=== PATIENT | female | born 1960 | race Caucasian/White ===

== ENCOUNTER 2016-10-02 17:00 | Observation (INO) ==
[2016-10-02 18:40] LABS: Basophils % 0.3 %; Eosinophils # 0.3 K/mcL (0.0-0.6); Eosinophils % 2.2 %; Hematocrit 46.9 % (35.3-44.9); Hemoglobin 15.3 g/dL (11.5-15.4); Immature Granulocytes % 0.4 % (0-4); Lymphocytes # 2.7 K/mcL (0.6-4.6); Lymphocytes % 19.9 %; Mean Corpuscular HGB Conc 32.6 g/dL (31.6-35.5); Mean Corpuscular Hemoglobin 31.5 pg (28.0-33.3); Mean Corpuscular Volume 96.7 fL (83.0-100.0); Monocytes # 1.2 K/mcL (0.0-1.3); Monocytes % 8.6 %; Neutrophils # 9.3 K/mcL (1.6-8.9); Platelet Count 332 K/mcL (140-400); Red Blood Count 4.85 M/mcL (3.82-4.97); Red Cell Distribution Width 13.3 % (11.5-14.5); Segmented Neutrophils % 68.6 %
[2016-10-02 18:45] LABS: INR 1.1; Prothrombin Time 11.6 Seconds (9.4-12.1)
[2016-10-02 18:48] LABS: Activated Partial Thrombo Time 27.2 Seconds (26.0-36.0)
--- NOTE | 2016-10-02 18:51 | Emergency Department Note ---
Disposition Clinical Impression: Tachycardia, Hypoxia Disposition: Still a Patient Referrals: NO,PCP [Primary Care Provider] - Forms: ED Satisfaction Letter Time of Disposition: 18:55 General Adult HPI - General Chief complaint: ED Arrhythmia/Palpitations Stated complaint: SOB / increase HR Time Seen by Provider: 10/02/16 18:47 Source: patient Limitations: no limitations Nursing Notes Reviewed: Yes Vital Signs Reviewed: Yes - History of Present Illness HPI Narrative: 56 year old female with HX of tachycardia and shortness of breath with hypoxia in Dr. Oleary office today. PAtinet became hypoxic to 81% and tachy into 120s. She is a long standing smoker and oxygen dependen COPD, previois MIs, CAD. Patient denies hX of PEs. She states that she is increasingly dyspneic and denies fevers, however haad a chronic cough and states that is getting worse. Associated with nausea but not vomiting. Exertion makes it worse. Sent here for evaluation to rule out PE or pnuemonia. AL with angioplasty. Pain Scale: 0 - Related Data Home Medications Medication Instructions Recorded Confirmed Clopidogrel [Plavix] 75 mg PO DAILY 06/04/15 09/09/16 Aspirin [Lo-Dose Aspirin EC] 81 mg PO QAM 04/24/16 09/09/16 Furosemide [Lasix] 20 mg PO DAILY PRN 05/29/16 09/09/16 Metoprolol XL (24 HR) Succ [Toprol 25 mg PO DAILY 05/29/16 09/09/16 Xl] Nitroglycerin [Nitrostat] 0.4 mg SL Q5M PRN 05/29/16 09/09/16 Previous Rx's Medication Instructions Recorded Pravastatin Sodium [Pravachol] 40 mg PO DAILY #30 tablet 08/01/15 Budesonide/Formoterol 160/4.5 2 puff IH BIDR #1 hfa.aer.ad 09/09/16 [Symbicort 160/4.5] Levofloxacin [Levaquin] 500 mg PO DAILY #7 tablet 09/09/16 PredniSONE 40 mg PO DAILY #10 tablet 09/09/16 Promethazine/Dextromethorphan 5 ml PO Q4-6H #240 syrup 09/09/16 [Promethazine-Dm Syrup] Allergies Allergy/AdvReac Type Severity Reaction Status Date / Time codeine Allergy Rash Verified 10/02/16 17:21 Constitutional: Reports: chills, weakness. Denies: fever, weight change Eyes: Denies: eye pain, eye discharge, vision change ENT ED: Denies: ear pain, throat pain, dental pain, hearing loss, epistaxis, congestion, dysphagia Cardiovascular: Reports: chest pain, palpitations, dyspnea on exertion. Denies : edema, syncope Respiratory: Reports: cough, dyspnea. Denies: wheezes, hemoptysis, stridor Gastrointestinal: Denies: abdominal pain, nausea, vomiting, diarrhea, constipation, hematemesis, melena, hematochezia Genitourinary: Denies: dysuria, frequency, hematuria, discharge Musculoskeletal: Denies: back pain, neck pain, arthralgia, myalgia Integumentary: Denies: rash, abrasion, lesions Neurological: Denies: headache, weakness, numbness, paresthesias, confusion, abnormal gait, vertigo Psychiatric: Denies: anxiety, depression, suicidal thoughts, homicidal thoughts , auditory hallucinations, visual hallucinations Endocrine: Denies: fatigue Hematological/Lymphatic: Denies: easy bleeding, easy bruising Allergic/Immunologic: Denies: facial swelling, urticaria Past Medical History - Past Medical History Medical history: Reports: asthma, atrial fibrillation, COPD, coronary artery disease, hyperlipidemia, myocardial infarction, other Surgical history: Reports: angioplasty/stent, cholecystectomy Psychiatric history: Reports: no psych history NURSE INTERN history: Reports: no NURSE INTERN history, bilateral tubal ligation - Social History Smoking Status: Current every day smoker Smokeless Tobacco Status: No Alcohol use: Reports: heavy Drug use: Reports: marijuana Physical Exam - General Limitations: no limitations General appearance: alert, in no apparent distress - Head Head exam: atraumatic, normocephalic, normal inspection - Eye Eye exam: Present: normal appearance, PERRL, EOMI - Expanded Eye Exam Pupils: Left: reactive - ENT ENT exam: normal exam, normal oropharynx, mucous membranes moist - Expanded ENT Exam External ear exam: Present: normal external inspection Mouth exam: Present: normal external inspection Teeth exam: Present: normal inspection Throat exam: Present: normal inspection - Neck Neck exam: Present: normal inspection, full ROM, trachea midline - Chest Chest inspection: Present: normal inspection, symmetric chest wall rise - Respiratory Respiratory exam: Present: normal lung sounds bilaterally - Cardiovascular Cardiovascular exam: Present: normal rhythm, tachycardia, normal heart sounds - Abdominal Exam Abdominal exam: Present: soft, Non-Tender. Absent: tenderness, distention, guarding, rebound, rigidity - Extremities Exam Extremities exam: Present: normal inspection, full ROM. Absent: tenderness, pedal edema - Expanded Upper Extremity Exam Shoulder exam: Present: normal inspection, full ROM Arm exam: Present: normal inspection, full ROM Elbow exam: Present: normal inspection, full ROM Forearm/Wrist exam: Present: normal inspection, full ROM Hand exam: Present: normal inspection, full ROM Vascular exam: Normal: capillary refill, radial pulse - Expanded Lower Extremity Exam Hip/Pelvis exam: Present: normal inspection, full ROM Upper leg exam: Present: normal inspection, full ROM Knee exam: Present: normal inspection, full ROM Lower leg exam: Present: normal inspection, full ROM Ankle exam: Present: normal inspection, full ROM Foot/toe exam: Present: normal inspection, full ROM Neurovascular/Tendon exam: Absent: motor deficit, sensory deficit, tendon deficit - Back Exam Back exam: Present: normal inspection, full ROM. Absent: tenderness - Neurological Exam Neurological exam: Present: alert, oriented X3 - Expanded Neurological Exam Patient oriented to: Present: person, place, time Coma Scale Eye Opening: Spontaneous Coma Scale Motor Response: Obeys Commands Coma Scale Verbal Response: Oriented Coma Scale Total: 15 - Psychiatric Psychiatric exam: Present: normal affect, normal mood - Skin Skin exam: Present: warm, dry, intact, normal color Course Course Narrative: we will do a chest pain workup in addition to r/o PE and r/o pnuemoina. CXR (-) , will order CTA chest. will sign out to night team. PLan is to admit to the medicine serivce even if CTA is neg due to hypoxia and tachycardia. May need medications to slow down HR, although does not appear to be in atrial fibrillation. Vital Signs Temperature 98.4 F 10/02/16 17:16 Pulse Rate 118 10/02/16 17:16 Respiratory Rate 18 10/02/16 17:16 Blood Pressure 119/65 10/02/16 17:16 O2 Sat by Pulse Oximetry 87 10/02/16 17:16 Temperature 98.4 F 10/02/16 17:16 Pulse Rate 118 10/02/16 17:16 Respiratory Rate 18 10/02/16 17:16 Blood Pressure 119/65 10/02/16 17:16 O2 Sat by Pulse Oximetry 98 10/02/16 18:10 Oxygen Delivery Oxygen Delivery Room Air Medical Decision Making - Lab Data Result diagrams: 10/02/16 18:24 Lab Results 10/02/16 Range/Units 18:24 WBC 13.5 H (4.3-11.1) K/mcL RBC 4.85 (3.82-4.97) M/mcL Hgb 15.3 (11.5-15.4) g/dL Hct 46.9 H (35.3-44.9) % MCV 96.7 (83.0-100.0) fL MCH 31.5 (28.0-33.3) pg MCHC 32.6 (31.6-35.5) g/dL RDW 13.3 (11.5-14.5) % Plt Count 332 (140-400) K/mcL MPV 9.0 L (9.4-12.4) fL Immature Gran % 0.4 (0-4) % Seg Neutrophils % 68.6 % Lymphocytes % 19.9 % Monocytes % 8.6 % Eosinophils % 2.2 % Basophils % 0.3 % Neutrophils # 9.3 H (1.6-8.9) K/mcL Lymphocytes # 2.7 (0.6-4.6) K/mcL Monocytes # 1.2 (0.0-1.3) K/mcL Eosinophils # 0.3 (0.0-0.6) K/mcL Basophils # 0.0 (0.0-0.2) K/mcL - EKG Data EKG #1 EKG attestation: Yes I reviewed and interpreted this EKG. EKG results narrative: sinus tachy with rate of 101. NO STEMI. normal intevals. ISABEL/LAE. nonspecific St -T changes. no change from old ekg 09/09/16 915
--- NOTE | 2016-10-02 18:51 | Emergency Department Note ---
Disposition Clinical Impression: Tachycardia, Hypoxia Disposition: Admitted As Inpatient Condition: Good General Adult HPI - General Chief complaint: ED Arrhythmia/Palpitations Stated complaint: SOB / increase HR Time Seen by Provider: 10/02/16 18:30 Source: patient Limitations: no limitations - History of Present Illness Pain Scale: 0 - Related Data Home Medications Medication Instructions Recorded Confirmed Clopidogrel [Plavix] 75 mg PO DAILY 06/04/15 10/02/16 Aspirin [Lo-Dose Aspirin EC] 81 mg PO QAM 04/24/16 10/02/16 Furosemide [Lasix] 20 mg PO DAILY 05/29/16 10/02/16 Metoprolol XL (24 HR) Succ [Toprol 25 mg PO DAILY 05/29/16 10/02/16 Xl] Nitroglycerin [Nitrostat] 0.4 mg SL Q5M PRN 05/29/16 10/02/16 Albuterol Sulfate [Ventolin Hfa] 2 puff IH Q4H PRN 10/02/16 10/02/16 Mometasone/Formoterol [Dulera 200 2 puff IH BID 10/02/16 10/02/16 Mcg/5 Mcg Inhaler] Pravastatin Sodium [Pravachol] 40 mg PO HS 10/02/16 10/02/16 Previous Rx's Medication Instructions Recorded Budesonide/Formoterol 160/4.5 2 puff IH BIDR #1 hfa.aer.ad 09/09/16 [Symbicort 160/4.5] PredniSONE 10 mg PO DAILY 12 Days 10/03/16 Allergies Allergy/AdvReac Type Severity Reaction Status Date / Time codeine Allergy Rash Verified 10/02/16 17:21 Past Medical History - Past Medical History Medical history: Reports: asthma, atrial fibrillation, COPD, coronary artery disease, hyperlipidemia, myocardial infarction, other Surgical history: Reports: angioplasty/stent, cholecystectomy Psychiatric history: Reports: no psych history CFO CONTROLLER history: Reports: no CFO CONTROLLER history, bilateral tubal ligation - Social History Smoking Status: Current every day smoker Smokeless Tobacco Status: No Alcohol use: Reports: heavy Drug use: Reports: marijuana Physical Exam - General Limitations: no limitations General appearance: alert, in no apparent distress Course Vital Signs Temperature 98.4 F 10/02/16 17:16 Pulse Rate 118 10/02/16 17:16 Respiratory Rate 18 10/02/16 17:16 Blood Pressure 119/65 10/02/16 17:16 O2 Sat by Pulse Oximetry 87 10/02/16 17:16 Temperature 97.6 F 10/03/16 07:21 Pulse Rate 100 10/03/16 07:21 Respiratory Rate 16 10/03/16 08:10 Blood Pressure 120/76 10/03/16 07:21 O2 Sat by Pulse Oximetry 95 10/03/16 08:10 Oxygen Delivery Oxygen Delivery Nasal Cannula Medical Decision Making - Lab Data Result diagrams: 10/03/16 04:05 10/03/16 04:05 Lab Results 10/02/16 10/02/16 10/02/16 Range/Units 18:24 18:24 18:24 WBC (4.3-11.1) K/mcL RBC (3.82-4.97) M/mcL Hgb (11.5-15.4) g/dL Hct (35.3-44.9) % MCV (83.0-100.0) fL MCH (28.0-33.3) pg MCHC (31.6-35.5) g/dL RDW (11.5-14.5) % Plt Count (140-400) K/mcL MPV (9.4-12.4) fL Immature Gran % (0-4) % Seg Neutrophils % % Lymphocytes % % Monocytes % % Eosinophils % % Basophils % % Neutrophils # (1.6-8.9) K/mcL Lymphocytes # (0.6-4.6) K/mcL Monocytes # (0.0-1.3) K/mcL Eosinophils # (0.0-0.6) K/mcL Basophils # (0.0-0.2) K/mcL PT 11.6 (9.4-12.1) Seconds INR 1.1 APTT 27.2 (26.0-36.0) Seconds D-Dimer 237 (0-500) ng/mLFEU Sodium (136-145) mEq/L Potassium (3.5-4.5) mEq/L Chloride (98-109) mEq/L Carbon Dioxide (19-29) mEq/L BUN (7-20) mg/dL Creatinine (0.57-1.11) mg/dL Est GFR ( Amer) (> 60) Est GFR (Non-Af Amer) (> 60) BUN/Creatinine Ratio (6-26) Glucose (70-99) mg/dL Calculated Osmolality (280-300) Calcium (8.6-10.8) mg/dL Total Bilirubin 0.5 (0.2-1.2) mg/dL Direct Bilirubin 0.2 (0.0-0.5) mg/dL Indirect Bilirubin 0.3 (0.0-1.2) mg/dL AST 14 (5-34) Units/L ALT 7 (0-55) Units/L Alkaline Phosphatase 95 (38-126) Units/L Troponin I (0-0.03) ng/mL B-Natriuretic Peptide 22 (0-100) pg/mL Serum Total Protein 7.2 (6.0-8.3) g/dL Albumin 2.8 L (3.5-5.0) g/dL Globulin 4.4 H (2.4-3.5) g/dL Albumin/Globulin Ratio 0.6 L (1.1-2.2) Lipase 23 (8-78) Units/L Urine Color (Yellow) Urine Clarity (Clear) Urine pH (5.0-8.0) pH Units Ur Specific [place] (1.010-1.025) Urine Protein (Neg-Trace) mg/dL Urine Glucose (UA) (Normal) mg/dL Urine Ketones (Negative) mg/dL Urine Blood (Negative) Urine Nitrite (Negative) Urine Bilirubin (Negative) Urine Urobilinogen (Normal) mg/dL Ur Leukocyte Esterase (Negative) Urine Microscopic RBC (0-3) per hpf Urine Microscopic WBC (0-3) per hpf Ur Squamous Epith Cells (None-Few) per lpf Urine Bacteria (None-Few) per hpf Hyaline Casts (None-Few) per lpf Ur Culture Indicated? (NO) 10/02/16 10/02/16 10/02/16 Range/Units 18:24 18:24 18:24 WBC 13.5 H (4.3-11.1) K/mcL RBC 4.85 (3.82-4.97) M/mcL Hgb 15.3 (11.5-15.4) g/dL Hct 46.9 H (35.3-44.9) % MCV 96.7 (83.0-100.0) fL MCH 31.5 (28.0-33.3) pg MCHC 32.6 (31.6-35.5) g/dL RDW 13.3 (11.5-14.5) % Plt Count 332 (140-400) K/mcL MPV 9.0 L (9.4-12.4) fL Immature Gran % 0.4 (0-4) % Seg Neutrophils % 68.6 % Lymphocytes % 19.9 % Monocytes % 8.6 % Eosinophils % 2.2 % Basophils % 0.3 % Neutrophils # 9.3 H (1.6-8.9) K/mcL Lymphocytes # 2.7 (0.6-4.6) K/mcL Monocytes # 1.2 (0.0-1.3) K/mcL Eosinophils # 0.3 (0.0-0.6) K/mcL Basophils # 0.0 (0.0-0.2) K/mcL PT (9.4-12.1) Seconds INR APTT (26.0-36.0) Seconds D-Dimer (0-500) ng/mLFEU Sodium 139 (136-145) mEq/L Potassium 3.2 L (3.5-4.5) mEq/L Chloride 98 (98-109) mEq/L Carbon Dioxide 30 H (19-29) mEq/L BUN 4 L (7-20) mg/dL Creatinine 0.75 (0.57-1.11) mg/dL Est GFR ( Amer) > 60 (> 60) Est GFR (Non-Af Amer) > 60 (> 60) BUN/Creatinine Ratio 5 L (6-26) Glucose 126 H (70-99) mg/dL Calculated Osmolality 286 (280-300) Calcium 9.0 (8.6-10.8) mg/dL Total Bilirubin (0.2-1.2) mg/dL Direct Bilirubin (0.0-0.5) mg/dL Indirect Bilirubin (0.0-1.2) mg/dL AST (5-34) Units/L ALT (0-55) Units/L Alkaline Phosphatase (38-126) Units/L Troponin I 0.00 (0-0.03) ng/mL B-Natriuretic Peptide (0-100) pg/mL Serum Total Protein (6.0-8.3) g/dL Albumin (3.5-5.0) g/dL Globulin (2.4-3.5) g/dL Albumin/Globulin Ratio (1.1-2.2) Lipase (8-78) Units/L Urine Color (Yellow) Urine Clarity (Clear) Urine pH (5.0-8.0) pH Units Ur Specific [place] (1.010-1.025) Urine Protein (Neg-Trace) mg/dL Urine Glucose (UA) (Normal) mg/dL Urine Ketones (Negative) mg/dL Urine Blood (Negative) Urine Nitrite (Negative) Urine Bilirubin (Negative) Urine Urobilinogen (Normal) mg/dL Ur Leukocyte Esterase (Negative) Urine Microscopic RBC (0-3) per hpf Urine Microscopic WBC (0-3) per hpf Ur Squamous Epith Cells (None-Few) per lpf Urine Bacteria (None-Few) per hpf Hyaline Casts (None-Few) per lpf Ur Culture Indicated? (NO) 10/02/16 Range/Units 19:17 WBC (4.3-11.1) K/mcL RBC (3.82-4.97) M/mcL Hgb (11.5-15.4) g/dL Hct (35.3-44.9) % MCV (83.0-100.0) fL MCH (28.0-33.3) pg MCHC (31.6-35.5) g/dL RDW (11.5-14.5) % Plt Count (140-400) K/mcL MPV (9.4-12.4) fL Immature Gran % (0-4) % Seg Neutrophils % % Lymphocytes % % Monocytes % % Eosinophils % % Basophils % % Neutrophils # (1.6-8.9) K/mcL Lymphocytes # (0.6-4.6) K/mcL Monocytes # (0.0-1.3) K/mcL Eosinophils # (0.0-0.6) K/mcL Basophils # (0.0-0.2) K/mcL PT (9.4-12.1) Seconds INR APTT (26.0-36.0) Seconds D-Dimer (0-500) ng/mLFEU Sodium (136-145) mEq/L Potassium (3.5-4.5) mEq/L Chloride (98-109) mEq/L Carbon Dioxide (19-29) mEq/L BUN (7-20) mg/dL Creatinine (0.57-1.11) mg/dL Est GFR ( Amer) (> 60) Est GFR (Non-Af Amer) (> 60) BUN/Creatinine Ratio (6-26) Glucose (70-99) mg/dL Calculated Osmolality (280-300) Calcium (8.6-10.8) mg/dL Total Bilirubin (0.2-1.2) mg/dL Direct Bilirubin (0.0-0.5) mg/dL Indirect Bilirubin (0.0-1.2) mg/dL AST (5-34) Units/L ALT (0-55) Units/L Alkaline Phosphatase (38-126) Units/L Troponin I (0-0.03) ng/mL B-Natriuretic Peptide (0-100) pg/mL Serum Total Protein (6.0-8.3) g/dL Albumin (3.5-5.0) g/dL Globulin (2.4-3.5) g/dL Albumin/Globulin Ratio (1.1-2.2) Lipase (8-78) Units/L Urine Color Yellow (Yellow) Urine Clarity Cloudy A (Clear) Urine pH 6.5 (5.0-8.0) pH Units Ur Specific [place] 1.016 (1.010-1.025) Urine Protein Negative (Neg-Trace) mg/dL Urine Glucose (UA) Normal (Normal) mg/dL Urine Ketones Negative (Negative) mg/dL Urine Blood Negative (Negative) Urine Nitrite Negative (Negative) Urine Bilirubin Small H (Negative) Urine Urobilinogen 4.0 H (Normal) mg/dL Ur Leukocyte Esterase Negative (Negative) Urine Microscopic RBC 0-3 (0-3) per hpf Urine Microscopic WBC 0-3 (0-3) per hpf Ur Squamous Epith Cells Many H (None-Few) per lpf Urine Bacteria None Seen (None-Few) per hpf Hyaline Casts None Seen (None-Few) per lpf Ur Culture Indicated? NO (NO) Attestation Statement - Attestation Attestation: I examined this patient and my medical decision-making was reviewed with the INTEGRATED MARKETING SPECIALIST/PA/Advanced Practice Nurse/Resident Physician. I agree with the documented findings, disposition and treatment plan as described except to the extent set forth below. Patient to the emergency department a high heart rate low pulse ox. Sent over from cardiology office. She had complained of some palpitations. History of angioplasty. Also, the chest pressure. On examination she is in no distress. Satting well on oxygen. Lungs clear. Plan. Patient tachycardic and hypoxic. Cardiac workup with PE rule out. Will be signed out to tag press operator.
[2016-10-02 18:52] LABS: BUN/Creatinine Ratio 5 (6-26); Carbon Dioxide 30 mEq/L (19-29); Chloride 98 mEq/L (98-109); Glucose 126 mg/dL (70-99); Osmolality,Calculated 286 (280-300); Potassium 3.2 mEq/L (3.5-4.5); Sodium 139 mEq/L (136-145); eGFR For African Americans > 60 (> 60); eGFR For Non-African Americans > 60 (> 60)
[2016-10-02 18:53] LABS: Blood Urea Nitrogen 4 mg/dL (7-20)
[2016-10-02 18:55] LABS: Albumin 2.8 g/dL (3.5-5.0); Albumin/Globulin Ratio 0.6 (1.1-2.2); Bilirubin,Direct 0.2 mg/dL (0.0-0.5); Bilirubin,Indirect 0.3 mg/dL (0.0-1.2); Bilirubin,Total 0.5 mg/dL (0.2-1.2); Globulin 4.4 g/dL (2.4-3.5); Total Protein 7.2 g/dL (6.0-8.3)
[2016-10-02 19:27] LABS: Bilirubin,Urine Small (Negative); Blood,Urine Negative (Negative); Clarity,Urine Cloudy (Clear); Color,Urine Yellow (Yellow); Glucose,Urine (UA) Normal (Normal); Ketones,Urine Negative (Negative); Leukocyte Esterase,Urine Negative (Negative); Nitrite,Urine Negative (Negative); PH,Urine 6.5 pH Units (5.0-8.0); Protein,Urine Negative (Neg-Trace); Specific Gravity,Urine 1.016 (1.010-1.025)
[2016-10-02 19:34] LABS: Bacteria,Urine None Seen per hpf (None-Few); Hyaline Casts,Urine None Seen per lpf (None-Few); RBC,Urine 0-3 per hpf (0-3); Squamous Epithelial Cell,Urine Many per lpf (None-Few); WBC,Urine 0-3 per hpf (0-3)
--- NOTE | 2016-10-02 20:09 | Emergency Department Note ---
Disposition Clinical Impression: Tachycardia, Hypoxia Disposition: Still a Patient Referrals: NO,PCP [Primary Care Provider] - Forms: ED Satisfaction Letter Arrhythmia/Palpitations HPI - General Chief Complaint: ED Arrhythmia/Palpitations Stated Complaint: SOB / increase HR Time Seen by Provider: 10/02/16 20:06 Source: patient Limitations: no limitations - Related Data Home Medications Medication Instructions Recorded Confirmed Clopidogrel [Plavix] 75 mg PO DAILY 06/04/15 09/09/16 Aspirin [Lo-Dose Aspirin EC] 81 mg PO QAM 04/24/16 09/09/16 Furosemide [Lasix] 20 mg PO DAILY PRN 05/29/16 09/09/16 Metoprolol XL (24 HR) Succ [Toprol 25 mg PO DAILY 05/29/16 09/09/16 Xl] Nitroglycerin [Nitrostat] 0.4 mg SL Q5M PRN 05/29/16 09/09/16 Previous Rx's Medication Instructions Recorded Pravastatin Sodium [Pravachol] 40 mg PO DAILY #30 tablet 08/01/15 Budesonide/Formoterol 160/4.5 2 puff IH BIDR #1 hfa.aer.ad 09/09/16 [Symbicort 160/4.5] Levofloxacin [Levaquin] 500 mg PO DAILY #7 tablet 09/09/16 PredniSONE 40 mg PO DAILY #10 tablet 09/09/16 Promethazine/Dextromethorphan 5 ml PO Q4-6H #240 syrup 09/09/16 [Promethazine-Dm Syrup] Allergies Allergy/AdvReac Type Severity Reaction Status Date / Time codeine Allergy Rash Verified 10/02/16 17:21 Constitutional: Reports: chills, weakness. Denies: fever, weight change Eyes: Denies: eye pain, eye discharge, vision change ENT ED: Denies: ear pain, throat pain, dental pain, hearing loss, epistaxis, congestion, dysphagia Cardiovascular: Reports: chest pain, palpitations, dyspnea on exertion. Denies : edema, syncope Respiratory: Reports: cough, dyspnea. Denies: wheezes, hemoptysis, stridor Gastrointestinal: Denies: abdominal pain, nausea, vomiting, diarrhea, constipation, hematemesis, melena, hematochezia Genitourinary: Denies: dysuria, frequency, hematuria, discharge Musculoskeletal: Denies: back pain, neck pain, arthralgia, myalgia Integumentary: Denies: rash, abrasion, lesions Neurological: Denies: headache, weakness, numbness, paresthesias, confusion, abnormal gait, vertigo Psychiatric: Denies: anxiety, depression, suicidal thoughts, homicidal thoughts , auditory hallucinations, visual hallucinations Endocrine: Denies: fatigue Hematological/Lymphatic: Denies: easy bleeding, easy bruising Allergic/Immunologic: Denies: facial swelling, urticaria Past Medical History - Past Medical History Medical history: Reports: asthma, atrial fibrillation, COPD, coronary artery disease, hyperlipidemia, myocardial infarction, other Surgical history: Reports: angioplasty/stent, cholecystectomy Psychiatric history: Reports: no psych history PUBLIC RELATIONS PLAYER history: Reports: no PUBLIC RELATIONS PLAYER history, bilateral tubal ligation - Social History Smoking Status: Current every day smoker Smokeless Tobacco Status: No Alcohol use: Reports: heavy Drug use: Reports: marijuana Physical Exam - General Limitations: no limitations General appearance: alert, in no apparent distress Course - Reevaluation(s) Reevaluation #1: Patient signed out from the daytime team. The patient presented from the rewrite editor's office for hypoxia and tachycardia. Plan was to rule out PE or pneumonia. CTA of the chest is back and is negative for PE but does show some inflammatory versus infectious. Pulmonary nodules. Plan is to admit the patient for hypoxia and tachycardia. Patient is home O2 dependent for COPD and this could likely be related to COPD exacerbation. We will page the hospitalist for admission. Time: 20:08 Vital Signs Temperature 98.4 F 10/02/16 17:16 Pulse Rate 118 10/02/16 17:16 Respiratory Rate 18 10/02/16 17:16 Blood Pressure 119/65 10/02/16 17:16 O2 Sat by Pulse Oximetry 87 10/02/16 17:16 Temperature 98.4 F 10/02/16 17:16 Pulse Rate 98 10/02/16 20:00 Respiratory Rate 20 10/02/16 20:00 Blood Pressure 123/83 10/02/16 20:00 O2 Sat by Pulse Oximetry 96 10/02/16 20:00 Oxygen Delivery Oxygen Delivery Nasal Cannula Arrhythmia/Palpitations - Lab Data Result diagrams: 10/02/16 18:24 10/02/16 18:24 Lab Results 04/12/17 04/12/17 04/12/17 Range/Units 18:24 18:24 18:24 WBC (4.3-11.1) K/mcL RBC (3.82-4.97) M/mcL Hgb (11.5-15.4) g/dL Hct (35.3-44.9) % MCV (83.0-100.0) fL MCH (28.0-33.3) pg MCHC (31.6-35.5) g/dL RDW (11.5-14.5) % Plt Count (140-400) K/mcL MPV (9.4-12.4) fL Immature Gran % (0-4) % Seg Neutrophils % % Lymphocytes % % Monocytes % % Eosinophils % % Basophils % % Neutrophils # (1.6-8.9) K/mcL Lymphocytes # (0.6-4.6) K/mcL Monocytes # (0.0-1.3) K/mcL Eosinophils # (0.0-0.6) K/mcL Basophils # (0.0-0.2) K/mcL PT 11.6 (9.4-12.1) Seconds INR 1.1 APTT 27.2 (26.0-36.0) Seconds D-Dimer 237 (0-500) ng/mLFEU Sodium (136-145) mEq/L Potassium (3.5-4.5) mEq/L Chloride (98-109) mEq/L Carbon Dioxide (19-29) mEq/L BUN (7-20) mg/dL Creatinine (0.57-1.11) mg/dL Est GFR ( Amer) (> 60) Est GFR (Non-Af Amer) (> 60) BUN/Creatinine Ratio (6-26) Glucose (70-99) mg/dL Calculated Osmolality (280-300) Calcium (8.6-10.8) mg/dL Total Bilirubin 0.5 (0.2-1.2) mg/dL Direct Bilirubin 0.2 (0.0-0.5) mg/dL Indirect Bilirubin 0.3 (0.0-1.2) mg/dL AST 14 (5-34) Units/L ALT 7 (0-55) Units/L Alkaline Phosphatase 95 (38-126) Units/L Troponin I (0-0.03) ng/mL B-Natriuretic Peptide 22 (0-100) pg/mL Serum Total Protein 7.2 (6.0-8.3) g/dL Albumin 2.8 L (3.5-5.0) g/dL Globulin 4.4 H (2.4-3.5) g/dL Albumin/Globulin Ratio 0.6 L (1.1-2.2) Lipase 23 (8-78) Units/L Urine Color (Yellow) Urine Clarity (Clear) Urine pH (5.0-8.0) pH Units Ur Specific [place] (1.010-1.025) Urine Protein (Neg-Trace) mg/dL Urine Glucose (UA) (Normal) mg/dL Urine Ketones (Negative) mg/dL Urine Blood (Negative) Urine Nitrite (Negative) Urine Bilirubin (Negative) Urine Urobilinogen (Normal) mg/dL Ur Leukocyte Esterase (Negative) Urine Microscopic RBC (0-3) per hpf Urine Microscopic WBC (0-3) per hpf Ur Squamous Epith Cells (None-Few) per lpf Urine Bacteria (None-Few) per hpf Hyaline Casts (None-Few) per lpf Ur Culture Indicated? (NO) 10/02/16 10/02/16 10/02/16 Range/Units 18:24 18:24 18:24 WBC 13.5 H (4.3-11.1) K/mcL RBC 4.85 (3.82-4.97) M/mcL Hgb 15.3 (11.5-15.4) g/dL Hct 46.9 H (35.3-44.9) % MCV 96.7 (83.0-100.0) fL MCH 31.5 (28.0-33.3) pg MCHC 32.6 (31.6-35.5) g/dL RDW 13.3 (11.5-14.5) % Plt Count 332 (140-400) K/mcL MPV 9.0 L (9.4-12.4) fL Immature Gran % 0.4 (0-4) % Seg Neutrophils % 68.6 % Lymphocytes % 19.9 % Monocytes % 8.6 % Eosinophils % 2.2 % Basophils % 0.3 % Neutrophils # 9.3 H (1.6-8.9) K/mcL Lymphocytes # 2.7 (0.6-4.6) K/mcL Monocytes # 1.2 (0.0-1.3) K/mcL Eosinophils # 0.3 (0.0-0.6) K/mcL Basophils # 0.0 (0.0-0.2) K/mcL PT (9.4-12.1) Seconds INR APTT (26.0-36.0) Seconds D-Dimer (0-500) ng/mLFEU Sodium 139 (136-145) mEq/L Potassium 3.2 L (3.5-4.5) mEq/L Chloride 98 (98-109) mEq/L Carbon Dioxide 30 H (19-29) mEq/L BUN 4 L (7-20) mg/dL Creatinine 0.75 (0.57-1.11) mg/dL Est GFR ( Amer) > 60 (> 60) Est GFR (Non-Af Amer) > 60 (> 60) BUN/Creatinine Ratio 5 L (6-26) Glucose 126 H (70-99) mg/dL Calculated Osmolality 286 (280-300) Calcium 9.0 (8.6-10.8) mg/dL Total Bilirubin (0.2-1.2) mg/dL Direct Bilirubin (0.0-0.5) mg/dL Indirect Bilirubin (0.0-1.2) mg/dL AST (5-34) Units/L ALT (0-55) Units/L Alkaline Phosphatase (38-126) Units/L Troponin I 0.00 (0-0.03) ng/mL B-Natriuretic Peptide (0-100) pg/mL Serum Total Protein (6.0-8.3) g/dL Albumin (3.5-5.0) g/dL Globulin (2.4-3.5) g/dL Albumin/Globulin Ratio (1.1-2.2) Lipase (8-78) Units/L Urine Color (Yellow) Urine Clarity (Clear) Urine pH (5.0-8.0) pH Units Ur Specific [place] (1.010-1.025) Urine Protein (Neg-Trace) mg/dL Urine Glucose (UA) (Normal) mg/dL Urine Ketones (Negative) mg/dL Urine Blood (Negative) Urine Nitrite (Negative) Urine Bilirubin (Negative) Urine Urobilinogen (Normal) mg/dL Ur Leukocyte Esterase (Negative) Urine Microscopic RBC (0-3) per hpf Urine Microscopic WBC (0-3) per hpf Ur Squamous Epith Cells (None-Few) per lpf Urine Bacteria (None-Few) per hpf Hyaline Casts (None-Few) per lpf Ur Culture Indicated? (NO) 10/02/16 Range/Units 19:17 WBC (4.3-11.1) K/mcL RBC (3.82-4.97) M/mcL Hgb (11.5-15.4) g/dL Hct (35.3-44.9) % MCV (83.0-100.0) fL MCH (28.0-33.3) pg MCHC (31.6-35.5) g/dL RDW (11.5-14.5) % Plt Count (140-400) K/mcL MPV (9.4-12.4) fL Immature Gran % (0-4) % Seg Neutrophils % % Lymphocytes % % Monocytes % % Eosinophils % % Basophils % % Neutrophils # (1.6-8.9) K/mcL Lymphocytes # (0.6-4.6) K/mcL Monocytes # (0.0-1.3) K/mcL Eosinophils # (0.0-0.6) K/mcL Basophils # (0.0-0.2) K/mcL PT (9.4-12.1) Seconds INR APTT (26.0-36.0) Seconds D-Dimer (0-500) ng/mLFEU Sodium (136-145) mEq/L Potassium (3.5-4.5) mEq/L Chloride (98-109) mEq/L Carbon Dioxide (19-29) mEq/L BUN (7-20) mg/dL Creatinine (0.57-1.11) mg/dL Est GFR ( Amer) (> 60) Est GFR (Non-Af Amer) (> 60) BUN/Creatinine Ratio (6-26) Glucose (70-99) mg/dL Calculated Osmolality (280-300) Calcium (8.6-10.8) mg/dL Total Bilirubin (0.2-1.2) mg/dL Direct Bilirubin (0.0-0.5) mg/dL Indirect Bilirubin (0.0-1.2) mg/dL AST (5-34) Units/L ALT (0-55) Units/L Alkaline Phosphatase (38-126) Units/L Troponin I (0-0.03) ng/mL B-Natriuretic Peptide (0-100) pg/mL Serum Total Protein (6.0-8.3) g/dL Albumin (3.5-5.0) g/dL Globulin (2.4-3.5) g/dL Albumin/Globulin Ratio (1.1-2.2) Lipase (8-78) Units/L Urine Color Yellow (Yellow) Urine Clarity Cloudy A (Clear) Urine pH 6.5 (5.0-8.0) pH Units Ur Specific [place] 1.016 (1.010-1.025) Urine Protein Negative (Neg-Trace) mg/dL Urine Glucose (UA) Normal (Normal) mg/dL Urine Ketones Negative (Negative) mg/dL Urine Blood Negative (Negative) Urine Nitrite Negative (Negative) Urine Bilirubin Small H (Negative) Urine Urobilinogen 4.0 H (Normal) mg/dL Ur Leukocyte Esterase Negative (Negative) Urine Microscopic RBC 0-3 (0-3) per hpf Urine Microscopic WBC 0-3 (0-3) per hpf Ur Squamous Epith Cells Many H (None-Few) per lpf Urine Bacteria None Seen (None-Few) per hpf Hyaline Casts None Seen (None-Few) per lpf Ur Culture Indicated? NO (NO) S.B.A.R. - S.B.A.R. Situation: Demographics, MOA Background: Presenting Complaint, Relevant PMH, Meds, & Allergies Assessment: Vital Signs, Course and respsone to treatment, Exam Concerns, Patient/Family Expectation, Pertinant Lab Results, Outstanding Labs Recommendation: Recommendation based on pending studies, treatments, or consults S.B.A.R. Report Given to: Dr. Buck S.B.A.RAudrey Repor Time: 20:14 (requested tele) Attestation Statement - Attestation Attestation: I, Ponce Friedman MD, personally performed a history and physical exam of the patient and discussed their management with the resident. I reviewed the resident's note and agree with the documented findings, medical decision making , and plan of care. This patient was signed out at shift change from Dr. Vicente and Dr. Cardenas. Please refer to their notes for complete details of the history and physical examination. At shift change the patient is awaiting results of the CTA to rule out pulmonary embolism and will need to be admitted for increased shortness of breath associated with tachycardia and hypoxia. On examination patient is a thin female in no acute distress. She is alert and oriented 3. There is no cyanosis or diaphoresis. Breath sounds are decreased bilaterally with a few scattered expiratory wheezes. No rales noted. Heart tachycardic and regular. Labs reviewed. No evidence of pulmonary embolism on CTA. The hospitalist, Dr. Buck, was consulted and accepted admission of the patient. He requested telemetry.
[2016-10-02] MEDS ORDERED: Naloxone 0.4 MG/ML INJ IVP PRN (23:13)
[2016-10-02] MEDS ORDERED: Nitroglycerin 0.4 MG TAB.SUBL SL PRN (23:16)
--- NOTE | 2016-10-02 23:25 | Internal Med History&Physical ---
Date of Encounter: 10/02/16 Time of Encounter: 23:20 Assessment and Plan (1) Acute and chronic respiratory failure Current visit: Yes Status: Acute she has chronic respiratory failure at baseline requiring 2L/min of home oxygen , she still actively smokes almost 2 packs per day of cigarette, she is significantly emaciated with an unhealthy BMI, this constellation of signs and symptoms leads me to believe that she has end stage COPD and may require more oxygen than her current 2L, she will also benefit for pulmonary rehab, malignancy however cannot be ruled out, CTA reported no pulmonary embolus but mentioned micronodules at the right upper lobe, she will benefit from pulmonology followup as outpatient if her symptoms are controlled, inpatient will be medically necessary if she deteriorates whilst on admission Qualifiers: Respiratory failure complication: hypoxia Qualified Code(s): J96.21 - Acute and chronic respiratory failure with hypoxia (2) Hypokalemia Current visit: Yes Status: Acute from inadequate intake vs cellular shifts, we will replace and follow BMP (3) COPD (chronic obstructive pulmonary disease) Current visit: Yes Status: Chronic we will continue her neb regimen, supplemental oxygen and continue to encourage smoking cessation Qualifiers: COPD type: chronic bronchitis Chronic bronchitis type: simple Qualified Code(s): J41.0 - Simple chronic bronchitis (4) Tobacco abuse Current visit: Yes Status: Chronic will encourage smoking cessation (5) Afib Current visit: Yes Status: Chronic she is on metoprolol for rate control, we will monitor Qualifiers: Atrial fibrillation type: paroxysmal Qualified Code(s): I48.0 - Paroxysmal atrial fibrillation Internal Medicine - H&P: HPI Chief complaint: worsening shortness of breath Admitted From: Emergency Dept Plans for Post Hospital Care: Home History of present illness: Ms. Honeycutt is a 56 year old female with a history of paroxysmal AFIB/chronic respiratory failure requiring home oxygen at 2L/min was sent here from her japanese tutor's office for low pulse ox reading and fast heart rate. She reports that for the past one week her baseline shortness of breath from COPD has worsened. This has been associated with easy fatigability, dyspnea on exertion and generalized weakness. She went to see her japanese tutor, when she mentioned these complaints the japanese tutor thought she will benefit from further evaluation so she was brought to the ER of [facility] mainly for pulmonary embolism rule out. In the ER she was found to be hypoxic at 87%c on 3L/min of oxygen. Chest CTA was unremarkable for pulmonary embolism. She is being admitted for her worsening chronic respiratory failure. Past Med Surg Social Fam HX - Past Medical History Medical history: asthma, atrial fibrillation, COPD, coronary artery disease, hyperlipidemia, myocardial infarction, other Psychiatric history: no psych history - Past Surgical History Surgical History: angioplasty/stent, cholecystectomy - Social History Smoking Status: Current every day smoker Smokeless Tobacco Status: No Alcohol use: heavy Drug use: marijuana - Family History Father Hx Family Respiratory Disorders: Yes Hx Family Cancer: Yes (Lung cancer) Hx Family Endocrine Disorder: Yes Diabetes diabetes Hx Family Cardiac Disorders: Yes (Hypertension) Hx Family Respiratory Disorders: Yes Hx Family Cancer: Yes (Lung cancer) Hx Family Endocrine Disorder: Yes (Diabetes) Sister Hx Family Endocrine Disorder: Yes (Diabetes) Mother Hx Family Cardiac Disorders: Yes Hx Family Respiratory Disorders: No Hx Family Cancer: Yes Internal Medicine - H&P: Meds Clopidogrel [Plavix] 75 mg PO DAILY 06/04/15 [History] Aspirin [Lo-Dose Aspirin EC] 81 mg PO QAM 04/24/16 [History] Furosemide [Lasix] 20 mg PO DAILY 05/29/16 [History] Metoprolol XL (24 HR) Succ [Toprol Xl] 25 mg PO DAILY 05/29/16 [History] Nitroglycerin [Nitrostat] 0.4 mg SL Q5M PRN 05/29/16 [History] Budesonide/Formoterol 160/4.5 [Symbicort 160/4.5] 2 puff IH BIDR #1 hfa.aer.ad 09/09/16 [Rx] Albuterol Sulfate [Ventolin Hfa] 2 puff IH Q4H PRN 10/02/16 [History] Mometasone/Formoterol [Dulera 200 Mcg/5 Mcg Inhaler] 2 puff IH BID 10/02/16 [ History] Pravastatin Sodium [Pravachol] 40 mg PO HS 10/02/16 [History] Allergies codeine Allergy (Verified 10/02/16 17:21) Rash All Systems PM: Constitutional: Reports: chills, weakness. Denies: fever, weight change Eyes: Denies: eye pain, eye discharge, vision change ENT ED: Denies: ear pain, throat pain, dental pain, hearing loss, epistaxis, congestion, dysphagia Cardiovascular: Reports: chest pain, palpitations, dyspnea on exertion. Denies : edema, syncope Respiratory: Reports: cough, dyspnea. Denies: wheezes, hemoptysis, stridor Gastrointestinal: Denies: abdominal pain, nausea, vomiting, diarrhea, constipation, hematemesis, melena, hematochezia Genitourinary: Denies: dysuria, frequency, hematuria, discharge Musculoskeletal: Denies: back pain, neck pain, arthralgia, myalgia Integumentary: Denies: rash, abrasion, lesions Neurological: Denies: headache, weakness, numbness, paresthesias, confusion, abnormal gait, vertigo Psychiatric: Denies: anxiety, depression, suicidal thoughts, homicidal thoughts , auditory hallucinations, visual hallucinations Endocrine: Denies: fatigue Hematological/Lymphatic: Denies: easy bleeding, easy bruising Allergic/Immunologic: Denies: facial swelling, urticaria - Constitutional Vitals: Temp Pulse Resp BP Pulse Ox 97.9 F 102 16 146/85 93 10/02/16 21:22 10/02/16 21:22 10/02/16 21:22 10/02/16 21:22 10/02/16 21:22 PHYSICAL EXAMINATION: GENERAL: Adult female, cachectic looking, Alert, in mild acute distress, HEENT: NC/AT, EOMI, PERRLA, anicteric sclera, normal conjunctiva, supple, clear nares, moist mucous membranes, clear oropharynx, central uvula RESP: no chest wall tenderness with palpation, lungs are clear to auscultation bilaterally, good AE bilaterally, No crackles or wheeze CARDIO: Normal heart sounds; S1 and 2, RRR with no murmurs, no ankle edema GI: Soft, full, no tenderness, no organomegaly felt, normal bowel sounds heard MUSCULOSKELETAL: grossly normal movements bilaterally, no deformities noted, no calf tenderness EXTREMITIES: No clubbing, cyanosis or edema, NEUROLOGIC: CN 2-12 intact grossly. No motor/sensory deficit appreciated, PSYCHIATRY: AAO x 3. Mood is fair, SKIN: no skin rash or ulcers noted Internal Med - H&P Results - Labs CBC & Chem 7: 10/03/16 04:05 10/02/16 18:24 - EKG Data -: EKG Interpreted by Myself - Diagnostic Studies Chest x-ray Status: image reviewed by me CT scan - chest Status: image reviewed by me
[2016-10-03] MEDS ORDERED: Potassium Chloride Elixir 20 MEQ/15 ML UDC PO ONE (00:08)
[2016-10-03 04:47] LABS: Basophils % 0.4 %; Eosinophils # 0.3 K/mcL (0.0-0.6); Eosinophils % 2.9 %; Immature Granulocytes % 0.4 % (0-4); Lymphocytes # 2.8 K/mcL (0.6-4.6); Lymphocytes % 25.5 %; Mean Corpuscular HGB Conc 31.9 g/dL (31.6-35.5); Mean Corpuscular Hemoglobin 31.6 pg (28.0-33.3); Mean Corpuscular Volume 98.9 fL (83.0-100.0); Mean Platelet Volume 9.1 fL (9.4-12.4); Monocytes # 1.2 K/mcL (0.0-1.3); Neutrophils # 6.5 K/mcL (1.6-8.9); Platelet Count 329 K/mcL (140-400); Red Blood Count 4.75 M/mcL (3.82-4.97); Red Cell Distribution Width 13.3 % (11.5-14.5); Segmented Neutrophils % 59.8 %
[2016-10-03 04:56] LABS: BUN/Creatinine Ratio 6 (6-26); Calcium 8.9 mg/dL (8.6-10.8); Carbon Dioxide 35 mEq/L (19-29); Chloride 98 mEq/L (98-109); Glucose 94 mg/dL (70-99); Magnesium 1.9 mg/dL (1.6-2.6); Osmolality,Calculated 283 (280-300); Phosphorous 4.3 mg/dL (2.3-4.7); Sodium 138 mEq/L (136-145); eGFR For African Americans > 60 (> 60); eGFR For Non-African Americans > 60 (> 60)
[2016-10-03 05:06] LABS: Blood Urea Nitrogen 4 mg/dL (7-20)
[2016-10-03] MEDS ORDERED: *HR* Heparin 5,000 UNIT/ML VIAL SQ SCH ×2 (06:00)
[2016-10-03 07:23] VITALS: BP 120/76
[2016-10-03] MEDS ORDERED: Metoprolol XL (24 HR) Succ 25 MG TAB.ER.24H PO SCH (09:00)
[2016-10-03] MEDS ORDERED: Aspirin Enteric Coated 81 MG Tablet PO SCH (09:00)
[2016-10-03] MEDS ORDERED: Acetaminophen 325 MG TABLET PO PRN (09:40)
[2016-10-03] MEDS ORDERED: Budesonide/Formoterol 160/4.5 MDI IH SCH (10:00)
[2016-10-03] MEDS ORDERED: Ipratropium/Albuterol Neb 3 ML IH SCH (10:00)
--- NOTE | 2016-10-03 11:09 | Discharge Summary ---
Date of Encounter: 10/03/16 Time of Encounter: 11:07 - Discharge Diagnosis (1) Acute and chronic respiratory failure Priority: Primary Status: Acute Qualifiers: Respiratory failure complication: hypoxia Qualified Code(s): J96.21 - Acute and chronic respiratory failure with hypoxia (2) Afib Priority: Secondary Status: Chronic Qualifiers: Atrial fibrillation type: paroxysmal Qualified Code(s): I48.0 - Paroxysmal atrial fibrillation (3) COPD (chronic obstructive pulmonary disease) Priority: Secondary Status: Chronic Qualifiers: COPD type: chronic bronchitis Chronic bronchitis type: simple Qualified Code(s): J41.0 - Simple chronic bronchitis (4) Hypokalemia Priority: Secondary Status: Acute (5) Tobacco abuse Priority: Secondary Status: Chronic - Discharge Medications Prescriptions: PredniSONE 10 mg PO DAILY 12 Days Home Medications: Clopidogrel [Plavix] 75 mg PO DAILY 06/04/15 [History] Aspirin [Lo-Dose Aspirin EC] 81 mg PO QAM 04/24/16 [History] Furosemide [Lasix] 20 mg PO DAILY 05/29/16 [History] Metoprolol XL (24 HR) Succ [Toprol Xl] 25 mg PO DAILY 05/29/16 [History] Nitroglycerin [Nitrostat] 0.4 mg SL Q5M PRN 05/29/16 [History] Budesonide/Formoterol 160/4.5 [Symbicort 160/4.5] 2 puff IH BIDR #1 hfa.aer.ad 09/09/16 [Rx] Albuterol Sulfate [Ventolin Hfa] 2 puff IH Q4H PRN 10/02/16 [History] Mometasone/Formoterol [Dulera 200 Mcg/5 Mcg Inhaler] 2 puff IH BID 10/02/16 [ History] Pravastatin Sodium [Pravachol] 40 mg PO HS 10/02/16 [History] PredniSONE 10 mg PO DAILY 12 Days 10/03/16 [Rx] Allergies/Adverse Reactions: Allergies codeine Allergy (Verified 10/02/16 17:21) Rash Date of admission: 10/02/16 23:13 Primary care physician: PCP NO Discharging clinician: Kwadwo Mcdonald Anticipated date of discharge: 10/03/16 - Patient Status Disposition: Home, Self-Care Condition: Good Functional capacity at discharge: independent ambulation Overall status at discharge: patient is progressing back to baseline - Discharge Instructions Instructions: Acute Respiratory Distress Syndrome (DC), Chronic Obstructive Pulmonary Disease (DC) Follow Up With: Love Ariza MD [Partnered Physician] - 10/09/16 2:30 pm Trisha White DO [Resident] - 11/26/16 9:00 am Additional Instructions: Follow-up with pulmonology in 1-2 weeks for COPD - Diet and Activity Activity: resume usual activities as tolerated, wear oxygen at all times Diet: advance to your usual diet Hospital course: Ms. Honeycutt is a 56 year old female patient who has a history of COPD and acute respiratory failure on chronic respiratory failure. She was treated for this with bronchodilator nebs. Patient likely has end-stage COPD. This morning she is doing much better. She is not wheezing and her breathing is much improved. She is stable for discharge and will follow up with pulmonology after discharge for further management of her COPD. - Time Spent with Patient Total time spent providing and/or coordinating discharge services: Less than 30 minutes (25 min) - Constitutional Vitals: Temp Pulse Resp BP Pulse Ox 97.6 F 100 16 120/76 95 10/03/16 07:21 10/03/16 07:21 10/03/16 08:10 10/03/16 07:21 10/03/16 08:10 General appearance: Present: cooperative, A&O X 3, underweight, answers questions appropriately - Respiratory Respiratory exam: Present: decreased breath sounds, prolonged expiratory phase. Absent: accessory muscle use, rales, rhonchi, wheezes - Cardiovascular Cardiovascular exam: Present: RRR, +S1, +S2. Absent: diastolic murmur, gallop, rubs, systolic murmur - GI/Abdominal GI/Abdominal exam: Present: normal bowel sounds, soft, no peritoneal signs. Absent: distended, tenderness - Extremities Exam Extremities exam: Present: warm, radial pulses palpable and symetrical. Absent : calf tenderness, cyanotic, pedal edema - Attending Attestation This document has been at least partially created by [employer] recognition technology by Dr. Mcdonald. Errors in grammar, wording or other phrases may exist. If errors are found after the documentation is signed, they will be addressed individually in the addendum section of this document when appropriate.
--- NOTE | 2016-10-03 12:18 | Electrocardiograph Report ---
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
== END 2016-10-03 12:10 | disposition home or self-care (01) ==
LOC: EMEROO 17:00 → 3BNU 17:00 → SUATTDRO 23:13
PROVIDERS: ADMIT Internal Medicine; ATTEND Internal Medicine

== ENCOUNTER 2017-03-29 12:35 | Observation (INO) ==
[2017-03-29] MEDS ORDERED: Naloxone 0.4 MG/ML INJ IVP PRN (15:58)
[2017-03-29] MEDS ORDERED: Nitroglycerin 0.4 MG TAB.SUBL SL PRN (16:02)
--- NOTE | 2017-03-29 16:20 | Internal Med History&Physical ---
Date of Encounter: 03/29/17 Time of Encounter: 16:08 Assessment and Plan (1) ACS (acute coronary syndrome) Current visit: Yes Status: Acute Patient has history of prior KS requiring stents. Presents today with chief complaint of chest pain that is worse with exertion and unresponsive to SL nitroglycerin. Chest pain continues, she is hemodynamically stable, she will troponin -0.00. Continue to rule out KS. Serial troponins Continuous tele Will refrain from stressing as most recent stress in 12/2016 was negative for ischemia. Echo 06/07 with preserved EF (2) COPD (chronic obstructive pulmonary disease) Current visit: No Status: Chronic No acute exacerbation. Not currently expressing any shortness of breath above her baseline. Qualifiers: COPD type: chronic bronchitis Chronic bronchitis type: simple Qualified Code(s): J41.0 - Simple chronic bronchitis (3) Coronary artery disease Current visit: Yes Status: Chronic H/o prior KS requiring stent placement. Most recent stress in 01/06 negative for ischemia. Continue ASA, plavix BB and Statin Qualifiers: Coronary Disease-Associated Artery/Lesion type: [place] artery [place] vs. transplanted heart: [place] heart Associated angina: with unspecified angina Qualified Code(s): I25.119 - Atherosclerotic heart disease of [place] coronary artery with unspecified angina pectoris (4) Afib Current visit: Yes Status: Chronic History of chronic peritonsillar A. fib, sinus rhythm at this time. Qualifiers: Atrial fibrillation type: paroxysmal Qualified Code(s): I48.0 - Paroxysmal atrial fibrillation (5) Tobacco abuse Current visit: Yes Status: Acute Continues to smoke. No interest in smoking cessation at this time. (6) Fatigue Current visit: Yes Status: Acute Acute fatigue with unintentional weight loss greater than 10lbs within the last 4-6 weeks. She admits to a significant decrease in appetite. However review of chart reveals a weight gain since 01/06. She does not appear acutely ill but d/t h/o lung masses, tobacco abuse and family h/o cancer she needs cancer screening. Never had colonoscopy, last mammogram greater than 6 years. Will f/ u outpatient with GI, Pulmonary and PCP to schedule mammogram, repeat CT, and colonoscopy. To be scheduled prior to discharge. Qualifiers: Qualified Code(s): R53.83 - Other fatigue (7) DVT prophylaxis Current visit: No Status: Acute lovenox 30mg SC daily Internal Medicine - H&P: HPI Chief complaint: Chest pain, 10 pound weight loss in last 4-6 weeks Admitted From: Home Plans for Post Hospital Care: Home History of present illness: Ms. Honeycutt is a 56 year old female who is occurring every day smoker with a PMH of with a PMH of COPD, emphysema, asthma, A. fib, CAD, HLD, and KS with stent placement. She presents to [facility] with a chief concern for continuous dull and burning midsternal chest pain with radiation between her shoulder blades which began this morning while out running errands with her family. Admits to worsening of chest pain with activity, but denies exertional dyspnea. She reports that she took one sublingual nitroglycerin and achieved minimal relief however the chest pain returned approximately 10-15 minutes later. She continues to endorse chest pain however denies shortness of breath above her baseline, denies swelling of bilateral lower extremities, pleuritic pain, new cough, palpitations, dizziness, or syncopal like symptoms. Patient has a history of KS with stent placement and atrial fibrillation, she is currently on aspirin and Plavix. Upon my exam she appears to be in no distress , is conversational without dyspnea, RRR, S1, S2, no edema noted. Additionally she reports a greater than 10 pound weight loss over the last 4-6 weeks accompanied with a decrease in appetite, fatigue, fevers, and weakness. The patient reports that she has been smoking marijuana to increase her appetite because otherwise she would not have an appetite at all. She states she has been under a lot of stress but did not elaborate. She denies ever having had a colonoscopy or EGD. Last mammogram 6 years ago. Does have a history of pulmonary nodules which is being followed by pulmonology, last CAT scan 2016, lung nodules revealed no changes. CBC is unremarkable,CMP Unremarkable, troponin negative at 0.00, chest x-ray no acute pulmonary process. Past Med Surg Social Fam HX - Past Medical History Medical history: asthma, atrial fibrillation, COPD, coronary artery disease, hyperlipidemia, myocardial infarction, other Psychiatric history: no psych history - Past Surgical History Surgical History: angioplasty/stent, cholecystectomy - Social History Smoking Status: Current every day smoker Packs per day: 2 Smokeless Tobacco Status: No Alcohol use: occasionally Drug use: marijuana - Family History Father Living Status: Hx Family Respiratory Disorders: Yes Hx Family Cancer: Yes (Lung cancer) Hx Family Endocrine Disorder: Yes Diabetes diabetes Hx Family Cardiac Disorders: Yes (Hypertension) Hx Family Respiratory Disorders: Yes Hx Family Cancer: Yes (Lung cancer) Hx Family Endocrine Disorder: Yes (Diabetes) Sister Living Status: Hx Family Cancer: Yes Hx Family Endocrine Disorder: Yes (Diabetes) Mother Living Status: Hx Family Cardiac Disorders: Yes Hx Family Respiratory Disorders: No Hx Family Cancer: Yes Hx Family GI Disorders: Yes (Ulcers) Internal Medicine - H&P: Meds Nitroglycerin [Nitrostat] 0.4 mg SL Q5M PRN 05/29/16 [History] Aspirin Enteric Coated [Aspirin EC] 81 mg PO DAILY #30 tablet.dr 10/03/16 [Rx] Clopidogrel [Plavix] 75 mg PO DAILY #30 tablet 10/03/16 [Rx] Furosemide [Lasix] 20 mg PO DAILY #30 tablet 10/03/16 [Rx] Metoprolol XL (24 HR) Succ [Toprol Xl] 25 mg PO DAILY #30 tab.er.24h 10/03/16 [ Rx] Pravastatin Sodium [Pravachol] 40 mg PO HS #30 tablet 10/03/16 [Rx] Albuterol Sulfate [Ventolin Hfa] 18 gm IH Q6H PRN 01/13/17 [History] Promethazine HCl 12.5 mg PO Q6HR PRN #12 tablet 03/17/17 [Rx] Sucralfate [Carafate] 1 gm PO QID #400 ml 03/17/17 [Rx] Ipratropium/Albuterol Neb [Duoneb] 3 ml IH Q4HR 03/29/17 [History] Tiotropium [place] [Spiriva Respimat] 2 puff IH DAILY 03/29/17 [History] 3 Allergy/AdvReac Type Severity Reaction Status Date / Time codeine Allergy Rash Verified 03/29/17 14:33 All Systems PM: A 10-system review of systems was performed and is negative for pertinent findings except as documented above in the HPI. - Constitutional Constitutional: anorexia, fatigue, fever(s), weakness, weight loss, no chills, no falls, no night sweats Additional comments: Unintentional, Greater than 10 pounds IN 4-6 weeks - EENT Eyes: no change in vision, no discharge, no pain, no photophobia Ears: no ear discharge, no ear pain, no tinnitus Nose, mouth and throat: no dysphagia, no nasal discharge, no neck pain, no sore throat - Cardiovascular Cardiovascular ROS IM: as per HPI, chest pain, dyspnea on exertion, orthopnea ( His chronic), no claudication, no diaphoresis, no dyspnea, no edema, no irregular heart rhythm, no lightheadedness, no palpitations, no syncope - Respiratory Respiratory: no cough, no dyspnea, no wheezing, no excessive phlegm production - Gastrointestinal Gastrointestinal: nausea (Greater than one month; without vomiting), no abdominal pain, no diarrhea, no hematemesis, no hematochezia, no melena, no vomiting - Genitourinary Genitourinary: no change in urinary stream, no dysuria, no flank pain, no hematuria - Musculoskeletal Musculoskeletal ROS IM: no numbness, no tingling - Integumentary Integumentary IM: no rash, no unusual bruising - Neurological Neurological ROS: dizziness, no confusion, no convulsions, no focal weakness, no headache(s), no numbness, no tingling, no tremor(s) - Hematologic/Lymphatic Hematologic/Lymphatic: no easy bruising - Constitutional Vitals: Temp Pulse Resp BP Pulse Ox 98.2 F 88 16 119/82 93 03/29/17 15:29 03/29/17 15:29 03/29/17 15:29 03/29/17 15:29 03/29/17 15:29 General appearance: Present: cooperative, A&O X 3, no acute distress, answers questions appropriately - Head Head exam: Present: atraumatic, normocephalic - Eye Eye exam: Present: EOMI, PERRL, conjuntiva pink, sclera anicteric Pupils: Present: PERRL - Neck Neck exam general surgery: Present: supple, trachea midline. Absent: lymphadenopathy - Respiratory Respiratory exam: Present: CTAB, prolonged expiratory phase, rhonchi (Posterior basis). Absent: accessory muscle use, rales, wheezes, tachypnea - Cardiovascular Cardiovascular exam: Present: RRR, +S1, +S2. Absent: diastolic murmur, gallop, rubs, systolic murmur - GI/Abdominal GI/Abdominal exam: Present: normal bowel sounds, soft, no peritoneal signs. Absent: distended, tenderness - Extremities Exam Extremities exam: Present: normal capillary refill, warm, radial pulses palpable and symmetrical. Absent: calf tenderness, cyanotic, pedal edema, tenderness - Neurological Exam Neurological exam: Present: CN II-XII intact, oriented X3, no focal deficits. Absent: pronater drift, facial droop, speech deficit - Skin Skin exam: Present: dry, intact Internal Med - H&P Results - EKG Data -: EKG Interpreted by Myself EKG shows normal: sinus rhythm Rate: normal - EKG Data Prior EKG available for review: no - Diagnostic Studies Chest x-ray Status: image reviewed by me Additional comments: No acute cardiopulmonary process
--- NOTE | 2017-03-29 16:56 | Event Note ---
Date of Encounter: 03/29/17 Time of Encounter: 16:54 Patient Seen and examined with nurse practitioner. r/o acute coronary syndrome. Patient mentioned that she had lost 10 pounds in the past couple months and notices nausea and exercise intolerance. Discussed with her the importance of cancer screening. She never had a colonoscopy and last nomogram was 6 years ago. Also she had lung masses and should follow up with pulmonology as an outpatient. she is a lifelong smoker and has strong family history of cancer
[2017-03-29] MEDS: Ipratropium/Albuterol Neb 3 ML IH SCH ×2 (20:09→23:56)
[2017-03-29] MEDS ORDERED: Ketorolac 15 MG/ML VIAL IVP ONE (21:09)
[2017-03-30] MEDS: Ipratropium/Albuterol Neb 3 ML IH SCH ×3 (04:50→11:26)
[2017-03-30 05:51] LABS: Basophils # 0.1 K/mcL (0.0-0.2); Basophils % 0.7 %; Eosinophils # 0.3 K/mcL (0.0-0.6); Eosinophils % 3.9 %; Hemoglobin 15.2 g/dL (11.5-15.4); Immature Granulocytes % 0.3 % (0-4); Lymphocytes # 1.8 K/mcL (0.6-4.6); Mean Corpuscular HGB Conc 32.3 g/dL (31.6-35.5); Mean Corpuscular Volume 98.9 fL (83.0-100.0); Mean Platelet Volume 10.1 fL (9.4-12.4); Monocytes % 14.5 %; Neutrophils # 3.8 K/mcL (1.6-8.9); Platelet Count 207 K/mcL (140-400); Red Blood Count 4.75 M/mcL (3.82-4.97); Segmented Neutrophils % 54.6 %
[2017-03-30] MEDS ORDERED: *HR* Enoxaparin 30 MG/0.3 ML SYRINGE SQ SCH (06:00)
[2017-03-30] MEDS ORDERED: *HR* Enoxaparin 40 MG/0.4 ML SYRINGE SQ SCH (06:00)
[2017-03-30 06:21] LABS: BUN/Creatinine Ratio 14 (6-26); Blood Urea Nitrogen 9 mg/dL (7-20); Carbon Dioxide 34 mEq/L (19-29); Chloride 96 mEq/L (98-109); Glucose 93 mg/dL (70-99); Osmolality,Calculated 282 (280-300); Potassium 3.9 mEq/L (3.5-4.5); Sodium 137 mEq/L (136-145); eGFR For African Americans > 60 (> 60); eGFR For Non-African Americans > 60 (> 60)
[2017-03-30] MEDS ORDERED: Aspirin Enteric Coated 81 MG Tablet PO SCH (09:00)
[2017-03-30] MEDS ORDERED: (Tiotropium Bromide [Spiriva Respimat] 2 PUFF) IH SCH (09:00)
[2017-03-30] MEDS ORDERED: Metoprolol XL (24 HR) Succ 25 MG TAB.ER.24H PO SCH (09:00)
[2017-03-30] MEDS ORDERED: Isosorbide MONOnitrate (24 HR) 30 MG TAB.ER.24H PO SCH (09:00)
[2017-03-30] MEDS ORDERED: Furosemide 20 MG TABLET PO SCH (09:00)
[2017-03-30 10:56] VITALS: BP 109/62
--- NOTE | 2017-03-30 13:36 | Discharge Summary ---
Date of Encounter: 03/30/17 Time of Encounter: 13:32 - Discharge Diagnosis (1) Chest pain Priority: Primary Status: Acute Qualifiers: Chest pain type: precordial pain Qualified Code(s): R07.2 - Precordial pain (2) GERD (gastroesophageal reflux disease) Priority: Secondary Status: Acute Qualifiers: Esophagitis presence: esophagitis presence not specified Qualified Code(s) : K21.9 - Gastro-esophageal reflux disease without esophagitis (3) ACS (acute coronary syndrome) Priority: Secondary Status: Ruled-out (4) Afib Priority: Secondary Status: Chronic Qualifiers: Atrial fibrillation type: paroxysmal Qualified Code(s): I48.0 - Paroxysmal atrial fibrillation (5) Chest pain, rule out acute myocardial infarction Priority: Secondary Status: Acute (6) COPD (chronic obstructive pulmonary disease) Priority: Secondary Status: Chronic Qualifiers: COPD type: chronic bronchitis Chronic bronchitis type: simple Qualified Code(s): J41.0 - Simple chronic bronchitis (7) Fatigue Priority: Secondary Status: Acute Qualifiers: Fatigue type: unspecified Qualified Code(s): R53.83 - Other fatigue (8) Tobacco abuse Priority: Secondary Status: Chronic - Discharge Medications Prescriptions: Albuterol Sulfate [Ventolin Hfa] 18 gm IH Q6H PRN #1 hfa.aer.ad PRN Reason: Dyspnea Isosorbide MONOnitrate (24 HR) [Imdur] 30 mg PO DAILY #30 tab.er.24h Pantoprazole Sodium 40 mg PO DAILY #30 tablet. Home Medications: Nitroglycerin [Nitrostat] 0.4 mg SL Q5M PRN 05/29/16 [History] Aspirin Enteric Coated [Aspirin EC] 81 mg PO DAILY #30 tablet. 10/03/16 [Rx] Clopidogrel [Plavix] 75 mg PO DAILY #30 tablet 10/03/16 [Rx] Furosemide [Lasix] 20 mg PO DAILY #30 tablet 10/03/16 [Rx] Metoprolol XL (24 HR) Succ [Toprol Xl] 25 mg PO DAILY #30 tab.er.24h 10/03/16 [ Rx] Pravastatin Sodium [Pravachol] 40 mg PO HS #30 tablet 10/03/16 [Rx] Promethazine HCl 12.5 mg PO Q6HR PRN #12 tablet 03/17/17 [Rx] Sucralfate [Carafate] 1 gm PO QID #400 ml 03/17/17 [Rx] Ipratropium/Albuterol Neb [Duoneb] 3 ml IH Q4HR 03/29/17 [History] Tiotropium [place] [Spiriva Respimat] 2 puff IH DAILY 03/29/17 [History] Albuterol Sulfate [Ventolin Hfa] 18 gm IH Q6H PRN #1 hfa.aer.ad 03/30/17 [Rx] Isosorbide MONOnitrate (24 HR) [Imdur] 30 mg PO DAILY #30 tab.er.24h 03/30/17 [ Rx] Pantoprazole Sodium 40 mg PO DAILY #30 tablet.dr 03/30/17 [Rx] Allergies/Adverse Reactions: 3 Allergy/AdvReac Type Severity Reaction Status Date / Time codeine Allergy Rash Verified 03/29/17 14:33 Date of admission: 03/29/17 13:31 Primary care physician: PCP NONE Discharging clinician: Kwadwo Mcdonald Anticipated date of discharge: 03/30/17 - Patient Status Disposition: Home, Self-Care Condition: Good Functional capacity at discharge: independent ambulation Overall status at discharge: patient is progressing back to baseline - Discharge Instructions Instructions: Coronary Artery Disease (DC), Chest Pain (DC) Follow Up With: NONE,PCP [Primary Care Provider] - Yashira Mitchell MD [Partnered Physician] - (1-2 weeks for chest pain) Katiana Ordoñez MD [Partnered Physician] - (for GERD/ esophagitis) - Diet and Activity Activity: increase activity as tolerated Diet: low fat, low cholesterol, low salt diet Hospital course: Ms. Honeycutt is a 56 year old female patient with a history of COPD, coronary artery disease who previously underwent balloon angioplasty without stent, atrial fibrillation presented to the ER with complaints of chest pain. Her pain began yesterday with mild exertion and had continued despite use of nitroglycerin. She had recently undergone cardiac stress test in December of this year and was found to have a normal stress response without any signs of ischemia. She was monitored here with EKG and telemetry. And her troponins were trended. Troponins were negative. Her chest pain is better today although still persistent at a lower level. She does appear to have symptoms suggestive of stable angina. I discussed her case with cardiology. And they recommended starting the patient on Imdur and having her follow up with cardiology as outpatient for further management. Patient also reports symptoms of gastroesophageal reflux disease which could be also contributing to her chest pain. She will be referred to GI as she has been on Carafate and PPI with no improvement in her symptoms. Her blood counts have been normal and stable here. At this time she is stable to be discharged home. - Time Spent with Patient Total time spent providing and/or coordinating discharge services: Less than 30 minutes (25 min) - Constitutional Vitals: Temp Pulse Resp BP Pulse Ox 98.1 F 83 16 109/62 91 03/30/17 10:50 03/30/17 10:50 03/30/17 10:50 03/30/17 10:50 03/30/17 10:50 General appearance: Present: cooperative, A&O X 3, no acute distress, answers questions appropriately - Respiratory Respiratory exam: Present: CTAB. Absent: accessory muscle use, rales, rhonchi, wheezes - Cardiovascular Cardiovascular exam: Present: RRR, +S1, +S2. Absent: diastolic murmur, gallop, rubs, systolic murmur - GI/Abdominal GI/Abdominal exam: Present: normal bowel sounds, soft, no peritoneal signs. Absent: distended, tenderness
== END 2017-03-30 15:15 | disposition home or self-care (01) ==
LOC: 3BNU → SUATTDRO 13:31
PROVIDERS: ADMIT Hospitalist; ATTEND Internal Medicine

== ENCOUNTER 2017-12-26 15:17 | Observation (INO) ==
[2017-12-26] MEDS ORDERED: Aspirin 81 MG TAB.CHEW PO ONE (15:43)
--- NOTE | 2017-12-26 15:53 | Emergency Department Note ---
Disposition Clinical Impression: Chest pain Qualifiers: Chest pain type: unspecified Qualified Code(s): R07.9 - Chest pain, unspecified Disposition: Admitted As Inpatient Condition: Fair Referrals: NONE,PCP [Primary Care Provider] - Forms: ED Satisfaction Letter Time of Disposition: 17:43 Chest Pain HPI - General Chief Complaint: ED Chest Pain Stated Complaint: Chest Pain Time Seen by Provider: 12/26/17 15:26 Source: patient Mode of arrival: ambulatory Limitations: no limitations Vital Signs Reviewed: Yes Nursing Notes Reviewed: Yes - History of Present Illness HPI Narrative: 57-year-old female presenting to the emergency department with chest pain and shortness of breath. Patient has history of TX, COPD, emphysema, hypertension, hyperlipidemia. Patient states that she began having chest pain and increasing shortness of breath about 2 days ago, she notes that the chest pain and shortness of breath was intermittent and exertional and her chest pain is described to be in the mid sternal region, crushing in character, radiating into her left shoulder and into the back. She also has associated diaphoresis, nausea, and lightheadedness. She notes that she has had constant pain since 10 AM this morning without relief. She does have nitroglycerin at home, but has not taken this. She notes that this pain is similar in nature to the pain that she had about 5 years ago when she was diagnosed with TX. She generally uses 2 L of oxygen at night, however for the last 2 days she started wearing oxygen turning the day which has helped. She denies pleuritic chest pain, syncope, increased swelling in her lower extremities, or change in cough or sputum in the recent days. She denies history of PE or blood clot in the past. Severity scale (1-10): 7 - Related Data Home Medications Medication Instructions Recorded Confirmed Nitroglycerin [Nitrostat] 0.4 mg SL Q5M PRN 05/29/16 12/26/17 Ipratropium/Albuterol Neb [Duoneb] 3 ml IH Q4HR 03/29/17 12/26/17 Tiotropium [place] [Spiriva 2 puff IH DAILY 03/29/17 12/26/17 Respimat] Metoclopramide [Reglan] 10 mg PO QIDAC 10/16/17 12/26/17 Previous Rx's Medication Instructions Recorded Aspirin Enteric Coated [Aspirin EC] 81 mg PO DAILY #30 tablet. 10/03/16 Clopidogrel [Plavix] 75 mg PO DAILY #30 tablet 10/03/16 Furosemide [Lasix] 20 mg PO DAILY #30 tablet 10/03/16 Metoprolol XL (24 HR) Succ [Toprol 25 mg PO DAILY #30 tab.er.24h 10/03/16 Xl] Pravastatin Sodium [Pravachol] 40 mg PO HS #30 tablet 10/03/16 Albuterol Sulfate [Ventolin Hfa] 18 gm IH Q6H PRN #1 hfa.aer.ad 03/30/17 Allergies Allergy/AdvReac Type Severity Reaction Status Date / Time codeine Allergy Rash Verified 10/16/17 01:40 All systems ED: reviewed and negative except as stated. Review of Systems: As Per HPI Constitutional: Reports: other (affirms diaphoresis). Denies: fever, chills, weakness, weight change Eyes: Reports: eye pain Cardiovascular: Reports: chest pain, dyspnea on exertion. Denies: palpitations , orthopnea, edema, syncope Respiratory: Reports: dyspnea, wheezes. Denies: hemoptysis Gastrointestinal: Reports: nausea. Denies: abdominal pain, vomiting, diarrhea, constipation Musculoskeletal: Reports: back pain Neurological: Reports: other (affirms lightheaded). 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 - Social History Smoking Status: Current every day smoker Alcohol use: Reports: occasionally Drug use: Reports: marijuana Physical Exam - General Limitations: no limitations General appearance: alert - Head Head exam: atraumatic, normocephalic - Eye Eye exam: Present: normal appearance, PERRL, EOMI - Chest Chest inspection: Present: normal inspection, symmetric chest wall rise - Respiratory Respiratory exam: Present: prolonged expiratory phase, other (coarse breath sounds, inspiratory and expiratory wheezing throughout) - Cardiovascular Cardiovascular exam: Present: regular rate, normal rhythm - Abdominal Exam Abdominal exam: Present: soft, Non-Tender. Absent: tenderness, distention, guarding, rebound, rigidity - Extremities Exam Extremities exam: Present: normal inspection. Absent: pedal edema - Back Exam Back exam: Present: normal inspection - Neurological Exam Neurological exam: Present: alert, oriented X3 - Psychiatric Psychiatric exam: Present: normal affect Course Course Narrative: 57-year-old female presenting with chest pain and increasing shortness of breath , with concern for cardiac etiology and will order CBC, BMP, troponin, BNP, EKG , hepatic, lipase and chest x-ray. - Reevaluation(s) Reevaluation #1: Upon reevaluation the patient, following the nitroglycerin patch she had little to no relief of chest pain. She also continues to have nausea. Assessment the patient that she will be getting something for nausea and she was compliant. Time: 16:25 Vital Signs Temperature 98.3 F 12/26/17 15:19 Pulse Rate 80 12/26/17 15:19 Respiratory Rate 16 12/26/17 15:19 Blood Pressure 115/75 12/26/17 15:19 O2 Sat by Pulse Oximetry 98 12/26/17 15:19 Temperature 98.3 F 12/26/17 15:19 Pulse Rate 78 12/26/17 17:21 Respiratory Rate 16 12/26/17 17:21 Blood Pressure 137/91 12/26/17 17:21 O2 Sat by Pulse Oximetry 97 12/26/17 17:21 Oxygen Delivery Oxygen Delivery Nasal Cannula Chest Pain - MDM Narrative Medical decision making narrative: 57-year-old female presenting with chest pain and shortness of breath, with significant risk factors with a history of TX, hypertension, hyperlipidemia will be admitting to hospitalist service for chest pain, ACS rule out. Patient' s workup revealed unremarkable EKG, with normal sinus without evidence of STEMI. Laboratory workup revealed troponin, BNP, CBC within normal limits. Chest x-ray showed no acute cardiopulmonary process, however did show chronic changes and it was recommended to have nonemergent CT for pulmonary nodule follow-up. Patient was given nitroglycerin patch in the ED with slight relief, was also given Zofran for nausea which did help relieve symptoms. Discussed with patient that she would be admitted for further evaluation, the patient is in understanding and agrees with this decision. Spoke with the hospitalist at 5:25 pm and she accepts the patient. - Medical Records Medical records reviewed: Yes I reviewed the patient's medical records. - Lab Data Lab results reviewed: Yes I reviewed the patient's lab results. Result diagrams: 12/26/17 16:01 12/26/17 16:01 Lab Results 12/26/17 12/26/17 12/26/17 Range/Units 16:01 16:01 16:01 WBC 7.2 (4.3-11.1) K/mcL RBC 4.53 (3.82-4.97) M/mcL Hgb 14.5 (11.5-15.4) g/dL Hct 44.0 (35.3-44.9) % MCV 97.1 (83.0-100.0) fL MCH 32.0 (28.0-33.3) pg MCHC 33.0 (31.6-35.5) g/dL RDW 13.4 (11.5-14.5) % Plt Count 236 (140-400) K/mcL MPV 9.4 (9.4-12.4) fL Immature Gran % 0.1 (0-4) % Seg Neutrophils % 58.5 % Lymphocytes % 26.9 % Monocytes % 11.2 % Eosinophils % 2.9 % Basophils % 0.4 % Neutrophils # 4.2 (1.6-8.9) K/mcL Lymphocytes # 1.9 (0.6-4.6) K/mcL Monocytes # 0.8 (0.0-1.3) K/mcL Eosinophils # 0.2 (0.0-0.6) K/mcL Basophils # 0.0 (0.0-0.2) K/mcL PT 11.6 (9.4-12.1) Seconds INR 1.0 APTT 31.1 (26.0-36.0) Seconds Sodium (136-145) mEq/L Potassium (3.5-5.1) mEq/L Chloride (98-107) mEq/L Carbon Dioxide (23-29) mEq/L BUN (6-20) mg/dL Creatinine (0.60-1.20) mg/dL Est GFR ( Amer) (> 60) Est GFR (Non-Af Amer) (> 60) BUN/Creatinine Ratio (6-26) Glucose (70-105) mg/dL Calculated Osmolality (280-300) Calcium (8.6-10.3) mg/dL Total Bilirubin 0.5 (0.3-1.0) mg/dL Direct Bilirubin 0.1 (0.0-0.2) mg/dL Indirect Bilirubin 0.4 (0.0-1.2) mg/dL AST 15 (13-39) Units/L ALT 6 L (7-52) Units/L Alkaline Phosphatase 79 (34-104) Units/L Troponin I (< 0.04) ng/mL B-Natriuretic Peptide (Less than 100) pg/mL Serum Total Protein 7.1 (6.4-8.9) g/dL Albumin 4.1 (3.5-5.7) g/dL Globulin 3.0 (2.4-3.5) g/dL Albumin/Globulin Ratio 1.4 (1.1-2.2) Lipase 17 (11-82) Units/L 12/26/17 12/26/17 Range/Units 16:01 16:01 WBC (4.3-11.1) K/mcL RBC (3.82-4.97) M/mcL Hgb (11.5-15.4) g/dL Hct (35.3-44.9) % MCV (83.0-100.0) fL MCH (28.0-33.3) pg MCHC (31.6-35.5) g/dL RDW (11.5-14.5) % Plt Count (140-400) K/mcL MPV (9.4-12.4) fL Immature Gran % (0-4) % Seg Neutrophils % % Lymphocytes % % Monocytes % % Eosinophils % % Basophils % % Neutrophils # (1.6-8.9) K/mcL Lymphocytes # (0.6-4.6) K/mcL Monocytes # (0.0-1.3) K/mcL Eosinophils # (0.0-0.6) K/mcL Basophils # (0.0-0.2) K/mcL PT (9.4-12.1) Seconds INR APTT (26.0-36.0) Seconds Sodium 138 (136-145) mEq/L Potassium 3.8 (3.5-5.1) mEq/L Chloride 99 (98-107) mEq/L Carbon Dioxide 33 H (23-29) mEq/L BUN 4 L (6-20) mg/dL Creatinine 0.41 L (0.60-1.20) mg/dL Est GFR ( Amer) > 60 (> 60) Est GFR (Non-Af Amer) > 60 (> 60) BUN/Creatinine Ratio 10 (6-26) Glucose 91 (70-105) mg/dL Calculated Osmolality 282 (280-300) Calcium 9.5 (8.6-10.3) mg/dL Total Bilirubin (0.3-1.0) mg/dL Direct Bilirubin (0.0-0.2) mg/dL Indirect Bilirubin (0.0-1.2) mg/dL AST (13-39) Units/L ALT (7-52) Units/L Alkaline Phosphatase (34-104) Units/L Troponin I < 0.03 (< 0.04) ng/mL B-Natriuretic Peptide 27 (Less than 100) pg/mL Serum Total Protein (6.4-8.9) g/dL Albumin (3.5-5.7) g/dL Globulin (2.4-3.5) g/dL Albumin/Globulin Ratio (1.1-2.2) Lipase (11-82) Units/L - Radiology Data Radiology results reviewed: Yes I reviewed the patient's radiology results. Chest X-Ray 12/26/17 15:43 IMPRESSION: No acute cardiopulmonary disease. COPD. Right upper lobe pulmonary nodule, similar to previous chest x-ray in 2017. However, long-term stability has not been documented by CT. I would recommend a follow-up nonemergent CT of the chest for direct comparison to the previous CT. D/ / Elroy Paris MD / Elroy Paris MD Interpreting Provider: Elroy Paris MD - EKG Data EKG attestation: Yes I reviewed and interpreted this EKG. EKG results narrative: EKG at 1523 on 12/26/2017 shows normal sinus rhythm, ventricular rate at 73 bpm , normal axis, SC interval 156 QRS duration 73 QT at 368 QTC at 394, no ST elevation, Q-wave, or T-wave inversions. Interpretation: normal EKG Heart Score - Score History: Moderately Suspicious EKG: Normal Age: 45-65 Risk Factors: Equal/Greater than 3 risk factor or history of atherosclerotic disease Troponin: Less than normal limit HEART Score Total: 4
[2017-12-26] MEDS ORDERED: Ondansetron 4 MG/2 ML VIAL IVP ONE (16:15)
[2017-12-26 16:16] LABS: Basophils % 0.4 %; Eosinophils # 0.2 K/mcL (0.0-0.6); Eosinophils % 2.9 %; Hemoglobin 14.5 g/dL (11.5-15.4); Immature Granulocytes % 0.1 % (0-4); Lymphocytes # 1.9 K/mcL (0.6-4.6); Lymphocytes % 26.9 %; Mean Corpuscular Volume 97.1 fL (83.0-100.0); Mean Platelet Volume 9.4 fL (9.4-12.4); Monocytes # 0.8 K/mcL (0.0-1.3); Monocytes % 11.2 %; Neutrophils # 4.2 K/mcL (1.6-8.9); Platelet Count 236 K/mcL (140-400); Red Blood Count 4.53 M/mcL (3.82-4.97); Red Cell Distribution Width 13.4 % (11.5-14.5); Segmented Neutrophils % 58.5 %
[2017-12-26 16:28] LABS: Prothrombin Time 11.6 Seconds (9.4-12.1)
[2017-12-26 16:30] LABS: Activated Partial Thrombo Time 31.1 Seconds (26.0-36.0)
[2017-12-26 16:37] LABS: Albumin 4.1 g/dL (3.5-5.7); Albumin/Globulin Ratio 1.4 (1.1-2.2); Bilirubin,Direct 0.1 mg/dL (0.0-0.2); Bilirubin,Indirect 0.4 mg/dL (0.0-1.2); Bilirubin,Total 0.5 mg/dL (0.3-1.0); Total Protein 7.1 g/dL (6.4-8.9)
[2017-12-26 16:39] LABS: BUN/Creatinine Ratio 10 (6-26); Blood Urea Nitrogen 4 mg/dL (6-20); Calcium 9.5 mg/dL (8.6-10.3); Carbon Dioxide 33 mEq/L (23-29); Chloride 99 mEq/L (98-107); Glucose 91 mg/dL (70-105); Osmolality,Calculated 282 (280-300); Potassium 3.8 mEq/L (3.5-5.1); Sodium 138 mEq/L (136-145); Troponin I < 0.03 ng/mL (< 0.04); eGFR For African Americans > 60 (> 60); eGFR For Non-African Americans > 60 (> 60)
[2017-12-26] MEDS ORDERED: Nitroglycerin 0.4 MG TAB.SUBL SL PRN (20:44)
[2017-12-26] MEDS ORDERED: Acetaminophen 325 MG TABLET PO PRN (20:46)
[2017-12-26] MEDS ORDERED: Naloxone 0.4 MG/ML INJ IVP PRN (20:46)
[2017-12-26 21:54] LABS: Prothrombin Time 11.8 Seconds (9.4-12.1)
[2017-12-26 21:56] LABS: Activated Partial Thrombo Time 28.9 Seconds (26.0-36.0)
[2017-12-26] MEDS: *HR* HYDROcodone/Acet 5/325 mg TABLET PO PRN (23:22)
[2017-12-27] MEDS: Ipratropium/Albuterol Neb 3 ML IH SCH ×7 (00:18→23:25)
--- NOTE | 2017-12-27 04:11 | Internal Med History&Physical ---
Date of Encounter: 12/26/17 Time of Encounter: 01:00 Internal Medicine - H&P: HPI Chief complaint: CP History of present illness: Ms. Honeycutt is a 57 year old female presenting to the emergency department with 2 days history of mid sternal chest pain and shortness of breath. Patient has history of [place], COPD, emphysema, hypertension, hyperlipidemia. She notes that this pain is similar in nature to the pain that she had about 5 years ago when she was diagnosed with [place]. She denies pleuritic chest pain, syncope, increased swelling in her lower extremities, or change in cough or sputum in the recent days. She denies history of PE or blood clot in the past. Patient's workup revealed unremarkable EKG, with normal sinus without evidence of STEMI. Laboratory workup revealed troponin, BNP, CBC within normal limits. Chest x- ray showed no acute cardiopulmonary process, however did show chronic changes and it was recommended to have nonemergent CT for pulmonary nodule follow-up. She was admitted for further evaluation Past Med Surg Social Fam HX - Past Medical History Medical history: asthma, atrial fibrillation, COPD, coronary artery disease, hyperlipidemia, myocardial infarction Additional medical history: back pain, O2 @ 2L when sleeping Psychiatric history: no psych history - Past Surgical History Surgical History: angioplasty/stent, cholecystectomy, other Additional surgical history: tubal ligation - Social History Smoking Status: Current every day smoker Packs per day: 1 Smokeless Tobacco Status: No Alcohol use: occasionally Drug use: marijuana - Family History Father Living Status: Hx Family Respiratory Disorders: Yes Hx Family Cancer: Yes (Lung cancer) Hx Family Endocrine Disorder: Yes Diabetes diabetes Hx Family Cardiac Disorders: Yes (Hypertension) Hx Family Respiratory Disorders: Yes Hx Family Cancer: Yes (Lung cancer) Hx Family Endocrine Disorder: Yes (Diabetes) Sister Living Status: Hx Family Cancer: Yes Hx Family Endocrine Disorder: Yes (Diabetes) Mother Living Status: Hx Family Cardiac Disorders: Yes Hx Family Respiratory Disorders: No Hx Family Cancer: Yes Hx Family GI Disorders: Yes (Ulcers) Internal Medicine - H&P: Meds Nitroglycerin [Nitrostat] 0.4 mg SL Q5M PRN 05/29/16 [History] Aspirin Enteric Coated [Aspirin EC] 81 mg PO DAILY #30 tablet. 10/03/16 [Rx] Clopidogrel [Plavix] 75 mg PO DAILY #30 tablet 10/03/16 [Rx] Furosemide [Lasix] 20 mg PO DAILY #30 tablet 10/03/16 [Rx] Metoprolol XL (24 HR) Succ [Toprol Xl] 25 mg PO DAILY #30 tab.er.24h 10/03/16 [ Rx] Pravastatin Sodium [Pravachol] 40 mg PO HS #30 tablet 10/03/16 [Rx] Ipratropium/Albuterol Neb [Duoneb] 3 ml IH Q4HR 03/29/17 [History] Tiotropium [place] [Spiriva Respimat] 2 puff IH DAILY 03/29/17 [History] Albuterol Sulfate [Ventolin Hfa] 18 gm IH Q6H PRN #1 hfa.aer.ad 03/30/17 [Rx] Metoclopramide [Reglan] 10 mg PO QIDAC 10/16/17 [History] 3 Allergy/AdvReac Type Severity Reaction Status Date / Time codeine Allergy Rash Verified 10/16/17 01:40 All Systems PM: A 10-system review of systems was performed and is negative for pertinent findings except as documented above in the HPI. - Constitutional Constitutional: no chills, no fever(s), no night sweats - Cardiovascular Cardiovascular ROS IM: chest pain, dyspnea, no diaphoresis, no lightheadedness, no palpitations, no syncope - Respiratory Respiratory: dyspnea, no cough, no wheezing, no excessive phlegm production - Gastrointestinal Gastrointestinal: no abdominal pain, no diarrhea, no hematemesis, no hematochezia, no melena, no nausea, no vomiting - Constitutional Vitals: Temp Pulse Resp BP Pulse Ox 97.5 F L 74 17 102/57 95 12/27/17 02:56 12/27/17 02:56 12/27/17 03:37 12/27/17 02:56 12/27/17 03:37 General appearance: Present: A&O X 3 - Head Head exam: Present: atraumatic, normocephalic - Neck Neck exam general surgery: Present: supple, trachea midline. Absent: lymphadenopathy - Respiratory Respiratory exam: Present: CTAB. Absent: accessory muscle use, rales, rhonchi, wheezes - Cardiovascular Cardiovascular exam: Present: RRR, +S1, +S2. Absent: diastolic murmur, gallop, rubs, systolic murmur - GI/Abdominal GI/Abdominal exam: Present: normal bowel sounds, soft, no peritoneal signs. Absent: distended, tenderness - Extremities Exam Extremities exam: Present: warm, radial pulses palpable and symmetrical. Absent : calf tenderness, cyanotic, pedal edema Internal Med - H&P Results - Labs CBC & Chem 7: 12/26/17 16:01 12/26/17 16:01 - Assessment and plan (1) Chest pain Current Visit: Yes Status: Acute Assessment and plan: ASSESSMENT: - Chest pain DD *CAD *Muskuloskeletal CP - myofascial strain, costochondritis *GERD *Esophageal spasm PLAN: - cardiac enzymes x 2 q 8 hr - EKG now and in AM - ASA - O2 by NC to keep SpO2 greater than 92% - UA - CBCD, BMP in AM - Fasting lipids - Morphine 2 mg IV q 2-4 hr PRN chest pain - Tylenol 650 mg PO q 4-6 hr PRN headache - Home meds (check list) - Heparin 5000 U SQ BID - 2D Echo - Cardiology consult Qualifiers: Chest pain type: unspecified Qualified Code(s): R07.9 - Chest pain, unspecified (2) Tobacco abuse Current Visit: No Status: Chronic (3) GERD (gastroesophageal reflux disease) Current Visit: No Status: Acute Qualifiers: (4) COPD (chronic obstructive pulmonary disease) Current Visit: No Status: Chronic Qualifiers: COPD type: chronic bronchitis Chronic bronchitis type: simple Qualified Code(s): J41.0 - Simple chronic bronchitis (5) Coronary artery disease Current Visit: No Status: Chronic Qualifiers: Coronary Disease-Associated Artery/Lesion type: [place] artery [place] vs. transplanted heart: [place] heart Associated angina: with unspecified angina Qualified Code(s): I25.119 - Atherosclerotic heart disease of [place] coronary artery with unspecified angina pectoris - Time Spent With Patient Total time spent is greater than 50% in coordination of care (as documented) at patient's floor/unit and/or counseling patient:
[2017-12-27] MEDS: *HR* HYDROcodone/Acet 5/325 mg TABLET PO PRN ×3 (05:56→21:50)
[2017-12-27 06:06] LABS: Basophils % 0.4 %; Eosinophils # 0.3 K/mcL (0.0-0.6); Eosinophils % 4.3 %; Hematocrit 42.8 % (35.3-44.9); Hemoglobin 13.7 g/dL (11.5-15.4); Immature Granulocytes % 0.3 % (0-4); Lymphocytes # 2.5 K/mcL (0.6-4.6); Lymphocytes % 34.3 %; Mean Corpuscular Hemoglobin 31.7 pg (28.0-33.3); Mean Corpuscular Volume 99.1 fL (83.0-100.0); Mean Platelet Volume 9.6 fL (9.4-12.4); Monocytes % 13.9 %; Neutrophils # 3.4 K/mcL (1.6-8.9); Platelet Count 217 K/mcL (140-400); Red Blood Count 4.32 M/mcL (3.82-4.97); Red Cell Distribution Width 13.5 % (11.5-14.5); Segmented Neutrophils % 46.8 %
[2017-12-27 06:18] LABS: Alanine Aminotransferase 5 Units/L (7-52); Albumin 3.7 g/dL (3.5-5.7); Albumin/Globulin Ratio 1.4 (1.1-2.2); Alkaline Phosphatase 67 Units/L (34-104); Aspartate Amino Transferase 14 Units/L (13-39); BUN/Creatinine Ratio 18 (6-26); Bilirubin,Total 0.5 mg/dL (0.3-1.0); Blood Urea Nitrogen 9 mg/dL (6-20); Calcium 8.9 mg/dL (8.6-10.3); Carbon Dioxide 35 mEq/L (23-29); Chloride 100 mEq/L (98-107); Cholesterol 149 mg/dL (< 200); Globulin 2.6 g/dL (2.4-3.5); Glucose 97 mg/dL (70-105); HDL Cholesterol 73 mg/dL (40-59); LDL Cholesterol,Calculated 65 mg/dL (0-99); Osmolality,Calculated 285 (280-300); Phosphorous 4.7 mg/dL (2.7-4.5); Potassium 4.2 mEq/L (3.5-5.1); Sodium 138 mEq/L (136-145); Total Protein 6.3 g/dL (6.4-8.9); Triglycerides 55 mg/dL (< 150); eGFR For African Americans > 60 (> 60); eGFR For Non-African Americans > 60 (> 60)
[2017-12-27 06:29] LABS: Bilirubin,Urine Negative (Negative); Blood,Urine Negative (Negative); Clarity,Urine Clear (Clear); Color,Urine Yellow (Yellow); Glucose,Urine (UA) Normal (Normal); Ketones,Urine Negative (Negative); Leukocyte Esterase,Urine Negative (Negative); Nitrite,Urine Negative (Negative); PH,Urine 6.5 pH Units (5.0-8.0); Protein,Urine Negative (Neg-Trace); Specific Gravity,Urine 1.016 (1.010-1.025)
[2017-12-27] MEDS: Metoprolol XL (24 HR) Succ 25 MG TAB.ER.24H PO SCH (10:00)
[2017-12-27] MEDS: Furosemide 20 MG TABLET PO SCH (10:38)
[2017-12-27] MEDS: Aspirin Enteric Coated 81 MG Tablet PO SCH (10:38)
[2017-12-27] MEDS: (Tiotropium Bromide [Spiriva Respimat] 2 PUFF) IH SCH (12:10)
--- NOTE | 2017-12-27 14:49 | Cardiology Consult Note ---
<FarooqAlyssa J - Last Filed: 12/27/17 14:46> Date of Encounter: 12/27/17 Time of Encounter: 14:00 Assessment and Plan (1) Chest pain Current Visit: Yes Status: Acute Per cardiology: -ADmitted with chest pain. -States somewhat similar to previous angina. -Reports has been constant for 3 days, waxes and wanes. -Stress 12/2016 negative for ishemia or infarct. -Troponins negative x3. -No acute ischemic ECG changes. -chest pain reproduceable with palpation. -With atypical chest pain (constant for 3 days and reproduceable with palpation) , consider stress test. Qualifiers: Chest pain type: unspecified Qualified Code(s): R07.9 - Chest pain, unspecified (2) Tobacco abuse Current Visit: No Status: Chronic Per cardiology: -Known tobacco abuse. -Smoking cessation education provided. (3) Coronary artery disease Current Visit: No Status: Chronic Per cardiology: -Known CAD s/p [facility] Mar 2013: EF 20%, s/p successful cutting balloon angioplasty of the 1st diagonal; otherwise mild, non-obstructive CAD: 20% pLAD. -Stress 12/2016 negative for ischemia. -TTE with LVEF preserved, no visualized wall motion abnormalities. -On asa, statin, BB, plavix. Qualifiers: Coronary Disease-Associated Artery/Lesion type: [place] artery [place] vs. transplanted heart: [place] heart Associated angina: with unspecified angina Qualified Code(s): I25.119 - Atherosclerotic heart disease of [place] coronary artery with unspecified angina pectoris Discussion w patient/family: The assessment and plan as outlined above was discussed with the patient who expressed understanding and agreement. All questions were answered. Thank you for involving us in the care of your patient. Please call with any questions. Discussed and reviewed with . History of Present Illness Consult date: 12/27/17 Requesting physician: Ying Yoo Consult reason: chest pain Chief complaint: chest pain History of present illness: Ms. Honeycutt is a 57 year old female with a relevant past medical history of CAD s/ p PCI, VA, HTN, HLD, COPD, tobacco abuse who presented to [facility] with complaints of chest pain and shortness of breath. Patient states pain started while working 3 days ago. States pain waxes and wanes, however has not been relieved since it started. Patient admits to current chest pain. Reports shortness of breath. Denies fatigue. OF note, patient also reports severe headache. Past Med Surg Social Fam HX - Past Medical History Attestation: Yes The following information was validated with the patient. Source: patient, old records reviewed Medical history: asthma, atrial fibrillation, COPD, coronary artery disease, hyperlipidemia, myocardial infarction Additional medical history: back pain, O2 @ 2L when sleeping Psychiatric history: no psych history - Past Surgical History Surgical History: angioplasty/stent, cholecystectomy, other Additional surgical history: tubal ligation - Social History Smoking Status: Current every day smoker Packs per day: 1 Smokeless Tobacco Status: No Alcohol use: occasionally Drug use: marijuana - Family History Father Living Status: Hx Family Respiratory Disorders: Yes Hx Family Cancer: Yes (Lung cancer) Hx Family Endocrine Disorder: Yes Diabetes diabetes Hx Family Cardiac Disorders: Yes (Hypertension) Hx Family Respiratory Disorders: Yes Hx Family Cancer: Yes (Lung cancer) Hx Family Endocrine Disorder: Yes (Diabetes) Sister Living Status: Hx Family Cancer: Yes Hx Family Endocrine Disorder: Yes (Diabetes) Mother Living Status: Hx Family Cardiac Disorders: Yes Hx Family Respiratory Disorders: No Hx Family Cancer: Yes Hx Family GI Disorders: Yes (Ulcers) Medications and Allergies Nitroglycerin [Nitrostat] 0.4 mg SL Q5M PRN 05/29/16 [History] Aspirin Enteric Coated [Aspirin EC] 81 mg PO DAILY #30 tablet.dr 10/03/16 [Rx] Clopidogrel [Plavix] 75 mg PO DAILY #30 tablet 10/03/16 [Rx] Furosemide [Lasix] 20 mg PO DAILY #30 tablet 10/03/16 [Rx] Metoprolol XL (24 HR) Succ [Toprol Xl] 25 mg PO DAILY #30 tab.er.24h 10/03/16 [ Rx] Pravastatin Sodium [Pravachol] 40 mg PO HS #30 tablet 10/03/16 [Rx] Ipratropium/Albuterol Neb [Duoneb] 3 ml IH Q4HR 03/29/17 [History] Tiotropium [place] [Spiriva Respimat] 2 puff IH DAILY 03/29/17 [History] Albuterol Sulfate [Ventolin Hfa] 18 gm IH Q6H PRN #1 hfa.aer.ad 03/30/17 [Rx] Metoclopramide [Reglan] 10 mg PO QIDAC 10/16/17 [History] Azithromycin [Zithromax] 250 mg PO Q24H #4 tablet 12/28/17 [Rx] predniSONE [PredniSONE] 10 mg PO DAILY #19 tablet 12/28/17 [Rx] 3 Allergy/AdvReac Type Severity Reaction Status Date / Time codeine Allergy Rash Verified 10/16/17 01:40 All Systems Review: The remainder of the systems were reviewed and are negative - Cardiovascular Cardiovascular: as per HPI, chest pain at rest, chest pain with exertion, dyspnea on exertion Physical Examination Vital Signs, Last 4 Hours Resp Pulse Ox 12/27/17 11:00 15 92 Impressions Chest X-Ray 12/26/17 15:43 IMPRESSION: No acute cardiopulmonary disease. COPD. Right upper lobe pulmonary nodule, similar to previous chest x-ray in 2017. However, long-term stability has not been documented by CT. I would recommend a follow-up nonemergent CT of the chest for direct comparison to the previous CT. D/ / Elroy Paris MD / Elroy Paris MD Interpreting Provider: Elroy Paris MD Vital Signs Temperature 98.3 F 12/26/17 15:19 Pulse Rate 80 12/26/17 15:19 Respiratory Rate 16 12/26/17 15:19 Blood Pressure 115/75 12/26/17 15:19 O2 Sat by Pulse Oximetry 98 12/26/17 15:19 Temperature 97.8 F 12/27/17 10:33 Pulse Rate 80 12/27/17 10:33 Respiratory Rate 15 12/27/17 11:00 Blood Pressure 108/65 12/27/17 10:33 O2 Sat by Pulse Oximetry 92 12/27/17 11:00 Oxygen Delivery Oxygen Delivery Nasal Cannula General: Conversant, No Apparent Distress HEENT: Atraumatic, Normocephaly, Mucus Membranes Moist Neck: No JVD, Normal carotid pulses Cardiac: Reg Rate and Rhythm, Normal S1 and S2, No Murmur Lungs: Normal Breath Sounds, No Wheeze, Rales, Rhonchi Neuro: Alert and responsive, No focal deficits noted Abdomen: Soft, Non-Tender Skin: No rashes noted on visualized skin Musculoskeletal: Other (Chest pain reproduceable with palpation. ) Extremities: No Clubbing, No Cyanosis, No Edema, Normal Pulses Results 12/27/17 05:17 12/27/17 05:17 Lab Results Impressions Chest X-Ray 12/26/17 15:43 IMPRESSION: No acute cardiopulmonary disease. COPD. Right upper lobe pulmonary nodule, similar to previous chest x-ray in 2017. However, long-term stability has not been documented by CT. I would recommend a follow-up nonemergent CT of the chest for direct comparison to the previous CT. D/ / Elroy Paris MD / Elroy Paris MD Interpreting Provider: Elroy Paris MD Echocardiogram 12/26/17 20:46 Impressions: LVEF 60%. Not all LV wall segments are well visualized. Mild left ventricular diastolic dysfunction. Normal right ventricular structure and function. No significant valvular dysfunction. No pulmonary hypertension. Left Ventricular Wall Motion: Rest Echo Findings The apex, apical inferior, mid inferior, basal inferior, apical anterior, mid anterior, basal anterior, apical septal, mid inferior septal, basal inferior septal, apical lateral, mid anterior lateral and basal anterior lateral guan were not visualized. All other wall segments showed normal motion. Findings: Study Quality * Technically challenging study - not all windows are available. ECG Findings * Normal sinus rhythm. Left Ventricle * LVEF 60%. * Normal LV chamber size, wall thickness and function. * Mild left ventricular diastolic dysfunction. Right Ventricle * Normal right ventricular structure and function. Left Atrium * Normal left atrial size. Right Atrium * Normal right atrial size. Mitral Valve * Normal mitral valve structure. * No mitral stenosis. * No mitral regurgitation. Aortic Valve * No aortic regurgitation. * Aortic valve not well visualized. * No aortic stenosis. Tricuspid Valve * Tricuspid valve not well visualized. * No tricuspid regurgitation. * Estimated RA pressure is 3 mmHg. Pulmonic Valve * Pulmonic valve is not well visualized. * No pulmonic stenosis. * No pulmonic regurgitation. Pulmonary Artery * Pulmonary artery not well visualized. Aorta * Normally sized aortic root. Pericardium * There is no pericardial effusion present. Interatrial Septum * No evidence of PFO by color Doppler. IVC * Normal IVC dimensions and inspiratory collapse. Active Medications Acetaminophen (Tylenol) 650 mg PO Q6HR PRN PRN Reason: Mild Pain/Fever Stop: 06/27/18 20:47 Hydrocodone Bitart/Acetaminophen ([place] 5-325 Mg) 1 tab PO Q6HR PRN PRN Reason: Moderate Pain Stop: 06/27/18 20:47 Last Admin: 12/27/17 14:42 Dose: 1 tab Albuterol Sulfate (Albuterol Inhaler) 1 puff IH Q6H PRN PRN Reason: Dyspnea Stop: 06/27/18 20:45 Albuterol/Ipratropium (Duoneb) 3 ml IH [id number] [facility] Stop: 06/28/18 00:01 Last Admin: 12/27/17 11:00 Dose: 3 ml Aspirin (Aspirin Ec) 81 mg PO DAILY [facility] Stop: 06/28/18 09:01 Last Admin: 12/27/17 10:38 Dose: 81 mg Atorvastatin Calcium (Lipitor) 10 mg PO HS [facility] Stop: 06/27/18 21:01 Last Admin: 12/26/17 23:22 Dose: 10 mg Clopidogrel Bisulfate (Plavix) 75 mg PO DAILY [facility] Stop: 06/28/18 09:01 Last Admin: 12/27/17 10:38 Dose: 75 mg Furosemide (Lasix) 20 mg PO DAILY [facility] Stop: 06/28/18 09:01 Last Admin: 12/27/17 10:38 Dose: 20 mg Metoclopramide HCl (Reglan) 10 mg PO QIDAC [facility] Stop: 06/27/18 22:01 Last Admin: 12/27/17 14:42 Dose: 10 mg Metoprolol Succinate (Toprol Xl) 25 mg PO DAILY [facility] Stop: 06/28/18 09:01 Last Admin: 12/27/17 10:00 Dose: Not Given Naloxone HCl (Narcan) 0.4 mg IVP Q2MIN PRN PRN Reason: SEE COMMENTS Stop: 06/27/18 20:47 Nitroglycerin (Nitroglycerin) 0.4 mg SL Q5M PRN PRN Reason: Chest Pain Stop: 06/27/18 20:45 Pharmacy Profile Note (Patient Taking Own Medication) 0 each IH DAILY [facility] Stop: 06/28/18 09:01 Last Admin: 12/27/17 12:10 Dose: Not Given Laboratory Tests 12/26/17 12/27/17 12/27/17 16:01 05:17 05:17 Hgb 13.7 Creatinine 0.50 L Troponin I < 0.03 12/27/17 12/27/17 05:17 11:45 Hgb Creatinine Troponin I < 0.03 < 0.03 - Imaging and Cardiology Chest Xray: report reviewed Stress Test: report reviewed Echo: report reviewed Cardiac cath: report reviewed - EKG Interpretation EKG results cardiology: personally reviewed (ECG with SR, HR 73.), other ( Telemetry reviewed with average HR previous 12 hours noted to be 81, SR. PVCs and PACs noted.) Consult Discharge Plan - Plan Instructions: Chest Pain (DC) Referrals: NONE,PCP [Primary Care Provider] - Prescriptions: Azithromycin [Zithromax] 250 mg PO Q24H #4 tablet predniSONE [PredniSONE] 10 mg PO DAILY #19 tablet <Wellington Fisher - Last Filed: 12/28/17 19:55> Date of Encounter: 12/27/17 Time of Encounter: 15:30 - Attending Attestation I have personally performed a face to face evaluation on this patient. I have reviewed and agree with the care plan. History and Exam by me shows: CC: chest pain HPI: Pt complains of chest pain, onset approx three days ago, mid sternal, pressure sensation, associate with shortness of breath, no diaphoresis or nausea. Pt reports also notes headaches have come and gone over the last several days, onset and relieved spontaneously. Pt has hx non-obstructive CAD, post cutting balloon angioplasty Cx in 2012, with normal stress imaging in 01/06 for similar presentation. She continues to smoke against medical advice, She reports chest pain can be provoked by deep inspiration and by coughing, resolves with change in position. She denies known exertion or trauma prior to onset of chest pain. PHM; Reviewed ROS: Reviewed PE: pt seen and examined, agree with findings as documented, with the addition of chest pain is reproducible with palpation of upper outer quadrant of left breast, mimics admission chest discomfort, improves with changes in position IMP:Plan 1. Chest pain, musculoskeletal, recent stress imaging normal, low risk for hospital discharge, follow up in office in next several weeks. 2. CAD: stable class 1 angina at reletively low work loads, pt remains predominantly sedentary. Discusse lifestyle changes, encouraged to begin low level exercise program 3. Tobacco abuse: continues against medical advice, discussed smoking cessation , pt unable to determine stop date but will consider. Assessment and Plan Discussion w patient/family: The assessment and plan as outlined above was discussed with the patient and/or family members who expressed understanding and agreement. All questions were answered. Thank you for involving us in the care of your patient. Please call with any questions. History of Present Illness History of present illness: Ms. Honeycutt is a 57 year old female All Systems Review: The remainder of the systems were reviewed and are negative Physical Examination Vital Signs, Last 4 Hours Temp Pulse Resp BP Pulse Ox 12/28/17 19:32 18 92 12/28/17 19:18 98.4 F 66 17 109/72 97 12/28/17 17:03 20 92 12/28/17 16:55 108 24 82 12/28/17 15:47 98.2 F 100 14 102/65 98 12/28/17 15:40 20 94 Results 12/28/17 05:27 12/28/17 05:27 Lab Results 12/28/17 12/28/17 05:27 05:27 WBC 13.3 H D Hgb 14.4 Hct 44.7 Plt Count 234 Sodium 136 Potassium 3.9 Chloride 95 L Carbon Dioxide 38 H BUN 10 Creatinine 0.43 L Glucose 99 Calcium 9.4
--- NOTE | 2017-12-27 18:53 | Internal Med Progress Note ---
Date of Encounter: 12/27/17 Time of Encounter: 18:51 - Assessment and plan (1) Chest pain Current Visit: Yes Status: Acute Assessment and plan: Continue with cardiac monitoring Aspirin nitroglycerin as needed Echo was completed preserved EF no visualized wall motion abnormalities Patient was seen by cardiology recommending stress test Qualifiers: Chest pain type: unspecified Qualified Code(s): R07.9 - Chest pain, unspecified (2) COPD (chronic obstructive pulmonary disease) Current Visit: No Status: Chronic Assessment and plan: Currently stable no wheezing noted continue with bronchodilators and oxygen as needed Qualifiers: COPD type: chronic bronchitis Chronic bronchitis type: simple Qualified Code(s): J41.0 - Simple chronic bronchitis (3) Tobacco abuse Current Visit: No Status: Chronic Assessment and plan: Encouraged patient to stop smoking (4) Coronary artery disease Current Visit: No Status: Chronic Assessment and plan: History of CAD status post L HC March 2013 EF 20% status post successful balloon angioplasty of the first diagonal otherwise mild nonobstructive CAD 20% P LAD Stress test 12/2016 was negative for any ischemia TTE with LVEF preserved no visualized wall motion abnormalities Continue with aspirin and statin beta melina and Plavix Qualifiers: Coronary Disease-Associated Artery/Lesion type: [place] artery [place] vs. transplanted heart: [place] heart Associated angina: with unspecified angina Qualified Code(s): I25.119 - Atherosclerotic heart disease of [place] coronary artery with unspecified angina pectoris (5) GERD (gastroesophageal reflux disease) Current Visit: No Status: Acute Assessment and plan: Continue with home medications Qualifiers: Esophagitis presence: without esophagitis Qualified Code(s): K21.9 - Gastro -esophageal reflux disease without esophagitis - Time Spent With Patient Total time spent is greater than 50% in coordination of care (as documented) at patient's floor/unit and/or counseling patient: - Subjective Interval history: Patient was seen and examined earlier today. She currently denies any chest pains this time. Was seen by cardiology which is recommending stress test - Constitutional Vitals: Temp Pulse Resp BP Pulse Ox 98.2 F 115 16 103/67 90 12/27/17 18:33 12/27/17 18:33 12/27/17 18:33 12/27/17 18:33 12/27/17 18:33 General appearance: Present: A&O X 3 - Head Head exam: Present: atraumatic, normocephalic - Eye Eye exam: Present: PERRL, conjuntiva pink, sclera anicteric Pupils: Present: PERRL - Neck Neck exam general surgery: Present: supple, trachea midline. Absent: lymphadenopathy - Respiratory Respiratory exam: Present: CTAB. Absent: accessory muscle use, rales, rhonchi, wheezes - Cardiovascular Cardiovascular exam: Present: RRR, +S1, +S2. Absent: diastolic murmur, gallop, rubs, systolic murmur - GI/Abdominal GI/Abdominal exam: Present: normal bowel sounds, soft, no peritoneal signs. Absent: distended, tenderness - Extremities Exam Extremities exam: Present: warm, radial pulses palpable and symmetrical. Absent : calf tenderness, cyanotic, pedal edema - Neurological Exam Neurological exam: Present: CN II-XII intact, oriented X3, no focal deficits. Absent: pronater drift, facial droop, speech deficit Internal Medicine: Result - Labs CBC & Chem 7: 12/27/17 05:17 12/27/17 05:17 Labs: Short CBC 12/27/17 Range/Units 05:17 WBC 7.3 (4.3-11.1) K/mcL Hgb 13.7 (11.5-15.4) g/dL Hct 42.8 (35.3-44.9) % Plt Count 217 (140-400) K/mcL Neutrophils # 3.4 (1.6-8.9) K/mcL BMP 12/27/17 05:17 Sodium 138 Potassium 4.2 Chloride 100 Carbon Dioxide 35 H BUN 9 Creatinine 0.50 L Glucose 97 Calcium 8.9 Cardiac Enzymes 12/27/17 12/27/17 12/27/17 Range/Units 05:17 11:45 17:15 Troponin I < 0.03 < 0.03 < 0.03 (< 0.04) ng/mL Liver Function 12/27/17 Range/Units 05:17 Total Bilirubin 0.5 (0.3-1.0) mg/dL AST 14 (13-39) Units/L ALT 5 L (7-52) Units/L Alkaline Phosphatase 67 (34-104) Units/L Albumin 3.7 (3.5-5.7) g/dL Urine 12/27/17 Range/Units 06:15 Urine Color Yellow (Yellow) Urine Clarity Clear (Clear) Urine pH 6.5 (5.0-8.0) pH Units Ur Specific Allen 1.016 (1.010-1.025) Urine Protein Negative (Neg-Trace) mg/dL Urine Glucose (UA) Normal (Normal) mg/dL - ABG Interpretation ABG results: PT/INR, D-dimer PT 11.8 Seconds (9.4-12.1) 12/26/17 21:05 - Impressions Impressions Echocardiogram 12/26/17 20:46 Impressions: LVEF 60%. Not all LV wall segments are well visualized. Mild left ventricular diastolic dysfunction. Normal right ventricular structure and function. No significant valvular dysfunction. No pulmonary hypertension. Left Ventricular Wall Motion: Rest Echo Findings The apex, apical inferior, mid inferior, basal inferior, apical anterior, mid anterior, basal anterior, apical septal, mid inferior septal, basal inferior septal, apical lateral, mid anterior lateral and basal anterior lateral guan were not visualized. All other wall segments showed normal motion. Findings: Study Quality * Technically challenging study - not all windows are available. ECG Findings * Normal sinus rhythm. Left Ventricle * LVEF 60%. * Normal LV chamber size, wall thickness and function. * Mild left ventricular diastolic dysfunction. Right Ventricle * Normal right ventricular structure and function. Left Atrium * Normal left atrial size. Right Atrium * Normal right atrial size. Mitral Valve * Normal mitral valve structure. * No mitral stenosis. * No mitral regurgitation. Aortic Valve * No aortic regurgitation. * Aortic valve not well visualized. * No aortic stenosis. Tricuspid Valve * Tricuspid valve not well visualized. * No tricuspid regurgitation. * Estimated RA pressure is 3 mmHg. Pulmonic Valve * Pulmonic valve is not well visualized. * No pulmonic stenosis. * No pulmonic regurgitation. Pulmonary Artery * Pulmonary artery not well visualized. Aorta * Normally sized aortic root. Pericardium * There is no pericardial effusion present. Interatrial Septum * No evidence of PFO by color Doppler. IVC * Normal IVC dimensions and inspiratory collapse. Consult Discharge Plan - Plan Referrals: NONE,PCP [Primary Care Provider] -
[2017-12-28] MEDS: Ipratropium/Albuterol Neb 3 ML IH SCH ×6 (03:38→23:15)
[2017-12-28 06:27] LABS: Basophils % 0.2 %; Eosinophils % 2.2 %; Hematocrit 44.7 % (35.3-44.9); Hemoglobin 14.4 g/dL (11.5-15.4); Immature Granulocytes % 0.2 % (0-4); Lymphocytes % 12.4 %; Mean Corpuscular HGB Conc 32.2 g/dL (31.6-35.5); Mean Corpuscular Hemoglobin 31.6 pg (28.0-33.3); Mean Platelet Volume 9.8 fL (9.4-12.4); Monocytes % 10.2 %; Platelet Count 234 K/mcL (140-400); Red Blood Count 4.56 M/mcL (3.82-4.97); Red Cell Distribution Width 13.2 % (11.5-14.5); Segmented Neutrophils % 74.8 %
[2017-12-28 06:28] LABS: Eosinophils # 0.3 K/mcL (0.0-0.6); Lymphocytes # 1.7 K/mcL (0.6-4.6); Monocytes # 1.4 K/mcL (0.0-1.3)
[2017-12-28 06:40] LABS: BUN/Creatinine Ratio 23 (6-26); Blood Urea Nitrogen 10 mg/dL (6-20); Calcium 9.4 mg/dL (8.6-10.3); Carbon Dioxide 38 mEq/L (23-29); Chloride 95 mEq/L (98-107); Glucose 99 mg/dL (70-105); Osmolality,Calculated 281 (280-300); Potassium 3.9 mEq/L (3.5-5.1); Sodium 136 mEq/L (136-145); eGFR For African Americans > 60 (> 60); eGFR For Non-African Americans > 60 (> 60)
[2017-12-28] MEDS: Furosemide 20 MG TABLET PO SCH (08:36)
[2017-12-28] MEDS: Metoprolol XL (24 HR) Succ 25 MG TAB.ER.24H PO SCH (08:36)
[2017-12-28] MEDS: Aspirin Enteric Coated 81 MG Tablet PO SCH (08:36)
[2017-12-28] MEDS: (Tiotropium Bromide [Spiriva Respimat] 2 PUFF) IH SCH (08:37)
[2017-12-28] MEDS: *HR* HYDROcodone/Acet 5/325 mg TABLET PO PRN ×2 (11:58→20:27)
--- NOTE | 2017-12-28 12:26 | Event Note ---
Date of Encounter: 12/28/17 Time of Encounter: 12:22 - Cardiology Event Note Discussed and reviewed with , with atypical reproduceable chest pain, consider outpatient stress test. Troponins negative. TTE with LVEF preserved. No segmental wall motion abnormalities.
--- NOTE | 2017-12-28 16:18 | Discharge Summary ---
- NOTES TO OUTPATIENT PROVIDER Notes to Outpatient Provider: Seen by cardiology - consider outpatient stress test follow up with cardiology. Given z jesenia and steroid taper Orders not resulted at time of discharge: Pending orders 12/28/17 12:00 Sputum Culture [Culture,Sputum with Gram Stain] [RM] Routine 12/28/17 13:03 Urinalysis Reflex Cult & Micro [URIN] Stat 12/28/17 15:19 Culture,Blood [BC] Routine Date of Encounter: 12/29/17 Time of Encounter: 13:08 - Discharge Diagnosis (1) Chest pain Priority: Primary Status: Acute Qualifiers: Chest pain type: unspecified Qualified Code(s): R07.9 - Chest pain, unspecified (2) COPD (chronic obstructive pulmonary disease) Priority: Secondary Status: Chronic Qualifiers: COPD type: chronic bronchitis Chronic bronchitis type: simple Qualified Code(s): J41.0 - Simple chronic bronchitis (3) Tobacco abuse Priority: Secondary Status: Chronic (4) Coronary artery disease Priority: Secondary Status: Chronic Qualifiers: Coronary Disease-Associated Artery/Lesion type: [place] artery [place] vs. transplanted heart: [place] heart Associated angina: with unspecified angina Qualified Code(s): I25.119 - Atherosclerotic heart disease of [place] coronary artery with unspecified angina pectoris (5) GERD (gastroesophageal reflux disease) Priority: Secondary Status: Acute Qualifiers: Esophagitis presence: without esophagitis Qualified Code(s): K21.9 - Gastro -esophageal reflux disease without esophagitis Hospital course: Ms. Honeycutt is a 57 year old female past medical history of asthma atrial fibrillation COPD oxygen 2 L when sleeping coronary artery disease hyperlipidemia MD. Patient presented to the [facility] emergency department with 2 day history of midsternal chest pain or shortness of breath. Patient is concerned because pain is very similar in nature to the pain she experienced at her previous MD approxi-5 years ago. EKG with no ST-T wave abnormalities lab work was unremarkable chest x-ray showed chronic changes of COPD and was recommended to have nonemergent CT for pulmonary nodules follow- up. Patient was admitted for further workup and evaluation. Troponins were negative 3 She was seen by cardiology who felt that the pain was atypical/ musculoskeletal she could undergo a cardiac stress test as outpatient and follow up with cardiology. During admission patient did have some hypoxia on room air with sats dropping down to mid 80s. She did have a moist nonproductive cough. Repeat chest x-ray with no acute process. Lab work did show slight elevation in white count. Blood cultures were obtained blood as well as sputum culture. Initiated azithromycin and IV steroids. CTA was performed with no PE noted , however it did show some bronchial thickening suggestive of bronchitis. She did undergo a 6 minute walk test however she was unable to complete due to sats dropping down to 82% and required oxygen supplementation. We will continue with azithromycin for the next 4 days as well as steroid taper and Robitussin. Patient will require oxygen at 2 L nasal cannula 24 hours and will need to follow-up with primary care provider for reevaluation. I did advise patient to follow-up with primary provider since this provider knows her past and can adjust medications accordingly. Also advised patient to follow-up with cardiology to set up for an outpatient stress. I did give patient prescription for steroid azithromycin and Robitussin. Patient verbalized understanding I answered patient's questions. She is hemodynamically stable at this time, and ready for discharge. Discharge discussed with: patient - Time Spent with Patient Total time spent providing and/or coordinating discharge services: - Discharge Medications Prescriptions: Ipratropium/Albuterol Neb [Duoneb] 3 ml IH Q4HR #100 inhsol Guaifenesin [Mucinex] 600 mg PO Q12HR #14 tab.er.12h Albuterol Sulfate [Ventolin Hfa] 18 gm IH Q6H PRN #1 hfa.aer.ad PRN Reason: Dyspnea Azithromycin [Zithromax] 250 mg PO Q24H #4 tablet predniSONE [PredniSONE] 10 mg PO DAILY #19 tablet Home Medications: Nitroglycerin [Nitrostat] 0.4 mg SL Q5M PRN 05/29/16 [History] Aspirin Enteric Coated [Aspirin EC] 81 mg PO DAILY #30 tablet. 10/03/16 [Rx] Clopidogrel [Plavix] 75 mg PO DAILY #30 tablet 10/03/16 [Rx] Furosemide [Lasix] 20 mg PO DAILY #30 tablet 10/03/16 [Rx] Metoprolol XL (24 HR) Succ [Toprol Xl] 25 mg PO DAILY #30 tab.er.24h 10/03/16 [ Rx] Pravastatin Sodium [Pravachol] 40 mg PO HS #30 tablet 10/03/16 [Rx] Tiotropium [place] [Spiriva Respimat] 2 puff IH DAILY 03/29/17 [History] Metoclopramide [Reglan] 10 mg PO QIDAC 10/16/17 [History] Azithromycin [Zithromax] 250 mg PO Q24H #4 tablet 12/28/17 [Rx] predniSONE [PredniSONE] 10 mg PO DAILY #19 tablet 12/28/17 [Rx] Albuterol Sulfate [Ventolin Hfa] 18 gm IH Q6H PRN #1 hfa.aer.ad 12/29/17 [Rx] Guaifenesin [Mucinex] 600 mg PO Q12HR #14 tab.er.12h 12/29/17 [Rx] Ipratropium/Albuterol Neb [Duoneb] 3 ml IH Q4HR #100 inhsol 12/29/17 [Rx] Allergies/Adverse Reactions: 3 Allergy/AdvReac Type Severity Reaction Status Date / Time codeine Allergy Rash Verified 10/16/17 01:40 Date of admission: 12/26/17 17:41 Primary care physician: PCP NONE Consults: 12/26/17 18:26 Consult to Nutrition [CONS] Routine Comment: Consulting Provider: NUTRITION Reason for Dietary Consult: MST Score 12/27/17 04:22 Consult to Physician [CONS] Routine Consulting Provider: Wellington Fisher Reason for Consult: cp Call Completed: Yes Discharging clinician: Silvia Mohr Anticipated date of discharge: 12/29/17 - Constitutional Vitals: Temp Pulse Resp BP Pulse Ox 98.2 F 100 14 102/65 98 12/28/17 15:47 12/28/17 15:47 12/28/17 15:47 12/28/17 15:47 12/28/17 15:47 General appearance: Present: A&O X 3 - Head Head exam: Present: atraumatic, normocephalic - Eye Eye exam: Present: PERRL, conjuntiva pink, sclera anicteric Pupils: Present: PERRL - Neck Neck exam general surgery: Present: supple, trachea midline. Absent: lymphadenopathy - Respiratory Respiratory exam: Present: CTAB. Absent: accessory muscle use, rales, rhonchi, wheezes - Cardiovascular Cardiovascular exam: Present: RRR, +S1, +S2. Absent: diastolic murmur, gallop, rubs, systolic murmur - GI/Abdominal GI/Abdominal exam: Present: normal bowel sounds, soft, no peritoneal signs. Absent: distended, tenderness - Extremities Exam Extremities exam: Present: warm, radial pulses palpable and symmetrical. Absent : calf tenderness, cyanotic, pedal edema - Neurological Exam Neurological exam: Present: CN II-XII intact, oriented X3, no focal deficits. Absent: pronater drift, facial droop, speech deficit - Skin Skin exam: Present: dry, intact - Patient Status Disposition: Home, Self-Care Condition: Fair - Discharge Instructions Instructions: Chest Pain (DC), Chronic Obstructive Pulmonary Disease (DC) Follow Up With: Travis Moreira [Resident] - 01/09/18 2:00 pm Delfino Vergara MD [Partnered Physician] - 01/22/18 10:00 am - Diet and Activity Activity: increase activity as tolerated Diet: advance to your usual diet
[2017-12-28] MEDS: Azithromycin 250 MG TABLET PO SCH (16:34)
--- NOTE | 2017-12-28 16:48 | Internal Med Progress Note ---
Date of Encounter: 12/28/17 Time of Encounter: 16:44 - Assessment and plan (1) Chest pain Current Visit: Yes Status: Acute Assessment and plan: No chest pain at this time patient was seen by cardiology -atypical reproducible chest pain recommending outpatient stress test Continue with cardiac monitoring Aspirin nitroglycerin as needed Echo was completed preserved EF no visualized wall motion abnormalities Qualifiers: Chest pain type: unspecified Qualified Code(s): R07.9 - Chest pain, unspecified (2) COPD (chronic obstructive pulmonary disease) Current Visit: No Status: Chronic Assessment and plan: No wheezing however patient has been experiencing shortness of breath on exertion and required extra oxygen supplementation we will give IV Solu-Medrol as well as azithromycin Bronchodilators and continue with oxygen Repeat x-ray does show chronic COPD changes Patient does have an elevated white count at 13 we will obtain sputum culture as well as blood cultures-no fevers Qualifiers: COPD type: chronic bronchitis Chronic bronchitis type: simple Qualified Code(s): J41.0 - Simple chronic bronchitis (3) Tobacco abuse Current Visit: No Status: Chronic Assessment and plan: Encouraged patient to stop smoking (4) Coronary artery disease Current Visit: No Status: Chronic Assessment and plan: History of CAD status post L HC March 2013 EF 20% status post successful balloon angioplasty of the first diagonal otherwise mild nonobstructive CAD 20% P LAD Stress test 12/2016 was negative for any ischemia TTE with LVEF preserved no visualized wall motion abnormalities Continue with aspirin and statin beta emlina and Plavix Qualifiers: Coronary Disease-Associated Artery/Lesion type: [place] artery [place] vs. transplanted heart: [place] heart Associated angina: with unspecified angina Qualified Code(s): I25.119 - Atherosclerotic heart disease of [place] coronary artery with unspecified angina pectoris (5) GERD (gastroesophageal reflux disease) Current Visit: No Status: Acute Assessment and plan: Continue with home medications Qualifiers: Esophagitis presence: without esophagitis Qualified Code(s): K21.9 - Gastro -esophageal reflux disease without esophagitis (6) Hypoxia Current Visit: No Status: Acute Assessment and plan: 1 patient has continuous oxygen supplementation 2-3 L SPO2 around 90-93%. Normal patient does not wear oxygen only at night. States she has had to wear oxygen over the past week continuously. During ambulation patient's sats dropped down to 82% on room air Patient does have history of COPD no wheezes noted at this time however she does have a moist nonproductive cough. Chest x- ray does show chronic COPD changes. We will continue with oxygen as well as steroids and bronchodilators - Time Spent With Patient Total time spent is greater than 50% in coordination of care (as documented) at patient's floor/unit and/or counseling patient: - Subjective Interval history: Patient was seen and examined earlier today. Overnight she had been experiencing moist nonproductive cough as well as dyspnea on exertion. Noted white count was elevated. Blood cultures have been drawn patient has required oxygen use during this hospitalization normally she wheezes oxygen at night. Patient's sats have been in the 80s on ambulation she has required increased oxygen use here. According the patient prior to coming in she did require oxygen 24 hours a day which is unusual. I had anticipated discharging patient today however due to hypoxia and leukocytosis we will keep her overnight and monitor. We will give steroids and antibiotics I reviewed treatment plan with patient who is in agreement and verbalizes understanding. - Constitutional Vitals: Temp Pulse Resp BP Pulse Ox 98.2 F 100 14 102/65 98 12/28/17 15:47 12/28/17 15:47 12/28/17 15:47 12/28/17 15:47 12/28/17 15:47 General appearance: Present: A&O X 3 - Head Head exam: Present: atraumatic, normocephalic - Eye Eye exam: Present: PERRL, conjuntiva pink, sclera anicteric Pupils: Present: PERRL - Neck Neck exam general surgery: Present: supple, trachea midline. Absent: lymphadenopathy - Respiratory Respiratory exam: Present: CTAB. Absent: accessory muscle use, rales, rhonchi, wheezes - Cardiovascular Cardiovascular exam: Present: RRR, +S1, +S2. Absent: diastolic murmur, gallop, rubs, systolic murmur - GI/Abdominal GI/Abdominal exam: Present: normal bowel sounds, soft, no peritoneal signs. Absent: distended, tenderness - Extremities Exam Extremities exam: Present: warm, radial pulses palpable and symmetrical. Absent : calf tenderness, cyanotic, pedal edema - Neurological Exam Neurological exam: Present: CN II-XII intact, oriented X3, no focal deficits. Absent: pronater drift, facial droop, speech deficit - Skin Skin exam: Present: dry, intact Internal Medicine: Result - Labs CBC & Chem 7: 12/28/17 05:27 12/28/17 05:27 Labs: Short CBC 12/28/17 Range/Units 05:27 WBC 13.3 H D (4.3-11.1) K/mcL Hgb 14.4 (11.5-15.4) g/dL Hct 44.7 (35.3-44.9) % Plt Count 234 (140-400) K/mcL Neutrophils # 10.0 H (1.6-8.9) K/mcL BMP 12/28/17 05:27 Sodium 136 Potassium 3.9 Chloride 95 L Carbon Dioxide 38 H BUN 10 Creatinine 0.43 L Glucose 99 Calcium 9.4 Cardiac Enzymes 12/27/17 Range/Units 17:15 Troponin I < 0.03 (< 0.04) ng/mL - ABG Interpretation ABG results: PT/INR, D-dimer PT 11.8 Seconds (9.4-12.1) 12/26/17 21:05 - Impressions Impressions Chest X-Ray 12/28/17 13:02 IMPRESSION: 1. No acute abnormalities seen in the chest 2. COPD changes noted with hyperexpansion of both lungs D/ / Isrrael Rocha MD / Isrrael Rocha MD Interpreting Provider: Isrrael Rocha MD Consult Discharge Plan - Plan Instructions: Chest Pain (DC) Referrals: NONE,PCP [Primary Care Provider] - Prescriptions: Azithromycin [Zithromax] 250 mg PO Q24H #4 tablet predniSONE [PredniSONE] 10 mg PO DAILY #19 tablet
[2017-12-28] MEDS: MethylPREDNISolone 40 MG/ML VIAL IVP SCH ×2 (17:38→23:21)
[2017-12-29] MEDS: *HR* HYDROcodone/Acet 5/325 mg TABLET PO PRN ×2 (03:42→10:37)
[2017-12-29] MEDS: Ipratropium/Albuterol Neb 3 ML IH SCH ×3 (04:22→11:57)
[2017-12-29] MEDS: MethylPREDNISolone 40 MG/ML VIAL IVP SCH ×2 (05:41→12:03)
[2017-12-29 09:39] LABS: Basophils % 0.1 %; Hematocrit 46.1 % (35.3-44.9); Hemoglobin 14.8 g/dL (11.5-15.4); Immature Granulocytes % 0.6 % (0-4); Lymphocytes # 0.5 K/mcL (0.6-4.6); Lymphocytes % 3.8 %; Mean Corpuscular HGB Conc 32.1 g/dL (31.6-35.5); Mean Corpuscular Hemoglobin 31.8 pg (28.0-33.3); Mean Corpuscular Volume 98.9 fL (83.0-100.0); Mean Platelet Volume 9.6 fL (9.4-12.4); Monocytes # 0.1 K/mcL (0.0-1.3); Monocytes % 0.8 %; Neutrophils # 13.5 K/mcL (1.6-8.9); Platelet Count 239 K/mcL (140-400); Red Blood Count 4.66 M/mcL (3.82-4.97); Red Cell Distribution Width 13.2 % (11.5-14.5); Segmented Neutrophils % 94.7 %
[2017-12-29 09:49] LABS: BUN/Creatinine Ratio 24 (6-26); Blood Urea Nitrogen 11 mg/dL (6-20); Calcium 9.7 mg/dL (8.6-10.3); Carbon Dioxide 32 mEq/L (23-29); Chloride 96 mEq/L (98-107); Glucose 144 mg/dL (70-105); Osmolality,Calculated 280 (280-300); Potassium 3.7 mEq/L (3.5-5.1); Sodium 134 mEq/L (136-145); eGFR For African Americans > 60 (> 60); eGFR For Non-African Americans > 60 (> 60)
[2017-12-29] MEDS ORDERED: Isovue-370 500 ML INFUS..BTL IV ONE (10:28)
[2017-12-29] MEDS: Aspirin Enteric Coated 81 MG Tablet PO SCH (10:33)
[2017-12-29] MEDS: (Tiotropium Bromide [Spiriva Respimat] 2 PUFF) IH SCH (10:34)
[2017-12-29] MEDS: Metoprolol XL (24 HR) Succ 25 MG TAB.ER.24H PO SCH (10:34)
[2017-12-29] MEDS: Furosemide 20 MG TABLET PO SCH (10:34)
[2017-12-29] MEDS: Azithromycin 250 MG TABLET PO SCH (10:34)
[2017-12-29 11:51] VITALS: BP 109/65
--- NOTE | 2017-12-29 14:15 | Internal Med Progress Note ---
Date of Encounter: 12/29/17 Time of Encounter: 14:09 - Assessment and plan (1) Chest pain Current Visit: Yes Status: Acute Assessment and plan: No chest pain at this time patient was seen by cardiology -atypical reproducible chest pain recommending outpatient stress test Continue with cardiac monitoring Aspirin nitroglycerin as needed Echo was completed preserved EF no visualized wall motion abnormalities Patient was seen by cardiology recommending outpatient stress test and follow- up with cardiology Qualifiers: Chest pain type: unspecified Qualified Code(s): R07.9 - Chest pain, unspecified (2) COPD (chronic obstructive pulmonary disease) Current Visit: No Status: Chronic Assessment and plan: No wheezing however patient has been experiencing shortness of breath on exertion and required extra oxygen supplementation we will give IV Solu-Medrol as well as azithromycin Bronchodilators and continue with oxygen Repeat x-ray does show chronic COPD changes Patient does have an elevated white count at 13 we will obtain sputum culture as well as blood cultures-no fevers Qualifiers: COPD type: chronic bronchitis Chronic bronchitis type: simple Qualified Code(s): J41.0 - Simple chronic bronchitis (3) Tobacco abuse Current Visit: No Status: Chronic Assessment and plan: Encouraged patient to stop smoking (4) Coronary artery disease Current Visit: No Status: Chronic Assessment and plan: History of CAD status post L HC March 2013 EF 20% status post successful balloon angioplasty of the first diagonal otherwise mild nonobstructive CAD 20% P LAD Stress test 12/2016 was negative for any ischemia TTE with LVEF preserved no visualized wall motion abnormalities Continue with aspirin and statin beta melina and Plavix Qualifiers: Coronary Disease-Associated Artery/Lesion type: [place] artery [place] vs. transplanted heart: [place] heart Associated angina: with unspecified angina Qualified Code(s): I25.119 - Atherosclerotic heart disease of [place] coronary artery with unspecified angina pectoris (5) GERD (gastroesophageal reflux disease) Current Visit: No Status: Acute Assessment and plan: Continue with home medications Qualifiers: Esophagitis presence: without esophagitis Qualified Code(s): K21.9 - Gastro -esophageal reflux disease without esophagitis (6) Bronchitis Current Visit: Yes Status: Acute Assessment and plan: 1 patient has been experiencing hypoxia without oxygen sats at 82% on room air. 6 minute walk completed will require continuous oxygen 2 L nasal cannula. Has a nonproductive cough lung sounds are clear today no wheezing noted. We will continue with steroid taper as well as azithromycin and Mucinex. Patient will follow-up with pulmonology as outpatient. (7) Hypoxia Current Visit: No Status: Acute Assessment and plan: 1 patient has continuous oxygen supplementation 2-3 L SPO2 around 90-93%. Normal patient does not wear oxygen only at night. States she has had to wear oxygen over the past week continuously. During ambulation patient's sats dropped down to 82% on room air Patient does have history of COPD no wheezes noted at this time however she does have a moist nonproductive cough. Chest x- ray does show chronic COPD changes. We will continue with oxygen as well as steroids and bronchodilator CTA completed no pulmonary embolism however does show bronchitis 6 minute walk completed patient a 2% on room air unable to complete walk with oxygen we will continue with continuous oxygen at home at 2 L nasal cannula - Time Spent With Patient Total time spent is greater than 50% in coordination of care (as documented) at patient's floor/unit and/or counseling patient: - Subjective Interval history: Patient was seen and examined at bedside. States that she does feel better continues to have moist nonproductive cough. Patient did ambulate and attempted 6 minute walk however was unable to complete without oxygen. Sats did drop down to 82% without oxygen. CTA was completed due to chest pain and shortness of breath which was negative for pulmonary embolism but did reveal bronchitis. We will continue with steroid taper as well as azithromycin and guaifenesin. Patient will be discharged home today in follow-up with primary care provider as outpatient. Patient did verbalize understanding and agreement with treatment plan. - Constitutional Vitals: Temp Pulse Resp BP Pulse Ox 98.4 F 110 18 109/65 94 12/29/17 11:50 12/29/17 11:50 12/29/17 12:00 12/29/17 11:50 12/29/17 12:00 General appearance: Present: A&O X 3 - Head Head exam: Present: atraumatic, normocephalic - Eye Eye exam: Present: PERRL, conjuntiva pink, sclera anicteric Pupils: Present: PERRL - Neck Neck exam general surgery: Present: supple, trachea midline. Absent: lymphadenopathy - Respiratory Respiratory exam: Present: CTAB. Absent: accessory muscle use, rales, rhonchi, wheezes - Cardiovascular Cardiovascular exam: Present: RRR, +S1, +S2. Absent: diastolic murmur, gallop, rubs, systolic murmur - GI/Abdominal GI/Abdominal exam: Present: normal bowel sounds, soft, no peritoneal signs. Absent: distended, tenderness - Extremities Exam Extremities exam: Present: warm, radial pulses palpable and symmetrical. Absent : calf tenderness, cyanotic, pedal edema - Neurological Exam Neurological exam: Present: CN II-XII intact, oriented X3, no focal deficits. Absent: pronater drift, facial droop, speech deficit - Skin Skin exam: Present: dry, intact Internal Medicine: Result - Labs CBC & Chem 7: 12/29/17 08:46 12/29/17 08:46 Labs: Short CBC 12/29/17 Range/Units 08:46 WBC 14.2 H (4.3-11.1) K/mcL Hgb 14.8 (11.5-15.4) g/dL Hct 46.1 H (35.3-44.9) % Plt Count 239 (140-400) K/mcL Neutrophils # 13.5 H (1.6-8.9) K/mcL BMP 12/29/17 08:46 Sodium 134 L Potassium 3.7 Chloride 96 L Carbon Dioxide 32 H BUN 11 Creatinine 0.46 L Glucose 144 H Calcium 9.7 - ABG Interpretation ABG results: PT/INR, D-dimer PT 11.8 Seconds (9.4-12.1) 12/26/17 21:05 - Impressions Impressions Chest X-Ray 12/28/17 13:02 IMPRESSION: 1. No acute abnormalities seen in the chest 2. COPD changes noted with hyperexpansion of both lungs D/ / Isrrael Rocha MD / Isrrael Rocha MD Interpreting Provider: Isrrael Rocha MD Chest CTA 12/29/17 10:28 IMPRESSION: 1. No evidence of pulmonary embolus. 2. Bronchial wall thickening in the left lower lobe and right lower lobe with multiple filling defects in the subsegmental airways. Please correlate with clinical symptoms of bronchitis. D/ / 12/29/2017 12:08:17 Gerald De La O MD / evelia Interpreting Provider: Gerald De La O MD Consult Discharge Plan - Plan Instructions: Prednisone (By mouth), Azithromycin (By mouth), Chest Pain (DC), Chronic Obstructive Pulmonary Disease (DC) Referrals: Travis Moreira [Resident] - 01/09/18 2:00 pm Delfino Vergara MD [Partnered Physician] - 01/22/18 10:00 am Prescriptions: Ipratropium/Albuterol Neb [Duoneb] 3 ml IH Q4HR #100 inhsol Guaifenesin [Mucinex] 600 mg PO Q12HR #14 tab.er.12h Albuterol Sulfate [Ventolin Hfa] 18 gm IH Q6H PRN #1 hfa.aer.ad PRN Reason: Dyspnea Azithromycin [Zithromax] 250 mg PO Q24H #4 tablet predniSONE [PredniSONE] 10 mg PO DAILY #19 tablet
--- NOTE | 2017-12-29 14:46 | Electrocardiograph Report ---
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
== END 2017-12-29 15:14 | disposition home or self-care (01) ==
LOC: 3BNU 15:17 → EMEROO 15:17 → 3BNU 17:56
PROVIDERS: ADMIT Internal Medicine Nephrology; ATTEND Internal Medicine Nephrology

== ENCOUNTER 2018-01-15 12:48 | Observation (INO) ==
[2018-01-15] MEDS ORDERED: Nitroglycerin 0.4 MG TAB.SUBL SL ONE (12:56)
[2018-01-15] MEDS ORDERED: Aspirin 81 MG TAB.CHEW PO ONE (12:56)
[2018-01-15 13:36] LABS: Basophils % 0.3 %; Eosinophils # 0.1 K/mcL (0.0-0.6); Eosinophils % 0.5 %; Hematocrit 40.8 % (35.3-44.9); Hemoglobin 13.9 g/dL (11.5-15.4); Immature Granulocytes % 0.3 % (0-4); Lymphocytes # 2.3 K/mcL (0.6-4.6); Lymphocytes % 18.3 %; Mean Corpuscular HGB Conc 34.1 g/dL (31.6-35.5); Mean Corpuscular Hemoglobin 32.7 pg (28.0-33.3); Mean Platelet Volume 9.1 fL (9.4-12.4); Monocytes # 1.3 K/mcL (0.0-1.3); Monocytes % 10.4 %; Neutrophils # 8.7 K/mcL (1.6-8.9); Platelet Count 300 K/mcL (140-400); Red Blood Count 4.25 M/mcL (3.82-4.97); Red Cell Distribution Width 13.3 % (11.5-14.5); Segmented Neutrophils % 70.2 %
[2018-01-15] MEDS ORDERED: Ipratropium/Albuterol Neb 3 ML IH ONE (13:45)
--- NOTE | 2018-01-15 13:45 | Emergency Department Note ---
Disposition Clinical Impression: Chest pain Qualifiers: Chest pain type: unspecified Qualified Code(s): R07.9 - Chest pain, unspecified Disposition: Admitted As Inpatient Condition: Fair Time of Disposition: 15:22 General Adult HPI - General Chief complaint: ED Chest Pain Stated complaint: chest pain Time Seen by Provider: 01/15/18 12:50 Source: patient, EMS Limitations: no limitations Nursing Notes Reviewed: Yes Vital Signs Reviewed: Yes - History of Present Illness HPI Narrative: Patient is a 57-year-old female has missed a history of COPD requiring 2 L nasal cannula and angioplasty with no stents presenting to the emergency department for the complaint of chest pain has been going on since 10:30 AM this morning. The patient states that this pain was sudden in onset, pressure- like, radiation to the left and exertional. States that the pain has been constant since then and is a 9/10 pain. The patient states that she is also currently being treated for COPD exacerbation which she finished 5 days of steroids and is currently on day 6 of Levaquin antibiotic. She denies any increase in shortness of breath or productive cough. States it feels similar to when she had an angioplasty in the past. States she took a baby aspirin today. She received 1 nitroglycerin in the squad coming from an urgent care Center for evaluation of her chest pain she states that minimally improved her pain and also dropped her blood pressure according to EMS. Pain Scale: 6 - Related Data Home Medications Medication Instructions Recorded Confirmed Nitroglycerin [Nitrostat] 0.4 mg SL Q5M PRN 05/29/16 01/08/18 Metoclopramide [Reglan] 10 mg PO QIDAC 10/16/17 01/08/18 Previous Rx's Medication Instructions Recorded Aspirin Enteric Coated [Aspirin EC] 81 mg PO DAILY #30 tablet. 10/03/16 Clopidogrel [Plavix] 75 mg PO DAILY #30 tablet 10/03/16 Furosemide [Lasix] 20 mg PO DAILY #30 tablet 10/03/16 Metoprolol XL (24 HR) Succ [Toprol 25 mg PO DAILY #30 tab.er.24h 10/03/16 Xl] Pravastatin Sodium [Pravachol] 40 mg PO HS #30 tablet 10/03/16 Albuterol Sulfate [Ventolin Hfa] 18 gm IH Q6H PRN #1 hfa.aer.ad 12/29/17 Guaifenesin [Mucinex] 600 mg PO Q12HR #14 tab.er.12h 12/29/17 Ipratropium/Albuterol Neb [Duoneb] 3 ml IH Q4HR #100 inhsol 12/29/17 ALPRAZolam [Xanax 0.25 MG Tablet] 0.25 mg PO TID PRN 2 Days #6 tablet 01/09/18 Allergies Allergy/AdvReac Type Severity Reaction Status Date / Time codeine Allergy Rash Verified 01/08/18 01:28 All systems ED: reviewed and negative except as stated. Review of Systems: As Per HPI Constitutional: Denies: fever, chills Cardiovascular: Reports: chest pain, dyspnea on exertion. Denies: palpitations , edema, syncope, paroxysmal nocturnal dyspnea Respiratory: Denies: cough, dyspnea, wheezes Gastrointestinal: Denies: abdominal pain, nausea, vomiting Genitourinary: Denies: urgency Musculoskeletal: Denies: back pain, neck pain Integumentary: Denies: rash Past Medical History - Past Medical History Attestation: Yes The following information was validated with the patient. 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 - Social History Smoking Status: Current every day smoker Smokeless Tobacco Status: No Alcohol use: Reports: occasionally Drug use: Reports: marijuana Physical Exam CONSTITUTIONAL: A&O X 3, in no apparent distress HEAD: Normocephalic; atraumatic EYES: PERRL, no scleral icterus NOSE: The nose is normal in appearance without rhinorrhea NECK: No JVD or distended neck veins RESP: Normal chest excursion with respiration; breath sounds are wheezing in the bases; no rhonchi or rales CARD: Regular rhythm, without murmurs, rub or gallop ABD: Non-distended; non-tender, soft, without rigidity, rebound or guarding,no pulsatile mass CHEST: No pain with palpation SKIN: Normal for age and race; warm and dry without diaphoresis ; no apparent lesions EXTREMITIES: Pulses are 2 plus and equal times 4 extremities, no peripheral edema or calf muscle pain - General Limitations: no limitations General appearance: alert, in no apparent distress Course Course Narrative: Patient received a full dose of aspirin. She continues to have chest pain order fentanyl for the pain. We will also provide a breathing treatment see if that improves her symptoms. Given her recent cardiac history and recent admission for COPD recurrent chest pain. Plan at this time is to have the patient admitted to the hospital once her lab results are back. Her EKG is not ischemic at this time. - Reevaluation(s) Reevaluation #1: Patient refused the fentanyl stating that she does not want any medication as time. Discussed with her trialing Toradol for the pain and she agrees. Discussed with her that her lab work at this time is unremarkable her EKG is nonischemic, however given her cardiac history or persisting chest pain with no symptomatically relief plan is to admit her to the hospital for evaluation. I discussed this with the hospitalist on-call he agrees to accept the patient. Time: 15:21 Vital Signs Temperature 98.6 F 01/15/18 12:52 Pulse Rate 90 01/15/18 12:52 Respiratory Rate 18 01/15/18 12:52 Blood Pressure 127/81 01/15/18 12:52 O2 Sat by Pulse Oximetry 94 01/15/18 12:52 Temperature 98.6 F 01/15/18 12:52 Pulse Rate 90 01/15/18 12:52 Respiratory Rate 20 01/15/18 14:41 Blood Pressure 127/81 01/15/18 12:52 O2 Sat by Pulse Oximetry 95 01/15/18 14:41 Oxygen Delivery Oxygen Delivery Nasal Cannula Medical Decision Making - Medical Records Medical records reviewed: Yes I reviewed the patient's medical records. - Lab Data Lab results reviewed: Yes I reviewed the patient's lab results. Result diagrams: 01/15/18 13:16 01/15/18 13:16 Lab Results 01/15/18 01/15/18 Range/Units 13:16 13:16 WBC 12.4 H (4.3-11.1) K/mcL RBC 4.25 (3.82-4.97) M/mcL Hgb 13.9 (11.5-15.4) g/dL Hct 40.8 (35.3-44.9) % MCV 96.0 (83.0-100.0) fL MCH 32.7 (28.0-33.3) pg MCHC 34.1 (31.6-35.5) g/dL RDW 13.3 (11.5-14.5) % Plt Count 300 (140-400) K/mcL MPV 9.1 L (9.4-12.4) fL Immature Gran % 0.3 (0-4) % Seg Neutrophils % 70.2 % Lymphocytes % 18.3 % Monocytes % 10.4 % Eosinophils % 0.5 % Basophils % 0.3 % Neutrophils # 8.7 (1.6-8.9) K/mcL Lymphocytes # 2.3 (0.6-4.6) K/mcL Monocytes # 1.3 (0.0-1.3) K/mcL Eosinophils # 0.1 (0.0-0.6) K/mcL Basophils # 0.0 (0.0-0.2) K/mcL Sodium 135 L (136-145) mEq/L Potassium 3.5 (3.5-5.1) mEq/L Chloride 97 L (98-107) mEq/L Carbon Dioxide 27 (23-29) mEq/L BUN 6 (6-20) mg/dL Creatinine 0.51 L (0.60-1.20) mg/dL Est GFR ( Amer) > 60 (> 60) Est GFR (Non-Af Amer) > 60 (> 60) BUN/Creatinine Ratio 12 (6-26) Glucose 84 (70-105) mg/dL Calculated Osmolality 277 L (280-300) Calcium 9.3 (8.6-10.3) mg/dL Troponin I < 0.03 (< 0.04) ng/mL - Radiology Data Radiology results reviewed: Yes I reviewed the patient's radiology results. Chest X-Ray 01/15/18 12:56 IMPRESSION: 1. No acute cardiopulmonary disease. 2. COPD. D/ / 01/15/2018 14:21:31 Hilary Levy MD / [facility] Interpreting Provider: Hilary Levy MD - EKG Data EKG #1 EKG attestation: Yes I reviewed and interpreted this EKG. EKG results narrative: EKG done at 12:59 shows sinus rhythm at a rate of 90 bpm. Normal axis. Normal intervals. No signs of ST elevation, ST depression or Q waves present. This is unchanged from the EKG done on 01/08/2018.
[2018-01-15 13:56] LABS: Troponin I < 0.03 ng/mL (< 0.04)
[2018-01-15 14:19] LABS: BUN/Creatinine Ratio 12 (6-26); Blood Urea Nitrogen 6 mg/dL (6-20); Calcium 9.3 mg/dL (8.6-10.3); Carbon Dioxide 27 mEq/L (23-29); Chloride 97 mEq/L (98-107); Glucose 84 mg/dL (70-105); Osmolality,Calculated 277 (280-300); Potassium 3.5 mEq/L (3.5-5.1); Sodium 135 mEq/L (136-145); eGFR For Non-African Americans > 60 (> 60)
[2018-01-15] MEDS: *HR* FentaNYL (PF) 100 MCG/2 ML VIAL IVP ONE ×2 (14:45→14:48)
[2018-01-15] MEDS ORDERED: Ketorolac 30 MG/ML VIAL IVP ONE ×2 (14:49→22:11)
--- NOTE | 2018-01-15 15:24 | Emergency Department Note ---
Disposition Clinical Impression: Chest pain Qualifiers: Chest pain type: unspecified Qualified Code(s): R07.9 - Chest pain, unspecified Disposition: Admitted As Inpatient Condition: Fair Referrals: NONE,PCP [Primary Care Provider] - General Adult HPI - General Chief complaint: ED Chest Pain Stated complaint: chest pain Time Seen by Provider: 01/15/18 12:50 Source: patient, EMS Limitations: no limitations - History of Present Illness Pain Scale: 6 - Related Data Home Medications Medication Instructions Recorded Confirmed Nitroglycerin [Nitrostat] 0.4 mg SL Q5M PRN 05/29/16 01/08/18 Metoclopramide [Reglan] 10 mg PO QIDAC 10/16/17 01/08/18 Previous Rx's Medication Instructions Recorded Aspirin Enteric Coated [Aspirin EC] 81 mg PO DAILY #30 tablet. 10/03/16 Clopidogrel [Plavix] 75 mg PO DAILY #30 tablet 10/03/16 Furosemide [Lasix] 20 mg PO DAILY #30 tablet 10/03/16 Metoprolol XL (24 HR) Succ [Toprol 25 mg PO DAILY #30 tab.er.24h 10/03/16 Xl] Pravastatin Sodium [Pravachol] 40 mg PO HS #30 tablet 10/03/16 Albuterol Sulfate [Ventolin Hfa] 18 gm IH Q6H PRN #1 hfa.aer.ad 12/29/17 Guaifenesin [Mucinex] 600 mg PO Q12HR #14 tab.er.12h 12/29/17 Ipratropium/Albuterol Neb [Duoneb] 3 ml IH Q4HR #100 inhsol 12/29/17 ALPRAZolam [Xanax 0.25 MG Tablet] 0.25 mg PO TID PRN 2 Days #6 tablet 01/09/18 Allergies Allergy/AdvReac Type Severity Reaction Status Date / Time codeine Allergy Rash Verified 01/08/18 01:28 Constitutional: Denies: fever, chills Cardiovascular: Reports: chest pain, dyspnea on exertion. 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 - Social History Smoking Status: Current every day smoker Smokeless Tobacco Status: No Alcohol use: Reports: occasionally Drug use: Reports: marijuana Physical Exam - General Limitations: no limitations General appearance: alert, in no apparent distress Course Vital Signs Temperature 98.6 F 01/15/18 12:52 Pulse Rate 90 01/15/18 12:52 Respiratory Rate 18 01/15/18 12:52 Blood Pressure 127/81 01/15/18 12:52 O2 Sat by Pulse Oximetry 94 01/15/18 12:52 Temperature 98.6 F 01/15/18 12:52 Pulse Rate 96 01/15/18 15:19 Respiratory Rate 18 01/15/18 15:19 Blood Pressure 112/68 01/15/18 15:19 O2 Sat by Pulse Oximetry 97 01/15/18 15:19 Oxygen Delivery Oxygen Delivery Nasal Cannula Medical Decision Making - Lab Data Result diagrams: 01/15/18 13:16 01/15/18 13:16 Lab Results 01/15/18 01/15/18 Range/Units 13:16 13:16 WBC 12.4 H (4.3-11.1) K/mcL RBC 4.25 (3.82-4.97) M/mcL Hgb 13.9 (11.5-15.4) g/dL Hct 40.8 (35.3-44.9) % MCV 96.0 (83.0-100.0) fL MCH 32.7 (28.0-33.3) pg MCHC 34.1 (31.6-35.5) g/dL RDW 13.3 (11.5-14.5) % Plt Count 300 (140-400) K/mcL MPV 9.1 L (9.4-12.4) fL Immature Gran % 0.3 (0-4) % Seg Neutrophils % 70.2 % Lymphocytes % 18.3 % Monocytes % 10.4 % Eosinophils % 0.5 % Basophils % 0.3 % Neutrophils # 8.7 (1.6-8.9) K/mcL Lymphocytes # 2.3 (0.6-4.6) K/mcL Monocytes # 1.3 (0.0-1.3) K/mcL Eosinophils # 0.1 (0.0-0.6) K/mcL Basophils # 0.0 (0.0-0.2) K/mcL Sodium 135 L (136-145) mEq/L Potassium 3.5 (3.5-5.1) mEq/L Chloride 97 L (98-107) mEq/L Carbon Dioxide 27 (23-29) mEq/L BUN 6 (6-20) mg/dL Creatinine 0.51 L (0.60-1.20) mg/dL Est GFR ( Amer) > 60 (> 60) Est GFR (Non-Af Amer) > 60 (> 60) BUN/Creatinine Ratio 12 (6-26) Glucose 84 (70-105) mg/dL Calculated Osmolality 277 L (280-300) Calcium 9.3 (8.6-10.3) mg/dL Troponin I < 0.03 (< 0.04) ng/mL Attestation Statement - Attestation Attestation: I examined this patient and my medical decision-making was reviewed with the Resident Physician. I agree with the documented findings, disposition and treatment plan as described except to the extent set forth below. 57 year old female presents to the ed with complaints of chest pain and has a history of COPD and was most recently trated for an excerabtion but is having exertional dsypnea with chest pressure that is midsternal. Shes tates the nitro that was fiven to her in the sqaud has helped with her pain. Patient has risk factors and a moderate risk heart score and we will treat with ASA and then admit to medicine. NO ischeic changes in ekg, neg troponin
--- NOTE | 2018-01-15 16:19 | Internal Med History&Physical ---
Date of Encounter: 01/15/18 Time of Encounter: 16:16 Internal Medicine - H&P: HPI Chief complaint: chest pain Admitted From: Home Plans for Post Hospital Care: Home History of present illness: Ms. Honeycutt is a 57 year old female with history of CAD status post stent on DAPT, COPD on home oxygen presents to the ED with complaint of chest pain. Chest pain started on the morning of admission while she was sitting, located in the middle of her chest, nonradiating, 9 out of 10 in severity and pressure-like. 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 She denies chest pain on exertion, no PND, no orthopnea, no chest trauma. She denies shortness of breath on exertion, she has complaint to her home oxygen and other medications. She was recently admitted to [facility] with similar symptoms and it was recommended for her to have an outpatient stress test. During last admission she was discharged with antibiotics and steroids for COPD exacerbation she is currently on day 6 of her antibiotics. She reports wheezing that started on the day of admission. She denies sick contacts or recent travel. She denies fever, chills, palpitations, heat or cold intolerance, nausea, vomiting, diarrhea. She reports that she has been on under a lot of stress recently dealing with family issues. Past Med Surg Social Fam HX - Past Medical History Medical history: asthma, atrial fibrillation, COPD, coronary artery disease, hyperlipidemia, myocardial infarction Additional medical history: back pain, O2 @ 2L at all times Psychiatric history: anxiety - Past Surgical History Surgical History: angioplasty/stent, cholecystectomy, other Additional surgical history: tubal ligation - Social History Smoking Status: Current every day smoker Smokeless Tobacco Status: No Alcohol use: occasionally Drug use: marijuana - Family History Father Living Status: Hx Family Respiratory Disorders: Yes Hx Family Cancer: Yes (Lung cancer) Hx Family Endocrine Disorder: Yes Diabetes diabetes Hx Family Cardiac Disorders: Yes (Hypertension) Hx Family Respiratory Disorders: Yes Hx Family Cancer: Yes (Lung cancer) Hx Family Endocrine Disorder: Yes (Diabetes) Sister Living Status: Hx Family Cancer: Yes Hx Family Endocrine Disorder: Yes (Diabetes) Mother Living Status: Hx Family Cardiac Disorders: Yes Hx Family Respiratory Disorders: No Hx Family Cancer: Yes Hx Family GI Disorders: Yes (Ulcers) Internal Medicine - H&P: Meds Nitroglycerin [Nitrostat] 0.4 mg SL Q5M PRN 05/29/16 [History] Aspirin Enteric Coated [Aspirin EC] 81 mg PO DAILY #30 tablet.dr 10/03/16 [Rx] Clopidogrel [Plavix] 75 mg PO DAILY #30 tablet 10/03/16 [Rx] Furosemide [Lasix] 20 mg PO DAILY #30 tablet 10/03/16 [Rx] Metoprolol XL (24 HR) Succ [Toprol Xl] 25 mg PO DAILY #30 tab.er.24h 10/03/16 [ Rx] Pravastatin Sodium [Pravachol] 40 mg PO HS #30 tablet 10/03/16 [Rx] Metoclopramide [Reglan] 10 mg PO QIDAC 10/16/17 [History] Albuterol Sulfate [Ventolin Hfa] 18 gm IH Q6H PRN #1 hfa.aer.ad 12/29/17 [Rx] Guaifenesin [Mucinex] 600 mg PO Q12HR #14 tab.er.12h 12/29/17 [Rx] Ipratropium/Albuterol Neb [Duoneb] 3 ml IH Q4HR #100 inhsol 12/29/17 [Rx] levoFLOXacin [Levofloxacin] 500 mg PO DAILY 01/15/18 [History] 3 Allergy/AdvReac Type Severity Reaction Status Date / Time codeine Allergy Rash Verified 01/15/18 15:44 All Systems PM: review of systems was performed and is negative for pertinent findings except as documented above in the HPI. - Constitutional Vitals: Temp Pulse Resp BP Pulse Ox 98.6 F 96 18 112/68 97 01/15/18 12:52 01/15/18 15:19 01/15/18 15:19 01/15/18 15:19 01/15/18 15:19 - Other Additional findings: General: Patient is alert, oriented, no acute distress, cachectic Head: atraumatic, normocephalic, Eye: normal appearance, PERRL, no scleral icterus, no conjunctival injection ENT: mucous membranes moist, normal external ear exam Neck: normal inspection, trachea midline, full ROM, no carotid bruits Chest: normal inspection, symmetric chest rise Respiratory: Good respiratory effort. Bilateral breath sounds has wheezing in all posterior aspects of lung power and anterior chest Cardiovascular: Regular rate and rhythm. s1 and s2 No clicks, rubs, gallops, or murmors. Abdomen: Bowel sounds present normoactive x-4 quadrants. Abdomen is soft, nondistended. Epigastric tenderness. No guarding or rebound. No organomegaly noted, scaphoid musculoskeletal: Spontaneously moving all extremities. no edema, no calf tenderness Skin: warm, dry, intact. Neuro: Alert and oriented x4. Sensation light touch intact. Cranial nerves 2- 12 is intact. Not aphasic, gait is steady, rapid hand movements intact, finger- to-nose intact, Psych: Patient's affect is normal Internal Med - H&P Results - Labs CBC & Chem 7: 01/15/18 13:16 01/15/18 13:16 - EKG Data -: EKG Interpreted by Myself (sinus rhythm, Q in septal leads, pulmonary pattern , ISABEL? ) - Assessment and plan (1) Chest pain Current Visit: Yes Status: Acute Assessment and plan: CP is reproducible on palpation but given the cardiac history will r/o ACS was admitted for similar symptoms on 12/26/17 was loaded with ASA in the ED Stress 12/2016 negative for ishemia or infarct. Troponins negative x1 will folow 2 more troponins Q6H EKG STAT to assess for ischemic changes chest pain is reproducible on palpation - was given toradol in [facility] ED with improvement cardiology consult in the AM for possible stress test will keep patietn NPO will continue ASA, plavix, BB, and Statin Qualifiers: Chest pain type: precordial pain Qualified Code(s): R07.2 - Precordial pain (2) Coronary artery disease Current Visit: No Status: Chronic Assessment and plan: CP is reproducible on palpation but given the cardiac history will r/o ACS was admitted for similar symptoms on 12/26/17 Stress 12/2016 negative for ishemia or infarct. Troponins negative x1 will folow 2 more troponins Q6H EKG STAT to assess for ischemic changes chest pain is reproducible on palpation - was given toradol in [facility] ED with improvement cardiology consult in the AM for possible stress test will keep patient NPO past midnight for possible intervention will continue ASA, plavix, BB, and Statin TTE on 12/26/17- LVEF 60%. * Normal LV chamber size, wall thickness and function. * Mild left ventricular diastolic dysfunction. Qualifiers: Coronary Disease-Associated Artery/Lesion type: [place] artery [place] vs. transplanted heart: [place] heart Associated angina: with unspecified angina Qualified Code(s): I25.119 - Atherosclerotic heart disease of [place] coronary artery with unspecified angina pectoris (3) Acute exacerbation of chronic obstructive pulmonary disease (COPD) Current Visit: No Status: Acute Assessment and plan: will start on avelox for a few more days - check QT - (on levaquin at home ?day 6) will start her on solumedrol 40 Q8H as she is wheezing DUONEB Q4H Albuterol Q6H PRN sputum cx urine antigens for legionella and strep pna ABG STAT nasal cannula 2 L keep sats >92% (4) GERD (gastroesophageal reflux disease) Current Visit: No Status: Acute Assessment and plan: protonix 40 mg Qday she is on DAPT Qualifiers: Esophagitis presence: without esophagitis Qualified Code(s): K21.9 - Gastro -esophageal reflux disease without esophagitis (5) Tobacco abuse Current Visit: No Status: Acute Assessment and plan: has cut down to half a pack per day was counseled on smoking cessation (6) Cachexia Current Visit: Yes Status: Acute Assessment and plan: nutrition consult BMI 14.4 (7) Anxiety Current Visit: Yes Status: Acute Assessment and plan: has multiple recent stressors psych consult in the AM (8) DVT prophylaxis Current Visit: Yes Status: Acute Assessment and plan: heparin 5000 sc Q8H - Time Spent With Patient Total time spent is greater than 50% in coordination of care (as documented) at patient's floor/unit and/or counseling patient:
[2018-01-15] MEDS ORDERED: Aspirin Enteric Coated 81 MG Tablet PO SCH (16:30)
[2018-01-15 18:01] LABS: ABG Base Excess 7 mEq/L (-2 to 3); ABG HCO3 33 mEq/L (21-27); ABG Oxygen Saturation 96 % (95-98); ABG PCO2 52 mmHg (35-45); ABG PH 7.42 pH Units (7.32-7.45); ABG PO2 82 mmHg (85-104); ABG TCO2 35 mEq/L (20-26)
[2018-01-15] MEDS: Ipratropium/Albuterol Neb 3 ML IH SCH ×3 (18:07→23:53)
[2018-01-15] MEDS ORDERED: Nitroglycerin 0.4 MG TAB.SUBL SL PRN (22:05)
--- NOTE | 2018-01-15 22:17 | Event Note ---
Date of Encounter: 01/15/18 Time of Encounter: 22:14 Patient c/o chest pain, rates pain 6-7/10. Trops have been less than 0.03. ordered a 12 lead ekg, nitro and stat trop. Will also give a dose of toradol d/ t the pain being reproducible earlier. Monitor bp as it dropped earlier in shift. Cardiology on consult. Plan for stress in am.
[2018-01-16] MEDS: Levofloxacin 500 MG/100 ML 500 MG/100 ML BAG IVPB SCH (01:00)
[2018-01-16] MEDS: MethylPREDNISolone 40 MG/ML VIAL IVP SCH ×3 (01:00→15:45)
[2018-01-16] MEDS: Ipratropium/Albuterol Neb 3 ML IH SCH ×5 (04:16→20:40)
[2018-01-16] MEDS: *HR* Heparin 5,000 UNIT/ML VIAL SQ SCH ×3 (05:59→21:26)
[2018-01-16 07:14] LABS: Amphetamine Screen,Urine Negative ng/mL (Cutoff=1000); Barbiturate Screen,Urine Negative ng/mL (Cutoff=200); Benzodiazepines Screen,Urine Negative ng/mL (Cutoff=200); Cannabinoid Screen,Urine Negative ng/mL (Cutoff = 50); Cocaine Screen,Urine Negative ng/mL (Cutoff= 300); Opiate Screen,Urine Positive ng/mL (Cutoff=300); Phencyclidine Screen,Urine Negative ng/mL (Cutoff=25)
[2018-01-16] MEDS ORDERED: Regadenoson 0.4 MG/5 ML SYRINGE IVP ONE ×2 (12:11→12:17)
--- NOTE | 2018-01-16 13:21 | Psychiatry Progress Note ---
Date of Encounter: 01/16/18 Time of Encounter: 13:20 Subjective Interval history: Attempted to see patient today twice at her nursing patient was testing. Psychiatry was consulted for anxiety and recent life stressors. At this time psychiatry would not recommend medication due to the primary treatment for this at first being counseling director social welfare or case management to provide patient with resources for outpatient counseling if patient reports any type of safety concerns are suicidal ideations or has any agitation or aggression please reconsult psychiatry at that time thank you Results - Vital Signs Vital Signs: Temp Pulse Resp BP Pulse Ox 97.6 F 87 16 112/74 97 01/16/18 07:38 01/16/18 07:38 01/16/18 07:38 01/16/18 07:38 01/16/18 07:38 - Drug Levels and Toxicology Drug Levels and Toxicology: Drug Levels and Toxicity 01/16/18 06:20 Urine Opiates Screen Positive H Ur Barbiturates Screen Negative Ur Phencyclidine Scrn Negative Ur Amphetamines Screen Negative U Benzodiazepines Scrn Negative Urine Cocaine Screen Negative U Marijuana (THC) Screen Negative - Labs Labs: Laboratory Results - last 24 hr 01/15/18 01/15/18 01/15/18 17:56 20:29 22:22 ABG pH 7.42 ABG pCO2 52 H ABG pO2 82 L ABG HCO3 33 H ABG Total CO2 35 H ABG O2 Saturation 96 ABG Base Excess 7 H Troponin I < 0.03 < 0.03 Urine Opiates Screen Ur Barbiturates Screen Ur Phencyclidine Scrn Ur Amphetamines Screen U Benzodiazepines Scrn Urine Cocaine Screen U Marijuana (THC) Screen Ur Drug Screen Interp 01/16/18 01/16/18 04:31 06:20 ABG pH ABG pCO2 ABG pO2 ABG HCO3 ABG Total CO2 ABG O2 Saturation ABG Base Excess Troponin I < 0.03 Urine Opiates Screen Positive H Ur Barbiturates Screen Negative Ur Phencyclidine Scrn Negative Ur Amphetamines Screen Negative U Benzodiazepines Scrn Negative Urine Cocaine Screen Negative U Marijuana (THC) Screen Negative Ur Drug Screen Interp See Below Consult Discharge Plan - Plan Psychiatry Exam - Constitutional Vitals: Temp Pulse Resp BP Pulse Ox 97.6 F 87 16 112/74 97 01/16/18 07:38 01/16/18 07:38 01/16/18 07:38 01/16/18 07:38 01/16/18 07:38
[2018-01-16] MEDS: Metoprolol XL (24 HR) Succ 25 MG TAB.ER.24H PO SCH ×2 (15:37→15:45)
[2018-01-16] MEDS: Furosemide 20 MG TABLET PO SCH ×2 (15:37→15:45)
[2018-01-16] MEDS: Aspirin Enteric Coated 81 MG Tablet PO SCH (15:46)
--- NOTE | 2018-01-16 16:23 | Electrocardiograph Report ---
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
--- NOTE | 2018-01-16 16:42 | Electrocardiograph Report ---
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
[2018-01-16] MEDS ORDERED: traMADol 50 MG TABLET PO PRN (17:18)
--- NOTE | 2018-01-16 17:23 | Internal Med Progress Note ---
Date of Encounter: 01/16/18 Time of Encounter: 17:20 - Assessment and plan (1) Chest pain Current Visit: Yes Status: Acute Assessment and plan: CP is reproducible on palpation but given the cardiac history will r/o ACS was admitted for similar symptoms on 12/26/17 Stress 12/2016 negative for ischemia or infarct. Troponins negative x3, stress nuclear test this admission negative 01/16. continue ASA, plavix, BB, and Statin Qualifiers: Chest pain type: precordial pain Qualified Code(s): R07.2 - Precordial pain (2) Coronary artery disease Current Visit: No Status: Chronic Assessment and plan: continue ASA, plavix, BB, and Statin TTE on 12/26/17- LVEF 60%. * Normal LV chamber size, wall thickness and function. * Mild left ventricular diastolic dysfunction. Qualifiers: Coronary Disease-Associated Artery/Lesion type: [place] artery [place] vs. transplanted heart: [place] heart Associated angina: with unspecified angina Qualified Code(s): I25.119 - Atherosclerotic heart disease of [place] coronary artery with unspecified angina pectoris (3) Tobacco abuse Current Visit: No Status: Acute Assessment and plan: has cut down to half a pack per day was counseled on smoking cessation (4) GERD (gastroesophageal reflux disease) Current Visit: No Status: Acute Assessment and plan: protonix 40 mg Qday she is on DAPT Qualifiers: Esophagitis presence: without esophagitis Qualified Code(s): K21.9 - Gastro -esophageal reflux disease without esophagitis (5) Acute exacerbation of chronic obstructive pulmonary disease (COPD) Current Visit: No Status: Acute Assessment and plan: continue home Levaquin. continue solumedrol 40 Q8H as she is wheezing DUONEB Q4H Albuterol Q6H PRN sputum cx (6) Cachexia Current Visit: Yes Status: Acute Assessment and plan: nutrition consult BMI 14.4 (7) DVT prophylaxis Current Visit: Yes Status: Acute Assessment and plan: heparin 5000 sc Q8H (8) Anxiety Current Visit: Yes Status: Acute Assessment and plan: has multiple recent stressors. will re-consult Psych. - Time Spent With Patient Total time spent is greater than 50% in coordination of care (as documented) at patient's floor/unit and/or counseling patient: Greater than 35 minutes - Subjective Interval history: Sincerely and examined in the room, she Has No Chest Pain. - Constitutional Vitals: Temp Pulse Resp BP Pulse Ox 97.9 F 105 18 116/73 98 01/16/18 15:57 01/16/18 15:57 01/16/18 16:15 01/16/18 15:57 01/16/18 16:15 General appearance: Present: A&O X 3 Exam: PHYSICAL EXAMINATION: GENERAL APPEARANCE: The patient is alert, oriented and in no acute distress. HEENT: Head is normocephalic. The sinuses are nontender. Pupils are equal and reactive. The nares are patent. Oropharynx clear without lesions. NECK: Supple without lymphadenopathy. HEART: Regular rate and rhythm. LUNGS: No crackles or wheezes are heard. ABDOMEN: Soft, nontender, nondistended with good bowel sounds heard. Inguinal area is normal. EXTREMITIES: Without cyanosis, clubbing or edema. NEUROLOGICAL: Gross nonfocal. SKIN: Warm and dry without any rash. Internal Medicine: Result - Labs CBC & Chem 7: 01/15/18 13:16 01/15/18 13:16 Labs: Cardiac Enzymes 01/15/18 01/15/18 01/16/18 Range/Units 20:29 22:22 04:31 Troponin I < 0.03 < 0.03 < 0.03 (< 0.04) ng/mL - ABG Interpretation ABG results: ABG ABG pH 7.42 pH Units (7.32-7.45) 01/15/18 17:56 ABG pCO2 52 mmHg (35-45) H 01/15/18 17:56 ABG pO2 82 mmHg (85-104) L 01/15/18 17:56 ABG O2 Saturation 96 % (95-98) 01/15/18 17:56 Consult Discharge Plan - Plan Referrals: NONE,PCP [Primary Care Provider] -
[2018-01-17] MEDS: MethylPREDNISolone 40 MG/ML VIAL IVP SCH ×4 (00:08→23:19)
[2018-01-17] MEDS: Levofloxacin 500 MG/100 ML 500 MG/100 ML BAG IVPB SCH ×2 (00:08→23:19)
[2018-01-17] MEDS: Ipratropium/Albuterol Neb 3 ML IH SCH ×6 (00:16→20:39)
[2018-01-17 04:40] LABS: Basophils % 0.1 %; Hematocrit 38.6 % (35.3-44.9); Hemoglobin 12.7 g/dL (11.5-15.4); Immature Granulocytes % 0.5 % (0-4); Lymphocytes # 0.4 K/mcL (0.6-4.6); Lymphocytes % 2.7 %; Mean Corpuscular HGB Conc 32.9 g/dL (31.6-35.5); Mean Corpuscular Hemoglobin 32.7 pg (28.0-33.3); Mean Corpuscular Volume 99.5 fL (83.0-100.0); Mean Platelet Volume 9.6 fL (9.4-12.4); Monocytes # 0.6 K/mcL (0.0-1.3); Monocytes % 3.7 %; Neutrophils # 14.5 K/mcL (1.6-8.9); Platelet Count 271 K/mcL (140-400); Red Blood Count 3.88 M/mcL (3.82-4.97); Red Cell Distribution Width 13.5 % (11.5-14.5)
[2018-01-17 04:44] LABS: BUN/Creatinine Ratio 14 (6-26); Blood Urea Nitrogen 8 mg/dL (6-20); Calcium 8.8 mg/dL (8.6-10.3); Carbon Dioxide 29 mEq/L (23-29); Chloride 96 mEq/L (98-107); Glucose 159 mg/dL (70-105); Osmolality,Calculated 278 (280-300); Sodium 133 mEq/L (136-145); eGFR For Non-African Americans > 60 (> 60)
[2018-01-17] MEDS: *HR* Heparin 5,000 UNIT/ML VIAL SQ SCH ×3 (05:50→21:10)
[2018-01-17] MEDS: Furosemide 20 MG TABLET PO SCH (08:09)
[2018-01-17] MEDS: Aspirin Enteric Coated 81 MG Tablet PO SCH (08:09)
[2018-01-17] MEDS: Metoprolol XL (24 HR) Succ 25 MG TAB.ER.24H PO SCH (08:09)
--- NOTE | 2018-01-17 11:08 | Internal Med Progress Note ---
Date of Encounter: 01/17/18 Time of Encounter: 11:01 - Assessment and plan (1) Chest pain Current Visit: Yes Status: Acute Assessment and plan: CP is reproducible on palpation but given the cardiac history will r/o ACS was admitted for similar symptoms on 12/26/17 Stress 12/2016 negative for ischemia or infarct. Troponins negative x3, stress nuclear test this admission negative 01/16. continue ASA, plavix, BB, and Statin 01/17/2018: Denies chest pain today will continue medications as ordered, continue to monitor . 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 transplanted heart: [place] heart Associated angina: with unspecified angina Qualified Code(s): I25.119 - Atherosclerotic heart disease of [place] coronary artery with unspecified angina pectoris (4) GERD (gastroesophageal reflux disease) Current Visit: No Status: Acute Assessment and plan: Patient continues to have signs and symptoms of GERD especially with trying to eat, we will increase her omeprazole 20 mg twice daily Qualifiers: Esophagitis presence: without esophagitis Qualified Code(s): K21.9 - Gastro -esophageal reflux disease without esophagitis (5) Acute exacerbation of chronic obstructive pulmonary disease (COPD) Current Visit: No Status: Acute Assessment and plan: Patient continues on oxygen at 2 L on physical exam she continues to have dyspnea as well as rales and wheezes. We will continue with current medications and oxygen therapy (6) Cachexia Current Visit: Yes Status: Acute Assessment and plan: Patient continues with difficulty with eating she is definitely underweight review of consult for nutrition has recommended that she get a dietary supplement of ensure (7) DVT prophylaxis Current Visit: Yes Status: Acute (8) Anxiety Current Visit: Yes Status: Acute - Time Spent With Patient Total time spent is greater than 50% in coordination of care (as documented) at patient's floor/unit and/or counseling patient: - Subjective Interval history: Mrs. [id number] patient, who is admitted for, chest pain GERD Cachexia , and anxiety. Review of records, shows that upon admission she was positive for opioids, and she feels that this was given to her in the emergency room tendons had continued to trend 3. Stress test was completed and graded EF greater than 70% for ischemia of the heart rate was achieved, she is negative for ischemia or infarct. Psychiatry was consulted and patient was seen per Dr. Master Hernandez. At this point he did not recommend any medications for anxiety and recent life stressors. Recommend that she start test visual counseling and case management was contacted to provide outpatient resources for counseling. Today she complains of continued GERD eating but states that she was eating too fast and it has resolved. She is dypnic with oxygen on @ 2LPM/NC and has scattered rales . Chest x-ray 726 showed no acute cardiopulmonary disease and she is positive for COPD changes. - Constitutional Vitals: Temp Pulse Resp BP Pulse Ox 97.8 F 76 16 110/74 100 01/17/18 07:44 01/17/18 07:44 01/17/18 08:01 01/17/18 07:44 01/17/18 08:01 General appearance: Present: cachectic, cooperative, A&O X 3, pleasant - Respiratory Respiratory exam: Present: decreased breath sounds, rales, rhonchi, wheezes - Cardiovascular Cardiovascular exam: Present: RRR - GI/Abdominal GI/Abdominal exam: Present: normal bowel sounds, soft - Neurological Exam Neurological exam: Present: alert, CN II-XII intact, oriented X3, reflexes normal, no focal deficits - Psychiatric Psychiatric exam: Present: normal affect, normal mood Internal Medicine: Result - Labs CBC & Chem 7: 01/17/18 03:46 01/17/18 03:46 Labs: Short CBC 01/17/18 Range/Units 03:46 WBC 15.5 H (4.3-11.1) K/mcL Hgb 12.7 (11.5-15.4) g/dL Hct 38.6 (35.3-44.9) % Plt Count 271 (140-400) K/mcL Neutrophils # 14.5 H (1.6-8.9) K/mcL BMP 01/17/18 03:46 Sodium 133 L Potassium 4.0 Chloride 96 L Carbon Dioxide 29 BUN 8 Creatinine 0.56 L Glucose 159 H Calcium 8.8 - ABG Interpretation ABG results: ABG ABG pH 7.42 pH Units (7.32-7.45) 01/15/18 17:56 ABG pCO2 52 mmHg (35-45) H 01/15/18 17:56 ABG pO2 82 mmHg (85-104) L 01/15/18 17:56 ABG O2 Saturation 96 % (95-98) 01/15/18 17:56 Consult Discharge Plan - Plan Additional Instructions: Encouraged to quit smoking, with smoking cessation counseling Referrals: NONE,PCP [Primary Care Provider] -
[2018-01-17] MEDS ORDERED: Melatonin 3 MG TABLET PO PRN (20:30)
[2018-01-18] MEDS: Ipratropium/Albuterol Neb 3 ML IH SCH ×3 (01:08→07:57)
[2018-01-18] MEDS: *HR* Heparin 5,000 UNIT/ML VIAL SQ SCH (05:46)
[2018-01-18 07:19] VITALS: BP 104/64
[2018-01-18] MEDS: MethylPREDNISolone 40 MG/ML VIAL IVP SCH (08:07)
[2018-01-18] MEDS: Metoprolol XL (24 HR) Succ 25 MG TAB.ER.24H PO SCH (08:08)
[2018-01-18] MEDS: Aspirin Enteric Coated 81 MG Tablet PO SCH (08:08)
[2018-01-18] MEDS: Furosemide 20 MG TABLET PO SCH (08:08)
--- NOTE | 2018-01-18 10:02 | Discharge Summary ---
- NOTES TO OUTPATIENT PROVIDER Notes to Outpatient Provider: f/u with PCP within 1-2 weeks. f/u with psychiatry as needed. Orders not resulted at time of discharge: Pending orders 01/15/18 16:34 Culture,Sputum with Gram Stain [RM] Stat 01/15/18 23:45 Culture,Sputum with Gram Stain [RM] Stat 01/16/18 01:00 EKG [ECG 12 lead ECG] [ECG] Q6H 01/16/18 09:23 NM bhavesh perf SPECT multi [NM] Routine Date of Encounter: 01/18/18 Time of Encounter: 10:00 - Discharge Diagnosis (1) Coronary artery disease Priority: Secondary Status: Chronic Qualifiers: Coronary Disease-Associated Artery/Lesion type: [place] artery [place] vs. transplanted heart: [place] heart Associated angina: with unspecified angina Qualified Code(s): I25.119 - Atherosclerotic heart disease of [place] coronary artery with unspecified angina pectoris (2) Tobacco abuse Priority: Secondary Status: Chronic (3) GERD (gastroesophageal reflux disease) Priority: Secondary Status: Acute Qualifiers: Esophagitis presence: without esophagitis Qualified Code(s): K21.9 - Gastro -esophageal reflux disease without esophagitis (4) Chest pain Priority: Primary Status: Acute Assessment and Plan: CP is reproducible on palpation but given the cardiac history will r/o ACS was admitted for similar symptoms on 12/26/17 Stress 12/2016 negative for ischemia or infarct. Troponins negative x3, stress nuclear test this admission negative 01/16. continue ASA, plavix, BB, and Statin 01/17/2018: Denies chest pain today will continue medications as ordered, continue to monitor . Qualifiers: Chest pain type: precordial pain Qualified Code(s): R07.2 - Precordial pain (5) Acute exacerbation of chronic obstructive pulmonary disease (COPD) Priority: Primary Status: Acute Assessment and Plan: Patient continues on oxygen at 2 L on physical exam she improved dyspnea and wheezes. continue with current medications and oxygen therapy (6) Cachexia Priority: Secondary Status: Acute (7) Anxiety Priority: Secondary Status: Acute Hospital course: Mrs. MirandaXfjy-ozpr-gmc patient, who is admitted for, chest pain GERD Cachexia , and anxiety. Stress test was completed and graded EF greater than 70%,negative for ischemia or infarct. troponin is negative x3. Recent ECHO showed normal EF and indetermined diastolic function. Psychiatry was consulted. At this point he did not recommend any medications for anxiety and recent life stressors. Recommend that she start test visual counseling and case management was contacted to provide outpatient resources for counseling. Her COPD symptoms was improved with IV steroids and bronchodilators. She is stable and wanted to go home. She will be discharged home, continue to f/u with PCP as ordered. F/u with psychiatry as needed. Time spent discussing smoking cessation with patient: more than 10 minutes - Time Spent with Patient Total time spent providing and/or coordinating discharge services: Greater than 30 minutes - Discharge Medications Prescriptions: predniSONE [PredniSONE] 10 mg PO DAILY #30 tablet Home Medications: Nitroglycerin [Nitrostat] 0.4 mg SL Q5M PRN 05/29/16 [History] Aspirin Enteric Coated [Aspirin EC] 81 mg PO DAILY #30 tablet.dr 10/03/16 [Rx] Clopidogrel [Plavix] 75 mg PO DAILY #30 tablet 10/03/16 [Rx] Furosemide [Lasix] 20 mg PO DAILY #30 tablet 10/03/16 [Rx] Metoprolol XL (24 HR) Succ [Toprol Xl] 25 mg PO DAILY #30 tab.er.24h 10/03/16 [ Rx] Pravastatin Sodium [Pravachol] 40 mg PO HS #30 tablet 10/03/16 [Rx] Metoclopramide [Reglan] 10 mg PO QIDAC 10/16/17 [History] Albuterol Sulfate [Ventolin Hfa] 18 gm IH Q6H PRN #1 hfa.aer.ad 12/29/17 [Rx] Guaifenesin [Mucinex] 600 mg PO Q12HR #14 tab.er.12h 12/29/17 [Rx] Ipratropium/Albuterol Neb [Duoneb] 3 ml IH Q4HR #100 inhsol 12/29/17 [Rx] predniSONE [PredniSONE] 10 mg PO DAILY #30 tablet 01/18/18 [Rx] Allergies/Adverse Reactions: 3 Allergy/AdvReac Type Severity Reaction Status Date / Time codeine Allergy Rash Verified 01/15/18 15:44 Date of admission: 01/15/18 15:39 Primary care physician: PCP NONE Consults: 01/15/18 16:42 Consult to Nutrition [CONS] Routine Comment: Consulting Provider: NUTRITION Reason for Dietary Consult: PO Supplementation Consult to Psychiatry [CONS] Routine Consulting Provider: Psychiatry Aileen Reason consult: Other Other reason and/or additional details: has anxiety adn recent life stresses Call Completed: No Anticipated date of discharge: 01/18/18 - Constitutional Vitals: Temp Pulse Resp BP Pulse Ox 97.8 F 78 18 104/64 99 01/18/18 07:18 01/18/18 07:18 01/18/18 07:59 01/18/18 07:18 01/18/18 07:59 General appearance: Present: cachectic, cooperative, A&O X 3, pleasant Exam: PHYSICAL EXAMINATION: GENERAL APPEARANCE: The patient is alert, oriented and in no acute distress. HEENT: Head is normocephalic. The sinuses are nontender. Pupils are equal and reactive. The nares are patent. Oropharynx clear without lesions. NECK: Supple without lymphadenopathy. HEART: Regular rate and rhythm. LUNGS: No crackles or wheezes are heard. ABDOMEN: Soft, nontender, nondistended with good bowel sounds heard. Inguinal area is normal. EXTREMITIES: Without cyanosis, clubbing or edema. NEUROLOGICAL: Gross nonfocal. SKIN: Warm and dry without any rash. - Patient Status Disposition: Home, Self-Care Condition: Fair Functional capacity at discharge: independent ambulation Overall status at discharge: patient is back to baseline - Discharge Instructions Follow Up With: NONE,PCP [Primary Care Provider] - Forms: ED Satisfaction Letter Additional Instructions: Encouraged to quit smoking, with smoking cessation counseling - Diet and Activity Activity: increase activity as tolerated Diet: low fat, low cholesterol, low salt diet
== END 2018-01-18 11:12 | disposition home or self-care (01) ==
LOC: EMEROO 12:48 → 3BNU 12:48
PROVIDERS: ADMIT Internal Medicine; ATTEND Internal Medicine

== ENCOUNTER 2018-03-07 12:55 | Observation (INO) ==
--- NOTE | 2018-03-07 13:08 | Emergency Department Note ---
Disposition Clinical Impression: COPD exacerbation Chest pain Qualifiers: Ischemic chest pain type: unspecified angina pectoris type Qualified Code(s): I25.9 - Disposition: Admitted As Inpatient Condition: Fair SOB HPI - General Chief Complaint: ED Shortness of Breath/Dyspnea Stated Complaint: "sob,CP" Time Seen by Provider: 03/07/18 13:03 - History of Present Illness 57 YO F here for CP and SOB with history of MS in 2012 w/ angioplasty, COPD on oxygen at home. She woke up at 3AM with CP and SOB and decided to come in after pain did not get better. States the pain is midsternal, nonradiating, rated 7/10, increases with breathing and crushing. States that when she had an MS in 2011 the pain radiated to her left shoulder and also presented as abdominal pain. She states her SOB increases with work, but CP does not increase with work. She also states the CP has subsided in the hospital. Denies diaphoresis. Her children have had respiratory infections in the past week. She states she has felt feverish, night sweats, chills for the past week. She coughs sputum at baseline and states her sputum characteristics have not changed. No history of clots and on blood thinner. - Related Data Home Medications Medication Instructions Recorded Confirmed Nitroglycerin [Nitrostat] 0.4 mg SL Q5M PRN 05/29/16 01/15/18 Metoclopramide [Reglan] 10 mg PO QIDAC 10/16/17 01/15/18 Previous Rx's Medication Instructions Recorded Aspirin Enteric Coated [Aspirin EC] 81 mg PO DAILY #30 tablet. 10/03/16 Clopidogrel [Plavix] 75 mg PO DAILY #30 tablet 10/03/16 Furosemide [Lasix] 20 mg PO DAILY #30 tablet 10/03/16 Metoprolol XL (24 HR) Succ [Toprol 25 mg PO DAILY #30 tab.er.24h 10/03/16 Xl] Pravastatin Sodium [Pravachol] 40 mg PO HS #30 tablet 10/03/16 Albuterol Sulfate [Ventolin Hfa] 18 gm IH Q6H PRN #1 hfa.aer.ad 12/29/17 Guaifenesin [Mucinex] 600 mg PO Q12HR #14 tab.er.12h 12/29/17 Ipratropium/Albuterol Neb [Duoneb] 3 ml IH Q4HR #100 inhsol 12/29/17 predniSONE [PredniSONE] 10 mg PO DAILY #30 tablet 01/18/18 Allergies Allergy/AdvReac Type Severity Reaction Status Date / Time codeine Allergy Rash Verified 03/07/18 13:01 All systems ED: reviewed and negative except as stated. Review of Systems: As Per HPI Constitutional: Reports: as per HPI, fever, chills, night sweats Cardiovascular: Reports: chest pain, dyspnea on exertion. Denies: palpitations Respiratory: Reports: cough, dyspnea, wheezes, sputum production. 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 - Social History Smoking Status: Current every day smoker Smokeless Tobacco Status: No Alcohol use: Reports: occasionally Drug use: Reports: marijuana Physical Exam - General Limitations: no limitations General appearance: alert, in distress - Head Head exam: atraumatic, normocephalic - Chest Chest inspection: Present: normal inspection, symmetric chest wall rise - Respiratory Respiratory exam: Present: respiratory distress, wheezes - Cardiovascular Cardiovascular exam: Present: normal rhythm, tachycardia, normal heart sounds - Expanded Lower Extremity Exam Lower leg exam: Present: normal inspection. Absent: tenderness, swelling - Neurological Exam Neurological exam: Present: alert, oriented X3 - Psychiatric Psychiatric exam: Present: normal affect, anxious Course Course Narrative: 57 YO F with CP and SOB with history of MS in 2011 and COPD. Doesn't have leg pain and on blood thinners. MS vs COPD exacerbation vs Lung CA - EKG shows ST elevation in V3 ordering repeat EKG comfirms V3 elevations. however Tropinins < .03. Waiting on chest CT. - Patient on oxygen at home and have SOB - ordered duoneb breathing treatment - History of smoking + difficulty breathing - CT chest to r/o lung CA. - Given Zofran for nauseau - Reevaluation(s) Reevaluation #1: Tropinins neg, Chest CT neg, did not improve with breathing treatment. Called hospitalist and talked to patient - will admit for COPD exacerbation vs ACS. Vital Signs Temperature 98.4 F 03/07/18 13:00 Pulse Rate 125 03/07/18 13:00 Respiratory Rate 22 03/07/18 13:00 Blood Pressure 103/59 03/07/18 13:00 O2 Sat by Pulse Oximetry 93 03/07/18 13:00 Temperature 98.4 F 03/07/18 14:33 Pulse Rate 93 03/07/18 17:30 Respiratory Rate 20 03/07/18 18:51 Blood Pressure 109/74 03/07/18 18:51 O2 Sat by Pulse Oximetry 95 03/07/18 17:30 Oxygen Delivery Oxygen Delivery Nasal Cannula Shortness of Breath/Dyspnea - Lab Data Result diagrams: 03/07/18 17:18 03/07/18 17:18 Lab Results 03/07/18 03/07/18 03/07/18 Range/Units 13:27 13:27 17:18 WBC 7.5 (4.3-11.1) K/mcL RBC 3.84 (3.82-4.97) M/mcL Hgb 12.7 (11.5-15.4) g/dL Hct 39.4 (35.3-44.9) % MCV 102.6 H (83.0-100.0) fL MCH 33.1 (28.0-33.3) pg MCHC 32.2 (31.6-35.5) g/dL RDW 12.8 (11.5-14.5) % Plt Count 253 (140-400) K/mcL MPV 9.5 (9.4-12.4) fL Immature Gran % 0.1 (0-4) % Seg Neutrophils % 94.6 % Lymphocytes % 3.5 % Monocytes % 1.7 % Eosinophils % 0.0 % Basophils % 0.1 % Neutrophils # 7.0 (1.6-8.9) K/mcL Lymphocytes # 0.3 L (0.6-4.6) K/mcL Monocytes # 0.1 (0.0-1.3) K/mcL Eosinophils # 0.0 (0.0-0.6) K/mcL Basophils # 0.0 (0.0-0.2) K/mcL D-Dimer 233 (0-500) ng/mLFEU Sodium (136-145) mEq/L Potassium (3.5-5.1) mEq/L Chloride (98-107) mEq/L Carbon Dioxide (23-29) mEq/L BUN (6-20) mg/dL Creatinine (0.60-1.20) mg/dL Est GFR ( Amer) (> 60) Est GFR (Non-Af Amer) (> 60) BUN/Creatinine Ratio (6-26) Glucose (70-105) mg/dL Calculated Osmolality (280-300) Calcium (8.6-10.3) mg/dL Total Bilirubin (0.3-1.0) mg/dL AST (13-39) Units/L ALT (7-52) Units/L Alkaline Phosphatase (34-104) Units/L Troponin I < 0.03 (< 0.04) ng/mL Serum Total Protein (6.4-8.9) g/dL Albumin (3.5-5.7) g/dL Globulin (2.4-3.5) g/dL Albumin/Globulin Ratio (1.1-2.2) //18 Range/Units 17:18 WBC (4.3-11.1) K/mcL RBC (3.82-4.97) M/mcL Hgb (11.5-15.4) g/dL Hct (35.3-44.9) % MCV (83.0-100.0) fL MCH (28.0-33.3) pg MCHC (31.6-35.5) g/dL RDW (11.5-14.5) % Plt Count (140-400) K/mcL MPV (9.4-12.4) fL Immature Gran % (0-4) % Seg Neutrophils % % Lymphocytes % % Monocytes % % Eosinophils % % Basophils % % Neutrophils # (1.6-8.9) K/mcL Lymphocytes # (0.6-4.6) K/mcL Monocytes # (0.0-1.3) K/mcL Eosinophils # (0.0-0.6) K/mcL Basophils # (0.0-0.2) K/mcL D-Dimer (0-500) ng/mLFEU Sodium 137 (136-145) mEq/L Potassium 3.6 (3.5-5.1) mEq/L Chloride 98 (98-107) mEq/L Carbon Dioxide 31 H (23-29) mEq/L BUN 6 (6-20) mg/dL Creatinine 0.41 L (0.60-1.20) mg/dL Est GFR ( Amer) > 60 (> 60) Est GFR (Non-Af Amer) > 60 (> 60) BUN/Creatinine Ratio 15 (6-26) Glucose 120 H (70-105) mg/dL Calculated Osmolality 283 (280-300) Calcium 9.1 (8.6-10.3) mg/dL Total Bilirubin 0.5 (0.3-1.0) mg/dL AST 13 (13-39) Units/L ALT 7 (7-52) Units/L Alkaline Phosphatase 54 (34-104) Units/L Troponin I (< 0.04) ng/mL Serum Total Protein 6.3 L (6.4-8.9) g/dL Albumin 3.8 (3.5-5.7) g/dL Globulin 2.5 (2.4-3.5) g/dL Albumin/Globulin Ratio 1.5 (1.1-2.2) - EKG Data EKG attestation: Yes I reviewed and interpreted this EKG. EKG shows normal: Reports: sinus rhythm, axis, intervals, QRS complexes. Denies : ST-T waves Rate: Reports: normal Rhythm: Reports: NSR ST segment elevation in: Reports: v2, v3, v4, v5 Interpretation: Reports: no acute changes, unchanged when compared to prior tracing (date) Attestation Statement - Attestation Attestation: I examined this patient and my medical decision-making was reviewed with the Resident Physician. I agree with the documented findings, disposition and treatment plan as described except to the extent set forth below. Findings consistent with nonspecific dyspnea and chest pain. Initial cardiac biomarkers are negative. EKG 2 is negative for STEMI. Patient will be given aspirin, 2 nebs, steroids, antibiotics, admitted for dyspnea and ACS rule out.
[2018-03-07] MEDS ORDERED: Ipratropium/Albuterol Neb 3 ML IH ONE (13:26)
[2018-03-07] MEDS ORDERED: Ondansetron 4 MG/2 ML VIAL IVP ONE (14:02)
[2018-03-07] MEDS ORDERED: methylPREDNISolone 125 MG/2 ML VIAL IVP ONE (14:28)
[2018-03-07] MEDS ORDERED: Aspirin 325 MG TABLET PO ONE (16:40)
[2018-03-07 17:41] LABS: Basophils % 0.1 %; Hematocrit 39.4 % (35.3-44.9); Hemoglobin 12.7 g/dL (11.5-15.4); Immature Granulocytes % 0.1 % (0-4); Lymphocytes # 0.3 K/mcL (0.6-4.6); Lymphocytes % 3.5 %; Mean Corpuscular HGB Conc 32.2 g/dL (31.6-35.5); Mean Corpuscular Hemoglobin 33.1 pg (28.0-33.3); Mean Corpuscular Volume 102.6 fL (83.0-100.0); Mean Platelet Volume 9.5 fL (9.4-12.4); Monocytes # 0.1 K/mcL (0.0-1.3); Monocytes % 1.7 %; Platelet Count 253 K/mcL (140-400); Red Blood Count 3.84 M/mcL (3.82-4.97); Red Cell Distribution Width 12.8 % (11.5-14.5); Segmented Neutrophils % 94.6 %
--- NOTE | 2018-03-07 17:55 | Internal Med History&Physical ---
Date of Encounter: 03/07/18 Time of Encounter: 16:00 Internal Medicine - H&P: HPI Chief complaint: Chest pain/short of breath Admitted From: Home Plans for Post Hospital Care: Home History of present illness: Patient is a 57-year-old female with past medical history significant for CAD, status post stent on DAPT, COPD on home oxygen (2L), atrial fibrillation and hyperlipidemia who presents to the ER on 03/07/18 due to shortness of breath and chest pain. Patient reports that she woke up in the middle of the morning of admission with shortness of breath but was able to go back to sleep. Patient reports that she woke up again and noticed that she had substernal chest pain which she describes as crushing pressure that radiated to her back. Patient stated that taking deep breaths made discomfort worse and nothing gave her any relief. Patient was concerned so decided to come to the ER for evaluation. In the ER, first set of troponins were negative. Of note, she has had multiple admissions for chest pain/shortness of breath in the last 2 months. Patient was just recently discharged on 12/28/2017 for an admission for chest pain which cardiology thought was secondary to muscle skeletal. She was also discharged on 01/09/18 for chest pain/COPD exacerbation in addition to being discharged on for ACS rule out. Known CAD s/p [facility] Mar 2013: EF 20%, s/p successful cutting balloon angioplasty of the 1st diagonal; otherwise mild, non-obstructive CAD: 20% pLAD. Echocardiogram on 12/27/17 showed LVEF of 60% with mild left ventricular diastolic dysfunction without any valvular dysfunction or pulmonary hypertension. Nuclear medicine stress tests on 01/16/18 was negative for ischemia/infarct. Patient will be admitted to medical surgical floor for ACS rule out and COPD exacerbation. Past Med Surg Social Fam HX - Past Medical History Medical history: asthma, atrial fibrillation, COPD, coronary artery disease, hyperlipidemia, myocardial infarction Additional medical history: back pain, O2 @ 2L at all times Psychiatric history: anxiety - Past Surgical History Surgical History: angioplasty/stent, cholecystectomy, other Additional surgical history: tubal ligation - Social History Smoking Status: Current every day smoker Smokeless Tobacco Status: No Alcohol use: occasionally Drug use: marijuana - Family History Father Living Status: Hx Family Respiratory Disorders: Yes Hx Family Cancer: Yes (Lung cancer) Hx Family Endocrine Disorder: Yes Diabetes diabetes Hx Family Cardiac Disorders: Yes (Hypertension) Hx Family Respiratory Disorders: Yes Hx Family Cancer: Yes (Lung cancer) Hx Family Endocrine Disorder: Yes (Diabetes) Sister Living Status: Hx Family Cardiac Disorders: Yes (CHF) Hx Family Cancer: Yes Hx Family Endocrine Disorder: Yes (Diabetes) Mother Living Status: Hx Family Cardiac Disorders: Yes Hx Family Respiratory Disorders: No Hx Family Cancer: Yes Hx Family GI Disorders: Yes (Ulcers) Internal Medicine - H&P: Meds Nitroglycerin [Nitrostat] 0.4 mg SL Q5M PRN 05/29/16 [History] Aspirin Enteric Coated [Aspirin EC] 81 mg PO DAILY #30 tablet.dr 10/03/16 [Rx] Clopidogrel [Plavix] 75 mg PO DAILY #30 tablet 10/03/16 [Rx] Furosemide [Lasix] 20 mg PO DAILY #30 tablet 10/03/16 [Rx] Metoprolol XL (24 HR) Succ [Toprol Xl] 25 mg PO DAILY #30 tab.er.24h 10/03/16 [ Rx] Pravastatin Sodium [Pravachol] 40 mg PO HS #30 tablet 10/03/16 [Rx] Metoclopramide [Reglan] 10 mg PO QIDAC 10/16/17 [History] Albuterol Sulfate [Ventolin Hfa] 18 gm IH Q6H PRN #1 hfa.aer.ad 12/29/17 [Rx] Guaifenesin [Mucinex] 600 mg PO Q12HR #14 tab.er.12h 12/29/17 [Rx] Ipratropium/Albuterol Neb [Duoneb] 3 ml IH Q4HR #100 inhsol 12/29/17 [Rx] predniSONE [PredniSONE] 10 mg PO DAILY #30 tablet 01/18/18 [Rx] 3 Allergy/AdvReac Type Severity Reaction Status Date / Time codeine Allergy Rash Verified 03/07/18 13:01 All Systems PM: A 10-system review of systems was performed and is negative for pertinent findings except as documented above in the HPI. - Constitutional Vitals: Temp Pulse Resp BP Pulse Ox 98.4 F 93 20 113/77 96 03/07/18 14:33 03/07/18 14:33 03/07/18 14:33 03/07/18 14:33 03/07/18 14:33 General appearance: Present: A&O X 3, no acute distress Exam: See below - Eye Eye exam: Present: normal appearance - ENT ENT exam: Present: mucous membranes dry - Respiratory Respiratory exam: Present: wheezes. Absent: respiratory distress - Cardiovascular Cardiovascular exam: Present: RRR, +S1, +S2. Absent: diastolic murmur, gallop, rubs, systolic murmur - GI/Abdominal GI/Abdominal exam: Present: normal bowel sounds, soft, no peritoneal signs. Absent: distended, tenderness - Extremities Exam Extremities exam: Absent: pedal edema - Neurological Exam Neurological exam: Present: oriented X3 - Psychiatric Psychiatric exam: Present: normal mood - Skin Skin exam: Present: pallor Internal Med - H&P Results - Labs CBC & Chem 7: 03/07/18 17:18 03/07/18 17:18 Labs: Short CBC 03/07/18 Range/Units 17:18 WBC 7.5 (4.3-11.1) K/mcL Hgb 12.7 (11.5-15.4) g/dL Hct 39.4 (35.3-44.9) % Plt Count 253 (140-400) K/mcL Neutrophils # 7.0 (1.6-8.9) K/mcL Cardiac Enzymes 03/07/18 Range/Units 13:27 Troponin I < 0.03 (< 0.04) ng/mL - Impressions ITS Impressions Chest CT 03/07/18 13:25 IMPRESSION: Moderate emphysema. No acute pulmonary abnormality. D/ / Dann Matta MD / Dann Matta MD Interpreting Provider: Dann Matta MD - Assessment and plan (1) Chest pain Current Visit: Yes Status: Acute Assessment and plan: Patient presents with substernal chest pain with history of coronary arterial disease CAD s/p [facility] Mar 2013: EF 20%, s/p successful cutting balloon angioplasty of the 1st diagonal; otherwise mild, non-obstructive CAD: 20% pLAD. Echocardiogram on 12/27/17 showed LVEF of 60% with mild left ventricular diastolic dysfunction without any valvular dysfunction or pulmonary hypertension. Nuclear medicine stress tests on 01/16/18 was negative for ischemia/infarct. First set of cardiac biomarkers negative in the ER Will trend troponins and monitor patient on telemetry Will consult cardiology and appreciate recommendations Qualifiers: Ischemic chest pain type: unspecified angina pectoris type Qualified Code(s ): I25.9 - Chronic ischemic heart disease, unspecified (2) Acute exacerbation of chronic obstructive pulmonary disease (COPD) Current Visit: Yes Status: Acute Assessment and plan: Patient with expiratory wheezes and shortness of breath in addition to nonproductive cough Will continue scheduled dual nebs and start patient on IV azithromycin Will consult pulmonology and appreciate recommendations (3) Cachexia Current Visit: No Status: Acute Assessment and plan: Patient with a BMI of 17.4 Will consider nutritional consult (4) Tobacco abuse Current Visit: No Status: Chronic Assessment and plan: Patient is a 120 pack year smoker Discussed with patient about smoking cessation Will offer nicotine replacement (5) DVT prophylaxis Current Visit: No Status: Acute Assessment and plan: Subcutaneous tennis heparin - Time Spent With Patient Total time spent is greater than 50% in coordination of care (as documented) at patient's floor/unit and/or counseling patient:
[2018-03-07 18:01] LABS: Alanine Aminotransferase 7 Units/L (7-52); Albumin 3.8 g/dL (3.5-5.7); Albumin/Globulin Ratio 1.5 (1.1-2.2); Alkaline Phosphatase 54 Units/L (34-104); Aspartate Amino Transferase 13 Units/L (13-39); BUN/Creatinine Ratio 15 (6-26); Bilirubin,Total 0.5 mg/dL (0.3-1.0); Blood Urea Nitrogen 6 mg/dL (6-20); Calcium 9.1 mg/dL (8.6-10.3); Carbon Dioxide 31 mEq/L (23-29); Chloride 98 mEq/L (98-107); Globulin 2.5 g/dL (2.4-3.5); Glucose 120 mg/dL (70-105); Osmolality,Calculated 283 (280-300); Potassium 3.6 mEq/L (3.5-5.1); Sodium 137 mEq/L (136-145); Total Protein 6.3 g/dL (6.4-8.9); eGFR For Non-African Americans > 60 (> 60)
[2018-03-07] MEDS ORDERED: Naloxone 0.4 MG/ML INJ IVP PRN (18:12)
[2018-03-07] MEDS: Ipratropium/Albuterol Neb 3 ML IH SCH ×2 (20:03→23:04)
[2018-03-07] MEDS: Azithromycin 500 MG in D5% in Water 250 ML IVPB SCH (21:26)
[2018-03-07] MEDS: *HR* Heparin 5,000 UNIT/ML VIAL SQ SCH (21:27)
[2018-03-07] MEDS ORDERED: ALPRAZolam 0.5 MG TABLET PO ONE (22:22)
[2018-03-07] MEDS: Melatonin 3 MG TABLET PO PRN (22:53)
[2018-03-07] MEDS: methylPREDNISolone 125 MG/2 ML VIAL IVP SCH (23:54)
[2018-03-08 00:02] LABS: ABG Base Excess 9 mEq/L (-2 to 3); ABG HCO3 36 mEq/L (21-27); ABG Oxygen Saturation 92 % (95-98); ABG PCO2 61 mmHg (35-45); ABG PH 7.39 pH Units (7.32-7.45); ABG PO2 68 mmHg (85-104); ABG TCO2 38 mEq/L (20-26)
[2018-03-08 01:24] LABS: Hematocrit 36.6 % (35.3-44.9); Immature Granulocytes % 0.3 % (0-4); Lymphocytes # 0.5 K/mcL (0.6-4.6); Lymphocytes % 4.9 %; Mean Corpuscular HGB Conc 32.8 g/dL (31.6-35.5); Mean Corpuscular Hemoglobin 33.4 pg (28.0-33.3); Mean Corpuscular Volume 101.9 fL (83.0-100.0); Mean Platelet Volume 9.5 fL (9.4-12.4); Monocytes # 0.7 K/mcL (0.0-1.3); Monocytes % 7.4 %; Neutrophils # 8.1 K/mcL (1.6-8.9); Platelet Count 256 K/mcL (140-400); Red Blood Count 3.59 M/mcL (3.82-4.97); Red Cell Distribution Width 12.7 % (11.5-14.5); Segmented Neutrophils % 87.4 %
[2018-03-08 01:44] LABS: Alanine Aminotransferase 7 Units/L (7-52); Albumin 3.5 g/dL (3.5-5.7); Albumin/Globulin Ratio 1.5 (1.1-2.2); Alkaline Phosphatase 51 Units/L (34-104); Aspartate Amino Transferase 13 Units/L (13-39); BUN/Creatinine Ratio 17 (6-26); Bilirubin,Total 0.4 mg/dL (0.3-1.0); Blood Urea Nitrogen 8 mg/dL (6-20); Calcium 8.9 mg/dL (8.6-10.3); Carbon Dioxide 33 mEq/L (23-29); Chloride 98 mEq/L (98-107); Globulin 2.4 g/dL (2.4-3.5); Glucose 135 mg/dL (70-105); Osmolality,Calculated 282 (280-300); Potassium 4.1 mEq/L (3.5-5.1); Sodium 136 mEq/L (136-145); Total Protein 5.9 g/dL (6.4-8.9); eGFR For Non-African Americans > 60 (> 60)
[2018-03-08] MEDS: Ipratropium/Albuterol Neb 3 ML IH SCH ×6 (03:43→23:59)
[2018-03-08] MEDS: *HR* Heparin 5,000 UNIT/ML VIAL SQ SCH ×3 (05:54→20:59)
[2018-03-08] MEDS: methylPREDNISolone 125 MG/2 ML VIAL IVP SCH ×3 (07:53→23:46)
--- NOTE | 2018-03-08 10:52 | Pulmonology Consult Note ---
Date of Encounter: 03/08/18 Time of Encounter: 10:00 Assessment and Plan (1) Acute and chronic respiratory failure Current Visit: Yes Status: Acute Patient is currently with acute on chronic hypoxic and hypercapnic respiratory failure secondary to a COPD exacerbation. To continue with current regimen of bronchodilators and steroids send her home on prolonged steroid taper over 14 days. Please to overnight BiPAP qualification patient might qualify for BiPAP based on acute on chronic hypercapnic respiratory failure. Patient will need follow-up in 4-6 weeks in pulmonology clinic. Counseled extensively about smoking cessation. Qualifiers: Respiratory failure complication: hypoxia and hypercapnia Qualified Code(s) : J96.21 - Acute and chronic respiratory failure with hypoxia; J96.22 - Acute and chronic respiratory failure with hypercapnia (2) Acute exacerbation of chronic obstructive pulmonary disease (COPD) Current Visit: Yes Status: Acute Patient has acute exacerbation of COPD to continue bronchodilators and steroids (3) Tobacco abuse Current Visit: No Status: Chronic Counseled about smoking cessation to communicate in supplementation during her inpatient hospital stay patient is motivated to stop smoking. History of Present Illness Consult date: 03/08/18 Requesting physician: Warner Richardson Reason for consult: dyspnea, chest pain Chief complaint: Shortness of Breadth and Chest Pain History of present illness: 57-year-old female with past medical history of COPD/emphysema chronic oxygen dependent comes with increased shortness of breath and cough she said her grandkids were sick and the recent last week also has some chest pain in the morning that brought her to the hospital she said the chest pain is relieved now that she had progressive shortness of breath with increased bronchodilator use denies any wheezing, change in sputum denies any hemoptysis denies any fever or chills denies any constitutional symptoms, denies denies any GERD symptoms or neuro symptoms denies any undue loss of weight or loss of appetite recently. Past Med Surg Social Fam HX - Past Medical History Medical history: asthma, atrial fibrillation, COPD, coronary artery disease, GERD, hyperlipidemia, myocardial infarction Additional medical history: back pain, O2 @ 2L at all times Psychiatric history: anxiety - Past Surgical History Surgical History: angioplasty/stent, cholecystectomy, other Additional surgical history: tubal ligation - Social History Smoking Status: Current every day smoker Packs per day: 0.5 Smokeless Tobacco Status: No Alcohol use: rarely Drug use: none - Family History Father Living Status: Hx Family Respiratory Disorders: Yes Hx Family Cancer: Yes (Lung cancer) Hx Family Endocrine Disorder: Yes Diabetes diabetes Hx Family Cardiac Disorders: Yes (Hypertension) Hx Family Respiratory Disorders: Yes Hx Family Cancer: Yes (Lung cancer) Hx Family Endocrine Disorder: Yes (Diabetes) Sister Living Status: Hx Family Cardiac Disorders: Yes (CHF) Hx Family Cancer: Yes Hx Family Endocrine Disorder: Yes (Diabetes) Mother Living Status: Hx Family Cardiac Disorders: Yes Hx Family Respiratory Disorders: No Hx Family Cancer: Yes Hx Family GI Disorders: Yes (Ulcers) Medications and Allergies Nitroglycerin [Nitrostat] 0.4 mg SL Q5M PRN 05/29/16 [History] Aspirin Enteric Coated [Aspirin EC] 81 mg PO DAILY #30 tablet.dr 10/03/16 [Rx] Clopidogrel [Plavix] 75 mg PO DAILY #30 tablet 10/03/16 [Rx] Furosemide [Lasix] 20 mg PO DAILY #30 tablet 10/03/16 [Rx] Metoprolol XL (24 HR) Succ [Toprol Xl] 25 mg PO DAILY #30 tab.er.24h 10/03/16 [ Rx] Pravastatin Sodium [Pravachol] 40 mg PO HS #30 tablet 10/03/16 [Rx] Albuterol Sulfate [Ventolin Hfa] 18 gm IH Q6H PRN #1 hfa.aer.ad 12/29/17 [Rx] Ipratropium/Albuterol Neb [Duoneb] 3 ml IH Q4HR #100 inhsol 12/29/17 [Rx] predniSONE [PredniSONE] 10 mg PO DAILY #30 tablet 01/18/18 [Rx] 3 Allergy/AdvReac Type Severity Reaction Status Date / Time codeine Allergy Rash Verified 03/07/18 13:01 All Systems: The remainder of the systems were reviewed and are negative Physical Examination Vital Signs: Vital Signs, Last 4 Hours Temp Pulse Resp BP Pulse Ox 03/08/18 10:25 16 98 03/08/18 07:58 97.8 F 86 16 102/64 98 Auscultation: bilateral: wheezes (scattered wheezes ) Results - Laboratory Findings CBC and BMP: 03/08/18 01:08 03/08/18 01:08 ABG ABG pH 7.39 pH Units (7.32-7.45) 03/07/18 23:57 ABG pCO2 61 mmHg (35-45) H 03/07/18 23:57 ABG pO2 68 mmHg (85-104) L 03/07/18 23:57 ABG O2 Saturation 92 % (95-98) L 03/07/18 23:57 PT/INR, D-dimer D-Dimer 233 ng/mLFEU (0-500) 03/07/18 13:27 Abnormal lab findings: Abnormal lab results RBC 3.59 M/mcL (3.82-4.97) L 03/08/18 01:08 MCV 101.9 fL (83.0-100.0) H 03/08/18 01:08 MCH 33.4 pg (28.0-33.3) H 03/08/18 01:08 Lymphocytes # 0.5 K/mcL (0.6-4.6) L 03/08/18 01:08 ABG pCO2 61 mmHg (35-45) H 03/07/18 23:57 ABG pO2 68 mmHg (85-104) L 03/07/18 23:57 ABG HCO3 36 mEq/L (21-27) H 03/07/18 23:57 ABG Total CO2 38 mEq/L (20-26) H 03/07/18 23:57 ABG O2 Saturation 92 % (95-98) L 03/07/18 23:57 ABG Base Excess 9 mEq/L (-2 to 3) H 03/07/18 23:57 Carbon Dioxide 33 mEq/L (23-29) H 03/08/18 01:08 Creatinine 0.46 mg/dL (0.60-1.20) L 03/08/18 01:08 Glucose 135 mg/dL (70-105) H 03/08/18 01:08 Serum Total Protein 5.9 g/dL (6.4-8.9) L 03/08/18 01:08 - Clinical Findings Intake & Output: Intake & Output 03/07/18 03/08/18 03/08/18 23:59 07:59 15:59 Intake Total 250 / 250 0 / 0 Output Total 300 / 300 500 / 500 Balance -50 / -50 -500 / -500 0 / 0 Weight 42.8 kg Consult Discharge Plan - Plan Referrals: Travis Moreira [Primary Care Provider] -
--- NOTE | 2018-03-08 12:06 | Cardiology Consult Note ---
<Alyssa Trivedi - Last Filed: 03/08/18 11:58> Date of Encounter: 03/08/18 Time of Encounter: 08:00 Assessment and Plan (1) Acute exacerbation of chronic obstructive pulmonary disease (COPD) Current Visit: Yes Status: Acute Per cardiology: -Known severe COPD. -Being treated for COPD exacerbation. -Management per primary service. (2) Chest pain Current Visit: Yes Status: Acute Per cardiology: -Admmitted to chest pain. Somewhat atypical with some typical features. -Troponin negative x3. -No acute ischemic ECG changes. -Stress test 12/2017 negative. -On asa, plavix, BB, statin in outpateint setting. -Recent TTE with LVEF preserved, no segmental wall motion abnormalities. -Of note, has had multiple admission for chest pain over the last several months. -Discussed potential LHC with patient. RIsks versus benefits of LHC explained to patient. At this time, patient states she is unsure if she wishes to proceed with LHC. -Will make NPO after midinight -Recommend resuming patient's home medications. Qualifiers: Chest pain type: unspecified Qualified Code(s): R07.9 - Chest pain, unspecified (3) Tobacco abuse Current Visit: No Status: Chronic Per cardiology: -Known tobacco abuse. -Smoking cessation education provided. (4) Coronary artery disease Current Visit: No Status: Chronic Per cardiology: -Known CAD s/p [facility] 03/2013 with cutting balloon angopplasty to diagonal 1, otherwise mild 20% LAD stenosis. Qualifiers: Coronary Disease-Associated Artery/Lesion type: [place] artery [place] vs. transplanted heart: iroquois heart Associated angina: with unspecified angina Qualified Code(s): I25.119 - Atherosclerotic heart disease of [place]ro[place] coronary artery with unspecified angina pectoris Discussion w patient/family: The assessment and plan as outlined above was discussed with the patient who expressed understanding and agreement. All questions were answered. Thank you for involving us in the care of your patient. Please call with any questions. Discussed and reviewed with . History of Present Illness Consult date: 03/07/18 Requesting physician: Warner Richardson Consult reason: chest pain Chief complaint: shortness of breath History of present illness: Ms. Honeycutt is a 57 year old female with a relevant past medical history of CAD s/ p [facility], HTN, HLD, COPD, cardiomyopathy recovered, anxiety, tobacco abuse who presents to [facility] with complaints of increased shortness of breath and chest pain. Patient states chest pain is worse with movements and with exertion. Denies current chest pain. Reports worsening shortness of breath, currently being treated for COPD exacerbation. Reports fatigue. Past Med Surg Social Fam HX - Past Medical History Attestation: Yes The following information was validated with the patient. Source: patient, old records reviewed Medical history: asthma, atrial fibrillation, cardiomyopathy, COPD, coronary artery disease, GERD, hyperlipidemia, myocardial infarction Additional medical history: back pain, O2 @ 2L at all times Psychiatric history: anxiety - Past Surgical History Surgical History: angioplasty/stent, cholecystectomy, other Additional surgical history: tubal ligation - Social History Smoking Status: Current every day smoker Packs per day: 0.5 Smokeless Tobacco Status: No Alcohol use: rarely Drug use: none - Family History Father Living Status: Hx Family Respiratory Disorders: Yes Hx Family Cancer: Yes (Lung cancer) Hx Family Endocrine Disorder: Yes Diabetes diabetes Hx Family Cardiac Disorders: Yes (Hypertension) Hx Family Respiratory Disorders: Yes Hx Family Cancer: Yes (Lung cancer) Hx Family Endocrine Disorder: Yes (Diabetes) Sister Living Status: Hx Family Cardiac Disorders: Yes (CHF) Hx Family Cancer: Yes Hx Family Endocrine Disorder: Yes (Diabetes) Mother Living Status: Hx Family Cardiac Disorders: Yes Hx Family Respiratory Disorders: No Hx Family Cancer: Yes Hx Family GI Disorders: Yes (Ulcers) Medications and Allergies Nitroglycerin [Nitrostat] 0.4 mg SL Q5M PRN 05/29/16 [History] Aspirin Enteric Coated [Aspirin EC] 81 mg PO DAILY #30 tablet.dr 10/03/16 [Rx] Clopidogrel [Plavix] 75 mg PO DAILY #30 tablet 10/03/16 [Rx] Furosemide [Lasix] 20 mg PO DAILY #30 tablet 10/03/16 [Rx] Metoprolol XL (24 HR) Succ [Toprol Xl] 25 mg PO DAILY #30 tab.er.24h 10/03/16 [ Rx] Pravastatin Sodium [Pravachol] 40 mg PO HS #30 tablet 10/03/16 [Rx] Albuterol Sulfate [Ventolin Hfa] 18 gm IH Q6H PRN #1 hfa.aer.ad 12/29/17 [Rx] Ipratropium/Albuterol Neb [Duoneb] 3 ml IH Q4HR #100 inhsol 12/29/17 [Rx] predniSONE [PredniSONE] 10 mg PO DAILY #30 tablet 01/18/18 [Rx] 3 Allergy/AdvReac Type Severity Reaction Status Date / Time codeine Allergy Rash Verified 03/07/18 13:01 All Systems Review: The remainder of the systems were reviewed and are negative - Constitutional Constitutional: fatigue - Cardiovascular Cardiovascular: as per HPI, chest pain with exertion, dyspnea at rest, dyspnea on exertion Physical Examination Vital Signs, Last 4 Hours Temp Pulse Resp BP Pulse Ox 03/08/18 11:44 98.2 F 92 16 106/62 94 03/08/18 10:25 16 98 General: Conversant, No Apparent Distress HEENT: Atraumatic, Normocephaly, Mucus Membranes Moist Neck: No JVD, Normal carotid pulses Cardiac: Reg Rate and Rhythm, Normal S1 and S2, No Murmur Lungs: Other (Lung sounds diminished throughout. Inspiratory wheeze noted. ) Neuro: Alert and responsive, No focal deficits noted Abdomen: Soft, Non-Tender Skin: No rashes noted on visualized skin Musculoskeletal: No Chest Wall Tenderness Extremities: No Clubbing, No Cyanosis, No Edema, Normal Pulses Results 03/08/18 01:08 03/08/18 01:08 Lab Results Impressions Chest CT 03/07/18 13:25 IMPRESSION: Moderate emphysema. No acute pulmonary abnormality. D/ / Dann Matta MD / Dann Matta MD Interpreting Provider: Dann Matta MD Active Medications Albuterol/Ipratropium (Duoneb) 3 ml IH [id number] ZARIA Stop: 09/06/18 20:01 Last Admin: 03/08/18 10:23 Dose: 3 ml Heparin Sodium (Porcine) (Heparin) 5,000 unit SQ Q8HCO ZARIA Stop: 09/06/18 22:01 Last Admin: 03/08/18 05:54 Dose: 5,000 unit Hydralazine HCl (Hydralazine) 10 mg IVP Q6HR PRN PRN Reason: Hypertension Stop: 09/06/18 22:24 Azithromycin 500 mg/ Dextrose 250 mls @ 252 mls/hr IVPB Q24H ZARIA Stop: 09/06/18 19:01 Last Infusion: 03/07/18 22:46 Dose: Infused Melatonin (Melatonin) 3 mg PO HS PRN PRN Reason: Insomnia Stop: 09/06/18 22:18 Last Admin: 03/07/18 22:53 Dose: 3 mg Methylprednisolone (Solu-Medrol) 60 mg IVP Q8HR ZARIA Stop: 09/07/18 00:01 Last Admin: 03/08/18 07:53 Dose: 60 mg Naloxone HCl (Narcan) 0.4 mg IVP Q2MIN PRN PRN Reason: SEE COMMENTS Stop: 09/06/18 18:13 Laboratory Tests 03/07/18 03/07/18 03/08/18 13:27 19:16 01:08 Hgb Creatinine Troponin I < 0.03 < 0.03 < 0.03 03/08/18 03/08/18 01:08 01:08 Hgb 12.0 Creatinine 0.46 L Troponin I - Imaging and Cardiology Chest Xray: report reviewed Stress Test: report reviewed Echo: report reviewed Cardiac cath: report reviewed - EKG Interpretation EKG results cardiology: personally reviewed (ECG with ST, HR 103. Non-specific T wave abnormalities, similar to previous ECG.), other (Telemetry reviewed with average HR previous 12 hours noted to be 91, SR. PVCs and PACS noted.) Consult Discharge Plan - Plan Referrals: Travis Moreira [Primary Care Provider] - <Johnan Hines - Last Filed: 03/08/18 16:25> Date of Encounter: 03/08/18 - Attending Attestation Patient was seen and evaluated independently by me. Findings, assessment and plan were discussed at length with patient, questions answered. Agree with nurse practitioner's documentation. Addition as follows, 57 yo CF ho CAD (Diag), recent nl nuclear stress test, severe COPD, RF including smoking. P/w recurrent chest pain with some exertional component, wheeze and cough. Actively treated for COPD exacerbation. A: Microvascular CAD and 1-v epicardial CAD not optimized on anti-anginal meds, severe COPD exacerbation, active smoking P: - add imdur low dose and titration based on CP, BP and dizziness - CCB or ranolazine if can't tolerate NTG. Limited BB dose due to COPD. - if angina persists despite optimized antianginal and resolution of COPD exacerbation, coronary angiogram for epicardial vessel re-eval - consult on smoking cessation Johann Hines MD, PhD Assessment and Plan Discussion w patient/family: The assessment and plan as outlined above was discussed with the patient and/or family members who expressed understanding and agreement. All questions were answered. Thank you for involving us in the care of your patient. Please call with any questions. History of Present Illness History of present illness: Ms. Honeycutt is a 57 year old female All Systems Review: The remainder of the systems were reviewed and are negative Physical Examination Vital Signs, Last 4 Hours Temp Pulse Resp BP Pulse Ox 03/08/18 15:59 97.9 F 87 16 86/54 98 03/08/18 15:52 16 106/62 94 03/08/18 15:22 16 94 Results 03/08/18 01:08 03/08/18 01:08 Lab Results 03/07/18 03/08/18 03/08/18 19:16 01:08 01:08 WBC 9.2 Hgb 12.0 Hct 36.6 Plt Count 256 Sodium Potassium Chloride Carbon Dioxide BUN Creatinine Glucose Calcium Total Bilirubin AST ALT Alkaline Phosphatase Troponin I < 0.03 < 0.03 03/08/18 01:08 WBC Hgb Hct Plt Count Sodium 136 Potassium 4.1 Chloride 98 Carbon Dioxide 33 H BUN 8 Creatinine 0.46 L Glucose 135 H Calcium 8.9 Total Bilirubin 0.4 AST 13 ALT 7 Alkaline Phosphatase 51 Troponin I
[2018-03-08 12:51] LABS: Adenovirus Not Detected (Not Detect); Bordetella Pertussis Not Detected (Not Detect); Chlamydophila pneumoniae Not Detected (Not Detect); Coronavirus 229E Not Detected (Not Detect); Coronavirus HKU1 Not Detected (Not Detect); Coronavirus NL63 Not Detected (Not Detect); Coronavirus OC43 Not Detected (Not Detect); Human Metapneumovirus Not Detected (Not Detect); Human Rhinovirus/Enterovirus DETECTED (Not Detect); Influenza A Subtype 2009 H1 Not Detected (Not Detect); Influenza A Untypeable Not Detected (Not Detect); Influenza B Not Detected (Not Detect); Mycoplasma pneumoniae Not Detected (Not Detect); Parainfluenza Virus 1 Not Detected (Not Detect); Parainfluenza Virus 2 Not Detected (Not Detect); Parainfluenza Virus 3 Not Detected (Not Detect); Parainfluenza Virus 4 Not Detected (Not Detect); Respiratory Syncytial Virus Not Detected (Not Detect)
[2018-03-08] MEDS ORDERED: hydrOXYzine pamoate 25 MG CAPSULE PO ONE (13:24)
[2018-03-08] MEDS: Metoprolol XL (24 HR) Succ 25 MG TAB.ER.24H PO SCH (15:04)
[2018-03-08] MEDS: Furosemide 20 MG TABLET PO SCH (15:04)
[2018-03-08] MEDS: Isosorbide MONOnitrate (24 HR) 30 MG TAB.ER.24H PO SCH (15:04)
--- NOTE | 2018-03-08 19:23 | Internal Med Progress Note ---
Hospitalist Progress Note - Encounter Date of Encounter: 03/08/18 Time of Encounter: 11:00 - Subjective Interval History: Patient reports a feeling better this morning. Plans for left heart catheterization on 03/09/18 Plans also for BiPAP qualification this evening - Exam Vitals: Temp Pulse Resp BP Pulse Ox 98.3 F 87 16 90/54 96 03/08/18 19:11 03/08/18 19:11 03/08/18 19:11 03/08/18 19:11 03/08/18 19:11 Exam: Gen.: Nonacute distress, alert and oriented 3 ENT: Mucosal membranes moist Respiratory: Lungs are clear to auscultation bilaterally without any wheezing rhonchi or rales Cardiovascular: Normal S1 and S2 regular rate rhythm no murmurs rubs or gallops Abdomen: Soft, nontender and nondistended with positive bowel sounds Extremities: No lower extremity edema Skin: Normal color - Assessment and Plan (1) Chest pain Current Visit: Yes Status: Acute Assessment and Plan: Patient presents with substernal chest pain with history of coronary arterial disease CAD s/p [facility] Mar 2013: EF 20%, s/p successful cutting balloon angioplasty of the 1st diagonal; otherwise mild, non-obstructive CAD: 20% pLAD. Echocardiogram on 12/27/17 showed LVEF of 60% with mild left ventricular diastolic dysfunction without any valvular dysfunction or pulmonary hypertension. Nuclear medicine stress tests on 01/16/18 was negative for ischemia/infarct. Cardiology consulted with recommendations for left heart catheterization on 03/09 (2) Acute exacerbation of chronic obstructive pulmonary disease (COPD) Current Visit: Yes Status: Acute Assessment and Plan: Patient with expiratory wheezes and shortness of breath in addition to nonproductive cough Will continue scheduled dual nebs and IV azithromycin Will consult pulmonology and appreciate recommendations (3) Cachexia Current Visit: No Status: Acute Assessment and Plan: Patient with a BMI of 17.4 Will consider nutritional consult (4) Tobacco abuse Current Visit: No Status: Chronic Assessment and Plan: Patient is a 120 pack year smoker Discussed with patient about smoking cessation Will offer nicotine replacement (5) DVT prophylaxis Current Visit: No Status: Acute Assessment and Plan: Subcutaneous tennis heparin - Time Spent with Patient Total time spent is greater than 50% in coordination of care (as documented) at patient's floor/unit and/or counseling patient: Internal Medicine: Result - Labs CBC & Chem 7: 09/16/18 01:08 03/08/18 01:08 Labs: Short CBC 03/08/18 Range/Units 01:08 WBC 9.2 (4.3-11.1) K/mcL Hgb 12.0 (11.5-15.4) g/dL Hct 36.6 (35.3-44.9) % Plt Count 256 (140-400) K/mcL Neutrophils # 8.1 (1.6-8.9) K/mcL BMP 03/08/18 01:08 Sodium 136 Potassium 4.1 Chloride 98 Carbon Dioxide 33 H BUN 8 Creatinine 0.46 L Glucose 135 H Calcium 8.9 Cardiac Enzymes 03/07/18 03/08/18 Range/Units 19:16 01:08 Troponin I < 0.03 < 0.03 (< 0.04) ng/mL Liver Function 03/08/18 Range/Units 01:08 Total Bilirubin 0.4 (0.3-1.0) mg/dL AST 13 (13-39) Units/L ALT 7 (7-52) Units/L Alkaline Phosphatase 51 (34-104) Units/L Albumin 3.5 (3.5-5.7) g/dL - ABG Interpretation ABG results: ABG ABG pH 7.39 pH Units (7.32-7.45) 03/07/18 23:57 ABG pCO2 61 mmHg (35-45) H 03/07/18 23:57 ABG pO2 68 mmHg (85-104) L 03/07/18 23:57 ABG O2 Saturation 92 % (95-98) L 03/07/18 23:57 PT/INR, D-dimer D-Dimer 233 ng/mLFEU (0-500) 03/07/18 13:27 Consult Discharge Plan - Plan Referrals: Travis Moreira [Primary Care Provider] - (1) Chest pain Qualifiers: Chest pain type: unspecified Qualified Code(s): R07.9 - Chest pain, unspecified
[2018-03-08] MEDS ORDERED: ALPRAZolam 0.5 MG TABLET PO ONE (20:35)
[2018-03-08] MEDS: Azithromycin 500 MG in D5% in Water 250 ML IVPB SCH (20:49)
[2018-03-08] MEDS: Melatonin 3 MG TABLET PO PRN (20:59)
[2018-03-09] MEDS: Ipratropium/Albuterol Neb 3 ML IH SCH ×5 (04:54→21:22)
[2018-03-09] MEDS: *HR* Heparin 5,000 UNIT/ML VIAL SQ SCH ×3 (05:24→23:45)
[2018-03-09] MEDS: Metoprolol XL (24 HR) Succ 25 MG TAB.ER.24H PO SCH (08:57)
[2018-03-09] MEDS: Isosorbide MONOnitrate (24 HR) 30 MG TAB.ER.24H PO SCH (08:57)
[2018-03-09] MEDS: methylPREDNISolone 125 MG/2 ML VIAL IVP SCH (08:57)
[2018-03-09] MEDS: Ondansetron ODT 4 MG TAB.RAPDIS SL PRN (08:57)
[2018-03-09] MEDS: Furosemide 20 MG TABLET PO SCH (08:57)
[2018-03-09 09:13] LABS: Basophils % 0.1 %; Hematocrit 37.1 % (35.3-44.9); Hemoglobin 12.2 g/dL (11.5-15.4); Immature Granulocytes % 0.5 % (0-4); Lymphocytes # 0.9 K/mcL (0.6-4.6); Lymphocytes % 6.3 %; Mean Corpuscular HGB Conc 32.9 g/dL (31.6-35.5); Mean Corpuscular Hemoglobin 33.3 pg (28.0-33.3); Mean Corpuscular Volume 101.4 fL (83.0-100.0); Mean Platelet Volume 9.5 fL (9.4-12.4); Monocytes # 1.2 K/mcL (0.0-1.3); Monocytes % 8.5 %; Neutrophils # 11.6 K/mcL (1.6-8.9); Platelet Count 270 K/mcL (140-400); Red Blood Count 3.66 M/mcL (3.82-4.97); Red Cell Distribution Width 12.6 % (11.5-14.5); Segmented Neutrophils % 84.6 %
--- NOTE | 2018-03-09 09:36 | Pulmonology Progress Note ---
<Love Ariza M - Last Filed: 03/09/18 13:18> Date of Encounter: 03/09/18 Objective PUL Vital signs: Last Vital Signs Temp 97.4 F L 03/09/18 11:39 Pulse 78 03/09/18 11:39 Resp 16 03/09/18 11:39 BP 99/59 03/09/18 11:39 Pulse Ox 96 03/09/18 11:39 Results - Laboratory Findings CBC and BMP: 03/09/18 08:54 03/09/18 08:54 ABG ABG pH 7.39 pH Units (7.32-7.45) 03/07/18 23:57 ABG pCO2 61 mmHg (35-45) H 03/07/18 23:57 ABG pO2 68 mmHg (85-104) L 03/07/18 23:57 ABG O2 Saturation 92 % (95-98) L 03/07/18 23:57 PT/INR, D-dimer D-Dimer 233 ng/mLFEU (0-500) 03/07/18 13:27 Abnormal lab findings: Abnormal lab results WBC 13.7 K/mcL (4.3-11.1) H 03/09/18 08:54 RBC 3.66 M/mcL (3.82-4.97) L 03/09/18 08:54 MCV 101.4 fL (83.0-100.0) H 03/09/18 08:54 Neutrophils # 11.6 K/mcL (1.6-8.9) H 03/09/18 08:54 ABG pCO2 61 mmHg (35-45) H 03/07/18 23:57 ABG pO2 68 mmHg (85-104) L 03/07/18 23:57 ABG HCO3 36 mEq/L (21-27) H 03/07/18 23:57 ABG Total CO2 38 mEq/L (20-26) H 03/07/18 23:57 ABG O2 Saturation 92 % (95-98) L 03/07/18 23:57 ABG Base Excess 9 mEq/L (-2 to 3) H 03/07/18 23:57 Sodium 134 mEq/L (136-145) L 03/09/18 08:54 Carbon Dioxide 34 mEq/L (23-29) H 09/17/18 08:54 Creatinine 0.46 mg/dL (0.60-1.20) L 03/09/18 08:54 Glucose 120 mg/dL (70-105) H 03/09/18 08:54 Calculated Osmolality 279 (280-300) L 03/09/18 08:54 Serum Total Protein 5.9 g/dL (6.4-8.9) L 03/08/18 01:08 Entero/Rhino (PCR) DETECTED (Not Detect) A 03/08/18 11:12 - Clinical Findings Intake & Output: Intake & Output 03/08/18 03/09/18 03/09/18 23:59 07:59 15:59 Intake Total 240 / 240 Output Total 1300 / 1300 Balance -1060 / -1060 Weight 47.7 kg Consult Discharge Plan - Plan Referrals: Travis Moreira [Primary Care Provider] - - Attending Attestation I examined this patient and my medical decision-making was reviewed with the Resident Physician. I agree with the documented findings, disposition and treatment plan as described except to the extent set forth below. Patient seen and examined. Labs, radiology, chart personally reviewed. 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 Transition systemic steroid to oral and patient can follow-up as outpatient in about 4-6 weeks. Cardiovascular: [facility] patient <Prince Summers - Last Filed: 03/09/18 15:48> Date of Encounter: 03/09/18 Time of Encounter: 09:30 Assessment and Plan (1) Acute exacerbation of chronic obstructive pulmonary disease (COPD) Current Visit: Yes Status: Acute Clinically improved and stable Normal respiratory rate, able to speak in full sentences SpO2 at 95 on home O2 of 2lpm Continue Duonebs Continue Azithromycin for atypical coverage with hx of sick grandkids De-escalate steroids from IV to po Prednisone 40mg. Extended taper recommended for discharge. Encouraged smoking cessation (2) Tobacco abuse Current Visit: No Status: Chronic spsent >10 minutes discussing importance of tobacco cessation with patient and treatment alternatives Subjective Principal diagnosis: COPD exacerbation Interval history: Ms. Honeycutt is a pleasant 57F with PMH of COPD/emphysema, on 2lpm O2 at home, presented to the ED with increased shortness of breath and cough on 03/07. Chest CT from the ED revealed emphysema with no apparent acute abnormalities. Pt states her grandkids were sick recently. Last week she experienced some chest pain in the morning but that is relieved now. Today pt states she feels somewhat better. States shortness of breath has improved some, but is not quite back to her baseline. Denies any fever, chills, chest pain, abdominal pain, vomiting, headache, numbness, or tingling. States she experiences some intermittent nausea which is her baseline. Objective PUL Vital signs: Last Vital Signs Temp 97.8 F 03/09/18 06:40 Pulse 73 03/09/18 06:40 Resp 17 03/09/18 07:23 BP 117/70 03/09/18 06:40 Pulse Ox 100 03/09/18 07:23 General appearance: no acute distress Eyes: nonicteric ENT: oropharynx moist Neck: supple, no lymphadenopathy Effort: normal Auscultation: bilateral: wheezes Percussion: bilateral: not dull Tactile fremitus: bilateral: normal Cardiovascular: regular rate and rhythm Gastrointestinal: soft, non-tender, non-distended Integumentary: normal Extremities: no cyanosis, no edema, no clubbing, pink and warm Musculoskeletal: no deformities Gait: normal posture normal mental status, non-focal exam mood appropriate, affect normal Results - Laboratory Findings CBC and BMP: 03/09/18 08:54 03/09/18 08:54 ABG ABG pH 7.39 pH Units (7.32-7.45) 03/07/18 23:57 ABG pCO2 61 mmHg (35-45) H 03/07/18 23:57 ABG pO2 68 mmHg (85-104) L 03/07/18 23:57 ABG O2 Saturation 92 % (95-98) L 03/07/18 23:57 PT/INR, D-dimer D-Dimer 233 ng/mLFEU (0-500) 03/07/18 13:27 Abnormal lab findings: Abnormal lab results WBC 13.7 K/mcL (4.3-11.1) H 03/09/18 08:54 RBC 3.66 M/mcL (3.82-4.97) L 03/09/18 08:54 MCV 101.4 fL (83.0-100.0) H 03/09/18 08:54 Neutrophils # 11.6 K/mcL (1.6-8.9) H 03/09/18 08:54 ABG pCO2 61 mmHg (35-45) H 03/07/18 23:57 ABG pO2 68 mmHg (85-104) L 03/07/18 23:57 ABG HCO3 36 mEq/L (21-27) H 03/07/18 23:57 ABG Total CO2 38 mEq/L (20-26) H 03/07/18 23:57 ABG O2 Saturation 92 % (95-98) L 03/07/18 23:57 ABG Base Excess 9 mEq/L (-2 to 3) H 03/07/18 23:57 Carbon Dioxide 33 mEq/L (23-29) H 03/08/18 01:08 Creatinine 0.46 mg/dL (0.60-1.20) L 03/08/18 01:08 Glucose 135 mg/dL (70-105) H 03/08/18 01:08 Serum Total Protein 5.9 g/dL (6.4-8.9) L 03/08/18 01:08 Entero/Rhino (PCR) DETECTED (Not Detect) A 03/08/18 11:12 - Clinical Findings Intake & Output: Intake & Output 03/08/18 03/09/18 03/09/18 23:59 07:59 15:59 Intake Total 240 / 240 Output Total 1300 / 1300 Balance -1060 / -1060 Weight 47.7 kg
[2018-03-09 09:37] LABS: BUN/Creatinine Ratio 26 (6-26); Blood Urea Nitrogen 12 mg/dL (6-20); Calcium 8.8 mg/dL (8.6-10.3); Carbon Dioxide 34 mEq/L (23-29); Chloride 98 mEq/L (98-107); Glucose 120 mg/dL (70-105); Osmolality,Calculated 279 (280-300); Potassium 3.9 mEq/L (3.5-5.1); Sodium 134 mEq/L (136-145); eGFR For Non-African Americans > 60 (> 60)
--- NOTE | 2018-03-09 10:32 | Cardiology Progress Note ---
Date of Encounter: 03/09/18 Time of Encounter: 08:30 Assessment and Plan (1) Acute exacerbation of chronic obstructive pulmonary disease (COPD) Current Visit: Yes Status: Acute Per cardiology: -Known severe COPD. -Being treated for COPD exacerbation. -Management per primary service. (2) Chest pain Current Visit: Yes Status: Acute Per cardiology: -Admmitted to chest pain. Somewhat atypical with some typical features. -Troponin negative x3. -No acute ischemic ECG changes. -Stress test 12/2017 negative. -On asa, plavix, BB, statin in outpateint setting. -Recent TTE with LVEF preserved, no segmental wall motion abnormalities. -Of note, has had multiple admission for chest pain over the last several months. -Imdur was added yesterday. Denies recurrence of chest pain. -Discussed potential LHC with patient. RIsks versus benefits of LHC explained to patient. Patient refuses LHC at this time. -Patient agreeable for outpatient cardiology follow up. Follow up set. Qualifiers: Chest pain type: unspecified Qualified Code(s): R07.9 - Chest pain, unspecified (3) Tobacco abuse Current Visit: No Status: Chronic Per cardiology: -Known tobacco abuse. -Smoking cessation education provided. (4) Coronary artery disease Current Visit: No Status: Chronic Per cardiology: -Known CAD s/p LHC 03/2013 with cutting balloon angopplasty to diagonal 1, otherwise mild 20% LAD stenosis. Qualifiers: Coronary Disease-Associated Artery/Lesion type: [place] artery [place] vs. transplanted heart: [place] heart Associated angina: with unspecified angina Qualified Code(s): I25.119 - Atherosclerotic heart disease of [place] coronary artery with unspecified angina pectoris Discussion w patient/family: The assessment and plan as outlined above was discussed with the patient who expressed understanding and agreement. All questions were answered. Thank you for involving us in the care of your patient. Please call with any questions. Discussed and reviewed with . Subjective Principal diagnosis: shortness of breath Interval history: Patient denies chest pain. States shortness of breath is about the same. Objective Vital Signs, Last 4 Hours Temp Pulse Resp BP Pulse Ox 03/09/18 07:23 17 100 03/09/18 06:40 97.8 F 73 17 117/70 100 General: Conversant, No Apparent Distress HEENT: Atraumatic, Normocephaly, Mucus Membranes Moist Neck: No JVD, Normal carotid pulses Cardiac: Reg Rate and Rhythm, Normal S1 and S2, No Murmur Lungs: Other (Inspiratory wheezes noted throughout) Neuro: Alert and responsive, No focal deficits noted Abdomen: Soft, Non-Tender Skin: No rashes noted on visualized skin Musculoskeletal: No Chest Wall Tenderness Extremities: No Clubbing, No Cyanosis, No Edema, Normal Pulses Results 03/09/18 08:54 03/09/18 08:54 Lab Results Active Medications Albuterol/Ipratropium (Duoneb) 3 ml IH [id number] [facility] Stop: 09/06/18 20:01 Last Admin: 03/09/18 07:22 Dose: 3 ml Clopidogrel Bisulfate (Plavix) 75 mg PO DAILY [facility] Stop: 09/07/18 14:46 Last Admin: 03/09/18 08:57 Dose: 75 mg Furosemide (Lasix) 20 mg PO DAILY [facility] Stop: 09/07/18 14:46 Last Admin: 03/09/18 08:57 Dose: 20 mg Heparin Sodium (Porcine) (Heparin) 5,000 unit SQ Q8HCO [facility] Stop: 09/06/18 22:01 Last Admin: 03/09/18 05:24 Dose: 5,000 unit Hydralazine HCl (Hydralazine) 10 mg IVP Q6HR PRN PRN Reason: Hypertension Stop: 09/06/18 22:24 Azithromycin 500 mg/ Dextrose 250 mls @ 252 mls/hr IVPB Q24H [facility] Stop: 09/06/18 19:01 Last Admin: 03/08/18 20:49 Dose: 252 mls/hr Isosorbide Mononitrate (Imdur) 30 mg PO DAILY [facility] Stop: 09/07/18 14:01 Last Admin: 03/09/18 08:57 Dose: 30 mg Melatonin (Melatonin) 3 mg PO HS PRN PRN Reason: Insomnia Stop: 09/06/18 22:18 Last Admin: 03/08/18 20:59 Dose: 3 mg Methylprednisolone (Solu-Medrol) 60 mg IVP Q8HR [facility] Stop: 09/07/18 00:01 Last Admin: 03/09/18 08:57 Dose: 60 mg Metoprolol Succinate (Toprol Xl) 25 mg PO DAILY [facility] Stop: 09/07/18 14:46 Last Admin: 03/09/18 08:57 Dose: 25 mg Naloxone HCl (Narcan) 0.4 mg IVP Q2MIN PRN PRN Reason: SEE COMMENTS Stop: 09/06/18 18:13 Ondansetron HCl (Zofran Odt) 4 mg SL Q6HR PRN PRN Reason: Nausea And Vomiting Stop: 09/08/18 08:44 Last Admin: 03/09/18 08:57 Dose: 4 mg Laboratory Tests 03/09/18 03/09/18 08:54 08:54 Hgb 12.2 Creatinine 0.46 L - Imaging and Cardiology Chest Xray: report reviewed Stress Test: report reviewed Echo: report reviewed Cardiac cath: report reviewed - EKG Interpretation EKG results cardiology: other (Telemetry reviewed with average HR previous 12 hours noted to be 81, SR. PVCs and PACs noted.) Consult Discharge Plan - Plan Referrals: Travis Moreira [Primary Care Provider] -
[2018-03-09] MEDS: ALPRAZolam 0.5 MG TABLET PO PRN ×2 (13:15→19:25)
[2018-03-09] MEDS: predniSONE 20 MG TABLET PO SCH (17:33)
[2018-03-09] MEDS: Azithromycin 500 MG in D5% in Water 250 ML IVPB SCH (17:34)
[2018-03-09] MEDS ORDERED: Simethicone 80 MG TAB.CHEW PO PRN (18:26)
[2018-03-09] MEDS: Melatonin 3 MG TABLET PO PRN (19:27)
--- NOTE | 2018-03-09 19:58 | Internal Med Progress Note ---
Hospitalist Progress Note - Encounter Date of Encounter: 03/09/18 Time of Encounter: 11:00 - Subjective Interval History: Patient is a 57-year-old female with past medical history significant for CAD, status post stent on DAPT, COPD on home oxygen (2L), atrial fibrillation and hyperlipidemia who presents to the ER on 03/07/18 due to shortness of breath and chest pain. Of note, she has had multiple admissions for chest pain/shortness of breath in the last 2 months. Cardiology was consulted with recommendations for a left heart catheterization which patient declined. Imdur was added and patient to follow-up with cardiology as an outpatient Patient also with recurrent COPD exacerbations and pulmonology was consulted Improving on IV steroids and IV azithromycin in addition to scheduled DuoNeb's - Exam Vitals: Temp Pulse Resp BP Pulse Ox 98.3 F 104 16 108/69 98 03/09/18 18:43 03/09/18 18:43 03/09/18 18:43 03/09/18 18:43 03/09/18 18:43 Exam: Gen.: Nonacute distress, alert and oriented 3 ENT: Mucosal membranes moist Respiratory: Lungs are clear to auscultation bilaterally without any wheezing rhonchi or rales Cardiovascular: Normal S1 and S2 regular rate rhythm no murmurs rubs or gallops Abdomen: Soft, nontender and nondistended with positive bowel sounds Extremities: No lower extremity edema Skin: Normal color - Assessment and Plan (1) Chest pain Current Visit: Yes Status: Acute Assessment and Plan: Patient presents with substernal chest pain with history of coronary arterial disease CAD s/p [facility] Mar 2013: EF 20%, s/p successful cutting balloon angioplasty of the 1st diagonal; otherwise mild, non-obstructive CAD: 20% pLAD. Echocardiogram on 12/27/17 showed LVEF of 60% with mild left ventricular diastolic dysfunction without any valvular dysfunction or pulmonary hypertension. Nuclear medicine stress tests on 01/16/18 was negative for ischemia/infarct. Cardiology consulted with recommendations for left heart catheterization on 03/09 which patient declined Imdur was added to patient's medical regimen and she will follow-up as an outpatient (2) Acute exacerbation of chronic obstructive pulmonary disease (COPD) Current Visit: Yes Status: Acute Assessment and Plan: Patient with expiratory wheezes and shortness of breath in addition to nonproductive cough Will continue scheduled dual nebs and IV azithromycin Pulmonology consulted with recommendations to de-escalate IV Solu-Medrol to oral prednisone and to monitor overnight. Anticipate discharge on 03/10/18 (3) Cachexia Current Visit: No Status: Acute Assessment and Plan: Patient with a BMI of 17.4 Will consider nutritional consult (4) Tobacco abuse Current Visit: No Status: Chronic Assessment and Plan: Patient is a 120 pack year smoker Discussed with patient about smoking cessation Will offer nicotine replacement (5) DVT prophylaxis Current Visit: No Status: Acute Assessment and Plan: Subcutaneous tennis heparin - Time Spent with Patient Total time spent is greater than 50% in coordination of care (as documented) at patient's floor/unit and/or counseling patient: Internal Medicine: Result - Labs CBC & Chem 7: 03/09/18 08:54 03/09/18 08:54 Labs: Short CBC 03/09/18 Range/Units 08:54 WBC 13.7 H (4.3-11.1) K/mcL Hgb 12.2 (11.5-15.4) g/dL Hct 37.1 (35.3-44.9) % Plt Count 270 (140-400) K/mcL Neutrophils # 11.6 H (1.6-8.9) K/mcL BMP 03/09/18 08:54 Sodium 134 L Potassium 3.9 Chloride 98 Carbon Dioxide 34 H BUN 12 Creatinine 0.46 L Glucose 120 H Calcium 8.8 - ABG Interpretation ABG results: ABG ABG pH 7.39 pH Units (7.32-7.45) 03/07/18 23:57 ABG pCO2 61 mmHg (35-45) H 03/07/18 23:57 ABG pO2 68 mmHg (85-104) L 03/07/18 23:57 ABG O2 Saturation 92 % (95-98) L 03/07/18 23:57 PT/INR, D-dimer D-Dimer 233 ng/mLFEU (0-500) 03/07/18 13:27 Consult Discharge Plan - Plan Referrals: Travis Moreira [Primary Care Provider] - Delfino Vergara MD [Partnered Physician] - 03/17/18 8:15 am Erich Agustin CNP [Partnered Physician] - 03/11/18 11:00 am (1) Chest pain Qualifiers: Chest pain type: unspecified Qualified Code(s): R07.9 - Chest pain, unspecified
[2018-03-10] MEDS: Ipratropium/Albuterol Neb 3 ML IH SCH ×7 (00:15→23:43)
[2018-03-10] MEDS: *HR* Heparin 5,000 UNIT/ML VIAL SQ SCH ×3 (05:53→20:55)
[2018-03-10] MEDS: Furosemide 20 MG TABLET PO SCH (09:04)
[2018-03-10] MEDS: Metoprolol XL (24 HR) Succ 25 MG TAB.ER.24H PO SCH (09:05)
[2018-03-10] MEDS: ALPRAZolam 0.5 MG TABLET PO PRN ×2 (09:05→17:59)
[2018-03-10] MEDS: Isosorbide MONOnitrate (24 HR) 30 MG TAB.ER.24H PO SCH (09:05)
[2018-03-10] MEDS: predniSONE 20 MG TABLET PO SCH (09:05)
[2018-03-10] MEDS: Ondansetron ODT 4 MG TAB.RAPDIS SL PRN (09:07)
--- NOTE | 2018-03-10 17:05 | Internal Med Progress Note ---
Hospitalist Progress Note - Encounter Date of Encounter: 03/10/18 Time of Encounter: 16:28 - Subjective Interval History: Patient seen and examined at bedside today. Continues to have intermittent midsternal chest discomfort without radiation. She has shortness of breath at baseline with a history of COPD. Upon admission she appeared to have an acute exacerbation of COPD and was requiring O2 supplementation above baseline 2 L nasal cannula. However, per my assessment this evening the patient is on 2 L nasal cannula without any respiratory distress reports that her breast or status is now back to baseline. Continue chest pain the patient is concerned about whether or not she should continue to undergo further evaluation for chest pain. - Exam Vitals: Temp Pulse Resp BP Pulse Ox 98.2 F 85 16 96/57 94 03/10/18 15:07 03/10/18 15:07 03/10/18 16:04 03/10/18 15:07 03/10/18 16:04 Exam: Gen.: Nonacute distress, alert and oriented 3 ENT: Mucosal membranes moist Respiratory: Coarse expiratory wheezing throughout bilaterally AP and L Cardiovascular: Normal S1 and S2 regular rate rhythm no murmurs rubs or gallops Abdomen: Soft, nontender and nondistended with positive bowel sounds Extremities: No lower extremity edema Skin: Normal color - Assessment and Plan (1) Chest pain Current Visit: Yes Status: Acute Assessment and Plan: Presents with midsternal chest pain without radiation. Reporting shortness of breath greater than baseline Patient presents with substernal chest pain with history of coronary arterial disease CAD s/p [facility] Mar 2013: EF 20%, s/p successful cutting balloon angioplasty of the 1st diagonal; otherwise mild, non-obstructive CAD: 20% pLAD. Echocardiogram on 12/27/17 showed LVEF of 60% with mild left ventricular diastolic dysfunction without any valvular dysfunction or pulmonary hypertension. Nuclear medicine stress tests on 01/16/18 was negative for ischemia/infarct. Cardiology consulted with recommendations for left heart catheterization on 03/09 which patient declined Imdur was added to patient's medical regimen and she was scheduled to follow-up as an outpatient 03/10-- she is now requesting [facility]. I explined that her s/sx are most likely not cardiac in origin but most likely caused by her COPD. However, she is continuing to have intermittent chest pain and requesting further evaluation. Recent w/u as mentioned above. Will continue to monitor over night and reconsult cardiology. (2) Tobacco abuse Current Visit: No Status: Chronic Assessment and Plan: continues to frequently used tobacco She reports that her last cigarette was the day prior to admission Discussed tobacco cessation Discussed ramifications of continued tobacco use in the setting of severe COPD (3) Acute exacerbation of chronic obstructive pulmonary disease (COPD) Current Visit: Yes Status: Acute Assessment and Plan: Patient with expiratory wheezes and shortness of breath in addition to nonproductive cough Will continue scheduled dual nebs and IV azithromycin Pulmonology consulted with recommendations to de-escalate IV Solu-Medrol to oral prednisone and to monitor overnight. 03/10/18- Course expiratory wheezing persists, however, she is on baseline O2 at 2LNC. Continue with oral prednisone, aerosols and azithromycin. If respiratory status improves tomorrow, consider d/c in a.m (4) Cachexia Current Visit: No Status: Acute Assessment and Plan: Patient with a BMI of 17.4 Will consider nutritional consult increase oral intake consider adding megace (5) DVT prophylaxis Current Visit: No Status: Acute Assessment and Plan: Subcutaneous heparin - Time Spent with Patient Total time spent is greater than 50% in coordination of care (as documented) at patient's floor/unit and/or counseling patient: less than 15 minutes Plan of Care Discussed with: patient Internal Medicine: Result - Labs CBC & Chem 7: 03/09/18 08:54 03/09/18 08:54 - ABG Interpretation ABG results: ABG ABG pH 7.39 pH Units (7.32-7.45) 03/07/18 23:57 ABG pCO2 61 mmHg (35-45) H 03/07/18 23:57 ABG pO2 68 mmHg (85-104) L 03/07/18 23:57 ABG O2 Saturation 92 % (95-98) L 03/07/18 23:57 PT/INR, D-dimer D-Dimer 233 ng/mLFEU (0-500) 03/07/18 13:27 Consult Discharge Plan - Plan Referrals: Travis Moreira [Primary Care Provider] - Delfino Vergara MD [Partnered Physician] - 03/17/18 8:15 am Erich Agustin CNP [Partnered Physician] - 03/11/18 11:00 am (1) Chest pain Qualifiers: Chest pain type: unspecified Qualified Code(s): R07.9 - Chest pain, unspecified
--- NOTE | 2018-03-10 17:50 | Electrocardiograph Report ---
[address] [place] [address] Test Date: 2018-03-07 Pat Name: Anita Honeycutt Department: [id number] Room: 3B55 Gender: F [employer]: : 1960 Requested By: [id number] Order Number: [id number] Reading MD: Ana Brown Measurements Intervals [place] Rate: 93 P: 89 [place]: 137 QRS: 78 QRSD: 69 T: 76 QT: 332 QTc: 413 Interpretive Statements Sinus rhythm Biatrial enlargement Anterior infarct, old Electronically Signed On 03-10-2018 17:49:22 EDT by Ana Brown
--- NOTE | 2018-03-10 17:53 | Electrocardiograph Report ---
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
--- NOTE | 2018-03-10 17:55 | Electrocardiograph Report ---
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
[2018-03-10] MEDS: Azithromycin 500 MG in D5% in Water 250 ML IVPB SCH (17:56)
--- NOTE | 2018-03-10 17:59 | Electrocardiograph Report ---
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
[2018-03-10] MEDS: Melatonin 3 MG TABLET PO PRN (20:56)
[2018-03-11] MEDS: Ipratropium/Albuterol Neb 3 ML IH SCH ×6 (03:47→23:37)
[2018-03-11] MEDS: *HR* Heparin 5,000 UNIT/ML VIAL SQ SCH ×3 (04:23→21:06)
[2018-03-11 05:55] LABS: Basophils % 0.1 %; Eosinophils % 0.3 %; Hematocrit 35.6 % (35.3-44.9); Hemoglobin 11.5 g/dL (11.5-15.4); Immature Granulocytes % 0.4 % (0-4); Lymphocytes # 2.4 K/mcL (0.6-4.6); Lymphocytes % 21.3 %; Mean Corpuscular HGB Conc 32.3 g/dL (31.6-35.5); Mean Corpuscular Hemoglobin 32.8 pg (28.0-33.3); Mean Corpuscular Volume 101.4 fL (83.0-100.0); Monocytes # 1.6 K/mcL (0.0-1.3); Monocytes % 14.6 %; Neutrophils # 7.1 K/mcL (1.6-8.9); Platelet Count 249 K/mcL (140-400); Red Blood Count 3.51 M/mcL (3.82-4.97); Red Cell Distribution Width 12.4 % (11.5-14.5); Segmented Neutrophils % 63.3 %
[2018-03-11 07:01] LABS: Blood Urea Nitrogen 16 mg/dL (6-20); Calcium 8.8 mg/dL (8.6-10.3); Carbon Dioxide 33 mEq/L (23-29); Chloride 97 mEq/L (98-107); Glucose 88 mg/dL (70-105); Osmolality,Calculated 281 (280-300); Sodium 135 mEq/L (136-145)
[2018-03-11 07:27] LABS: BUN/Creatinine Ratio 33 (6-26); eGFR For Non-African Americans > 60 (> 60)
[2018-03-11] MEDS: Furosemide 20 MG TABLET PO SCH (08:28)
[2018-03-11] MEDS: Isosorbide MONOnitrate (24 HR) 30 MG TAB.ER.24H PO SCH (08:28)
[2018-03-11] MEDS: Metoprolol XL (24 HR) Succ 25 MG TAB.ER.24H PO SCH (08:28)
[2018-03-11] MEDS: predniSONE 20 MG TABLET PO SCH (08:29)
[2018-03-11] MEDS: ALPRAZolam 0.5 MG TABLET PO PRN ×2 (08:29→17:25)
--- NOTE | 2018-03-11 13:52 | Cardiology Progress Note ---
Date of Encounter: 03/11/18 Time of Encounter: 13:00 Assessment and Plan (1) Acute exacerbation of chronic obstructive pulmonary disease (COPD) Current Visit: Yes Status: Acute Per cardiology: -Known severe COPD. -Being treated for COPD exacerbation. -Rhino virus positive -Management per primary service. (2) Chest pain Current Visit: Yes Status: Acute Per cardiology: -Admmitted to chest pain. Today, chest pain reproduceable with palpation. -Troponin negative x3. -No acute ischemic ECG changes. -Stress test 12/2017 negative. -On asa, plavix, BB, statin in outpateint setting. -Recent TTE with LVEF preserved, no segmental wall motion abnormalities. -Of note, has had multiple admission for chest pain over the last several months. -Imdur was added yesterday. -Of note, now rhino virus positive. -With acute viral illness now known and atypical, reproduceable chest pain, would favor medical management at this time. Once recovered from viral illness, can consider LHC in outpatient setting if has recurrence of symptoms. -Patient agreeable for outpatient cardiology follow up. Follow up set. Qualifiers: Chest pain type: unspecified Qualified Code(s): R07.9 - Chest pain, unspecified (3) Tobacco abuse Current Visit: No Status: Chronic Per cardiology: -Known tobacco abuse. -Smoking cessation education provided. (4) Coronary artery disease Current Visit: No Status: Chronic Per cardiology: -Known CAD s/p LHC 03/2013 with cutting balloon angopplasty to diagonal 1, otherwise mild 20% LAD stenosis. Qualifiers: Coronary Disease-Associated Artery/Lesion type: [place] artery [place] vs. transplanted heart: [place] heart Associated angina: with unspecified angina Qualified Code(s): I25.119 - Atherosclerotic heart disease of [place] coronary artery with unspecified angina pectoris Discussion w patient/family: The assessment and plan as outlined above was discussed with the patient and family who expressed understanding and agreement. All questions were answered. Thank you for involving us in the care of your patient. Please call with any questions. Discussed and reviewed with . Subjective Principal diagnosis: COPD exacerbation Interval history: Patient reports some chest pain with chest palpation. Reports shortness of breath. Objective Vital Signs, Last 4 Hours Temp Pulse Resp BP Pulse Ox 03/11/18 11:26 12 91 03/11/18 10:41 98.4 F 78 14 101/52 96 General: Conversant, No Apparent Distress HEENT: Atraumatic, Normocephaly, Mucus Membranes Moist Neck: No JVD, Normal carotid pulses Cardiac: Reg Rate and Rhythm, Normal S1 and S2, No Murmur Lungs: Other (Expiratory wheezes noted. ) Neuro: Alert and responsive, No focal deficits noted Abdomen: Soft, Non-Tender Skin: No rashes noted on visualized skin Musculoskeletal: Other (Chest pain reproduceable with palpation. ) Extremities: No Clubbing, No Cyanosis, No Edema, Normal Pulses Results 03/11/18 03:43 03/11/18 03:43 Lab Results Active Medications Albuterol/Ipratropium (Duoneb) 3 ml IH [id number] [facility] Stop: 09/06/18 20:01 Last Admin: 03/11/18 11:26 Dose: 3 ml Alprazolam (Xanax) 0.5 mg PO BID PRN; Protocol PRN Reason: Anxiety Stop: 09/08/18 12:43 Last Admin: 03/11/18 08:29 Dose: 0.5 mg Clopidogrel Bisulfate (Plavix) 75 mg PO DAILY [facility] Stop: 09/07/18 14:46 Last Admin: 03/11/18 08:28 Dose: 75 mg Furosemide (Lasix) 20 mg PO DAILY [facility] Stop: 09/07/18 14:46 Last Admin: 03/11/18 08:28 Dose: 20 mg Heparin Sodium (Porcine) (Heparin) 5,000 unit SQ Q8HCO [facility] Stop: 09/06/18 22:01 Last Admin: 03/11/18 04:23 Dose: 5,000 unit Hydralazine HCl (Hydralazine) 10 mg IVP Q6HR PRN PRN Reason: Hypertension Stop: 09/06/18 22:24 Isosorbide Mononitrate (Imdur) 30 mg PO DAILY [facility] Stop: 09/07/18 14:01 Last Admin: 03/11/18 08:28 Dose: 30 mg Melatonin (Melatonin) 3 mg PO HS PRN PRN Reason: Insomnia Stop: 09/06/18 22:18 Last Admin: 03/10/18 20:56 Dose: 3 mg Metoprolol Succinate (Toprol Xl) 25 mg PO DAILY [facility] Stop: 09/07/18 14:46 Last Admin: 03/11/18 08:28 Dose: 25 mg Naloxone HCl (Narcan) 0.4 mg IVP Q2MIN PRN PRN Reason: SEE COMMENTS Stop: 09/06/18 18:13 Ondansetron HCl (Zofran Odt) 4 mg SL Q6HR PRN PRN Reason: Nausea And Vomiting Stop: 09/08/18 08:44 Last Admin: 03/10/18 09:07 Dose: 4 mg Prednisone (Prednisone) 40 mg PO DAILY [facility] Stop: 09/08/18 15:31 Last Admin: 03/11/18 08:29 Dose: 40 mg Simethicone (Gas-X) 80 mg PO TID PRN PRN Reason: Dyspepsia Stop: 09/08/18 18:27 Last Admin: 03/09/18 19:25 Dose: 80 mg Laboratory Tests 03/09/18 03/11/18 03/11/18 08:54 03:43 03:43 WBC 13.7 H 11.2 H Creatinine 0.48 L - Imaging and Cardiology Chest Xray: report reviewed Stress Test: report reviewed Echo: report reviewed Cardiac cath: report reviewed - EKG Interpretation EKG results cardiology: other (Telemetry reviewed with average HR previous 12 hours noted to be 75, SR. PVCs and PACs noted.) Consult Discharge Plan - Plan Referrals: Travis Moreira [Primary Care Provider] - Delfino Vergara MD [Partnered Physician] - 03/17/18 8:15 am Erich Agustin CNP [Partnered Physician] - 03/11/18 11:00 am
--- NOTE | 2018-03-11 15:24 | Internal Med Progress Note ---
Hospitalist Progress Note - Encounter Date of Encounter: 03/11/18 Time of Encounter: 15:19 - Subjective Interval History: Patient seen and examined at bedside today. chest pain has subsided. Dyspnea, cough and wheezing persist. - Exam Vitals: Temp Pulse Resp BP Pulse Ox 98.4 F 78 12 101/52 91 03/11/18 10:41 03/11/18 10:41 03/11/18 11:26 03/11/18 10:41 03/11/18 11:26 Exam: PHYSICAL EXAMINATION: GENERAL: The patient is a cachectic, ill appearing female in respiratory distress. She is alert and oriented 3 HEENT: Head is normocephalic and atraumatic. Extraocular muscles are intact. Pupils are equal, round, and reactive to light and accommodation. Nares appeared normal. Mouth is well hydrated and without lesions. Mucous membranes are moist. Posterior pharynx clear of any exudate or lesions. NECK: Supple. No carotid bruits. No lymphadenopathy or thyromegaly. LUNGS: Severely diminished, coarse expiratory wheezing throughout bilaterally. AP and L HEART: Regular rate and rhythm, S1, S2 without murmur rubs or gallops. ABDOMEN: Soft, nontender, and nondistended. Positive bowel sounds. No hepatosplenomegaly was noted. EXTREMITIES: Without any cyanosis, clubbing, rash, lesions or edema. NEUROLOGIC: Cranial nerves II through XII are grossly intact. PSYCHIATRIC: Flat affect, but denies suicidal or homicidal ideations. SKIN: No ulceration or induration present. - Assessment and Plan (1) Acute exacerbation of chronic obstructive pulmonary disease (COPD) Current Visit: Yes Status: Acute Assessment and Plan: Patient with expiratory wheezes and shortness of breath in addition to nonproductive cough Will continue scheduled dual nebs and IV azithromycin Pulmonology consulted with recommendations to de-escalate IV Solu-Medrol to oral prednisone and to monitor overnight. 03/10/18- Course expiratory wheezing persists, however, she is on baseline O2 at 2LNC. Continue with oral prednisone, aerosols and azithromycin. If respiratory status improves tomorrow, consider d/c in a.m 03/11- Clinically, remains stable, on 2LNC, however, she is continuing to have increased exertional dyspnea and course expiratory wheezing throughout. SPO2 88 -89% today during conversation. Increase steroid dose, continue aerosols; she will receive #5 dose of Azithromycin today then d/c; give to reduce inflammation. Positive for rhino virus; continue supportive care. Not ready to d/c d/t increased risk for respiratory failure. (2) Chest pain Current Visit: Yes Status: Acute Assessment and Plan: Patient presented with midsternal chest pain Recent TTE with LVEF preserved, no segmental wall motion abnormalities Stress 01/07 negative Multiple Recent Admissions with Chest Pain over the Last Several Months and Was Offered LHC at That Time but Declined Chest Pain Reproducible with Palpation Cardiology Seeing in Consultation, cardiology does not recommend heart catheter this time, patient is acutely ill with viral illness. Consider LHC once recovered from viral illness. In regards to LHC, Patient is high risk with severe COPD; favor medical management at this time. continue imdur at this time continue ASA, PLAVIX, BB, and Statin (3) Tobacco abuse Current Visit: No Status: Chronic Assessment and Plan: continues to frequently used tobacco She reports that her last cigarette was the day prior to admission Discussed tobacco cessation Discussed ramifications of continued tobacco use in the setting of severe COPD (4) Cachexia Current Visit: No Status: Acute Assessment and Plan: continue oral nutrition supplementation (5) DVT prophylaxis Current Visit: No Status: Acute Assessment and Plan: Subcutaneous heparin - Time Spent with Patient Total time spent is greater than 50% in coordination of care (as documented) at patient's floor/unit and/or counseling patient: Internal Medicine: Result - Labs CBC & Chem 7: 03/11/18 03:43 03/11/18 03:43 Labs: Short CBC 03/11/18 Range/Units 03:43 WBC 11.2 H (4.3-11.1) K/mcL Hgb 11.5 (11.5-15.4) g/dL Hct 35.6 (35.3-44.9) % Plt Count 249 (140-400) K/mcL Neutrophils # 7.1 (1.6-8.9) K/mcL BMP 03/11/18 03:43 Sodium 135 L Potassium 4.0 Chloride 97 L Carbon Dioxide 33 H BUN 16 Creatinine 0.48 L Glucose 88 Calcium 8.8 - ABG Interpretation ABG results: ABG ABG pH 7.39 pH Units (7.32-7.45) 03/07/18 23:57 ABG pCO2 61 mmHg (35-45) H 03/07/18 23:57 ABG pO2 68 mmHg (85-104) L 03/07/18 23:57 ABG O2 Saturation 92 % (95-98) L 03/07/18 23:57 PT/INR, D-dimer D-Dimer 233 ng/mLFEU (0-500) 03/07/18 13:27 Consult Discharge Plan - Plan Referrals: Travis Moreira [Primary Care Provider] - Delfino Vergara MD [Partnered Physician] - 03/17/18 8:15 am Erich Agustin CNP [Partnered Physician] - 03/11/18 11:00 am (2) Chest pain Qualifiers: Chest pain type: unspecified Qualified Code(s): R07.9 - Chest pain, unspecified
[2018-03-11] MEDS: Ondansetron ODT 4 MG TAB.RAPDIS SL PRN (15:35)
[2018-03-11] MEDS: MethylPREDNISolone 40 MG/ML VIAL IVP SCH (17:25)
[2018-03-11] MEDS: Melatonin 3 MG TABLET PO PRN (21:13)
[2018-03-12] MEDS: Ipratropium/Albuterol Neb 3 ML IH SCH ×6 (04:04→23:42)
[2018-03-12] MEDS: *HR* Heparin 5,000 UNIT/ML VIAL SQ SCH ×3 (05:13→20:43)
[2018-03-12] MEDS: MethylPREDNISolone 40 MG/ML VIAL IVP SCH ×2 (05:13→16:47)
[2018-03-12] MEDS: Ondansetron ODT 4 MG TAB.RAPDIS SL PRN (06:23)
[2018-03-12] MEDS: ALPRAZolam 0.5 MG TABLET PO PRN ×2 (06:23→16:47)
[2018-03-12] MEDS: Isosorbide MONOnitrate (24 HR) 30 MG TAB.ER.24H PO SCH (09:10)
[2018-03-12] MEDS: Aspirin Enteric Coated 81 MG Tablet PO SCH (09:10)
[2018-03-12] MEDS: Metoprolol XL (24 HR) Succ 25 MG TAB.ER.24H PO SCH (09:10)
[2018-03-12] MEDS: Furosemide 20 MG TABLET PO SCH (09:11)
--- NOTE | 2018-03-12 15:49 | Internal Med Progress Note ---
Hospitalist Progress Note - Encounter Date of Encounter: 03/12/18 Time of Encounter: 15:46 - Subjective Interval History: Patient seen and examined at bedside today. Remains chest pain free. Dyspnea improving, continues to have non-productive cough but wheezing is improving. - Exam Vitals: Temp Pulse Resp BP Pulse Ox 98.0 F 81 20 157/87 93 03/12/18 15:21 03/12/18 15:21 03/12/18 15:21 03/12/18 15:21 03/12/18 15:21 Exam: PHYSICAL EXAMINATION: GENERAL: The patient is a cachectic, ill appearing female in respiratory distress. She is alert and oriented 3 HEENT: Head is normocephalic and atraumatic. Extraocular muscles are intact. Pupils are equal, round, and reactive to light and accommodation. Nares appeared normal. Mouth is well hydrated and without lesions. Mucous membranes are moist. NECK: Supple. No carotid bruits. No lymphadenopathy or thyromegaly. LUNGS: No longer have wheezing, lung continue to be diminished throughout but she is moving more air today HEART: Regular rate and rhythm, S1, S2 without murmur rubs or gallops. ABDOMEN: Soft, nontender, and nondistended. Positive bowel sounds. No hepatosplenomegaly was noted. EXTREMITIES: Without any cyanosis, clubbing, rash, lesions or edema. NEUROLOGIC: Cranial nerves II through XII are grossly intact. PSYCHIATRIC: Flat affect, but denies suicidal or homicidal ideations. SKIN: No ulceration or induration present. - Assessment and Plan (1) Acute exacerbation of chronic obstructive pulmonary disease (COPD) Current Visit: Yes Status: Acute Assessment and Plan: Patient with expiratory wheezes and shortness of breath in addition to nonproductive cough Will continue scheduled dual nebs and IV azithromycin Pulmonology consulted with recommendations to de-escalate IV Solu-Medrol to oral prednisone and to monitor overnight. 03/10/18- Course expiratory wheezing persists, however, she is on baseline O2 at 2LNC. Continue with oral prednisone, aerosols and azithromycin. If respiratory status improves tomorrow, consider d/c in a.m 03/11- Clinically, remains stable, on 2LNC, however, she is continuing to have increased exertional dyspnea and course expiratory wheezing throughout. SPO2 88 -89% today during conversation. Increase steroid dose, continue aerosols; she will receive #5 dose of Azithromycin today then d/c; give to reduce inflammation. Positive for rhino virus; continue supportive care. Not ready to d/c d/t increased risk for respiratory failure. 03/12--clinically, she has improved overnight, remains on 2 L nasal cannula is no longer having exertional dyspnea or expiratory wheezing. Lungs are now clear /diminished throughout. Per auscultation she is having an increase in air movement today. Continue steroids and increase dose at this time. She will benefit from a long steroid taper upon discharge. She has follow-up appointment with pulmonology within 1 week already and is instructed she continues to improve remained stable overnight consider discharge tomorrow afternoon. (2) Chest pain Current Visit: Yes Status: Acute Assessment and Plan: Patient presented with midsternal chest pain Recent TTE with LVEF preserved, no segmental wall motion abnormalities Stress 01/07 negative Multiple Recent Admissions with Chest Pain over the Last Several Months and Was Offered LHC at That Time but Declined Chest Pain Reproducible with Palpation Cardiology Seeing in Consultation, cardiology does not recommend heart catheter this time, patient is acutely ill with viral illness. Consider LHC once recovered from viral illness. In regards to LHC, Patient is high risk with severe COPD; favor medical management at this time. continue imdur at this time continue ASA, PLAVIX, BB, and Statin 03/12--remains chest pain free. NO events overnight on tele. Continue to monitor. See plan above (3) Tobacco abuse Current Visit: No Status: Chronic Assessment and Plan: continues to frequently used tobacco She reports that her last cigarette was the day prior to admission Discussed tobacco cessation Discussed ramifications of continued tobacco use in the setting of severe COPD (4) Cachexia Current Visit: No Status: Acute Assessment and Plan: continue oral nutrition supplementation (5) DVT prophylaxis Current Visit: No Status: Acute Assessment and Plan: Subcutaneous heparin - Time Spent with Patient Total time spent is greater than 50% in coordination of care (as documented) at patient's floor/unit and/or counseling patient: less than 15 minutes Plan of Care Discussed with: patient Internal Medicine: Result - Labs CBC & Chem 7: 03/11/18 03:43 03/11/18 03:43 - ABG Interpretation ABG results: ABG ABG pH 7.39 pH Units (7.32-7.45) 03/07/18 23:57 ABG pCO2 61 mmHg (35-45) H 03/07/18 23:57 ABG pO2 68 mmHg (85-104) L 03/07/18 23:57 ABG O2 Saturation 92 % (95-98) L 03/07/18 23:57 PT/INR, D-dimer D-Dimer 233 ng/mLFEU (0-500) 03/07/18 13:27 Consult Discharge Plan - Plan Referrals: Travis Moreira [Primary Care Provider] - Delfino Vergara MD [Partnered Physician] - 03/17/18 8:15 am Erich Agustin CNP [Partnered Physician] - 03/11/18 11:00 am (2) Chest pain Qualifiers: Chest pain type: unspecified Qualified Code(s): R07.9 - Chest pain, unspecified
[2018-03-12] MEDS: Melatonin 3 MG TABLET PO PRN (20:43)
[2018-03-12] MEDS ORDERED: ALPRAZolam 0.5 MG TABLET PO ONE (21:00)
[2018-03-13] MEDS: Ipratropium/Albuterol Neb 3 ML IH SCH ×3 (03:43→11:22)
[2018-03-13 04:41] LABS: Hematocrit 35.6 % (35.3-44.9); Hemoglobin 11.9 g/dL (11.5-15.4); Mean Corpuscular HGB Conc 33.4 g/dL (31.6-35.5); Mean Corpuscular Hemoglobin 32.2 pg (28.0-33.3); Mean Corpuscular Volume 96.5 fL (83.0-100.0); Mean Platelet Volume 9.5 fL (9.4-12.4); Platelet Count 314 K/mcL (140-400); Red Blood Count 3.69 M/mcL (3.82-4.97); Red Cell Distribution Width 12.1 % (11.5-14.5)
[2018-03-13] MEDS: MethylPREDNISolone 40 MG/ML VIAL IVP SCH (05:29)
[2018-03-13] MEDS: *HR* Heparin 5,000 UNIT/ML VIAL SQ SCH ×2 (05:29→12:40)
[2018-03-13] MEDS: ALPRAZolam 0.5 MG TABLET PO PRN ×2 (07:22→12:39)
[2018-03-13] MEDS: Ondansetron ODT 4 MG TAB.RAPDIS SL PRN (07:31)
[2018-03-13] MEDS: Aspirin Enteric Coated 81 MG Tablet PO SCH (08:57)
[2018-03-13] MEDS: Isosorbide MONOnitrate (24 HR) 30 MG TAB.ER.24H PO SCH (08:57)
[2018-03-13] MEDS: Metoprolol XL (24 HR) Succ 25 MG TAB.ER.24H PO SCH (08:57)
[2018-03-13 11:58] VITALS: BP 93/52
--- NOTE | 2018-03-13 12:21 | Discharge Summary ---
- NOTES TO OUTPATIENT PROVIDER Notes to Outpatient Provider: Please ensure f/u appt. with pulmonology is kept. Patient has cachexia and poor appetite. Please discuss appetite stimulants that follow-up appointment. Date of Encounter: 03/13/18 Time of Encounter: 12:19 - Discharge Diagnosis (1) Acute exacerbation of chronic obstructive pulmonary disease (COPD) Priority: Primary Status: Acute Assessment and Plan: Patient with expiratory wheezes and shortness of breath in addition to nonproductive cough Will continue scheduled dual nebs and IV azithromycin Pulmonology consulted with recommendations to de-escalate IV Solu-Medrol to oral prednisone and to monitor overnight. 03/10/18- Course expiratory wheezing persists, however, she is on baseline O2 at 2LNC. Continue with oral prednisone, aerosols and azithromycin. If respiratory status improves tomorrow, consider d/c in a.m 03/11- Clinically, remains stable, on 2LNC, however, she is continuing to have increased exertional dyspnea and course expiratory wheezing throughout. SPO2 88 -89% today during conversation. Increase steroid dose, continue aerosols; she will receive #5 dose of Azithromycin today then d/c; give to reduce inflammation. Positive for rhino virus; continue supportive care. Not ready to d/c d/t increased risk for respiratory failure. 03/12--clinically, she has improved overnight, remains on 2 L nasal cannula is no longer having exertional dyspnea or expiratory wheezing. Lungs are now clear /diminished throughout. Per auscultation she is having an increase in air movement today. Continue steroids and increase dose at this time. She will benefit from a long steroid taper upon discharge. She has follow-up appointment with pulmonology within 1 week already and is instructed she continues to improve remained stable overnight consider discharge tomorrow afternoon. 03/13--clinically, patient continuing to improve. Remains on baseline 2 L nasal cannula. Lungs are clear/diminished throughout with fine expiratory wheezing. Patient is being discharged today with a long-term steroid taper. Patient has a history of severe end-stage COPD and will benefit from a longer steroid taper. She is to have a follow-up appointment with pulmonology this coming Friday and she has been instructed to keep this appointment. Additionally, I will refill her DuoNeb's upon discharge. She has been instructed to return to the ED should she develop respiratory distress. Patient verbalizes understanding denies any further questions time. (2) Chest pain Priority: Secondary Status: Resolved Assessment and Plan: Patient presented with midsternal chest pain Recent TTE with LVEF preserved, no segmental wall motion abnormalities Stress 01/07 negative Multiple Recent Admissions with Chest Pain over the Last Several Months and Was Offered LHC at That Time but Declined Chest Pain Reproducible with Palpation Cardiology Seeing in Consultation, cardiology does not recommend heart catheter this time, patient is acutely ill with viral illness. Consider LHC once recovered from viral illness. In regards to LHC, Patient is high risk with severe COPD; favor medical management at this time. continue imdur at this time continue ASA, PLAVIX, BB, and Statin 03/12--remains chest pain free. NO events overnight on tele. Continue to monitor. See plan above 03/13--continues to be chest pain free on day of discharge. Qualifiers: Chest pain type: unspecified Qualified Code(s): R07.9 - Chest pain, unspecified (3) Tobacco abuse Priority: Secondary Status: Chronic Assessment and Plan: I have discussed tobacco cessation. Please continue to further discuss upon follow-up with PCP. (4) Cachexia Priority: Secondary Status: Acute (5) DVT prophylaxis Priority: Secondary Status: Acute Hospital course: Ms. Honeycutt is a 57 year old female who presented with acute on chronic hypoxia and hypercapnia with respiratory failure and COPD exacerbation secondary to rhinovirus. Throughout stay was seen by pulmonology. Patient has severe end- stage COPD and is a daily smoker. During stay she initially required BiPAP since been weaned to home oxygen at 3 L nasal cannula. She is now back to baseline status and is being discharged with a 15 day steroid taper. 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 Additionally, should be noted that throughout the day she began experiencing some chest pressure with atypical features. Troponins obtained and found to be negative 3, no acute ischemic changes on ECG. Recent stress test 12/2017 negative. Low concern for ACS. Discussed potential LHC but due to risks with the patient's advanced COPD the patient is not a candidate at this time due to acute on chronic COPD exacerbation secondary to rhinovirus. She is to follow up with cardiology in the outpatient setting and at that time risk versus benefits will be discussed with the patient may then undergo an LHC if needed. Follow-up has been set. Chest pain was self-limited and has not returned throughout stay. No events on telemetry. She is stable back to baseline and ready for discharge Discharge discussed with: patient, family, nurse Time spent discussing smoking cessation with patient: 3 to 10 minutes - Time Spent with Patient Total time spent providing and/or coordinating discharge services: Less than 30 minutes - Discharge Medications Prescriptions: Ipratropium/Albuterol Neb [Duoneb] 3 ml IH Q4HR 30 Days #180 vial.neb predniSONE [PredniSONE] See Taper PO DAILY 15 Days #20 tablet Home Medications: Nitroglycerin [Nitrostat] 0.4 mg SL Q5M PRN 05/29/16 [History] Aspirin Enteric Coated [Aspirin EC] 81 mg PO DAILY #30 tablet.dr 10/03/16 [Rx] Clopidogrel [Plavix] 75 mg PO DAILY #30 tablet 10/03/16 [Rx] Furosemide [Lasix] 20 mg PO DAILY #30 tablet 10/03/16 [Rx] Metoprolol XL (24 HR) Succ [Toprol Xl] 25 mg PO DAILY #30 tab.er.24h 10/03/16 [ Rx] Pravastatin Sodium [Pravachol] 40 mg PO HS #30 tablet 10/03/16 [Rx] Albuterol Sulfate [Ventolin Hfa] 18 gm IH Q6H PRN #1 hfa.aer.ad 12/29/17 [Rx] Ipratropium/Albuterol Neb [Duoneb] 3 ml IH Q4HR #100 inhsol 12/29/17 [Rx] predniSONE [PredniSONE] 10 mg PO DAILY #30 tablet 01/18/18 [Rx] ALPRAZolam [Xanax 0.5 MG Tablet] 0.5 mg PO BID PRN 03/09/18 [History] Mirtazapine [Mirtazapine] 7.5 mg PO HS 03/12/18 [History] Ipratropium/Albuterol Neb [Duoneb] 3 ml IH Q4HR 30 Days #180 vial.neb 03/13/18 [ Rx] predniSONE [PredniSONE] See Taper PO DAILY 15 Days #20 tablet 03/13/18 [Rx] Allergies/Adverse Reactions: 3 Allergy/AdvReac Type Severity Reaction Status Date / Time codeine Allergy Rash Verified 03/09/18 20:44 Date of admission: 03/07/18 18:45 Primary care physician: Travis Moreira Consults: 03/10/18 17:11 Consult to Cardiology [CONS] Routine Comment: Consulting Provider: Cardiology Aileen Reason for Consult: chest pain Time Notified: 17:11 Call Completed: Yes Discharging clinician: Eligio Cameron Anticipated date of discharge: 03/13/18 - Constitutional Vitals: Temp Pulse Resp BP Pulse Ox 98.0 F 80 16 93/52 93 03/13/18 11:52 03/13/18 11:52 03/13/18 11:52 03/13/18 11:52 03/13/18 11:52 General appearance: Present: A&O X 3, no acute distress Exam: PHYSICAL EXAMINATION: GENERAL: The patient is a cachectic, ill appearing female in respiratory distress. She is alert and oriented 3 HEENT: Head is normocephalic and atraumatic. Extraocular muscles are intact. Pupils are equal, round, and reactive to light and accommodation. Nares appeared normal. Mouth is well hydrated and without lesions. Mucous membranes are moist. NECK: Supple. No carotid bruits. No lymphadenopathy or thyromegaly. LUNGS: Fine expiratory wheezing, lung continue to be diminished throughout and is continuing to improve with more air movement today. HEART: Regular rate and rhythm, S1, S2 without murmur rubs or gallops. ABDOMEN: Soft, nontender, and nondistended. Positive bowel sounds. No hepatosplenomegaly was noted. EXTREMITIES: Without any cyanosis, clubbing, rash, lesions or edema. NEUROLOGIC: Cranial nerves II through XII are grossly intact. PSYCHIATRIC: Flat affect, but denies suicidal or homicidal ideations. SKIN: No ulceration or induration present. - Patient Status Disposition: Home, Self-Care Condition: Fair Functional capacity at discharge: independent ambulation - Discharge Instructions Instructions: Acute Respiratory Distress Syndrome (DC), Chest Pain (DC), Anxiety (DC) Follow Up With: Travis Moreira [Primary Care Provider] - Delfino Vergara MD [Partnered Physician] - 03/17/18 8:15 am Erich Agustin CNP [Partnered Physician] - 03/11/18 11:00 am - Diet and Activity Activity: increase activity as tolerated, resume usual activities as tolerated Diet: advance to your usual diet
--- NOTE | 2018-03-13 17:05 | Electrocardiograph Report ---
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
== END 2018-03-13 15:30 | disposition home or self-care (01) ==
LOC: EMEROOARM 12:55 → 3BNU 12:55 → SUATTDRO 18:45 → 3BNU 20:30
PROVIDERS: ADMIT Student in an Organized Health Care Education/Training Program; ATTEND Hospitalist

== ENCOUNTER 2018-09-17 12:32 | Inpatient (IN) ==
--- NOTE | 2018-09-17 13:30 | Emergency Department Note ---
Disposition Clinical Impression: Acute exacerbation of chronic obstructive airways disease Disposition: Admitted As Inpatient Condition: Fair Referrals: Ariana Frost DO [Primary Care Provider] - Forms: ED Satisfaction Letter General Adult HPI - General Chief complaint: ED Shortness of Breath/Dyspnea Stated complaint: TAMIKA,CP,nausea Time Seen by Provider: 09/17/18 12:48 Source: patient Limitations: no limitations - History of Present Illness Pain Scale: 6 - Related Data Home Medications Medication Instructions Recorded Confirmed Nitroglycerin [Nitrostat] 0.4 mg SL Q5M PRN 05/29/16 08/17/18 ALPRAZolam [Xanax 0.5 MG Tablet] 0.5 mg PO BID PRN 03/09/18 08/17/18 Mirtazapine 7.5 - 15 mg PO HS 03/12/18 08/17/18 Acetaminophen [Tylenol] 1,000 mg PO DAILY PRN 08/17/18 08/17/18 Albuterol Sulfate [Ventolin Hfa] 2 puff IH Q4H PRN 08/17/18 08/17/18 Buspirone HCl [Buspar] 7.5 mg PO BID 08/17/18 08/17/18 Metoclopramide [Reglan] 10 mg PO Q6H PRN 08/17/18 08/17/18 Metoclopramide [Reglan] 10 mg PO Q6H PRN 08/17/18 08/17/18 Mometasone/Formoterol [Dulera 200 2 puff IH BID 08/17/18 08/17/18 Mcg/5 Mcg Inhaler] Oxygen 2 - 3 l IH 08/17/18 08/17/18 Tiotropium [place] [Spiriva 2 puff IH DAILY 08/17/18 08/17/18 Respimat] Previous Rx's Medication Instructions Recorded Aspirin Enteric Coated [Aspirin EC] 81 mg PO DAILY #30 tablet. 10/03/16 Clopidogrel [Plavix] 75 mg PO DAILY #30 tablet 10/03/16 Furosemide [Lasix] 20 mg PO DAILY #30 tablet 10/03/16 Ascorbic Acid [Vitamin C] 500 mg PO DAILY #30 tablet 06/24/18 Cyanocobalamin (B-12) [Vitamin B12] 1,000 mcg PO DAILY #30 tablet 06/24/18 Ferrous Sulfate 325 mg PO DAILY #30 tablet 06/24/18 GuaiFENesin ER [Mucinex] 600 mg PO BID #14 tbbp.12hr 07/22/18 Ipratropium/Albuterol Neb [Duoneb] 3 ml IH [id number] PRN #30 inhsol 07/22/18 ALPRAZolam [Xanax 0.5 MG Tablet] 0.5 mg PO BID PRN tablet 08/22/18 Atorvastatin [Lipitor] 40 mg PO HS #30 tablet 08/22/18 Metoprolol [Lopressor] 12.5 mg PO BID #30 tablet 08/22/18 Tiotropium [Spiriva] 18 mcg IH DAILYR inh 08/22/18 predniSONE [PredniSONE] 10 mg PO DAILY #30 tablet 08/22/18 Allergies Allergy/AdvReac Type Severity Reaction Status Date / Time codeine Allergy NAUSEA, Verified 08/17/18 14:01 VOMITING, HIVES Past Medical History - Past Medical History Medical history: Reports: asthma, atrial fibrillation, COPD, coronary artery disease, GERD, hyperlipidemia, hypertension, myocardial infarction Surgical history: Reports: angioplasty/stent, cholecystectomy, other Psychiatric history: Reports: anxiety, depression 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 - Social History Smoking Status: Current every day smoker Smokeless Tobacco Status: No Alcohol use: Reports: occasionally Drug use: Reports: none Physical Exam - General Limitations: no limitations General appearance: alert Course Vital Signs Temperature 98.2 F 09/17/18 12:47 Pulse Rate 108 09/17/18 12:47 Respiratory Rate 20 09/17/18 12:47 Blood Pressure 102/71 09/17/18 12:47 O2 Sat by Pulse Oximetry 96 09/17/18 12:47 Temperature 98.2 F 09/17/18 12:47 Pulse Rate 108 09/17/18 12:47 Respiratory Rate 20 09/17/18 14:26 Blood Pressure 102/71 09/17/18 12:47 O2 Sat by Pulse Oximetry 96 09/17/18 14:26 Oxygen Delivery Oxygen Delivery Nasal Cannula Medical Decision Making - Lab Data Result diagrams: 09/17/18 13:55 09/17/18 13:55 Lab Results 09/17/18 09/17/18 Range/Units 13:55 13:55 WBC 8.0 (4.3-11.1) K/mcL RBC 3.16 L (3.82-4.97) M/mcL Hgb 10.2 L (11.5-15.4) g/dL Hct 32.5 L (35.3-44.9) % MCV 102.8 H (83.0-100.0) fL MCH 32.3 (28.0-33.3) pg MCHC 31.4 L (31.6-35.5) g/dL RDW 13.2 (11.5-14.5) % Plt Count 439 H (140-400) K/mcL MPV 9.2 L (9.4-12.4) fL Immature Gran % 0.1 (0-4) % Seg Neutrophils % 68.6 % Lymphocytes % 18.2 % Monocytes % 10.9 % Eosinophils % 1.8 % Basophils % 0.4 % Neutrophils # 5.5 (1.6-8.9) K/mcL Lymphocytes # 1.5 (0.6-4.6) K/mcL Monocytes # 0.9 (0.0-1.3) K/mcL Eosinophils # 0.1 (0.0-0.6) K/mcL Basophils # 0.0 (0.0-0.2) K/mcL Sodium 135 L (136-145) mEq/L Potassium 3.7 (3.5-5.1) mEq/L Chloride 88 L (98-107) mEq/L Carbon Dioxide 41 H* (23-29) mEq/L BUN 6 (6-20) mg/dL Creatinine 0.40 L (0.60-1.20) mg/dL Est GFR ( Amer) > 60 (> 60) Est GFR (Non-Af Amer) > 60 (> 60) BUN/Creatinine Ratio 15 (6-26) Glucose 107 H (70-105) mg/dL Calculated Osmolality 278 L (280-300) Calcium 8.8 (8.6-10.3) mg/dL Troponin I < 0.03 (< 0.04) ng/mL Attestation Statement - Attestation Attestation: I examined this patient and my medical decision-making was reviewed with the SOLUTIONS CONSULTANT/PA/Advanced Practice Nurse/Resident Physician. I agree with the documented findings, disposition and treatment plan as described except to the extent set forth below. Patient has a history of COPD and is on home oxygen and was at pulmonary rehabilitation 2 days ago they did ambulate the patient and her oxygen saturation dropped to 80% and she presents now with several days of intermittent chest pain worse with exertion and there is no pleuritic aspect. She is still smoking. She also has associated shortness of breath which makes it difficult even to speak in have conversation and I did notice this during the history that she did have conversational dyspnea and the patient will have lab testing as well as chest x-ray and received steroids, antibiotics, DuoNeb. I did review her EKG showing sinus tachycardia with a rate of 104 bpm and without acute ischemic change. I did compare this to an EKG from last month which did show T- wave inversion in lead aVL which is still present today. [id number]
[2018-09-17] MEDS ORDERED: Ipratropium/Albuterol Neb 3 ML IH ONE ×2 (13:47→17:18)
[2018-09-17] MEDS ORDERED: methylPREDNISolone 125 MG/2 ML VIAL IVP ONE (13:47)
--- NOTE | 2018-09-17 14:18 | Emergency Department Note ---
Disposition Clinical Impression: Acute exacerbation of chronic obstructive airways disease Disposition: Admitted As Inpatient Condition: Fair Referrals: Ariana Frost DO [Primary Care Provider] - Forms: ED Satisfaction Letter Time of Disposition: 17:03 General Adult HPI - General Chief complaint: ED Shortness of Breath/Dyspnea Stated complaint: TAMIKA,CP,nausea Time Seen by Provider: 09/17/18 12:48 Source: patient Limitations: no limitations - History of Present Illness HPI Narrative: Patient with a history of known CAD and prior [place], hyperlipidemia and COPD on home oxygen of 3L presenting for evaluation of intermittent chest pain and shortness of breath. Patient has been struggling with shortness of breath for years, states this somewhat worse, reports she desaturates to the 80s when ambulating. Denies worsening cough, sputum production, fever, or chills. Has been experiencing intermittent chest pain that is worse with exertion over the past 2 days since exerting herself at pulmonary rehab. Pain is central in location and nonradiating. Associated chronic nausea that is at baseline. Denies diaphoresis, dizziness. Patient does have nebulizer at home and has tried this twice today without relief in dyspnea. Pt Subjective Complaint: shortness of breath Onset (ago): day(s) Location: chest Radiation: non-radiation Pain Scale: 6 Improves with: immobilization Worsens with: movement Treatments Prior to Arrival: none - Related Data Home Medications Medication Instructions Recorded Confirmed Nitroglycerin [Nitrostat] 0.4 mg SL Q5M PRN 05/29/16 08/17/18 ALPRAZolam [Xanax 0.5 MG Tablet] 0.5 mg PO BID PRN 03/09/18 08/17/18 Mirtazapine 7.5 - 15 mg PO HS 03/12/18 08/17/18 Acetaminophen [Tylenol] 1,000 mg PO DAILY PRN 08/17/18 08/17/18 Albuterol Sulfate [Ventolin Hfa] 2 puff IH Q4H PRN 08/17/18 08/17/18 Buspirone HCl [Buspar] 7.5 mg PO BID 08/17/18 08/17/18 Metoclopramide [Reglan] 10 mg PO Q6H PRN 08/17/18 08/17/18 Metoclopramide [Reglan] 10 mg PO Q6H PRN 08/17/18 08/17/18 Mometasone/Formoterol [Dulera 200 2 puff IH BID 08/17/18 08/17/18 Mcg/5 Mcg Inhaler] Oxygen 2 - 3 l IH HS 08/17/18 08/17/18 Tiotropium [place] [Spiriva 2 puff IH DAILY 08/17/18 08/17/18 Respimat] Previous Rx's Medication Instructions Recorded Aspirin Enteric Coated [Aspirin EC] 81 mg PO DAILY #30 tablet. 10/03/16 Clopidogrel [Plavix] 75 mg PO DAILY #30 tablet 10/03/16 Furosemide [Lasix] 20 mg PO DAILY #30 tablet 10/03/16 Ascorbic Acid [Vitamin C] 500 mg PO DAILY #30 tablet 06/24/18 Cyanocobalamin (B-12) [Vitamin B12] 1,000 mcg PO DAILY #30 tablet 06/24/18 Ferrous Sulfate 325 mg PO DAILY #30 tablet 06/24/18 GuaiFENesin ER [Mucinex] 600 mg PO BID #14 tbbp.12hr 07/22/18 Ipratropium/Albuterol Neb [Duoneb] 3 ml IH [id number] PRN #30 inhsol 07/22/18 ALPRAZolam [Xanax 0.5 MG Tablet] 0.5 mg PO BID PRN tablet 08/22/18 Atorvastatin [Lipitor] 40 mg PO HS #30 tablet 08/22/18 Metoprolol [Lopressor] 12.5 mg PO BID #30 tablet 08/22/18 Tiotropium [Spiriva] 18 mcg IH DAILYR inh 08/22/18 predniSONE [PredniSONE] 10 mg PO DAILY #30 tablet 08/22/18 Allergies Allergy/AdvReac Type Severity Reaction Status Date / Time codeine Allergy NAUSEA, Verified 08/17/18 14:01 VOMITING, HIVES All systems ED: reviewed and negative except as stated. Constitutional: Denies: fever, chills Eyes: Denies: vision change ENT ED: Denies: dysphagia Cardiovascular: Reports: chest pain (intermittent), dyspnea on exertion. 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 Absent: scleral icterus, conjunctival injection - ENT ENT exam: normal oropharynx, mucous membranes moist - Neck Neck exam: Present: trachea midline - Respiratory Respiratory exam: Present: normal lung sounds bilaterally, wheezes (diffuse), other (Conversational dyspnea). Absent: respiratory distress - Cardiovascular Cardiovascular exam: Present: tachycardia. Absent: systolic murmur, diastolic murmur - Abdominal Exam Abdominal exam: Present: soft, Non-Tender. Absent: distention, guarding, rebound - Extremities Exam Extremities exam: Absent: pedal edema, calf tenderness - Neurological Exam Neurological exam: Present: alert, oriented X3, CN II-XII intact Course Course Narrative: Worsening shortness breath and chest pain in patient with known CAD and COPD. Initial evaluation will include EKG, chest xray, troponin, cbc, bmp. Will give breathing treatment and IV steriods. - Reevaluation(s) Reevaluation #1: Patient seen and evaluated at the bedside. She reports some improvement with breathing treatments and steroids, however remains exertionally dyspneic. The patient states this is not normal for her stroke and would like to be admitted for evaluation and management. Patient looks sick and we believe patient will benefit from admission for treatment of this COPD exacerbation. Patient accepted by Dr. Clancy for admission. Time: 17:02 Vital Signs Temperature 98.2 F 09/17/18 12:47 Pulse Rate 108 09/17/18 12:47 Respiratory Rate 20 09/17/18 12:47 Blood Pressure 102/71 09/17/18 12:47 O2 Sat by Pulse Oximetry 96 09/17/18 12:47 Temperature 98.2 F 09/17/18 12:47 Pulse Rate 108 09/17/18 12:47 Respiratory Rate 20 09/17/18 14:26 Blood Pressure 102/71 09/17/18 12:47 O2 Sat by Pulse Oximetry 96 09/17/18 14:26 Oxygen Delivery Oxygen Delivery Nasal Cannula Medical Decision Making - Medical Records Medical records reviewed: Yes I reviewed the patient's medical records. - Lab Data Result diagrams: 09/17/18 13:55 09/17/18 13:55 Lab Results 09/17/18 09/17/18 Range/Units 13:55 13:55 WBC 8.0 (4.3-11.1) K/mcL RBC 3.16 L (3.82-4.97) M/mcL Hgb 10.2 L (11.5-15.4) g/dL Hct 32.5 L (35.3-44.9) % MCV 102.8 H (83.0-100.0) fL MCH 32.3 (28.0-33.3) pg MCHC 31.4 L (31.6-35.5) g/dL RDW 13.2 (11.5-14.5) % Plt Count 439 H (140-400) K/mcL MPV 9.2 L (9.4-12.4) fL Immature Gran % 0.1 (0-4) % Seg Neutrophils % 68.6 % Lymphocytes % 18.2 % Monocytes % 10.9 % Eosinophils % 1.8 % Basophils % 0.4 % Neutrophils # 5.5 (1.6-8.9) K/mcL Lymphocytes # 1.5 (0.6-4.6) K/mcL Monocytes # 0.9 (0.0-1.3) K/mcL Eosinophils # 0.1 (0.0-0.6) K/mcL Basophils # 0.0 (0.0-0.2) K/mcL Sodium 135 L (136-145) mEq/L Potassium 3.7 (3.5-5.1) mEq/L Chloride 88 L (98-107) mEq/L Carbon Dioxide 41 H* (23-29) mEq/L BUN 6 (6-20) mg/dL Creatinine 0.40 L (0.60-1.20) mg/dL Est GFR ( Amer) > 60 (> 60) Est GFR (Non-Af Amer) > 60 (> 60) BUN/Creatinine Ratio 15 (6-26) Glucose 107 H (70-105) mg/dL Calculated Osmolality 278 L (280-300) Calcium 8.8 (8.6-10.3) mg/dL Troponin I < 0.03 (< 0.04) ng/mL - Radiology Data Radiology results reviewed: Yes I reviewed the patient's radiology results. IMPRESSION: No evidence of acute cardiopulmonary disease. - EKG Data EKG #1 EKG shows normal: sinus rhythm Rate: tachycardia Rhythm: NSR Gilbert/QRS: normal T wave inversions noted in: aVR, v1, v2 When compared to previous EKG there are: no significant changes Interpretation: no acute changes
[2018-09-17 14:24] LABS: Basophils % 0.4 %; Eosinophils # 0.1 K/mcL (0.0-0.6); Eosinophils % 1.8 %; Hematocrit 32.5 % (35.3-44.9); Hemoglobin 10.2 g/dL (11.5-15.4); Immature Granulocytes % 0.1 % (0-4); Lymphocytes # 1.5 K/mcL (0.6-4.6); Lymphocytes % 18.2 %; Mean Corpuscular HGB Conc 31.4 g/dL (31.6-35.5); Mean Corpuscular Hemoglobin 32.3 pg (28.0-33.3); Mean Corpuscular Volume 102.8 fL (83.0-100.0); Mean Platelet Volume 9.2 fL (9.4-12.4); Monocytes # 0.9 K/mcL (0.0-1.3); Monocytes % 10.9 %; Neutrophils # 5.5 K/mcL (1.6-8.9); Platelet Count 439 K/mcL (140-400); Red Blood Count 3.16 M/mcL (3.82-4.97); Red Cell Distribution Width 13.2 % (11.5-14.5); Segmented Neutrophils % 68.6 %
[2018-09-17 14:51] LABS: BUN/Creatinine Ratio 15 (6-26); Blood Urea Nitrogen 6 mg/dL (6-20); Calcium 8.8 mg/dL (8.6-10.3); Carbon Dioxide 41 mEq/L (23-29); Chloride 88 mEq/L (98-107); Glucose 107 mg/dL (70-105); Osmolality,Calculated 278 (280-300); Potassium 3.7 mEq/L (3.5-5.1); Sodium 135 mEq/L (136-145); Troponin I < 0.03 ng/mL (< 0.04); eGFR For Non-African Americans > 60 (> 60)
[2018-09-17] MEDS ORDERED: Naloxone 0.4 MG/ML INJ IVP PRN (16:49)
--- NOTE | 2018-09-17 17:00 | Internal Med History&Physical ---
Date of Encounter: 09/17/18 Time of Encounter: 16:45 Internal Medicine - H&P: HPI Chief complaint: SOB Admitted From: Home History of present illness: Ms. Honeycutt is a 58 year old female with history of oxygen dependent COPD, A. fib not on anticoagulation, CAD status post angioplasty, who presented to the ED with SOB. Started about 2 days ago, associated with cough but minimal sputum production. Also endorses L side rib cage pain upon coughing and moving. No diaphoresis, nausea/vomiting, palpitation, orthopnea, PND, or leg swelling. Denies any recent sick contacts. No fever/chills, hemoptysis, abdominal pain, change in bowel habits, or dysuria. She unfortunately continues to smoke and expresses little to no desire to stop smoking. In the ED, she was afebrile, mildly tachycardic at 108, but otherwise hemodynamic is stable with SpO2 96% on 3L (baseline). chest x-ray did not show any acute cardiopulmonary processes. Labwork was unremarkable with normal WBC. Troponin was negative and EKG shows sinus tachycardia without concerning STT changes. Patient was given 1 dose of IV Solu-Medrol, bronchodilators, and admitted for further management. Past Med Surg Social Fam HX - Past Medical History Medical history: asthma, atrial fibrillation, COPD, coronary artery disease, GERD, hyperlipidemia, hypertension, myocardial infarction Additional medical history: back pain, O2 @ 3L at all times Psychiatric history: anxiety, depression - Past Surgical History Surgical History: angioplasty/stent, cholecystectomy, other Additional surgical history: cardiac cath with angioplasty - Social History Smoking Status: Current every day smoker Smokeless Tobacco Status: No Alcohol use: occasionally Drug use: none - Family History Father Living Status: Hx Family Respiratory Disorders: Yes Hx Family Cancer: Yes (Lung cancer) Hx Family Endocrine Disorder: Yes Diabetes diabetes Hx Family Cardiac Disorders: Yes (Hypertension) Hx Family Respiratory Disorders: Yes Hx Family Cancer: Yes (Lung cancer) Hx Family Endocrine Disorder: Yes (Diabetes) Sister Adopted: No Family Member Ethnicity: Non- Living Status: Hx Family Cardiac Disorders: No Hx Family Respiratory Disorders: Yes Hx Family Cancer: No Hx Family GI Disorders: No Hx Family Endocrine Disorder: No Hx Family Neuromuscular Disorders: No Hx Family Neurologic Disorders: No Hx Family HEENT Disorders: No Hx Family Autoimmune Disorders: Yes (lupus, arthritis) Mother Living Status: Hx Family Cardiac Disorders: Yes Hx Family Respiratory Disorders: No Hx Family Cancer: Yes Hx Family GI Disorders: Yes (Ulcers) Internal Medicine - H&P: Meds Nitroglycerin [Nitrostat] 0.4 mg SL Q5M PRN 05/29/16 [History] Aspirin Enteric Coated [Aspirin EC] 81 mg PO DAILY #30 tablet. 10/03/16 [Rx] Clopidogrel [Plavix] 75 mg PO DAILY #30 tablet 10/03/16 [Rx] Furosemide [Lasix] 20 mg PO DAILY #30 tablet 10/03/16 [Rx] ALPRAZolam [Xanax 0.5 MG Tablet] 0.5 mg PO BID PRN 03/09/18 [History] Mirtazapine 7.5 - 15 mg PO HS 03/12/18 [History] Ascorbic Acid [Vitamin C] 500 mg PO DAILY #30 tablet 06/24/18 [Rx] Cyanocobalamin (B-12) [Vitamin B12] 1,000 mcg PO DAILY #30 tablet 06/24/18 [Rx] Ferrous Sulfate 325 mg PO DAILY #30 tablet 06/24/18 [Rx] GuaiFENesin ER [Mucinex] 600 mg PO BID #14 tbbp.12hr 07/22/18 [Rx] Ipratropium/Albuterol Neb [Duoneb] 3 ml IH [id number] PRN #30 inhsol 07/22/18 [Rx] Acetaminophen [Tylenol] 1,000 mg PO DAILY PRN 08/17/18 [History] Albuterol Sulfate [Ventolin Hfa] 2 puff IH Q4H PRN 08/17/18 [History] Buspirone HCl [Buspar] 7.5 mg PO BID 08/17/18 [History] Metoclopramide [Reglan] 10 mg PO Q6H PRN 08/17/18 [History] Metoclopramide [Reglan] 10 mg PO Q6H PRN 08/17/18 [History] Mometasone/Formoterol [Dulera 200 Mcg/5 Mcg Inhaler] 2 puff IH BID 08/17/18 [History] Oxygen 2 - 3 l IH HS 08/17/18 [History] Tiotropium [place] [Spiriva Respimat] 2 puff IH DAILY 08/17/18 [History] ALPRAZolam [Xanax 0.5 MG Tablet] 0.5 mg PO BID PRN tablet 08/22/18 [Rx] Atorvastatin [Lipitor] 40 mg PO HS #30 tablet 08/22/18 [Rx] Metoprolol [Lopressor] 12.5 mg PO BID #30 tablet 08/22/18 [Rx] Tiotropium [Spiriva] 18 mcg IH DAILYR inh 08/22/18 [Rx] predniSONE [PredniSONE] 10 mg PO DAILY #30 tablet 08/22/18 [Rx] Allergy/AdvReac Type Severity Reaction Status Date / Time codeine Allergy NAUSEA, Verified 08/17/18 14:01 VOMITING, HIVES All Systems PM: A 10-system review of systems was performed and is negative for pertinent findings except as documented above in the HPI. - Constitutional Vitals: Temp Pulse Resp BP Pulse Ox 98.2 F 108 20 102/71 96 09/17/18 12:47 09/17/18 12:47 09/17/18 14:26 09/17/18 12:47 09/17/18 14:26 Exam: General: Alert and oriented, mild distress. Cachectic HEENT:EOMI, pupils equal, round and reactive. Cardiovascular:Normal S1 & S2, No JVD. Pulse regular but tachycardic Lungs: Diffuse wheezes bilaterally, fair air entry Abdomen:Soft, non-tender, no rigidity. Extremities:No deformity or swelling Neurological:Normal cognition and motor skills. Non-focal Skin:Normal color, no rash, no lesions. Pulses:Carotid and radial pulses normal +2. Rest of the physical exam is non contributory Internal Med - H&P Results - Labs CBC & Chem 7: 09/17/18 13:55 09/17/18 13:55 Labs: Short CBC 09/17/18 Range/Units 13:55 WBC 8.0 (4.3-11.1) K/mcL Hgb 10.2 L (11.5-15.4) g/dL Hct 32.5 L (35.3-44.9) % Plt Count 439 H (140-400) K/mcL Neutrophils # 5.5 (1.6-8.9) K/mcL BMP 09/17/18 13:55 Sodium 135 L Potassium 3.7 Chloride 88 L Carbon Dioxide 41 H* BUN 6 Creatinine 0.40 L Glucose 107 H Calcium 8.8 Cardiac Enzymes 09/17/18 Range/Units 13:55 Troponin I < 0.03 (< 0.04) ng/mL - Impressions ITS Impressions Chest X-Ray 09/17/18 13:47 IMPRESSION: No evidence of acute cardiopulmonary disease. D/ / Vincenzo Li MD / Vincenzo Li MD Interpreting Provider: Vincenzo Li MD - Assessment and Plan (1) Acute exacerbation of chronic obstructive airways disease Current Visit: Yes Status: Acute Assessment and plan: Frequent admissions for similar episodes, patient unfortunately continues to smoke No fever, no leukocytosis, chest x-ray without any evidence of inocencio consolid ation Started on IV Solu-Medrol and bronchodilators which we will continue Check respiratory viral panel Lengthy discussion about tobacco cessation was again held, declines nicotine replacement therapy (2) Coronary artery disease Current Visit: Yes Status: Chronic Assessment and plan: Left-sided rib cage discomfort likely related to COPD exacerbation rather than ACS 1st troponin -ve, EKG no new changes will trend troponin to rule out ACS Resume home meds including dual antiplatelet Qualifiers: Coronary Disease-Associated Artery/Lesion type: [place] artery [place] vs. transplanted heart: [place] heart Associated angina: with unspecified angina Qualified Code(s): I25.119 - Atherosclerotic heart disease of [place] coronary artery with unspecified angina pectoris (3) Anxiety Current Visit: Yes Status: Acute Assessment and plan: At least partly contributing to patient's symptom, reportedly on Xanax at home Resume once reconciled (4) GERD (gastroesophageal reflux disease) Current Visit: No Status: Chronic Assessment and plan: Resume home meds once reconciled Qualifiers: Esophagitis presence: without esophagitis Qualified Code(s): K21.9 - Gastro-esophageal reflux disease without esophagitis (5) Afib Current Visit: No Status: Chronic Assessment and plan: Not on anticoagulation, resume ASA rate control with beta melina Qualifiers: Atrial fibrillation type: paroxysmal Qualified Code(s): I48.0 - Paroxysmal atrial fibrillation (6) DVT prophylaxis Current Visit: No Status: Acute Assessment and plan: SQ heparin - Time Spent With Patient Total time spent is greater than 50% in coordination of care (as documented) at patient's floor/unit and/or counseling patient: 25 - 35 minutes
[2018-09-17] MEDS ORDERED: Ketorolac 15 MG/ML VIAL IVP PRN (17:05)
[2018-09-17] MEDS ORDERED: *HR* LORazepam 2 MG/ML VIAL IVP PRN (17:17)
[2018-09-17] MEDS ORDERED: cefTRIAXone 1,000 MG in 0.9 % Sodium Chloride Mini Bag 100 ML IVPB ONE (17:45)
[2018-09-17] MEDS ORDERED: Azithromycin 500 MG in D5% in Water 250 ML IVPB ONE (17:45)
[2018-09-17] MEDS: Ketorolac 30 MG/ML VIAL IVP PRN (20:00)
[2018-09-17] MEDS ORDERED: Ipratropium/Albuterol Neb 3 ML IH SCH (20:00)
[2018-09-17] MEDS: *HR* Heparin 5,000 UNIT/ML VIAL SQ SCH (20:54)
[2018-09-17 23:29] LABS: ABG Base Excess 17 mEq/L (-2 to 3); ABG HCO3 47 mEq/L (21-27); ABG Oxygen Saturation 91 % (95-98); ABG PCO2 87 mmHg (35-45); ABG PH 7.34 pH Units (7.32-7.45); ABG PO2 68 mmHg (85-104); ABG TCO2 50 mEq/L (20-26)
[2018-09-17 23:41] LABS: Adenovirus Not Detected (Not Detect); Bordetella Pertussis Not Detected (Not Detect); Coronavirus 229E Not Detected (Not Detect); Coronavirus HKU1 Not Detected (Not Detect); Coronavirus NL63 Not Detected (Not Detect); Coronavirus OC43 Not Detected (Not Detect); Human Metapneumovirus Not Detected (Not Detect); Human Rhinovirus/Enterovirus Not Detected (Not Detect); Influenza A Subtype 2009 H1 Not Detected (Not Detect); Influenza A Untypeable Not Detected (Not Detect); Influenza B Not Detected (Not Detect); Parainfluenza Virus 1 Not Detected (Not Detect); Parainfluenza Virus 2 Not Detected (Not Detect); Parainfluenza Virus 3 Not Detected (Not Detect); Parainfluenza Virus 4 Not Detected (Not Detect); Respiratory Syncytial Virus Not Detected (Not Detect)
[2018-09-17 23:42] LABS: Chlamydophila pneumoniae Not Detected (Not Detect); Mycoplasma pneumoniae Not Detected (Not Detect)
[2018-09-18] MEDS ORDERED: Nitroglycerin 0.4 MG TAB.SUBL SL PRN (00:07)
[2018-09-18] MEDS: Levalbuterol Neb 1.25 MG/3 ML IH SCH ×6 (00:41→20:36)
[2018-09-18 02:20] LABS: Hematocrit 34.3 % (35.3-44.9); Hemoglobin 10.7 g/dL (11.5-15.4); Immature Granulocytes % 0.4 % (0-4); Lymphocytes # 0.4 K/mcL (0.6-4.6); Mean Corpuscular HGB Conc 31.2 g/dL (31.6-35.5); Mean Corpuscular Hemoglobin 32.6 pg (28.0-33.3); Mean Corpuscular Volume 104.6 fL (83.0-100.0); Mean Platelet Volume 9.4 fL (9.4-12.4); Monocytes # 0.1 K/mcL (0.0-1.3); Neutrophils # 5.1 K/mcL (1.6-8.9); Platelet Count 458 K/mcL (140-400); Red Blood Count 3.28 M/mcL (3.82-4.97); Red Cell Distribution Width 13.3 % (11.5-14.5); Segmented Neutrophils % 90.6 %
[2018-09-18 02:38] LABS: BUN/Creatinine Ratio 22 (6-26); Blood Urea Nitrogen 10 mg/dL (6-20); Calcium 8.9 mg/dL (8.6-10.3); Carbon Dioxide 41 mEq/L (23-29); Chloride 92 mEq/L (98-107); Glucose 181 mg/dL (70-105); Osmolality,Calculated 288 (280-300); Potassium 4.1 mEq/L (3.5-5.1); Sodium 137 mEq/L (136-145); eGFR For Non-African Americans > 60 (> 60)
[2018-09-18] MEDS: *HR* Heparin 5,000 UNIT/ML VIAL SQ SCH ×2 (05:31→17:14)
[2018-09-18] MEDS: Tiotropium 18 MCG inhalation IH SCH (08:13)
[2018-09-18] MEDS: Budesonide/Formoterol 160/4.5 1 PUFF INH IH SCH ×2 (08:14→20:37)
[2018-09-18] MEDS: MethylPREDNISolone 40 MG/ML VIAL IVP SCH ×2 (08:30→17:12)
[2018-09-18] MEDS: Ondansetron 4 MG/2 ML VIAL IVP PRN ×2 (08:32→23:29)
[2018-09-18] MEDS: ALPRAZolam 0.5 MG TABLET PO PRN ×2 (10:11→20:15)
--- NOTE | 2018-09-18 12:55 | Internal Med Progress Note ---
Hospitalist Progress Note - Encounter Date of Encounter: 09/18/18 Time of Encounter: 11:15 - Subjective Interval History: Reports improvement in her symptoms but continues to become severely dyspneic with minimal exertion. No fever/chills. - Exam Vitals: Temp Pulse Resp BP Pulse Ox 97.8 F 96 16 104/68 93 09/18/18 10:36 09/18/18 10:36 09/18/18 11:28 09/18/18 10:36 09/18/18 11:28 Exam: General: Alert and oriented, mild distress. Cachectic Cardiovascular:Normal S1 & S2, No JVD. Pulse regular, HR improved as well Lungs: Diffuse wheezes bilaterally but improving air entry Abdomen:Soft, non-tender, no rigidity. Extremities:No deformity or swelling Neurological:Normal cognition and motor skills. Non-focal - Assessment and Plan (1) Acute exacerbation of chronic obstructive airways disease Current Visit: Yes Status: Acute Assessment and Plan: Frequent admissions for similar episodes, patient unfortunately continues to smoke No fever, no leukocytosis, chest x-ray without any evidence of inocencio consolidation respiratory viral panel -ve continue IV Solu-Medrol and bronchodilators Lengthy discussion about the importance of tobacco cessation, declines nicotine replacement therapy ABG shows chronic respiratory acidosis, will certainly benefit from BiPAP at home but patient states that she is unable to wear any. Advised her to follow up with pulmonary as outpatient for different types of masks (2) Coronary artery disease Current Visit: Yes Status: Chronic Assessment and Plan: Left-sided rib cage discomfort likely related to COPD exacerbation rather than ACS troponin -ve x 2, EKG no new changes Resume home meds including dual antiplatelet (3) Anxiety Current Visit: Yes Status: Acute Assessment and Plan: At least partly contributing to patient's symptom, reportedly on Xanax at home Resume home meds offered her inpatient psych evaluation to assist with medications, she would like to see her own outpatient psych however. (4) Afib Current Visit: No Status: Chronic Assessment and Plan: Not on anticoagulation, resume ASA rate control with beta melina (5) DVT prophylaxis Current Visit: No Status: Acute Assessment and Plan: SQ heparin - Time Spent with Patient Total time spent is greater than 50% in coordination of care (as documented) at patient's floor/unit and/or counseling patient: 25 - 35 minutes Plan of Care Discussed with: patient Internal Medicine: Result - Labs CBC & Chem 7: 09/18/18 01:38 09/18/18 01:38 Labs: Short CBC 09/17/18 09/18/18 Range/Units 13:55 01:38 WBC 8.0 5.6 (4.3-11.1) K/mcL Hgb 10.2 L 10.7 L (11.5-15.4) g/dL Hct 32.5 L 34.3 L (35.3-44.9) % Plt Count 439 H 458 H (140-400) K/mcL Neutrophils # 5.5 5.1 (1.6-8.9) K/mcL BMP 09/17/18 09/18/18 13:55 01:38 Sodium 135 L 137 Potassium 3.7 4.1 Chloride 88 L 92 L Carbon Dioxide 41 H* 41 H* BUN 6 10 Creatinine 0.40 L 0.46 L Glucose 107 H 181 H Calcium 8.8 8.9 Cardiac Enzymes 09/17/18 09/17/18 Range/Units 13:55 19:33 Troponin I < 0.03 < 0.03 (< 0.04) ng/mL - ABG Interpretation ABG results: ABG ABG pH 7.34 pH Units (7.32-7.45) 09/17/18 23:22 ABG pCO2 87 mmHg (35-45) H* 09/17/18 23:22 ABG pO2 68 mmHg (85-104) L 09/17/18 23:22 ABG O2 Saturation 91 % (95-98) L 09/17/18 23:22 - Impressions Impressions Chest X-Ray 09/17/18 13:47 IMPRESSION: No evidence of acute cardiopulmonary disease. D/ / Vincenzo Li MD / Vincenzo Li MD Interpreting Provider: Vincenzo Li MD Consult Discharge Plan - Plan Referrals: Ariana Frost DO [Primary Care Provider] - (2) Coronary artery disease Qualifiers: Coronary Disease-Associated Artery/Lesion type: [place] artery [place] vs. transplanted heart: [place] heart Associated angina: with unspecified angina Qualified Code(s): I25.119 - Atherosclerotic heart disease of [place] coronary artery with unspecified angina pectoris (4) Afib Qualifiers: Atrial fibrillation type: paroxysmal Qualified Code(s): I48.0 - Paroxysmal a trial fibrillation
[2018-09-18] MEDS: Simethicone 80 MG TAB.CHEW PO PRN (20:15)
[2018-09-18] MEDS: Mirtazapine 15 MG TABLET PO SCH (20:15)
[2018-09-19] MEDS: Levalbuterol Neb 1.25 MG/3 ML IH SCH ×6 (00:14→19:54)
[2018-09-19 02:02] LABS: Basophils % 0.1 %; Hematocrit 30.7 % (35.3-44.9); Hemoglobin 9.6 g/dL (11.5-15.4); Immature Granulocytes % 0.7 % (0-4); Lymphocytes # 0.6 K/mcL (0.6-4.6); Lymphocytes % 6.8 %; Mean Corpuscular HGB Conc 31.3 g/dL (31.6-35.5); Mean Corpuscular Hemoglobin 32.7 pg (28.0-33.3); Mean Corpuscular Volume 104.4 fL (83.0-100.0); Mean Platelet Volume 9.4 fL (9.4-12.4); Monocytes # 0.9 K/mcL (0.0-1.3); Monocytes % 9.8 %; Neutrophils # 7.4 K/mcL (1.6-8.9); Platelet Count 413 K/mcL (140-400); Red Blood Count 2.94 M/mcL (3.82-4.97); Red Cell Distribution Width 13.4 % (11.5-14.5); Segmented Neutrophils % 82.6 %
[2018-09-19 02:08] LABS: BUN/Creatinine Ratio 17 (6-26); Blood Urea Nitrogen 7 mg/dL (6-20); Calcium 8.8 mg/dL (8.6-10.3); Carbon Dioxide > 45 mEq/L (23-29); Chloride 93 mEq/L (98-107); Glucose 163 mg/dL (70-105); Osmolality,Calculated 292 (280-300); Potassium 4.5 mEq/L (3.5-5.1); Sodium 140 mEq/L (136-145); eGFR For Non-African Americans > 60 (> 60)
[2018-09-19 02:41] LABS: ABG Base Excess 17 mEq/L (-2 to 3); ABG HCO3 47 mEq/L (21-27); ABG Oxygen Saturation 90 % (95-98); ABG PCO2 95 mmHg (35-45); ABG PO2 71 mmHg (85-104); ABG TCO2 50 mEq/L (20-26)
[2018-09-19] MEDS: Metoclopramide 10 MG/2 ML VIAL IVP PRN (02:42)
[2018-09-19] MEDS: ALPRAZolam 0.5 MG TABLET PO PRN ×2 (03:01→20:12)
[2018-09-19] MEDS: *HR* Heparin 5,000 UNIT/ML VIAL SQ SCH ×2 (05:28→17:24)
[2018-09-19] MEDS: MethylPREDNISolone 40 MG/ML VIAL IVP SCH ×3 (05:29→23:24)
[2018-09-19] MEDS: Cyanocobalamin (B-12) 1,000 MCG TABLET PO SCH (09:24)
[2018-09-19] MEDS: Aspirin Enteric Coated 81 MG Tablet PO SCH (09:25)
[2018-09-19] MEDS: Budesonide/Formoterol 160/4.5 1 PUFF INH IH SCH ×2 (10:23→19:53)
[2018-09-19] MEDS: Tiotropium 18 MCG inhalation IH SCH (10:24)
[2018-09-19] MEDS ORDERED: ALPRAZolam 0.5 MG TABLET PO ONE (11:17)
--- NOTE | 2018-09-19 14:12 | Electrocardiograph Report ---
[address] [place], [place] [address] Test Date: 2018-09-17 Pat Name: Anita Honyecutt Department: 113 Room: 3B37 Gender: F Manager Environmental: : 1960 Requested By: Erich Davies Order Number: [id number] Reading MD: Ana Brown Measurements Intervals [place] Rate: 129 P: 85 ID: [id number] QRS: 65 QRSD: 67 T: 74 QT: 279 QTc: 355 Interpretive Statements SINUS TACHYCARDIA ABNORMAL RHYTHM ECG Electronically Signed On 09-19-2018 14:10:15 EDT by Ana Brown
--- NOTE | 2018-09-19 15:52 | Internal Med Progress Note ---
Hospitalist Progress Note - Encounter Date of Encounter: 09/19/18 Time of Encounter: 15:50 - Subjective Interval History: I have seen and evaluated patient bedside. Patient on mild respiratory distress, reports that his heart for her to breathe. Denies chest pain, abdominal pain, nausea or vomiting. - Exam Vitals: Temp Pulse Resp BP Pulse Ox 98.2 F 98 16 107/64 98 09/19/18 15:07 09/19/18 15:07 09/19/18 15:07 09/19/18 15:07 09/19/18 15:07 Exam: Vitals reviewed General: Alert and oriented x4. In mild distress due to shortness of breath Skin: Normal color, no rash, no lesions. HEENT: EOM, pupils equal, round and reactive. Cardiovascular: RRR, normal S1 & S2, no rubs, murmurs or gallops. Lungs: bronchospastic with scattered b/l wheezes, no crackles. Abdomen: Soft, non-tender, no rigidity. Extremities: No deformity, no edema or tenderness, no joint swelling or clubbing. Neurological: Normal cognition and motor skills. Rest of the physical exam is non contributory - Assessment and Plan (1) Acute exacerbation of chronic obstructive airways disease Current Visit: Yes Status: Acute Assessment and Plan: Bronchospastic, with scattered bilateral expiratory wheezing. Increase methyl- prednisolone to 40mg/V Q8HRs. azithromycin 500mg/IV daily added. Continue bronchodilators as scheduled and when necessary. On Symbicort and Spiriva. Alternate BiPAP every 4 hours to nasal cannula. Repeat ABG in the morning. Incentive spirometry when tolerated. (2) Coronary artery disease Current Visit: Yes Status: Chronic Assessment and Plan: Patient is on dual antiplatelet therapy. On aspirin and Plavix. (3) Afib Current Visit: No Status: Chronic Assessment and Plan: Rate controlled. On metoprolol 12.5 mg by mouth daily. Not on anticoagulation. On aspirin for secondary stroke prevention. (4) Anxiety Current Visit: Yes Status: Acute Assessment and Plan: Patient is on alprazolam 0.5 mg by mouth twice a day when necessary. (5) Hyperglycemia Current Visit: Yes Status: Acute Assessment and Plan: Possible secondary to his steroids. Lispro low-dose sliding scale ac (6) Hypertension Current Visit: Yes Status: Chronic Assessment and Plan: Blood pressures well controlled on a beta melina. (7) Anemia Current Visit: No Status: Chronic Assessment and Plan: Macrocytic. Due to B12 deficiency. Continue B12 replacement. On ferrous sulfate 325 by mouth daily. DVT Prophylaxis: On heparin subcutaneous. - Summary of Assessment and Plan Summary of Assessment and Plan: Patient to remain in the hospital due to COPD exacerbation, bronchospastic. On high-dose IV steroids. - Time Spent with Patient Total time spent is greater than 50% in coordination of care (as documented) at patient's floor/unit and/or counseling patient: Plan of Care Discussed with: patient (and the nurse.) Internal Medicine: Result - Labs CBC & Chem 7: 09/19/18 01:24 09/19/18 01:24 Labs: Short CBC 09/19/18 Range/Units 01:24 WBC 8.9 D (4.3-11.1) K/mcL Hgb 9.6 L (11.5-15.4) g/dL Hct 30.7 L (35.3-44.9) % Plt Count 413 H (140-400) K/mcL Neutrophils # 7.4 (1.6-8.9) K/mcL BMP 09/19/18 01:24 Sodium 140 Potassium 4.5 Chloride 93 L Carbon Dioxide > 45 H* BUN 7 Creatinine 0.41 L Glucose 163 H Calcium 8.8 - ABG Interpretation ABG results: ABG ABG pH 7.30 pH Units (7.32-7.45) L 09/19/18 02:38 ABG pCO2 95 mmHg (35-45) H* 09/19/18 02:38 ABG pO2 71 mmHg (85-104) L 09/19/18 02:38 ABG O2 Saturation 90 % (95-98) L 09/19/18 02:38 Consult Discharge Plan - Plan Referrals: Ariana Frost DO [Primary Care Provider] - (2) Coronary artery disease Qualifiers: Coronary Disease-Associated Artery/Lesion type: [place] artery [place] vs. transplanted heart: [place] heart Associated angina: with unspecified angina Qualified Code(s): I25.119 - Atherosclerotic heart disease of [place] coronary artery with unspecified angina pectoris (3) Afib Qualifiers: Atrial fibrillation type: paroxysmal Qualified Code(s): I48.0 - Paroxysmal atrial fibrillation (6) Hypertension Qualifiers: Hypertension type: unspecified Qualified Code(s): I10 - Essential (primary) hypertension (7) Anemia Qualifiers: Anemia type: unspecified type Qualified Code(s): D64.9 - Anemia, unspecified
[2018-09-19] MEDS ORDERED: D5% in Water 1,000 ML IVC PRN (15:57)
[2018-09-19] MEDS: Insulin LISPRO 300 UNITS/3 ML VIAL SQ SCH (17:20)
[2018-09-19] MEDS: Azithromycin 500 MG in D5% in Water 250 ML IVPB SCH (17:24)
[2018-09-19] MEDS: Mirtazapine 15 MG TABLET PO SCH (20:12)
[2018-09-19] MEDS: Ondansetron 4 MG/2 ML VIAL IVP PRN (20:13)
[2018-09-20] MEDS: Levalbuterol Neb 1.25 MG/3 ML IH SCH ×6 (00:11→20:28)
[2018-09-20] MEDS: *HR* Heparin 5,000 UNIT/ML VIAL SQ SCH ×2 (05:35→17:56)
[2018-09-20 07:05] LABS: Hematocrit 32.8 % (35.3-44.9); Hemoglobin 9.7 g/dL (11.5-15.4); Immature Granulocytes % 0.3 % (0-4); Lymphocytes # 0.4 K/mcL (0.6-4.6); Mean Corpuscular HGB Conc 29.6 g/dL (31.6-35.5); Mean Corpuscular Volume 108.3 fL (83.0-100.0); Mean Platelet Volume 9.6 fL (9.4-12.4); Monocytes # 0.3 K/mcL (0.0-1.3); Neutrophils # 9.4 K/mcL (1.6-8.9); Platelet Count 397 K/mcL (140-400); Red Blood Count 3.03 M/mcL (3.82-4.97); Red Cell Distribution Width 13.8 % (11.5-14.5); Segmented Neutrophils % 92.7 %
[2018-09-20] MEDS: Budesonide/Formoterol 160/4.5 1 PUFF INH IH SCH ×2 (07:34→20:28)
[2018-09-20] MEDS: Tiotropium 18 MCG inhalation IH SCH (07:35)
[2018-09-20 07:36] LABS: BUN/Creatinine Ratio 28 (6-26); Blood Urea Nitrogen 11 mg/dL (6-20); Carbon Dioxide 42 mEq/L (23-29); Chloride 95 mEq/L (98-107); Glucose 199 mg/dL (70-105); Magnesium 2.1 mg/dL (1.6-2.6); Osmolality,Calculated 291 (280-300); Phosphorous 3.1 mg/dL (2.7-4.5); Potassium 4.3 mEq/L (3.5-5.1); Sodium 138 mEq/L (136-145); eGFR For Non-African Americans > 60 (> 60)
[2018-09-20] MEDS: ALPRAZolam 0.5 MG TABLET PO PRN ×2 (09:06→19:33)
[2018-09-20] MEDS: Ondansetron 4 MG/2 ML VIAL IVP PRN ×2 (09:06→19:20)
[2018-09-20] MEDS: Ketorolac 30 MG/ML VIAL IVP PRN (09:06)
[2018-09-20] MEDS: MethylPREDNISolone 40 MG/ML VIAL IVP SCH ×3 (09:07→23:11)
[2018-09-20] MEDS: Aspirin Enteric Coated 81 MG Tablet PO SCH (09:08)
[2018-09-20] MEDS: Cyanocobalamin (B-12) 1,000 MCG TABLET PO SCH (09:08)
[2018-09-20] MEDS: Insulin LISPRO 300 UNITS/3 ML VIAL SQ SCH ×3 (09:08→17:57)
[2018-09-20] MEDS: Azithromycin 500 MG in D5% in Water 250 ML IVPB SCH (17:56)
[2018-09-20] MEDS: Simethicone 80 MG TAB.CHEW PO PRN (18:04)
[2018-09-20] MEDS: Mirtazapine 15 MG TABLET PO SCH (19:21)
[2018-09-21] MEDS: Levalbuterol Neb 1.25 MG/3 ML IH SCH ×7 (00:25→23:31)
[2018-09-21] MEDS: *HR* Heparin 5,000 UNIT/ML VIAL SQ SCH ×2 (05:50→17:00)
[2018-09-21] MEDS: Ondansetron 4 MG/2 ML VIAL IVP PRN (06:22)
[2018-09-21] MEDS: Budesonide/Formoterol 160/4.5 1 PUFF INH IH SCH ×2 (07:38→19:50)
[2018-09-21] MEDS: Tiotropium 18 MCG inhalation IH SCH (07:38)
[2018-09-21] MEDS: predniSONE 20 MG TABLET PO SCH (08:24)
[2018-09-21] MEDS: Cyanocobalamin (B-12) 1,000 MCG TABLET PO SCH (08:24)
[2018-09-21] MEDS: ALPRAZolam 0.5 MG TABLET PO PRN ×2 (08:24→21:15)
[2018-09-21] MEDS: Insulin LISPRO 300 UNITS/3 ML VIAL SQ SCH ×3 (08:25→17:00)
[2018-09-21] MEDS: Aspirin Enteric Coated 81 MG Tablet PO SCH (08:25)
[2018-09-21] MEDS: Ketorolac 30 MG/ML VIAL IVP PRN ×2 (08:32→21:15)
[2018-09-21] MEDS: Metoclopramide 10 MG/2 ML VIAL IVP PRN (08:32)
--- NOTE | 2018-09-21 10:07 | Internal Med Progress Note ---
Hospitalist Progress Note - Encounter Date of Encounter: 09/20/18 Time of Encounter: 19:00 - Subjective Interval History: SUBJECTIVE: This 58-year-old woman was admitted with difficulty breathing/coughing/wheezing, secondary to COPD exacerbation. She is oxygen dependenttaking 3 L/min nasal cannula oxygen at home. She feels better. Her breathing is not labored anymore. She has mild cough but very little of wheezing. Denies chest pain. Denies abdominal pain, nausea and vomiting. She has normal urination. OBJECTIVE: Skin: Free of rash and discoloration. ENMT: Oral/pharyngeal mucosa is normal in appearance. Eyes: Sclera is white. There is no discharge from eyes. Respiratory: Normal breath sounds; no crackles or wheezes. CV: Heart is regular; no gallop or murmur. GI: Abdomen is soft and not tender. There is no palpable mass or visceromegaly. Neuro: There is no focal deficits. ADDITIONAL DATA: Hemoglobin is 9.7 with a WBC of 10.1 thousand. BMP shows bicarb of 42 and the glucose of 199 (fasting); the rest of it is normal. ASSESSMENT AND PLAN: COPD exacerbation. Better. I will stop her IV Solu-Medrol. I will continue Pulmicort. She is on Zithromax. She gets Xopenex nebulizer treatments. She has underlying chronic hypoxic and hypercapnic respiratory failure. Current artery disease. Stable. To continue Lopressor with Lipitor and enteric coated aspirin. Hypertension. Under control. To continue Lopressor. - Exam Vitals: Temp Pulse Resp BP Pulse Ox 98.2 F 89 19 124/69 98 09/21/18 07:25 09/21/18 07:25 09/21/18 07:42 09/21/18 07:25 09/21/18 07:42 Exam: xx - Assessment and Plan (1) Acute exacerbation of chronic obstructive airways disease Current Visit: Yes Status: Acute (2) Chronic respiratory failure with hypoxia and hypercapnia Current Visit: Yes Status: Acute (3) Coronary artery disease Current Visit: Yes Status: Chronic (4) Hypertension Current Visit: Yes Status: Chronic (5) Anemia Current Visit: No Status: Chronic (6) Hyperglycemia Current Visit: Yes Status: Acute (7) Anxiety Current Visit: Yes Status: Acute - Time Spent with Patient Total time spent is greater than 50% in coordination of care (as documented) at patient's floor/unit and/or counseling patient: 25 - 35 minutes Plan of Care Discussed with: patient Internal Medicine: Result - Labs CBC & Chem 7: 09/20/18 05:16 09/20/18 05:16 - ABG Interpretation ABG results: ABG ABG pH 7.30 pH Units (7.32-7.45) L 09/19/18 02:38 ABG pCO2 95 mmHg (35-45) H* 09/19/18 02:38 ABG pO2 71 mmHg (85-104) L 09/19/18 02:38 ABG O2 Saturation 90 % (95-98) L 09/19/18 02:38 Consult Discharge Plan - Plan Referrals: Ariana Frost DO [Primary Care Provider] - 09/28/18 3:20 pm (3) Coronary artery disease Qualifiers: Coronary Disease-Associated Artery/Lesion type: [place] artery [place] vs. transplanted heart: [place] heart Associated angina: with unspecified angina Q ualified Code(s): I25.119 - Atherosclerotic heart disease of [place] coronary artery with unspecified angina pectoris (4) Hypertension Qualifiers: Hypertension type: unspecified Qualified Code(s): I10 - Essential (primary) hypertension (5) Anemia Qualifiers: Anemia type: unspecified type Qualified Code(s): D64.9 - Anemia, unspecified
[2018-09-21 13:49] LABS: ABG Base Excess 15 mEq/L (-2 to 3); ABG HCO3 43 mEq/L (21-27); ABG Oxygen Saturation 94 % (95-98); ABG PCO2 76 mmHg (35-45); ABG PH 7.36 pH Units (7.32-7.45); ABG PO2 77 mmHg (85-104); ABG TCO2 46 mEq/L (20-26)
[2018-09-21] MEDS: Azithromycin 500 MG in D5% in Water 250 ML IVPB SCH (15:14)
[2018-09-21] MEDS: Mirtazapine 15 MG TABLET PO SCH (21:14)
[2018-09-21] MEDS: Sucralfate 1 GM TABLET PO SCH (21:15)
[2018-09-22] MEDS: Levalbuterol Neb 1.25 MG/3 ML IH SCH ×5 (03:39→20:02)
[2018-09-22] MEDS: *HR* Heparin 5,000 UNIT/ML VIAL SQ SCH ×2 (05:57→17:37)
[2018-09-22] MEDS: Sucralfate 1 GM TABLET PO SCH ×4 (05:57→21:32)
--- NOTE | 2018-09-22 06:43 | Internal Med Progress Note ---
Hospitalist Progress Note - Encounter Date of Encounter: 09/21/18 Time of Encounter: 19:00 - Subjective Interval History: SUBJECTIVE: She does not feel well. Her major concern is off and on nausea. Not associated with vomiting or abdominal pain. She has had it for more than one year. Her breathing seems to be okay. She is on 3 L/min nasal cannula oxygen. She does have mild cough at times; without wheezing. Denies chest pain. She has normal urination. This 58-year-old woman was admitted with difficulty breathing/coughing/wheezing, secondary to COPD exacerbation. She is oxygen dependenttaking 3 L/min nasal cannula oxygen at home. OBJECTIVE: Skin: Free of rash and discoloration. ENMT: Oral/pharyngeal mucosa is normal in appearance. Eyes: Sclera is white. There is no discharge from eyes. Respiratory: Normal breath sounds; no crackles or wheezes. CV: Heart is regular; no gallop or murmur. GI: Abdomen is soft and not tender. There is no palpable mass or visceromegaly. Neuro: There is no focal deficits. ADDITIONAL DATA (from yesterday): Hemoglobin is 9.7 with a WBC of 10.1 thousand. BMP shows bicarb of 42 and the glucose of 199 (fasting); the rest of it is normal. ASSESSMENT AND PLAN: COPD exacerbation. Better. She is on Zithromax. She gets Pulmicort/Xopenex nebulizer treatments. She has underlying chronic hypoxic and hypercapnic respiratory failure. Nausea, likely secondary to indigestion. She has had history of GERD. I will put her on twice a day Prilosec and 4 times a day Carafate. I will stop her simethicone (did not work for her). Coronary artery disease. Stable. To continue Lopressor with Lipitor and en teric coated aspirin. Hypertension. Under control. To continue Lopressor. - Exam Vitals: Temp Pulse Resp BP Pulse Ox 97.5 F L 87 20 109/71 96 09/21/18 22:59 09/22/18 03:07 09/22/18 03:39 09/22/18 03:07 09/22/18 03:39 Exam: xx - Assessment and Plan (1) Acute exacerbation of chronic obstructive airways disease Current Visit: Yes Status: Acute (2) Chronic respiratory failure with hypoxia and hypercapnia Current Visit: Yes Status: Acute (3) Coronary artery disease Current Visit: Yes Status: Chronic (4) Hypertension Current Visit: Yes Status: Chronic (5) Anemia Current Visit: No Status: Chronic (6) Hyperglycemia Current Visit: Yes Status: Acute (7) Anxiety Current Visit: Yes Status: Acute - Time Spent with Patient Total time spent is greater than 50% in coordination of care (as documented) at patient's floor/unit and/or counseling patient: 25 - 35 minutes Plan of Care Discussed with: patient Internal Medicine: Result - Labs CBC & Chem 7: 09/20/18 05:16 09/20/18 05:16 - ABG Interpretation ABG results: ABG ABG pH 7.36 pH Units (7.32-7.45) 09/21/18 13:45 ABG pCO2 76 mmHg (35-45) H* 09/21/18 13:45 ABG pO2 77 mmHg (85-104) L 09/21/18 13:45 ABG O2 Saturation 94 % (95-98) L 09/21/18 13:45 Consult Discharge Plan - Plan Referrals: Ariana Frost DO [Primary Care Provider] - 09/28/18 3:20 pm (3) Coronary artery disease Qualifiers: Coronary Disease-Associated Artery/Lesion type: [place] artery [place] vs. transplanted heart: [place] Associated angina: with unspecified angina Qualified Code(s): I25.119 - Atherosclerotic heart disease of [place] coronary artery with unspecified angina pectoris (4) Hypertension Qualifiers: Hypertension type: unspecified Qualified Code(s): I10 - Essential (primary) hypertension (5) Anemia Qualifiers: Anemia type: unspecified type Qualified Code(s): D64.9 - Anemia, unspecified
[2018-09-22] MEDS: Tiotropium 18 MCG inhalation IH SCH (07:41)
[2018-09-22] MEDS: Budesonide/Formoterol 160/4.5 1 PUFF INH IH SCH ×2 (07:42→20:02)
[2018-09-22] MEDS: Insulin LISPRO 300 UNITS/3 ML VIAL SQ SCH ×3 (08:21→17:34)
[2018-09-22] MEDS: predniSONE 20 MG TABLET PO SCH (08:21)
[2018-09-22] MEDS: Aspirin Enteric Coated 81 MG Tablet PO SCH (08:21)
[2018-09-22] MEDS: Cyanocobalamin (B-12) 1,000 MCG TABLET PO SCH (08:21)
[2018-09-22] MEDS: ALPRAZolam 0.5 MG TABLET PO PRN ×2 (08:30→22:42)
[2018-09-22] MEDS: Ketorolac 30 MG/ML VIAL IVP PRN (08:31)
[2018-09-22] MEDS: Azithromycin 500 MG in D5% in Water 250 ML IVPB SCH (17:36)
[2018-09-22] MEDS: Ondansetron 4 MG/2 ML VIAL IVP PRN (19:30)
[2018-09-22] MEDS: Mirtazapine 15 MG TABLET PO SCH (21:32)
[2018-09-23] MEDS: Levalbuterol Neb 1.25 MG/3 ML IH SCH ×7 (00:48→23:40)
--- NOTE | 2018-09-23 06:04 | Internal Med Progress Note ---
Hospitalist Progress Note - Encounter Date of Encounter: 09/22/18 Time of Encounter: 19:00 - Subjective Interval History: SUBJECTIVE: The patient had nighttime BiPAP qualification study. She does not qualify for BiPAP. Did not have periods of desaturation during the last night. She is very anxious about stopping BiPAP treatments. Her GI symptoms seem to be better today. No significant nausea; no vomiting. She does not have any abdominal pain. She is on supplemental oxygen at 3 L/min nasal cannula. This 58-year-old woman was admitted with difficulty breathing/coughing/wheezing, secondary to COPD exacerbation. She is oxygen dependent--taking 3 L/min nasal cannula oxygen at home. OBJECTIVE: Skin: Free of rash and discoloration. ENMT: Oral/pharyngeal mucosa is normal in appearance. Eyes: Sclera is white. There is no discharge from eyes. Respiratory: Normal breath sounds; no crackles or wheezes. CV: Heart is regular; no gallop or murmur. GI: Abdomen is soft and not tender. There is no palpable mass or visceromegaly. Neuro: There is no focal deficits. ADDITIONAL DATA (from yesterday): Hemoglobin is 9.7 with a WBC of 10.1 thousand. BMP shows bicarb of 42 and the glucose of 199 (fasting); the rest of it is normal. ASSESSMENT AND PLAN: COPD exacerbation. Better. She is on Zithromax. She gets Pulmicort/Xopenex nebulizer treatments. She has underlying chronic hypoxic and hypercapnic respiratory failure. I will stop using BiPAP. We will be observing her for the next 24 hours. To be discharged home tomorrow afternoon, if stable. Nausea, likely secondary to indigestion. She has had history of GERD. I put her on twice a day Prilosec and 4 times a day Carafate. Coronary artery disease. Stable. To continue Lopressor with Lipitor and enteric coated aspirin. Hypertension. Under control. To continue Lopressor. Anxiety. I will increase her dose of BuSpar. - Exam Vitals: Temp Pulse Resp BP Pulse Ox 98.0 F 94 18 136/80 97 09/23/18 03:39 09/23/18 03:39 09/23/18 04:51 09/23/18 03:39 09/23/18 04:51 Exam: xx - Assessment and Plan (1) Acute exacerbation of chronic obstructive airways disease Current Visit: Yes Status: Acute (2) Chronic respiratory failure with hypoxia and hypercapnia Current Visit: Yes Status: Acute (3) Coronary artery disease Current Visit: Yes Status: Chronic (4) Hypertension Current Visit: Yes Status: Chronic (5) Anemia Current Visit: No Status: Chronic (6) Hyperglycemia Current Visit: Yes Status: Acute (7) Anxiety Current Visit: Yes Status: Acute - Time Spent with Patient Total time spent is greater than 50% in coordination of care (as documented) at patient's floor/unit and/or counseling patient: 25 - 35 minutes Plan of Care Discussed with: patient Internal Medicine: Result - Labs CBC & Chem 7: 09/20/18 05:16 09/20/18 05:16 - ABG Interpretation ABG results: ABG ABG pH 7.36 pH Units (7.32-7.45) 09/21/18 13:45 ABG pCO2 76 mmHg (35-45) H* 09/21/18 13:45 ABG pO2 77 mmHg (85-104) L 09/21/18 13:45 ABG O2 Saturation 94 % (95-98) L 09/21/18 13:45 Consult Discharge Plan - Plan Referrals: Ariana Frost DO [Primary Care Provider] - 09/28/18 3:20 pm (3) Coronary artery disease Qualifiers: Coronary Disease-Associated Artery/Lesion type: [place] artery [place] vs. transplanted heart: [place] heart Associated angina: with unspecified angina Qualified Code(s): I25.119 - Atherosclerotic heart disease of [place] coronary artery with unspecified angina pectoris (4) Hypertension Qualifiers: Hypertension type: unspecified Qualified Code(s): I10 - Essential (primary) hypertension (5) Anemia Qualifiers: Anemia type: unspecified type Qualified Code(s): D64.9 - Anemia, unspecified
[2018-09-23] MEDS: *HR* Heparin 5,000 UNIT/ML VIAL SQ SCH ×2 (06:06→17:29)
[2018-09-23] MEDS: Budesonide/Formoterol 160/4.5 1 PUFF INH IH SCH ×2 (07:35→19:45)
[2018-09-23] MEDS: predniSONE 20 MG TABLET PO SCH (07:39)
[2018-09-23] MEDS: Ondansetron 4 MG/2 ML VIAL IVP PRN ×2 (07:40→21:49)
[2018-09-23] MEDS: Sucralfate 1 GM TABLET PO SCH ×4 (07:40→21:44)
[2018-09-23] MEDS: Aspirin Enteric Coated 81 MG Tablet PO SCH (07:40)
[2018-09-23] MEDS: Cyanocobalamin (B-12) 1,000 MCG TABLET PO SCH (07:40)
[2018-09-23] MEDS: ALPRAZolam 0.5 MG TABLET PO PRN ×2 (07:40→21:44)
[2018-09-23] MEDS: Insulin LISPRO 300 UNITS/3 ML VIAL SQ SCH ×3 (07:42→17:28)
[2018-09-23] MEDS ORDERED: *HR* Promethazine 25 MG/ML VIAL IVP PRN (10:50)
[2018-09-23] MEDS: Tiotropium 18 MCG inhalation IH SCH (11:26)
--- NOTE | 2018-09-23 13:10 | Internal Med Progress Note ---
Hospitalist Progress Note - Encounter Date of Encounter: 09/23/18 Time of Encounter: 13:09 - Subjective Interval History: I have seen and evaluated the patient at bedside. patient reports her breathing continues to improve, she is feeling less short of breath with ambulation. denies chest pain, nausea or vomiting. - Exam Vitals: Temp Pulse Resp BP Pulse Ox 98.4 F 98 18 108/66 94 09/23/18 11:12 09/23/18 11:12 09/23/18 11:25 09/23/18 11:12 09/23/18 11:25 Exam: Vitals: Reviewed. General: Alert and oriented 4. Mild distress due to shortness of breath. Skin: Normal color, no rash, no lesions. HEENT: EOM, pupils equal, round and reactive. Cardiovascular: RRR, normal S1 & S2, no rubs, murmurs or gallops. Lungs: Mild scatted wheezes b/l, no crackles or rales. Abdomen: Soft, non-tender, no rigidity. Extremities: No deformity, no edema or tenderness, no joint swelling or clubbing. Neurological: Normal cognition and motor skills. Rest of the physical exam is non contributory - Assessment and Plan (1) Acute exacerbation of chronic obstructive airways disease Current Visit: Yes Status: Acute Assessment and Plan: Patient still complaining of shortness of breath. Patient reports that she has been having significant shortness of breath with minimal ambulation for the past 3-4 months, associated with of 15-20 pounds of weight loss for the past year. Clinical presentation consistent with severe COPD Plan Continue azithromycin 500 mg. Change it to PO On prednisone 10 mg by mouth daily. Continue bronchodilators and incentive spirometry On Symbicort and Spiriva Oxygen by nasal cannula. Titrate for O2 sat duration more than 92% Patient is a scheduled to start pulmonary rehabilitation on Friday. (2) Coronary artery disease Current Visit: Yes Status: Chronic Assessment and Plan: Patient is on dual antiplatelet therapy with aspirin and Plavix. (3) Anxiety Current Visit: Yes Status: Chronic Assessment and Plan: On alprazolam 0.5 mg by mouth twice a day. (4) Anemia Current Visit: No Status: Chronic Assessment and Plan: Macrocytic due to B12 deficiency. Continue B12 replacement and ferrous sulfate. We will monitor and transfuse per protocol. (5) Hyperglycemia Current Visit: Yes Status: Acute Assessment and Plan: Continue short-acting insulin coverage with meals. (6) Hypertension Current Visit: Yes Status: Chronic Assessment and Plan: Blood pressure is well controlled on a beta melina (7) Chronic respiratory failure with hypoxia and hypercapnia Current Visit: Yes Status: Acute Assessment and Plan: Plan of care as per problem #1. (8) Tobacco abuse Current Visit: No Status: Chronic Assessment and Plan: patient reports smoking >1 pack per day for >35 years. Educated about the risk of tobacco abuse. benefits of smoking cessation explained. DVT Prophylaxis: On heparin subcutaneous. - Summary of Assessment and Plan Summary of Assessment and Plan: Patient to remain in the hospital due to improving COPD exacerbation. Potential discharge tomorrow morning. - Time Spent with Patient Total time spent is greater than 50% in coordination of care (as documented) at patient's floor/unit and/or counseling patient: 25 - 35 minutes (38) Plan of Care Discussed with: patient (and the nurse.) Internal Medicine: Result - Labs CBC & Chem 7: 09/20/18 05:16 09/20/18 05:16 - ABG Interpretation ABG results: ABG ABG pH 7.36 pH Units (7.32-7.45) 09/21/18 13:45 ABG pCO2 76 mmHg (35-45) H* 09/21/18 13:45 ABG pO2 77 mmHg (85-104) L 09/21/18 13:45 ABG O2 Saturation 94 % (95-98) L 09/21/18 13:45 Consult Discharge Plan - Plan Referrals: Ariana Frost DO [Primary Care Provider] - 09/28/18 3:20 pm _ (2) Coronary artery disease Qualifiers: Coronary Disease-Associated Artery/Lesion type: [place] artery [place] vs. transplanted heart: [place] heart Associated angina: with unspecified angina Qualified Code(s): I25.119 - Atherosclerotic heart disease of [place] coronary artery with unspecified angina pectoris (4) Anemia Qualifiers: Anemia type: unspecified type Qualified Code(s): D64.9 - Anemia, unspecified (6) Hypertension Qualifiers: Hypertension type: unspecified Qualified Code(s): I10 - Essential (primary) hypertension
[2018-09-24] MEDS: Mirtazapine 15 MG TABLET PO SCH (01:05)
[2018-09-24] MEDS: Levalbuterol Neb 1.25 MG/3 ML IH SCH ×3 (03:27→10:37)
[2018-09-24] MEDS: Ondansetron 4 MG/2 ML VIAL IVP PRN (05:34)
[2018-09-24] MEDS: *HR* Heparin 5,000 UNIT/ML VIAL SQ SCH (05:36)
[2018-09-24 05:55] LABS: Basophils % 0.1 %; Eosinophils # 0.1 K/mcL (0.0-0.6); Eosinophils % 0.9 %; Hematocrit 35.3 % (35.3-44.9); Hemoglobin 10.6 g/dL (11.5-15.4); Immature Granulocytes % 0.4 % (0-4); Lymphocytes # 2.3 K/mcL (0.6-4.6); Mean Corpuscular Hemoglobin 31.6 pg (28.0-33.3); Mean Corpuscular Volume 105.4 fL (83.0-100.0); Mean Platelet Volume 9.2 fL (9.4-12.4); Monocytes # 1.5 K/mcL (0.0-1.3); Monocytes % 13.1 %; Neutrophils # 7.5 K/mcL (1.6-8.9); Platelet Count 403 K/mcL (140-400); Red Blood Count 3.35 M/mcL (3.82-4.97); Red Cell Distribution Width 13.8 % (11.5-14.5); Segmented Neutrophils % 65.5 %
[2018-09-24 06:12] LABS: BUN/Creatinine Ratio 30 (6-26); Blood Urea Nitrogen 14 mg/dL (6-20); Calcium 9.1 mg/dL (8.6-10.3); Carbon Dioxide 42 mEq/L (23-29); Chloride 96 mEq/L (98-107); Glucose 87 mg/dL (70-105); Magnesium 2.2 mg/dL (1.6-2.6); Osmolality,Calculated 292 (280-300); Phosphorous 4.7 mg/dL (2.7-4.5); Potassium 4.2 mEq/L (3.5-5.1); Sodium 141 mEq/L (136-145); eGFR For Non-African Americans > 60 (> 60)
[2018-09-24 07:18] VITALS: BP 117/70
[2018-09-24] MEDS: Budesonide/Formoterol 160/4.5 1 PUFF INH IH SCH (07:25)
[2018-09-24] MEDS: Tiotropium 18 MCG inhalation IH SCH (07:28)
[2018-09-24] MEDS: ALPRAZolam 0.5 MG TABLET PO PRN (08:28)
[2018-09-24] MEDS: Cyanocobalamin (B-12) 1,000 MCG TABLET PO SCH (08:28)
[2018-09-24] MEDS: Sucralfate 1 GM TABLET PO SCH (08:28)
[2018-09-24] MEDS: Insulin LISPRO 300 UNITS/3 ML VIAL SQ SCH (08:29)
[2018-09-24] MEDS: predniSONE 20 MG TABLET PO SCH (08:29)
[2018-09-24] MEDS: Aspirin Enteric Coated 81 MG Tablet PO SCH (08:29)
[2018-09-24] MEDS ORDERED: Azithromycin 250 MG TABLET PO SCH (09:00)
--- NOTE | 2018-09-24 10:04 | Discharge Summary ---
- NOTES TO OUTPATIENT PROVIDER Notes to Outpatient Provider: Follow-up with her zoogler within a week of hospital discharge. Orders not resulted at time of discharge: Pending orders 09/17/18 13:47 ECG 12 lead ECG [ECG] Stat Date of Encounter: 09/24/18 Time of Encounter: 10:00 - Discharge Diagnosis (1) Acute exacerbation of chronic obstructive airways disease Priority: Primary Status: Acute (2) Coronary artery disease Priority: Secondary Status: Chronic Qualifiers: Coronary Disease-Associated Artery/Lesion type: [place] artery [place] vs. transplanted heart: [place] heart Associated angina: with unspecified angina Qualified Code(s): I25.119 - Atherosclerotic heart disease of [place] coronary artery with unspecified angina pectoris (3) Anxiety Priority: Secondary Status: Chronic (4) Anemia Priority: Secondary Status: Chronic Qualifiers: Anemia type: unspecified type Qualified Code(s): D64.9 - Anemia, unspecified (5) Hyperglycemia Priority: Secondary Status: Acute (6) Hypertension Priority: Secondary Status: Chronic Qualifiers: Hypertension type: unspecified Qualified Code(s): I10 - Essential (primary) hypertension (7) Chronic respiratory failure with hypoxia and hypercapnia Priority: Secondary Status: Acute (8) Tobacco abuse Priority: Secondary Status: Chronic Hospital course: Ms. Honeycutt is a 58 year old female history of oxygen dependent COPD, A. fib not on anticoagulation, CAD status post angioplasty, who presented to the ED with SOB. Patient was apparently to the hospital due to COPD exacerbation. Managed with IV antibiotics, supplemental oxygen, by BiPAP alternating with nasal cannula and steroids. Respiratory panel done as part of the workup was negative. Patient acute symptoms have resolved and patient is back to her baseline saturating more than 95% on 3 L of oxygen by nasal cannula. Patient is hemodynamically stable to be discharged home, recommended to follow-up with her primary care physician and her zoogler within a week of hospital discharge. Patient educated about importance and the benefits of smoking cessation. Assistance offered. - Time Spent with Patient Total time spent providing and/or coordinating discharge services: Time spent: Greater than 30 minutes (35) - Discharge Medications Prescriptions: New Azithromycin [Zithromax] 500 mg PO DAILY 5 Days #5 tablet Continue Nitroglycerin [Nitrostat] 0.4 mg SL Q5M PRN PRN Reason: Chest Pain Aspirin Enteric Coated [Aspirin EC] 81 mg PO DAILY #30 tablet. Clopidogrel [Plavix] 75 mg PO DAILY #30 tablet ALPRAZolam [Xanax 0.5 MG Tablet] 0.5 mg PO BID PRN PRN Reason: Anxiety Mirtazapine 7.5 mg PO HS Albuterol Sulfate [Ventolin Hfa] 2 puff IH Q4H PRN PRN Reason: Shortness Of Breath Buspirone HCl [Buspar] 7.5 mg PO BID Mometasone/Formoterol [Dulera 200 Mcg/5 Mcg Inhaler] 2 puff IH BID Tiotropium [place] [Spiriva Respimat] 1 puff IH DAILY Oxygen 2 - 3 l IH HS Acetaminophen [Tylenol] 1,000 mg PO BID PRN PRN Reason: Pain Metoclopramide [Reglan] 10 mg PO Q6H PRN PRN Reason: Nausea Atorvastatin [Lipitor] 40 mg PO HS #30 tablet Metoprolol [Lopressor] 12.5 mg PO DAILY Furosemide [Lasix] 20 mg PO DAILY PRN PRN Reason: SWELLING Ipratropium/Albuterol Neb [Duoneb] 3 ml IH Q6H PRN PRN Reason: Wheezing Ascorbic Acid [Vitamin C] 500 mg PO DAILY #30 tablet Cyanocobalamin (B-12) [Vitamin B12] 1,000 mcg PO DAILY #30 tablet Ferrous Sulfate 325 mg PO DAILY #30 tablet Home Medications: Nitroglycerin [Nitrostat] 0.4 mg SL Q5M PRN 05/29/16 [History] Aspirin Enteric Coated [Aspirin EC] 81 mg PO DAILY #30 tablet. 10/03/16 [Rx] Clopidogrel [Plavix] 75 mg PO DAILY #30 tablet 10/03/16 [Rx] ALPRAZolam [Xanax 0.5 MG Tablet] 0.5 mg PO BID PRN 03/09/18 [History] Mirtazapine 7.5 mg PO HS 03/12/18 [History] Ascorbic Acid [Vitamin C] 500 mg PO DAILY #30 tablet 06/24/18 [Rx] Cyanocobalamin (B-12) [Vitamin B12] 1,000 mcg PO DAILY #30 tablet 06/24/18 [Rx] Ferrous Sulfate 325 mg PO DAILY #30 tablet 06/24/18 [Rx] Acetaminophen [Tylenol] 1,000 mg PO BID PRN 08/17/18 [History] Albuterol Sulfate [Ventolin Hfa] 2 puff IH Q4H PRN 08/17/18 [History] Buspirone HCl [Buspar] 7.5 mg PO BID 08/17/18 [History] Metoclopramide [Reglan] 10 mg PO Q6H PRN 08/17/18 [History] Mometasone/Formoterol [Dulera 200 Mcg/5 Mcg Inhaler] 2 puff IH BID 08/17/18 [History] Oxygen 2 - 3 l IH HS 08/17/18 [History] Tiotropium [place] [Spiriva Respimat] 1 puff IH DAILY 08/17/18 [History] Atorvastatin [Lipitor] 40 mg PO HS #30 tablet 08/22/18 [Rx] Metoprolol [Lopressor] 12.5 mg PO DAILY 09/17/18 [History] Furosemide [Lasix] 20 mg PO DAILY PRN 09/18/18 [History] Ipratropium/Albuterol Neb [Duoneb] 3 ml IH Q6H PRN 09/18/18 [History] Azithromycin [Zithromax] 500 mg PO DAILY 5 Days #5 tablet 09/24/18 [Rx] Allergies/Adverse Reactions: Allergy/AdvReac Type Severity Reaction Status Date / Time codeine Allergy NAUSEA, Verified 09/18/18 13:23 VOMITING, HIVES Date of admission: 09/19/18 17:22 Primary care physician: Ariana Frost DO Consults: 09/18/18 11:34 Consult to Respiratory Therapy [CONS] Routine Reason for Consult: FLUTTER VALVE Call Completed: Yes 09/22/18 09:01 Consult to Nurse Navigator [CONS] Routine Comment: COPD 09/24/18 09:41 Consult to Pastoral Services [CONS] Routine Comment: - Constitutional Vitals: Temp Pulse Resp BP Pulse Ox 97.4 F L 90 19 117/70 95 09/24/18 07:12 09/24/18 07:12 09/24/18 07:27 09/24/18 07:12 09/24/18 07:27 Exam: Vitals: Reviewed. General: Alert and oriented 4. No distress Cardiovascular: RRR, normal S1 & S2, no rubs, murmurs or gallops. Lungs: minimal scatted wheezes b/l, no crackles or rales. Abdomen: Soft, non-tender, no rigidity. Extremities: No deformity, no edema Neurological: Normal cognition Rest of the physical exam is non contributory - Patient Status Disposition: Home Health Service Condition: Fair Functional capacity at discharge: independent ambulation Overall status at discharge: patient is back to baseline - Discharge Instructions Follow Up With: Ariana Frost DO [Primary Care Provider] - 09/28/18 3:20 pm - Diet and Activity Activity: resume usual activities as tolerated, wear oxygen at all times (3 litters ) Diet: low salt diet
--- NOTE | 2018-09-24 10:09 | Physician Discharge Referral ---
Home Health/Hosp Referral Info Transfer to: Home Health - Diagnosis (1) Acute exacerbation of chronic obstructive airways disease Priority: Primary Status: Acute (2) Coronary artery disease Priority: Secondary Status: Chronic (3) Anxiety Priority: Secondary Status: Chronic (4) Anemia Priority: Secondary Status: Chronic (5) Hyperglycemia Priority: Secondary Status: Acute (6) Hypertension Priority: Secondary Status: Chronic (7) Chronic respiratory failure with hypoxia and hypercapnia Priority: Secondary Status: Acute (8) Tobacco abuse Priority: Secondary Status: Chronic - Respiratory Orders Oxygen / L per min (3 litters) Smoking Cessation: Smoking cessation has been advised. For more information, call the [place] Tobacco Quit Line at 9-279-RXHF-NOW. - Diet/Nutrition Diet/Nutrition Orders: Regular - Activity Activity Orders: Ambulate - Services Needed Following services are medically necessary services: Home Health Aide, Physical Therapy, Occupational Therapy - Transfer Medications Prescriptions: Azithromycin [Zithromax] 500 mg PO DAILY 5 Days #5 tablet Home Medications: Nitroglycerin [Nitrostat] 0.4 mg SL Q5M PRN 05/29/16 [History] Aspirin Enteric Coated [Aspirin EC] 81 mg PO DAILY #30 tablet. 10/03/16 [Rx] Clopidogrel [Plavix] 75 mg PO DAILY #30 tablet 10/03/16 [Rx] ALPRAZolam [Xanax 0.5 MG Tablet] 0.5 mg PO BID PRN 03/09/18 [History] Mirtazapine 7.5 mg PO HS 03/12/18 [History] Ascorbic Acid [Vitamin C] 500 mg PO DAILY #30 tablet 06/24/18 [Rx] Cyanocobalamin (B-12) [Vitamin B12] 1,000 mcg PO DAILY #30 tablet 06/24/18 [Rx] Ferrous Sulfate 325 mg PO DAILY #30 tablet 06/24/18 [Rx] Acetaminophen [Tylenol] 1,000 mg PO BID PRN 08/17/18 [History] Albuterol Sulfate [Ventolin Hfa] 2 puff IH Q4H PRN 08/17/18 [History] Buspirone HCl [Buspar] 7.5 mg PO BID 08/17/18 [History] Metoclopramide [Reglan] 10 mg PO Q6H PRN 08/17/18 [History] Mometasone/Formoterol [Dulera 200 Mcg/5 Mcg Inhaler] 2 puff IH BID 08/17/18 [History] Oxygen 2 - 3 l IH HS 08/17/18 [History] Tiotropium [place] [Spiriva Respimat] 1 puff IH DAILY 08/17/18 [History] Atorvastatin [Lipitor] 40 mg PO HS #30 tablet 08/22/18 [Rx] Metoprolol [Lopressor] 12.5 mg PO DAILY 09/17/18 [History] Furosemide [Lasix] 20 mg PO DAILY PRN 09/18/18 [History] Ipratropium/Albuterol Neb [Duoneb] 3 ml IH Q6H PRN 09/18/18 [History] Azithromycin [Zithromax] 500 mg PO DAILY 5 Days #5 tablet 09/24/18 [Rx] Allergies/Adverse Reactions: Allergy/AdvReac Type Severity Reaction Status Date / Time codeine Allergy NAUSEA, Verified 09/18/18 13:23 VOMITING, HIVES Certification: Further, I certify that my clinical findings support that this patient is homebound (i.e. absences from home require considerable and taxing effort and are for medical reasons or mandaeism services or infrequently or short duration when for other reasons) because: Homebound Reason: Patient requires assistance of a person or device to safely leave home Attestation: My signature below is to certify that this patient is under my care and that I, or nurse practitioner, or a physician's medical practice assistant working with me, has a [id number] encounter with this patient.
== END 2018-09-24 11:57 | disposition home health service (06) | DRG 140 ==
LOC: 3BNU 12:32 → EMEROOARM 12:32 → SUATTDRO 17:58 → 3BNU 18:36 → SUATTDRO 09-19 17:22
PROVIDERS: ADMIT Internal Medicine; ATTEND Internal Medicine

== ENCOUNTER 2018-10-08 12:20 | Inpatient (IN) ==
--- NOTE | 2018-10-08 12:35 | Emergency Department Note ---
Disposition Clinical Impression: ACS (acute coronary syndrome) Disposition: Still a Patient General Adult HPI - General Chief complaint: ED Chest Pain Stated complaint: CP Time Seen by Provider: 10/08/18 12:29 Nursing Notes Reviewed: Yes Vital Signs Reviewed: Yes - History of Present Illness HPI Narrative: ED attending attestation note: I examined this patient and my medical decision-making was reviewed with the emergency medicine resident LUZ FRIAS . I agree with the documented findin gs, disposition and treatment plan as described except to the extent set forth below. Briefly: 58-year-old female transferred from local urgent care center by EMS for chest pain. Patient was hypotensive and without 80s or 90s systolic. Upon arrival after minimal fluid bolus of about 200 mL fluid she was 113. Patient has known coronary artery disease her HEART score is 4. Patient will undergo e valuation with chest x-ray screening labs EKG. Providing 30 minutes critical care service this patient. Disposition pending - Related Data Home Medications Medication Instructions Recorded Confirmed Nitroglycerin [Nitrostat] 0.4 mg SL Q5M PRN 05/29/16 09/18/18 ALPRAZolam [Xanax 0.5 MG Tablet] 0.5 mg PO BID PRN 03/09/18 09/18/18 Mirtazapine 7.5 mg PO HS 03/12/18 09/18/18 Acetaminophen [Tylenol] 1,000 mg PO BID PRN 08/17/18 09/18/18 Albuterol Sulfate [Ventolin Hfa] 2 puff IH Q4H PRN 08/17/18 09/18/18 Buspirone HCl [Buspar] 7.5 mg PO BID 08/17/18 09/18/18 Metoclopramide [Reglan] 10 mg PO Q6H PRN 08/17/18 09/18/18 Mometasone/Formoterol [Dulera 200 2 puff IH BID 08/17/18 09/18/18 Mcg/5 Mcg Inhaler] Oxygen 2 - 3 l IH HS 08/17/18 09/18/18 Tiotropium [place] [Spiriva 1 puff IH DAILY 08/17/18 09/18/18 Respimat] Metoprolol [Lopressor] 12.5 mg PO DAILY 09/17/18 09/18/18 Furosemide [Lasix] 20 mg PO DAILY PRN 09/18/18 09/18/18 Ipratropium/Albuterol Neb [Duoneb] 3 ml IH Q6H PRN 09/18/18 09/18/18 Previous Rx's Medication Instructions Recorded Aspirin Enteric Coated [Aspirin EC] 81 mg PO DAILY #30 tablet. 10/03/16 Clopidogrel [Plavix] 75 mg PO DAILY #30 tablet 10/03/16 Ascorbic Acid [Vitamin C] 500 mg PO DAILY #30 tablet 06/24/18 Cyanocobalamin (B-12) [Vitamin B12] 1,000 mcg PO DAILY #30 tablet 06/24/18 Ferrous Sulfate 325 mg PO DAILY #30 tablet 06/24/18 Atorvastatin [Lipitor] 40 mg PO HS #30 tablet 08/22/18 Allergies Allergy/AdvReac Type Severity Reaction Status Date / Time codeine Allergy NAUSEA, Verified 10/08/18 12:29 VOMITING, HIVES Past Medical History - Past Medical History Medical history: Reports: asthma, atrial fibrillation, COPD, coronary artery disease, GERD, hyperlipidemia, hypertension, myocardial infarction Surgical history: Reports: angioplasty/stent, cholecystectomy, other Psychiatric history: Reports: 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
[2018-10-08 12:50] LABS: Basophils % 0.4 %; Eosinophils # 0.2 K/mcL (0.0-0.6); Eosinophils % 1.4 %; Hematocrit 31.3 % (35.3-44.9); Hemoglobin 9.8 g/dL (11.5-15.4); Immature Granulocytes % 0.2 % (0-4); Lymphocytes # 1.3 K/mcL (0.6-4.6); Lymphocytes % 12.7 %; Mean Corpuscular HGB Conc 31.3 g/dL (31.6-35.5); Mean Corpuscular Volume 102.3 fL (83.0-100.0); Mean Platelet Volume 9.1 fL (9.4-12.4); Monocytes # 1.1 K/mcL (0.0-1.3); Monocytes % 10.1 %; Neutrophils # 7.9 K/mcL (1.6-8.9); Platelet Count 223 K/mcL (140-400); Red Blood Count 3.06 M/mcL (3.82-4.97); Segmented Neutrophils % 75.2 %
--- NOTE | 2018-10-08 13:01 | Emergency Department Note ---
Disposition Clinical Impression: ACS (acute coronary syndrome), COPD exacerbation, Tobacco abuse Coronary artery disease Qualifiers: Coronary Disease-Associated Artery/Lesion type: [place] artery [place] vs. transplanted heart: [place] heart Associated angina: with unstable angina Qualified Code(s): I25.110 - Atherosclerotic heart disease of [place] coronary artery with unstable angina pectoris Disposition: Admitted As Inpatient General Adult HPI - General Chief complaint: ED Chest Pain Stated complaint: CP Time Seen by Provider: 10/08/18 12:29 Source: patient, EMS Nursing Notes Reviewed: Yes Vital Signs Reviewed: Yes - History of Present Illness HPI Narrative: 58-year-old female with history of COPD who presents the emergency department via EMS from urgent care due to chest pain and shortness of breath. The patient states she is on 2 L baseline oxygen but has been increasing this recently upped to 2 and half liters due to shortness of breath. She otherwise states she has had chest pain for the past 2 days which she describes as sharp and stabbing radiating into her back. She has a history of CO and this feels similar. She otherwise denies any fever, chills, headache, vomiting, diarrhea, abdominal pain. Pain Scale: 7 - Related Data Home Medications Medication Instructions Recorded Confirmed Nitroglycerin [Nitrostat] 0.4 mg SL Q5M PRN 05/29/16 09/18/18 ALPRAZolam [Xanax 0.5 MG Tablet] 0.5 mg PO BID PRN 03/09/18 09/18/18 Mirtazapine 7.5 mg PO HS 03/12/18 09/18/18 Acetaminophen [Tylenol] 1,000 mg PO BID PRN 08/17/18 09/18/18 Albuterol Sulfate [Ventolin Hfa] 2 puff IH Q4H PRN 08/17/18 09/18/18 Buspirone HCl [Buspar] 7.5 mg PO BID 08/17/18 09/18/18 Metoclopramide [Reglan] 10 mg PO Q6H PRN 08/17/18 09/18/18 Mometasone/Formoterol [Dulera 200 2 puff IH BID 08/17/18 09/18/18 Mcg/5 Mcg Inhaler] Oxygen 2 - 3 l IH HS 08/17/18 09/18/18 Tiotropium [place] [Spiriva 1 puff IH DAILY 08/17/18 09/18/18 Respimat] Metoprolol [Lopressor] 12.5 mg PO DAILY 09/17/18 09/18/18 Furosemide [Lasix] 20 mg PO DAILY PRN 09/18/18 09/18/18 Ipratropium/Albuterol Neb [Duoneb] 3 ml IH Q6H PRN 09/18/18 09/18/18 Aspirin [Adult Aspirin Regimen] 81 mg PO DAILY 10/08/18 10/08/18 Atorvastatin [Lipitor] 40 mg PO DAILY 10/08/18 Doxycycline Hyclate [Vibramycin] 100 mg PO BID 10/08/18 10/08/18 Previous Rx's Medication Instructions Recorded Clopidogrel [Plavix] 75 mg PO DAILY #30 tablet 10/03/16 Ascorbic Acid [Vitamin C] 500 mg PO DAILY #30 tablet 06/24/18 Cyanocobalamin (B-12) [Vitamin B12] 1,000 mcg PO DAILY #30 tablet 06/24/18 Ferrous Sulfate 325 mg PO DAILY #30 tablet 06/24/18 Allergies Allergy/AdvReac Type Severity Reaction Status Date / Time codeine Allergy NAUSEA, Verified 10/08/18 15:05 VOMITING, HIVES Review of Systems: ROS per history of present illness, all other systems reviewed and negative or normal. All systems ED: reviewed and negative except as stated. 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 No apparent distress. Follow commands. Appears stated age. Neck: No JVD. Trachea midline. Neck supple. Eyes: PERRL. No scleral icterus. HENT: Normocephalic and atraumatic. Moist mucus membranes. Cardiovascular: Regular rate and rhythm. Normal S1 and S2. No murmurs appreciated. Normal capillary refill. Extremities well perfused with 2+ distal pulses bilaterally. No edema. Pulmonary: Decreased aeration throughout with rhonchi.. Not in respiratory distress, slightly tachypneic using accessory muscles to breathe.. Speaks in full sentences. Abdomen: Soft, nondistended, and tontender. No bruits or masses. No guarding. Neuro: Alert and oriented x3. No slurred speech. No focal deficits noted. Skin: No rashes noted on visualized skin. Musculoskeletal: No bony abnormalities visualized. Moves all extremities. Psych: Normal mood. Pleasant. Makes appropriate eye contact. - General General appearance: alert Course Vital Signs Temperature 99.3 F 10/08/18 12:29 Pulse Rate 98 10/08/18 12:29 Respiratory Rate 17 10/08/18 12:29 Blood Pressure 116/62 10/08/18 12:29 O2 Sat by Pulse Oximetry 96 10/08/18 12:29 Temperature 99.3 F 10/08/18 12:29 Pulse Rate 95 10/08/18 14:37 Respiratory Rate 15 10/08/18 13:25 Blood Pressure 117/65 10/08/18 14:37 O2 Sat by Pulse Oximetry 94 10/08/18 14:37 Oxygen Delivery Oxygen Delivery Nasal Cannula Medical Decision Making - MDM Narrative Medical decision making narrative: 58-year-old female presenting with chest pain and shortness of breath. She does have a history of COPD as well as CAD. On arrival the patient's vital signs are stable. Obtained CBC, BMP, troponin, EKG, chest x-ray. The patient does have slight anemia, not significant change from her baseline. Mild hypercapnia. Troponin times we will add undetectable. EKG shows no ischemic changes 3 duo nebs with slight improvement in her shortness of breath. Chest x-ray shows chronic emphysematous changes without focal consolidation. Heart score of 4 therefore given her moderate risk history decision making conversation with the patient regarding outpatient follow-up with a bridge expert versus inpatient stay for further cardiac testing. The patient states she would feel more comfortable. Patient for further cardiac testing and further stabilization of her COPD exacerbation. Discussed case with on-call hospitalist Dr. Muñoz who agrees with plan for admission and accepts the patient to the inpatient service. Patient agrees with and understands course of treatment plan including plan for admission. All questions answered. Patient given methylprednisolone 125mg IV prior to transfer to floor. - Medical Records Medical records reviewed: Yes I reviewed the patient's medical records. - Lab Data Lab results reviewed: Yes I reviewed the patient's lab results. Result diagrams: 10/08/18 12:38 10/08/18 12:38 Lab Results 10/08/18 10/08/18 10/08/18 Range/Units 12:38 12:38 12:38 WBC 10.6 (4.3-11.1) K/mcL RBC 3.06 L (3.82-4.97) M/mcL Hgb 9.8 L (11.5-15.4) g/dL Hct 31.3 L (35.3-44.9) % MCV 102.3 H (83.0-100.0) fL MCH 32.0 (28.0-33.3) pg MCHC 31.3 L (31.6-35.5) g/dL RDW 14.0 (11.5-14.5) % Plt Count 223 (140-400) K/mcL MPV 9.1 L (9.4-12.4) fL Immature Gran % 0.2 (0-4) % Seg Neutrophils % 75.2 % Lymphocytes % 12.7 % Monocytes % 10.1 % Eosinophils % 1.4 % Basophils % 0.4 % Neutrophils # 7.9 (1.6-8.9) K/mcL Lymphocytes # 1.3 (0.6-4.6) K/mcL Monocytes # 1.1 (0.0-1.3) K/mcL Eosinophils # 0.2 (0.0-0.6) K/mcL Basophils # 0.0 (0.0-0.2) K/mcL PT 10.6 (9.4-12.1) Seconds INR 0.9 Sodium 140 (136-145) mEq/L Potassium 4.1 (3.5-5.1) mEq/L Chloride 100 (98-107) mEq/L Carbon Dioxide 34 H (23-29) mEq/L BUN 8 (6-20) mg/dL Creatinine 0.50 L (0.60-1.20) mg/dL Est GFR ( Amer) > 60 (> 60) Est GFR (Non-Af Amer) > 60 (> 60) BUN/Creatinine Ratio 16 (6-26) Glucose 81 (70-105) mg/dL Calculated Osmolality 287 (280-300) Calcium 8.6 (8.6-10.3) mg/dL Troponin I < 0.03 (< 0.04) ng/mL - Radiology Data Radiology results reviewed: Yes I reviewed the patient's radiology results. Chest X-Ray 10/08/18 12:29 IMPRESSION: No acute abnormality. Emphysema. D/ / Dann Matta MD / Dann Matta MD Interpreting Provider: Dann Matta MD - EKG Data EKG #1 EKG attestation: Yes I reviewed and interpreted this EKG. EKG results narrative: NSR rate of 95. No ischemic changes. When compared with prior from 09/17/18 rate is decreased otherwise no significant changes. Heart Score - Score History: Moderately Suspicious EKG: Normal Age: 45-65 Risk Factors: Equal/Greater than 3 risk factor or history of atherosclerotic disease Troponin: Less than normal limit HEART Score Total: 4
[2018-10-08] MEDS ORDERED: Ipratropium/Albuterol Neb 3 ML IH ONE (13:02)
[2018-10-08 13:09] LABS: INR 0.9; Prothrombin Time 10.6 Seconds (9.4-12.1)
[2018-10-08 13:20] LABS: BUN/Creatinine Ratio 16 (6-26); Blood Urea Nitrogen 8 mg/dL (6-20); Calcium 8.6 mg/dL (8.6-10.3); Carbon Dioxide 34 mEq/L (23-29); Chloride 100 mEq/L (98-107); Glucose 81 mg/dL (70-105); Osmolality,Calculated 287 (280-300); Potassium 4.1 mEq/L (3.5-5.1); Sodium 140 mEq/L (136-145); Troponin I < 0.03 ng/mL (< 0.04); eGFR For Non-African Americans > 60 (> 60)
[2018-10-08] MEDS ORDERED: Aspirin 81 MG TAB.CHEW PO STA (13:36)
[2018-10-08] MEDS ORDERED: methylPREDNISolone 125 MG/2 ML VIAL IVP ONE (14:50)
[2018-10-08] MEDS ORDERED: Acetaminophen 325 MG TABLET PO PRN (15:25)
[2018-10-08] MEDS ORDERED: *HR* OxyCODONE Immed Rel 5 MG TABLET PO PRN (15:25)
[2018-10-08] MEDS ORDERED: Naloxone 0.4 MG/ML INJ IVP PRN (15:25)
[2018-10-08] MEDS ORDERED: *HR* LORazepam 2 MG/ML VIAL IVP PRN ×3 (15:25)
[2018-10-08] MEDS: *HR* HYDROcodone/Acet 5/325 mg TABLET PO PRN (16:24)
[2018-10-08] MEDS: Levofloxacin 750 MG/150 ML 750 MG/150 ML BAG IVPB SCH (17:05)
[2018-10-08] MEDS: *HR* Heparin 5,000 UNIT/ML VIAL SQ SCH (17:06)
--- NOTE | 2018-10-08 17:09 | Internal Med History&Physical ---
Date of Encounter: 10/08/18 Time of Encounter: 17:07 Internal Medicine - H&P: HPI Chief complaint: Dyspnea/chest pain Admitted From: Emergency Dept Plans for Post Hospital Care: Home History of present illness: Ms. Honeycutt is a 58 year old female with history of COPD, coronary artery disease, anxiety presents with chest pain and dyspnea. Patient states that this began approximately 2 days ago. She first developed chest pain that is sharp and in the center of her chest and radiates to her back. She states this is not worse with cough or deep breath, but does get worse with exertion. This seems to come and go and there is nothing in particular that makes it better. She states this feels similar to her previous pain that she has experienced COPD exacerbations. After the chest pain she developed shortness of breath and cough with production of white sputum. She states she has had to increase her oxygen from 2-2.5 L. She denies fevers or chills. She reports decreased appetite. Discussed with patient who wishes to be DNR CCA/DNI. Past Med Surg Social Fam HX - Past Medical History Medical history: asthma, atrial fibrillation, COPD, coronary artery disease, GERD, hyperlipidemia, hypertension, myocardial infarction Additional medical history: back pain, O2 @ 3L at all times Psychiatric history: anxiety, depression - Past Surgical History Surgical History: angioplasty/stent, cholecystectomy, other Additional surgical history: cardiac cath with angioplasty - Social History Smoking Status: Current every day smoker Smokeless Tobacco Status: No Alcohol use: occasionally Drug use: none - Family History Father Living Status: Hx Family Respiratory Disorders: Yes Hx Family Cancer: Yes (Lung cancer) Hx Family Endocrine Disorder: Yes Diabetes diabetes Hx Family Cardiac Disorders: Yes (Hypertension) Hx Family Respiratory Disorders: Yes Hx Family Cancer: Yes (Lung cancer) Hx Family Endocrine Disorder: Yes (Diabetes) Sister Adopted: No Family Member Ethnicity: Non- Living Status: Hx Family Cardiac Disorders: No Hx Family Respiratory Disorders: Yes Hx Family Cancer: No Hx Family GI Disorders: No Hx Family Endocrine Disorder: No Hx Family Neuromuscular Disorders: No Hx Family Neurologic Disorders: No Hx Family HEENT Disorders: No Hx Family Autoimmune Disorders: Yes (lupus, arthritis) Mother Living Status: Hx Family Cardiac Disorders: Yes Hx Family Respiratory Disorders: No Hx Family Cancer: Yes Hx Family GI Disorders: Yes (Ulcers) Internal Medicine - H&P: Meds Nitroglycerin [Nitrostat] 0.4 mg SL Q5M PRN 05/29/16 [History] Clopidogrel [Plavix] 75 mg PO DAILY #30 tablet 10/03/16 [Rx] ALPRAZolam [Xanax 0.5 MG Tablet] 0.5 mg PO BID 03/09/18 [History] Mirtazapine 7.5 mg PO HS 03/12/18 [History] Ascorbic Acid [Vitamin C] 500 mg PO DAILY #30 tablet 06/24/18 [Rx] Cyanocobalamin (B-12) [Vitamin B12] 1,000 mcg PO DAILY #30 tablet 06/24/18 [Rx] Ferrous Sulfate 325 mg PO DAILY #30 tablet 06/24/18 [Rx] Acetaminophen [Tylenol] 1,000 mg PO PRN PRN 08/17/18 [History] Albuterol Sulfate [Ventolin Hfa] 2 puff IH Q4H PRN 08/17/18 [History] Buspirone HCl [Buspar] 7.5 - 15 mg PO DAILY 08/17/18 [History] Metoclopramide [Reglan] 10 mg PO Q6H PRN 08/17/18 [History] Mometasone/Formoterol [Dulera 200 Mcg/5 Mcg Inhaler] 2 puff IH BID 08/17/18 [History] Oxygen 2 l IH CONT 08/17/18 [History] Tiotropium [place] [Spiriva Respimat] 1 puff IH DAILY 08/17/18 [History] Metoprolol [Lopressor] 12.5 mg PO DAILY 09/17/18 [History] Furosemide [Lasix] 20 mg PO DAILY PRN 09/18/18 [History] Ipratropium/Albuterol Neb [Duoneb] 3 ml IH Q4H PRN 09/18/18 [History] Aspirin [Adult Aspirin Regimen] 81 mg PO DAILY 10/08/18 [History] Atorvastatin [Lipitor] 40 mg PO HS 10/08/18 [History] Doxycycline Hyclate [Vibramycin] 100 mg PO BID 10/08/18 [History] Allergy/AdvReac Type Severity Reaction Status Date / Time codeine Allergy NAUSEA, Verified 10/08/18 15:05 VOMITING, HIVES All Systems PM: A 10-system review of systems was performed and is negative for pertinent findings except as documented above in the HPI. Review of systems: 10 point review of systems was obtained and negative other than stated - Constitutional Constitutional: no chills, no fever(s) - Cardiovascular Cardiovascular ROS IM: chest pain, dyspnea, no edema - Respiratory Respiratory: cough, wheezing, chest congestion, excessive phlegm production, change in phlegm color, no hemoptysis, no pain on inspiration - Gastrointestinal Gastrointestinal: no abdominal pain, no diarrhea, no nausea, no vomiting - Constitutional Vitals: Temp Pulse Resp BP Pulse Ox 98.2 F 94 16 132/71 90 10/08/18 16:56 10/08/18 16:56 10/08/18 16:56 10/08/18 16:56 10/08/18 16:56 General appearance: Present: A&O X 3, no acute distress, underweight Exam: . - Head Head exam: Present: atraumatic, normal inspection, normocephalic - Eye Eye exam: Present: EOMI, PERRL - ENT ENT exam: Present: mucous membranes moist, normal oropharynx - Neck Neck exam general surgery: Present: full ROM, supple. Absent: tenderness - Respiratory Respiratory exam: Present: CTAB. Absent: accessory muscle use, chest wall tenderness, rales, respiratory distress, rhonchi, wheezes, tachypnea - Cardiovascular Cardiovascular exam: Present: RRR. Absent: gallop, irregular rhythm, rubs, systolic murmur, tachycardia - GI/Abdominal GI/Abdominal exam: Present: normal bowel sounds, soft. Absent: distended, tenderness - Extremities Exam Extremities exam: Present: warm. Absent: cyanotic, pedal edema, tenderness - Neurological Exam Neurological exam: Present: alert, CN II-XII intact, oriented X3, no focal deficits. Absent: facial droop, speech deficit - Psychiatric Psychiatric exam: Present: normal affect, normal mood - Skin Skin exam: Present: dry, intact, warm Internal Med - H&P Results - Labs CBC & Chem 7: 10/08/18 12:38 10/08/18 12:38 Labs: Short CBC 10/08/18 Range/Units 12:38 WBC 10.6 (4.3-11.1) K/mcL Hgb 9.8 L (11.5-15.4) g/dL Hct 31.3 L (35.3-44.9) % Plt Count 223 (140-400) K/mcL Neutrophils # 7.9 (1.6-8.9) K/mcL BMP 10/08/18 12:38 Sodium 140 Potassium 4.1 Chloride 100 Carbon Dioxide 34 H BUN 8 Creatinine 0.50 L Glucose 81 Calcium 8.6 Cardiac Enzymes 10/08/18 Range/Units 12:38 Troponin I < 0.03 (< 0.04) ng/mL - Impressions ITS Impressions Chest X-Ray 10/08/18 12:29 IMPRESSION: No acute abnormality. Emphysema. D/ / Dann Matta MD / Dann Matta MD Interpreting Provider: Dann Matta MD - Assessment and Plan (1) Acute exacerbation of chronic obstructive airways disease Current Visit: No Status: Acute Assessment and plan: Patient presents with cough, shortness of breath, increased sputum production. Symptoms similar to previous COPD exacerbations and has had multiple COPD exacerbations that required admission. We will check respiratory infection panel but I do not feel that the patient has a significant pneumonia. Chest x- ray reviewed that showed no acute findings and emphysema, no fever or leukocytosis. We will cover for atypical bronchitis with Levaquin, Solu-Medrol 60 mg every 8, scheduled bronchodilators. (2) Atypical chest pain Current Visit: No Status: Acute Assessment and plan: At this point I feel like the patient's chest pain is related to COPD exacerbation. EKG reviewed and shows no ischemic changes and essentially unchanged from previous. Initial troponin is negative, we will trend. No need to repeat echocardiogram as she had one couple months ago that was relatively unremarkable. (3) Chronic respiratory failure with hypoxia and hypercapnia Current Visit: No Status: Acute Assessment and plan: She wears oxygen chronically at 2 L. She had needed to increase to 2.5 L at home because she states she her oxygen was dropping but she stable on 2 L at this time. Continue supplemental oxygen to maintain oxygen saturation greater than 88%. (4) Anemia Current Visit: Yes Status: Suspected Assessment and plan: Hemoglobin 9.8, with macrocytosis. Given her chronic alcohol he uses is likely related to alcohol use nutritional deficiency. We will check B12 and folate. No indication for transfusion. No evidence of acute blood loss. Qualifiers: Anemia type: B12 deficiency Vitamin B12 deficiency anemia type: unspecified B12 deficiency Qualified Code(s): D51.9 - Vitamin B12 deficiency anemia, unspecified (5) Alcohol abuse Current Visit: Yes Status: Acute Assessment and plan: She reports chronic alcohol use and drinks daily however she could not quantify her daily amount. She denies any withdrawal symptoms. Does not appear to be in active withdrawal. We will institute [facility] protocol. Thiamine and folic acid supplementation. (6) Hypertension Current Visit: No Status: Chronic Assessment and plan: Blood pressure under good control. Continue home medications. Qualifiers: Hypertension type: unspecified Qualified Code(s): I10 - Essential (primary) hypertension (7) DVT prophylaxis Current Visit: No Status: Acute Assessment and plan: Heparin 5000 units subcutaneous twice a day - Time Spent With Patient Total time spent is greater than 50% in coordination of care (as documented) at patient's floor/unit and/or counseling patient:
[2018-10-08 19:58] LABS: Adenovirus Not Detected (Not Detect); Bordetella Pertussis Not Detected (Not Detect); Chlamydophila pneumoniae Not Detected (Not Detect); Coronavirus 229E Not Detected (Not Detect); Coronavirus HKU1 Not Detected (Not Detect); Coronavirus NL63 Not Detected (Not Detect); Coronavirus OC43 Not Detected (Not Detect); Human Metapneumovirus Not Detected (Not Detect); Human Rhinovirus/Enterovirus Not Detected (Not Detect); Influenza A Subtype 2009 H1 Not Detected (Not Detect); Influenza A Untypeable Not Detected (Not Detect); Influenza B Not Detected (Not Detect); Mycoplasma pneumoniae Not Detected (Not Detect); Parainfluenza Virus 1 Not Detected (Not Detect); Parainfluenza Virus 2 Not Detected (Not Detect); Parainfluenza Virus 3 Not Detected (Not Detect); Parainfluenza Virus 4 Not Detected (Not Detect); Respiratory Syncytial Virus Not Detected (Not Detect)
[2018-10-08] MEDS: ALPRAZolam 0.5 MG TABLET PO PRN (20:54)
[2018-10-08] MEDS: Budesonide/Formoterol 160/4.5 1 PUFF INH IH SCH (22:15)
[2018-10-08] MEDS: methylPREDNISolone 125 MG/2 ML VIAL IVP SCH (23:53)
[2018-10-09 01:02] LABS: Hematocrit 31.7 % (35.3-44.9); Immature Granulocytes % 0.1 % (0-4); Lymphocytes # 0.3 K/mcL (0.6-4.6); Lymphocytes % 4.4 %; Mean Corpuscular HGB Conc 31.5 g/dL (31.6-35.5); Mean Corpuscular Hemoglobin 32.6 pg (28.0-33.3); Mean Corpuscular Volume 103.3 fL (83.0-100.0); Mean Platelet Volume 9.5 fL (9.4-12.4); Monocytes # 0.1 K/mcL (0.0-1.3); Monocytes % 0.8 %; Neutrophils # 7.1 K/mcL (1.6-8.9); Platelet Count 234 K/mcL (140-400); Red Blood Count 3.07 M/mcL (3.82-4.97); Red Cell Distribution Width 13.9 % (11.5-14.5); Segmented Neutrophils % 94.7 %
[2018-10-09 01:19] LABS: BUN/Creatinine Ratio 23 (6-26); Blood Urea Nitrogen 9 mg/dL (6-20); Carbon Dioxide 37 mEq/L (23-29); Chloride 97 mEq/L (98-107); Glucose 205 mg/dL (70-105); Magnesium 2.1 mg/dL (1.6-2.6); Osmolality,Calculated 289 (280-300); Sodium 137 mEq/L (136-145); eGFR For Non-African Americans > 60 (> 60)
[2018-10-09 01:51] LABS: Folate 14.3 ng/mL (3.0-16.0)
[2018-10-09] MEDS: *HR* Heparin 5,000 UNIT/ML VIAL SQ SCH ×2 (05:56→17:24)
[2018-10-09] MEDS ORDERED: Albuterol 2.5 MG/3 ML NEBULIZER IH PRN (07:35)
[2018-10-09] MEDS: Ipratropium/Albuterol Neb 3 ML IH SCH ×5 (07:49→23:50)
[2018-10-09] MEDS: Budesonide/Formoterol 160/4.5 1 PUFF INH IH SCH ×2 (07:49→20:07)
[2018-10-09] MEDS: methylPREDNISolone 125 MG/2 ML VIAL IVP SCH ×3 (08:54→23:19)
[2018-10-09] MEDS: ALPRAZolam 0.5 MG TABLET PO PRN ×2 (08:54→20:21)
[2018-10-09] MEDS: Ondansetron 4 MG/2 ML VIAL IVP PRN (08:54)
[2018-10-09] MEDS: *HR* HYDROcodone/Acet 5/325 mg TABLET PO PRN ×2 (08:55→15:52)
[2018-10-09] MEDS: Thiamine (B-1) 100 MG TABLET PO SCH (08:55)
[2018-10-09] MEDS: Levofloxacin 750 MG/150 ML 750 MG/150 ML BAG IVPB SCH (08:55)
[2018-10-09] MEDS: Vitamin B Complex/Vit C/Vit E 1 EACH TABLET PO SCH (08:55)
[2018-10-09] MEDS: Aspirin Enteric Coated 81 MG Tablet PO SCH (08:55)
[2018-10-09] MEDS: Folic Acid 1 MG TABLET PO SCH (08:55)
--- NOTE | 2018-10-09 09:50 | Internal Med Progress Note ---
Hospitalist Progress Note - Encounter Date of Encounter: 10/09/18 Time of Encounter: 09:48 - Subjective Interval History: Patient seen and examined at bedside. Patient states that her shortness of breath is about the same. She states her cough is slightly improved. Denies any chest pain, fever, chills. - Exam Vitals: Temp Pulse Resp BP Pulse Ox 97.8 F 89 18 131/76 95 10/09/18 06:52 10/09/18 06:52 10/09/18 07:53 10/09/18 06:52 10/09/18 08:54 Exam: Gen.: Alert and oriented 3, no acute distress Lungs: Diffuse wheezes bilaterally, no rales or rhonchi Heart: Regular rate and rhythm, no murmurs, rubs, gallops - Assessment and Plan (1) Acute exacerbation of chronic obstructive airways disease Current Visit: No Status: Acute Assessment and Plan: Patient feels about the same today. Still has wheezing on exam. Continue IV Solu-Medrol, scheduled bronchodilators, antibiotics. (2) Atypical chest pain Current Visit: No Status: Acute Assessment and Plan: Resolved. Likely due to COPD exacerbation. (3) Chronic respiratory failure with hypoxia and hypercapnia Current Visit: No Status: Acute Assessment and Plan: Oxygen stable on her home O2 dose. Continue supplemental oxygen to maintain oxygen saturation greater than 89%. (4) Anemia Current Visit: Yes Status: Suspected Assessment and Plan: Hemoglobin stable today. B12 folate reviewed, B12 is low normal with macrocytosis likely indicative of B12 deficiency. We will start B12 supplementation daily. (5) Alcohol abuse Current Visit: Yes Status: Acute Assessment and Plan: No evidence of alcohol withdrawal. Continue CIWA (6) Hypertension Current Visit: No Status: Chronic Assessment and Plan: Blood pressure good control. Continue home medications. (7) DVT prophylaxis Current Visit: No Status: Acute Assessment and Plan: Heparin 5000 units subcutaneous twice a day - Time Spent with Patient Total time spent is greater than 50% in coordination of care (as documented) at patient's floor/unit and/or counseling patient: Internal Medicine: Result - Labs CBC & Chem 7: 10/09/18 00:24 10/09/18 00:24 Labs: Short CBC 10/08/18 10/09/18 Range/Units 12:38 00:24 WBC 10.6 7.5 (4.3-11.1) K/mcL Hgb 9.8 L 10.0 L (11.5-15.4) g/dL Hct 31.3 L 31.7 L (35.3-44.9) % Plt Count 223 234 (140-400) K/mcL Neutrophils # 7.9 7.1 (1.6-8.9) K/mcL BMP 10/08/18 10/09/18 12:38 00:24 Sodium 140 137 Potassium 4.1 4.0 Chloride 100 97 L Carbon Dioxide 34 H 37 H BUN 8 9 Creatinine 0.50 L 0.39 L Glucose 81 205 H Calcium 8.6 9.0 Cardiac Enzymes 10/08/18 10/08/18 10/09/18 Range/Units 12:38 18:02 00:24 Troponin I < 0.03 < 0.03 < 0.03 (< 0.04) ng/mL - ABG Interpretation ABG results: PT/INR, D-dimer PT 10.6 Seconds (9.4-12.1) 10/08/18 12:38 - Impressions Impressions Chest X-Ray 10/08/18 12:29 IMPRESSION: No acute abnormality. Emphysema. D/ / Dann Matta MD / Dann Matta MD Interpreting Provider: Dann Matta MD Consult Discharge Plan - Plan Referrals: Ariana Frost, [Primary Care Provider] - (4) Anemia Qualifiers: Anemia type: B12 deficiency Vitamin B12 deficiency anemia type: unspecified B12 deficiency Qualified Code(s): D51.9 - Vitamin B12 deficiency anemia, unspecified (6) Hypertension Qualifiers: Hypertension type: unspecified Qualified Code(s): I10 - Essential (primary) hypertension
[2018-10-09] MEDS: Cyanocobalamin (B-12) 1,000 MCG TABLET PO SCH (11:40)
[2018-10-10] MEDS: Ipratropium/Albuterol Neb 3 ML IH SCH ×6 (04:00→19:36)
[2018-10-10 04:44] LABS: Basophils % 0.1 %; Hematocrit 28.6 % (35.3-44.9); Hemoglobin 8.7 g/dL (11.5-15.4); Immature Granulocytes % 0.4 % (0-4); Lymphocytes # 0.2 K/mcL (0.6-4.6); Lymphocytes % 1.1 %; Mean Corpuscular HGB Conc 30.4 g/dL (31.6-35.5); Mean Corpuscular Hemoglobin 31.6 pg (28.0-33.3); Mean Platelet Volume 9.6 fL (9.4-12.4); Monocytes # 0.6 K/mcL (0.0-1.3); Monocytes % 3.6 %; Neutrophils # 15.1 K/mcL (1.6-8.9); Platelet Count 233 K/mcL (140-400); Red Blood Count 2.75 M/mcL (3.82-4.97); Red Cell Distribution Width 13.7 % (11.5-14.5); Segmented Neutrophils % 94.8 %
[2018-10-10] MEDS: *HR* Heparin 5,000 UNIT/ML VIAL SQ SCH ×2 (05:03→18:00)
[2018-10-10 05:04] LABS: BUN/Creatinine Ratio 30 (6-26); Blood Urea Nitrogen 11 mg/dL (6-20); Carbon Dioxide 36 mEq/L (23-29); Chloride 96 mEq/L (98-107); Glucose 166 mg/dL (70-105); Osmolality,Calculated 283 (280-300); Potassium 4.5 mEq/L (3.5-5.1); Sodium 135 mEq/L (136-145); eGFR For Non-African Americans > 60 (> 60)
[2018-10-10 05:09] LABS: Platelet Estimate Normal (Normal)
[2018-10-10] MEDS: methylPREDNISolone 125 MG/2 ML VIAL IVP SCH ×2 (08:36→15:38)
[2018-10-10] MEDS: Folic Acid 1 MG TABLET PO SCH (08:36)
[2018-10-10] MEDS: Cyanocobalamin (B-12) 1,000 MCG TABLET PO SCH (08:36)
[2018-10-10] MEDS: Aspirin Enteric Coated 81 MG Tablet PO SCH (08:36)
[2018-10-10] MEDS: Budesonide/Formoterol 160/4.5 1 PUFF INH IH SCH ×2 (08:36→19:44)
[2018-10-10] MEDS: Thiamine (B-1) 100 MG TABLET PO SCH (08:36)
[2018-10-10] MEDS: Vitamin B Complex/Vit C/Vit E 1 EACH TABLET PO SCH (08:37)
[2018-10-10] MEDS: Levofloxacin 750 MG/150 ML 750 MG/150 ML BAG IVPB SCH (08:37)
[2018-10-10] MEDS: Ondansetron 4 MG/2 ML VIAL IVP PRN (08:37)
[2018-10-10] MEDS: *HR* HYDROcodone/Acet 5/325 mg TABLET PO PRN ×2 (08:40→15:38)
[2018-10-10] MEDS: ALPRAZolam 0.5 MG TABLET PO PRN ×2 (08:40→22:01)
--- NOTE | 2018-10-10 09:36 | Internal Med Progress Note ---
Hospitalist Progress Note - Encounter Date of Encounter: 10/10/18 Time of Encounter: 09:35 - Subjective Interval History: Sensation and examined this morning at bedside. No acute overnight events. Denies new complaints. Breathing minimally improved. Denies any chest pain. Denies bowel or bladder complaints. - Exam Vitals: Temp Pulse Resp BP Pulse Ox 97.4 F L 93 16 107/64 97 10/10/18 07:10 10/10/18 07:10 10/10/18 08:36 10/10/18 07:10 10/10/18 08:36 Exam: General: In no acute distress. Respiratory exam: diffuse b/l wheezing Cardiovascular exam: RRR, +S1, +S2. no murmur, gallop, rubs. GI/Abdominal exam: Non-tender, Non-distended, normal bowel sounds, soft, no peritoneal signs. Extremities exam: no pedal edema, pulses palpable in b/l lower extremities. no calf tenderness Neurological exam: CN II-XII intact, AO X3, no focal deficits. - Assessment and Plan (1) Atypical chest pain Current Visit: No Status: Acute (2) DVT prophylaxis Current Visit: No Status: Acute (3) Acute exacerbation of chronic obstructive airways disease Current Visit: No Status: Acute (4) Hypertension Current Visit: No Status: Chronic (5) Chronic respiratory failure with hypoxia and hypercapnia Current Visit: No Status: Acute (6) Anemia Current Visit: Yes Status: Suspected (7) Alcohol abuse Current Visit: Yes Status: Acute - Summary of Assessment and Plan Summary of Assessment and Plan: Acute exacerbation of chronic obstructive airways disease - slowly improving. Still smoking. - c/w IV Solu-Medrol, duonebs, levaquin. c/w symbicort - c/w supplemental oxygen - RIP negative. Atypical chest pain - Resolved. Anemia - Hemoglobin stable. Has macrocytosis likely related to alcohol intake. - Started on B12 supplementation and multivitamins. Alcohol abuse - not in withdrawal. - Continue [facility] protocol Hypertension - Blood pressure good control. Continue home medications. DVT prophylaxis - Heparin 5000 units subcutaneous - Time Spent with Patient Total time spent is greater than 50% in coordination of care (as documented) at patient's floor/unit and/or counseling patient: Internal Medicine: Result - Labs CBC & Chem 7: 10/10/18 04:10 10/10/18 04:10 Labs: Short CBC 10/10/18 Range/Units 04:10 WBC 15.9 H D (4.3-11.1) K/mcL Hgb 8.7 L (11.5-15.4) g/dL Hct 28.6 L (35.3-44.9) % Plt Count 233 (140-400) K/mcL Neutrophils # 15.1 H (1.6-8.9) K/mcL BMP 10/10/18 04:10 Sodium 135 L Potassium 4.5 Chloride 96 L Carbon Dioxide 36 H BUN 11 Creatinine 0.37 L Glucose 166 H Calcium 9.0 - ABG Interpretation ABG results: PT/INR, D-dimer PT 10.6 Seconds (9.4-12.1) 10/08/18 12:38 Consult Discharge Plan - Plan Referrals: Ariana Frost DO [Primary Care Provider] - (4) Hypertension Qualifiers: Hypertension type: unspecified Qualified Code(s): I10 - Essential (primary) hypertension (6) Anemia Qualifiers: Anemia type: B12 deficiency Vitamin B12 deficiency anemia type: unspecified B12 deficiency Qualified Code(s): D51.9 - Vitamin B12 deficiency anemia, unspecified
--- NOTE | 2018-10-10 10:56 | Electrocardiograph Report ---
[address] [address] Test Date: 2018-10-08 Pat Name: Anita Honeycutt Department: [id number] Room: 3B Gender: F Special Programs Director: : [id number] Requested By: Jamie Raymundo Order Number: [id number] Reading MD: Ana Brown Measurements Intervals [place] Rate: 95 P: 77 WI: 143 QRS: 70 QRSD: 71 T: 75 QT: 330 QTc: 415 Interpretive Statements Sinus rhythm Electronically Signed On 10-10-2018 10:55:06 EDT by Ana Brown
[2018-10-11] MEDS: Ipratropium/Albuterol Neb 3 ML IH SCH ×6 (00:14→22:17)
[2018-10-11] MEDS: methylPREDNISolone 125 MG/2 ML VIAL IVP SCH ×3 (00:24→16:53)
[2018-10-11] MEDS: *HR* HYDROcodone/Acet 5/325 mg TABLET PO PRN ×3 (00:30→16:53)
[2018-10-11 04:55] LABS: Basophils % 0.1 %; Hematocrit 30.1 % (35.3-44.9); Hemoglobin 9.1 g/dL (11.5-15.4); Immature Granulocytes % 0.6 % (0-4); Lymphocytes # 0.3 K/mcL (0.6-4.6); Lymphocytes % 1.8 %; Mean Corpuscular HGB Conc 30.2 g/dL (31.6-35.5); Mean Corpuscular Hemoglobin 31.8 pg (28.0-33.3); Mean Corpuscular Volume 105.2 fL (83.0-100.0); Mean Platelet Volume 9.8 fL (9.4-12.4); Monocytes # 0.7 K/mcL (0.0-1.3); Monocytes % 4.5 %; Neutrophils # 14.8 K/mcL (1.6-8.9); Platelet Count 265 K/mcL (140-400); Red Blood Count 2.86 M/mcL (3.82-4.97); Red Cell Distribution Width 13.9 % (11.5-14.5)
[2018-10-11] MEDS: *HR* Heparin 5,000 UNIT/ML VIAL SQ SCH ×2 (05:10→16:53)
[2018-10-11 05:13] LABS: BUN/Creatinine Ratio 35 (6-26); Blood Urea Nitrogen 15 mg/dL (6-20); Carbon Dioxide 35 mEq/L (23-29); Chloride 96 mEq/L (98-107); Glucose 130 mg/dL (70-105); Osmolality,Calculated 287 (280-300); Potassium 4.2 mEq/L (3.5-5.1); Sodium 137 mEq/L (136-145); eGFR For Non-African Americans > 60 (> 60)
[2018-10-11] MEDS: Budesonide/Formoterol 160/4.5 1 PUFF INH IH SCH ×2 (07:43→22:17)
[2018-10-11] MEDS: Cyanocobalamin (B-12) 1,000 MCG TABLET PO SCH (09:25)
[2018-10-11] MEDS: ALPRAZolam 0.5 MG TABLET PO PRN ×2 (09:25→21:25)
[2018-10-11] MEDS: Aspirin Enteric Coated 81 MG Tablet PO SCH (09:25)
[2018-10-11] MEDS: Thiamine (B-1) 100 MG TABLET PO SCH (09:25)
[2018-10-11] MEDS: Folic Acid 1 MG TABLET PO SCH (09:26)
[2018-10-11] MEDS: Levofloxacin 750 MG/150 ML 750 MG/150 ML BAG IVPB SCH (09:26)
[2018-10-11] MEDS: Vitamin B Complex/Vit C/Vit E 1 EACH TABLET PO SCH (09:26)
--- NOTE | 2018-10-11 12:43 | Internal Med Progress Note ---
Hospitalist Progress Note - Encounter Date of Encounter: 10/11/18 Time of Encounter: 08:21 - Subjective Interval History: Patient seen and examined this morning at bedside. No acute overnight events. Gradually breathing improving. Has mild chest discomfort associated with cough. - Exam Vitals: Temp Pulse Resp BP Pulse Ox 97.8 F 85 16 103/64 95 10/11/18 11:16 10/11/18 11:16 10/11/18 11:16 10/11/18 11:16 10/11/18 11:16 Exam: General: In no acute distress. Respiratory exam: better air entry. Minimal diffuse b/l wheezing Cardiovascular exam: RRR, +S1, +S2. no murmur, gallop, rubs. GI/Abdominal exam: Non-tender, Non-distended, normal bowel sounds, soft, no peritoneal signs. Extremities exam: no pedal edema, pulses palpable in b/l lower extremities. no calf tenderness Neurological exam: CN II-XII intact, AO X3, no focal deficits. - Assessment and Plan (1) Atypical chest pain Current Visit: No Status: Acute (2) DVT prophylaxis Current Visit: No Status: Acute (3) Acute exacerbation of chronic obstructive airways disease Current Visit: No Status: Acute (4) Hypertension Current Visit: No Status: Chronic (5) Chronic respiratory failure with hypoxia and hypercapnia Current Visit: No Status: Acute (6) Anemia Current Visit: Yes Status: Suspected (7) Alcohol abuse Current Visit: Yes Status: Acute - Summary of Assessment and Plan Summary of Assessment and Plan: Acute exacerbation of chronic obstructive airways disease - slowly improving. Still smoking. Had discussion of smoking cessation. - c/w IV Solu-Medrol tapered, duonebs, empiriclevaquin. c/w symbicort - c/w supplemental oxygen - RIP negative. Atypical chest pain - Resolved. trop negative. Negative stress test last year. Likely related to COPD. - outpatient cardiology follow up. Anemia - Hemoglobin stable. Has macrocytosis likely related to alcohol intake. - c/w B12 supplementation and multivitamins. Alcohol abuse - not in withdrawal. - Continue [facility] protocol Hypertension - Blood pressure good control. Continue home medications. DVT prophylaxis - Heparin 5000 units subcutaneous - Time Spent with Patient Total time spent is greater than 50% in coordination of care (as documented) at patient's floor/unit and/or counseling patient: Internal Medicine: Result - Labs CBC & Chem 7: 10/11/18 04:03 10/11/18 04:03 Labs: Short CBC 10/11/18 Range/Units 04:03 WBC 15.9 H (4.3-11.1) K/mcL Hgb 9.1 L (11.5-15.4) g/dL Hct 30.1 L (35.3-44.9) % Plt Count 265 (140-400) K/mcL Neutrophils # 14.8 H (1.6-8.9) K/mcL BMP 10/11/18 04:03 Sodium 137 Potassium 4.2 Chloride 96 L Carbon Dioxide 35 H BUN 15 Creatinine 0.43 L Glucose 130 H Calcium 9.0 - ABG Interpretation ABG results: PT/INR, D-dimer PT 10.6 Seconds (9.4-12.1) 10/08/18 12:38 Consult Discharge Plan - Plan Referrals: Ariana Frost DO [Primary Care Provider] - (4) Hypertension Qualifiers: Hypertension type: unspecified Qualified Code(s): I10 - Essential (primary) hypertension (6) Anemia Qualifiers: Anemia type: B12 deficiency Vitamin B12 deficiency anemia type: unspecified B12 deficiency Qualified Code(s): D51.9 - Vitamin B12 deficiency anemia, unspecified
[2018-10-11] MEDS: Ondansetron 4 MG/2 ML VIAL IVP PRN (16:57)
[2018-10-11] MEDS: Simethicone 80 MG TAB.CHEW PO PRN (21:25)
[2018-10-12] MEDS: Ipratropium/Albuterol Neb 3 ML IH SCH ×4 (04:20→22:09)
[2018-10-12] MEDS: methylPREDNISolone 125 MG/2 ML VIAL IVP SCH (05:04)
[2018-10-12] MEDS: Ondansetron 4 MG/2 ML VIAL IVP PRN (05:04)
[2018-10-12] MEDS: *HR* Heparin 5,000 UNIT/ML VIAL SQ SCH ×2 (05:04→18:05)
[2018-10-12] MEDS: Simethicone 80 MG TAB.CHEW PO PRN (05:38)
--- NOTE | 2018-10-12 07:50 | Internal Med Progress Note ---
Hospitalist Progress Note - Encounter Date of Encounter: 10/12/18 Time of Encounter: 07:32 - Subjective Interval History: Patient seen and examined this morning it was a nodule on events. Breathing slightly better than yesterday. He gradually improving overall. Denies any chest pain or palpitation fever or chills. Denies bowel or bladder complaints. - Exam Vitals: Temp Pulse Resp BP Pulse Ox 97.9 F 78 13 109/51 98 10/12/18 07:11 10/12/18 07:11 10/12/18 07:11 10/12/18 07:11 10/12/18 07:11 Exam: General: In no acute distress. Respiratory exam: good air entry. rhonchi Lt>Rt. Cardiovascular exam: RRR, +S1, +S2. no murmur, gallop, rubs. GI/Abdominal exam: Non-tender, Non-distended, normal bowel sounds, soft, no peritoneal signs. Extremities exam: no pedal edema, pulses palpable in b/l lower extremities. no calf tenderness Neurological exam: CN II-XII intact, AO X3, no focal deficits. - Assessment and Plan (1) Atypical chest pain Current Visit: No Status: Acute (2) DVT prophylaxis Current Visit: No Status: Acute (3) Acute exacerbation of chronic obstructive airways disease Current Visit: No Status: Acute (4) Hypertension Current Visit: No Status: Chronic (5) Chronic respiratory failure with hypoxia and hypercapnia Current Visit: No Status: Acute (6) Anemia Current Visit: Yes Status: Suspected (7) Alcohol abuse Current Visit: Yes Status: Acute - Summary of Assessment and Plan Summary of Assessment and Plan: Acute exacerbation of chronic obstructive airways disease - slowly improving. Had discussion again about smoking cessation. - c/w IV Solu-Medrol tapered, duonebs, empiric levaquin. - c/w symbicort and supplemental oxygen - RIP negative. - Will get o2 and bipap qualification today. Atypical chest pain - Resolved. trop negative. Negative stress test last year. Likely related to COPD. - outpatient cardiology follow up. Anemia - Hemoglobin stable. Has macrocytosis likely related to alcohol intake. - c/w B12 supplementation and multivitamins. - hb stable and no active bleeding - Will need outpatient follow up. Alcohol abuse - not in withdrawal. - Continue [facility] protocol Hypertension - Blood pressure good control. Continue home BB CAD - c/w home aspirin, plavix, statin and BB. DVT prophylaxis - Heparin 5000 units subcutaneous - Time Spent with Patient Total time spent is greater than 50% in coordination of care (as documented) at patient's floor/unit and/or counseling patient: Internal Medicine: Result - Labs CBC & Chem 7: 10/11/18 04:03 10/11/18 04:03 - ABG Interpretation ABG results: PT/INR, D-dimer PT 10.6 Seconds (9.4-12.1) 10/08/18 12:38 Consult Discharge Plan - Plan Referrals: Ariana Frost, [Primary Care Provider] - (4) Hypertension Qualifiers: Hypertension type: unspecified Qualified Code(s): I10 - Essential (primary) hypertension (6) Anemia Qualifiers: Anemia type: B12 deficiency Vitamin B12 deficiency anemia type: unspecified B12 deficiency Qualified Code(s): D51.9 - Vitamin B12 deficiency anemia, unspecified
[2018-10-12] MEDS: Aspirin Enteric Coated 81 MG Tablet PO SCH (09:06)
[2018-10-12] MEDS: Thiamine (B-1) 100 MG TABLET PO SCH (09:06)
[2018-10-12] MEDS: Cyanocobalamin (B-12) 1,000 MCG TABLET PO SCH (09:07)
[2018-10-12] MEDS: Levofloxacin 750 MG/150 ML 750 MG/150 ML BAG IVPB SCH (09:07)
[2018-10-12] MEDS: Vitamin B Complex/Vit C/Vit E 1 EACH TABLET PO SCH (09:07)
[2018-10-12] MEDS: Folic Acid 1 MG TABLET PO SCH (09:07)
[2018-10-12] MEDS: *HR* HYDROcodone/Acet 5/325 mg TABLET PO PRN ×2 (09:11→21:46)
[2018-10-12] MEDS: Budesonide/Formoterol 160/4.5 1 PUFF INH IH SCH ×2 (10:45→22:09)
[2018-10-12] MEDS: ALPRAZolam 0.5 MG TABLET PO PRN ×2 (15:27→20:37)
[2018-10-12] MEDS: MethylPREDNISolone 40 MG/ML VIAL IVP SCH (18:05)
[2018-10-13] MEDS: Ipratropium/Albuterol Neb 3 ML IH SCH ×4 (03:38→21:43)
[2018-10-13] MEDS: MethylPREDNISolone 40 MG/ML VIAL IVP SCH ×2 (05:52→09:15)
[2018-10-13] MEDS: *HR* Heparin 5,000 UNIT/ML VIAL SQ SCH ×2 (05:53→17:17)
--- NOTE | 2018-10-13 07:28 | Internal Med Progress Note ---
Hospitalist Progress Note - Encounter Date of Encounter: 10/13/18 Time of Encounter: 07:29 - Subjective Interval History: Reason seen and examined this morning was located. Patient has somewhat constipation which is usual for her. Denies any fevers chills nausea vomiting. Become short of breath with walk to bathroom but gradually improving. Does not feel completely ready to go home today. He was to follow-up appointment with psychiatrist on . - Exam Vitals: Temp Pulse Resp BP Pulse Ox 97.6 F 78 16 112/71 97 10/13/18 03:22 10/13/18 03:22 10/13/18 03:38 10/13/18 03:10/13/18 03:38 Exam: General: In no acute distress. Respiratory exam: good air entry. Minimal rhonchi Lt>Rt, improved compared to yesterday. Cardiovascular exam: RRR, +S1, +S2. no murmur, gallop, rubs. GI/Abdominal exam: Non-tender, Non-distended, normal bowel sounds, soft, no peritoneal signs. Extremities exam: no pedal edema, pulses palpable in b/l lower extremities. no calf tenderness Neurological exam: CN II-XII intact, AO X3, no focal deficits. - Assessment and Plan (1) Atypical chest pain Current Visit: No Status: Acute (2) DVT prophylaxis Current Visit: No Status: Acute (3) Acute exacerbation of chronic obstructive airways disease Current Visit: No Status: Acute (4) Hypertension Current Visit: No Status: Chronic (5) Chronic respiratory failure with hypoxia and hypercapnia Current Visit: No Status: Acute (6) Anemia Current Visit: Yes Status: Suspected (7) Alcohol abuse Current Visit: Yes Status: Acute - Summary of Assessment and Plan Summary of Assessment and Plan: Acute exacerbation of chronic obstructive airways disease - slowly improving. - c/w IV Solu-Medrol tapered, duonebs. Finished levaquin course today. Will need long tapered steroid course of 14 days on discharge. - c/w symbicort and supplemental oxygen. - RIP negative. - Will get o2 qualification for 6 min walk - Plan for discharge tommorrow as patient with risk of returning. Atypical chest pain - Resolved. trop negative. Negative stress test last year. Likely related to COPD. - outpatient cardiology follow up. Leukocytois - likely related to steroid use - Finished antibiotic course for COPD Anemia - Hemoglobin stable. Has macrocytosis likely related to alcohol intake. - c/w B12 supplementation and multivitamins. - hb stable and no active bleeding - Will need outpatient follow up. Alcohol abuse - not in withdrawal. - Continue [facility] protocol Hypertension - Blood pressure good control. Continue home BB CAD - c/w home aspirin, plavix, statin and BB. DVT prophylaxis - Heparin 5000 units subcutaneous - Time Spent with Patient Total time spent is greater than 50% in coordination of care (as documented) at patient's floor/unit and/or counseling patient: Internal Medicine: Result - Labs CBC & Chem 7: 10/11/18 04:03 10/11/18 04:03 - ABG Interpretation ABG results: PT/INR, D-dimer PT 10.6 Seconds (9.4-12.1) 10/08/18 12:38 Consult Discharge Plan - Plan Referrals: Ariana Frost DO [Primary Care Provider] - (4) Hypertension Qualifiers: Hypertension type: unspecified Qualified Code(s): I10 - Essential (primary) hypertension (6) Anemia Qualifiers: Anemia type: B12 deficiency Vitamin B12 deficiency anemia type: unspecified B12 deficiency Qualified Code(s): D51.9 - Vitamin B12 deficiency anemia, unspecified
[2018-10-13] MEDS: *HR* HYDROcodone/Acet 5/325 mg TABLET PO PRN ×2 (09:14→20:37)
[2018-10-13] MEDS: Thiamine (B-1) 100 MG TABLET PO SCH (09:14)
[2018-10-13] MEDS: Cyanocobalamin (B-12) 1,000 MCG TABLET PO SCH (09:14)
[2018-10-13] MEDS: ALPRAZolam 0.5 MG TABLET PO PRN ×2 (09:14→20:37)
[2018-10-13] MEDS: Folic Acid 1 MG TABLET PO SCH (09:15)
[2018-10-13] MEDS: Vitamin B Complex/Vit C/Vit E 1 EACH TABLET PO SCH (09:15)
[2018-10-13] MEDS: Aspirin Enteric Coated 81 MG Tablet PO SCH (09:15)
[2018-10-13] MEDS: Budesonide/Formoterol 160/4.5 1 PUFF INH IH SCH ×2 (10:22→21:43)
[2018-10-14] MEDS: Ipratropium/Albuterol Neb 3 ML IH SCH ×2 (03:48→10:22)
[2018-10-14] MEDS: *HR* HYDROcodone/Acet 5/325 mg TABLET PO PRN (05:45)
[2018-10-14] MEDS: Ondansetron 4 MG/2 ML VIAL IVP PRN (05:46)
[2018-10-14] MEDS: *HR* Heparin 5,000 UNIT/ML VIAL SQ SCH (05:46)
[2018-10-14] MEDS: MethylPREDNISolone 40 MG/ML VIAL IVP SCH (09:19)
[2018-10-14] MEDS: Folic Acid 1 MG TABLET PO SCH (09:20)
[2018-10-14] MEDS: Cyanocobalamin (B-12) 1,000 MCG TABLET PO SCH (09:20)
[2018-10-14] MEDS: Vitamin B Complex/Vit C/Vit E 1 EACH TABLET PO SCH (09:20)
[2018-10-14] MEDS: Aspirin Enteric Coated 81 MG Tablet PO SCH (09:20)
[2018-10-14] MEDS: ALPRAZolam 0.5 MG TABLET PO PRN (09:20)
[2018-10-14] MEDS: Thiamine (B-1) 100 MG TABLET PO SCH (09:20)
[2018-10-14] MEDS: Budesonide/Formoterol 160/4.5 1 PUFF INH IH SCH (10:22)
[2018-10-14 11:51] VITALS: BP 99/64
--- NOTE | 2018-10-14 13:17 | Discharge Summary ---
Date of Encounter: 10/14/18 Time of Encounter: 13:14 - Discharge Diagnosis (1) Acute exacerbation of chronic obstructive airways disease Priority: Primary Status: Acute (2) Atypical chest pain Priority: Primary Status: Acute (3) Chronic respiratory failure with hypoxia and hypercapnia Priority: Primary Status: Chronic (4) Anemia Priority: Secondary Status: Chronic Qualifiers: Anemia type: other cause Other causes of anemia: nutritional, unspecified Qualified Code(s): D53.9 - Nutritional anemia, unspecified (5) Hypertension Priority: Secondary Status: Chronic Qualifiers: Hypertension type: essential hypertension Qualified Code(s): I10 - Essential (primary) hypertension (6) Alcohol abuse Priority: Secondary Status: Chronic Hospital course: HOSPITAL COURSE: The patient is a 58-year-old woman, who has had long-standing history of COPD. We admitted her with progressing dyspnea, coughing and wheezing, developing in the last 2 days preceding this admission. Associated with diffuse anterior chest pain, worse with deep breathing and coughing. She was not hypoxic; was using supplemental oxygen at 2.5 L/min. Her baseline is 2-3 L/min. Physical exam revealed bilateral rhonchi and wheezes. Chest x-ray showed emphysema. EKG showed normal sinus rhythm. Troponin was normal. One can see that this patient has had chronic anemia. She has elevated carbon dioxide secondary to underlying hypoxic and hypercapnic respiratory failure. We treated her with IV Levaquin, IV Solu-Medrol, Symbicort and nebulizer treatments with DuoNeb. She was getting When necessary [place] for her chest pain. The patient had a lot of anxiety. His weight when necessary lorazepam. We got her to her baseline by the time of discharge. CONDITION AT DISCHARGE: Her breathing is not labored. She is on 3 L/min nasal cannula oxygen. She has some coughing but not wheezing. She has not had any chest pain for the last 24 hours. Skin: Free of rash and discoloration. Respiratory: Normal breath sounds with no crackles and wheezes bilaterally. CV: Heart is regular with no gallop or murmur. GI: Abdomen is flat and soft with no palpable mass or visceromegaly. Neuro exam: There is no focal deficits. Normal speech, swallowing and gait. SEE DISCHARGE ORDERS/MEDICATIONS She will be taking doxycycline 100 mg by mouth twice a day for 5 days. Additionally, prednisone at 20 mg by mouth every morning for 5 days. See other discharge orders/medications. Discharge discussed with: patient, case management Time spent discussing smoking cessation with patient: 3 to 10 minutes - Time Spent with Patient Total time spent providing and/or coordinating discharge services: Time spent: Greater than 30 minutes (40 minutes...) - Discharge Medications Prescriptions: New Diclofenac Sodium [Voltaren] 100 gm TP BID #1 tube Doxycycline 100 mg PO BID 5 Days #10 capsule Folic Acid 1 mg PO DAILY #30 tablet predniSONE [PredniSONE] 20 mg PO DAILY #5 tablet Continue Nitroglycerin [Nitrostat] 0.4 mg SL Q5M PRN PRN Reason: Chest Pain Clopidogrel [Plavix] 75 mg PO DAILY #30 tablet ALPRAZolam [Xanax 0.5 MG Tablet] 0.5 mg PO BID Mirtazapine 7.5 mg PO HS Albuterol Sulfate [Ventolin Hfa] 2 puff IH Q4H PRN PRN Reason: Shortness Of Breath Buspirone HCl [Buspar] 7.5 - 15 mg PO DAILY Mometasone/Formoterol [Dulera 200 Mcg/5 Mcg Inhaler] 2 puff IH BID Tiotropium [place] [Spiriva Respimat] 1 puff IH DAILY Metoclopramide [Reglan] 10 mg PO Q6H PRN PRN Reason: Nausea Metoprolol [Lopressor] 12.5 mg PO DAILY Furosemide [Lasix] 20 mg PO DAILY PRN PRN Reason: SWELLING Ipratropium/Albuterol Neb [Duoneb] 3 ml IH Q4H PRN PRN Reason: Wheezing/SOB Aspirin [Adult Aspirin Regimen] 81 mg PO DAILY Atorvastatin [Lipitor] 40 mg PO HS Ascorbic Acid [Vitamin C] 500 mg PO DAILY #30 tablet Cyanocobalamin (B-12) [Vitamin B12] 1,000 mcg PO DAILY #30 tablet Ferrous Sulfate 325 mg PO DAILY #30 tablet Changed Acetaminophen [Tylenol] 500 mg PO Q4H PRN #0 PRN Reason: Pain Oxygen 3 l IH CONT #0 Discontinued Doxycycline Hyclate [Vibramycin] 100 mg PO BID Home Medications: Nitroglycerin [Nitrostat] 0.4 mg SL Q5M PRN 05/29/16 [History] Clopidogrel [Plavix] 75 mg PO DAILY #30 tablet 10/03/16 [Rx] ALPRAZolam [Xanax 0.5 MG Tablet] 0.5 mg PO BID 03/09/18 [History] Mirtazapine 7.5 mg PO HS 03/12/18 [History] Ascorbic Acid [Vitamin C] 500 mg PO DAILY #30 tablet 06/24/18 [Rx] Cyanocobalamin (B-12) [Vitamin B12] 1,000 mcg PO DAILY #30 tablet 06/24/18 [Rx] Ferrous Sulfate 325 mg PO DAILY #30 tablet 06/24/18 [Rx] Albuterol Sulfate [Ventolin Hfa] 2 puff IH Q4H PRN 08/17/18 [History] Buspirone HCl [Buspar] 7.5 - 15 mg PO DAILY 08/17/18 [History] Metoclopramide [Reglan] 10 mg PO Q6H PRN 08/17/18 [History] Mometasone/Formoterol [Dulera 200 Mcg/5 Mcg Inhaler] 2 puff IH BID 08/17/18 [History] Tiotropium [place] [Spiriva Respimat] 1 puff IH DAILY 08/17/18 [History] Metoprolol [Lopressor] 12.5 mg PO DAILY 09/17/18 [History] Furosemide [Lasix] 20 mg PO DAILY PRN 09/18/18 [History] Ipratropium/Albuterol Neb [Duoneb] 3 ml IH Q4H PRN 09/18/18 [History] Aspirin [Adult Aspirin Regimen] 81 mg PO DAILY 10/08/18 [History] Atorvastatin [Lipitor] 40 mg PO HS 10/08/18 [History] Acetaminophen [Tylenol] 500 mg PO Q4H PRN #0 10/14/18 [Rx] Diclofenac Sodium [Voltaren] 100 gm TP BID #1 tube 10/14/18 [Rx] Doxycycline 100 mg PO BID 5 Days #10 capsule 10/14/18 [Rx] Folic Acid 1 mg PO DAILY #30 tablet 10/14/18 [Rx] Oxygen 3 l IH CONT #0 10/14/18 [Rx] predniSONE [PredniSONE] 20 mg PO DAILY #5 tablet 10/14/18 [Rx] Allergies/Adverse Reactions: Allergy/AdvReac Type Severity Reaction Status Date / Time codeine Allergy NAUSEA, Verified 10/08/18 15:05 VOMITING, HIVES Date of admission: 10/11/18 12:42 Primary care physician: Ariana Frost DO Consults: 10/08/18 17:02 Consult to Silv[employer]ure Teacher [CONS] Routine Reason for SW Consult: Discharge planning 10/13/18 10:43 Consult to Nurse Navigator [CONS] Routine Comment: COPD Discharging clinician: Terrence Meléndez Anticipated date of discharge: 10/14/18 - Constitutional Vitals: Temp Pulse Resp BP Pulse Ox 98.0 F 57 15 99/64 98 10/14/18 11:49 10/14/18 11:49 10/14/18 11:49 10/14/18 11:49 10/14/18 11:49 General appearance: Present: A&O X 3, no acute distress, underweight Exam: xx - Patient Status Disposition: Home, Self-Care Condition: Fair Functional capacity at discharge: independent ambulation Overall status at discharge: patient is progressing back to baseline - Discharge Instructions Instructions: How to Stop Smoking (DC), Using Oxygen at Home (DC), Chronic Obstructive Pulmonary Disease (DC) Follow Up With: Ariana Frost DO [Primary Care Provider] - 10/19/18 10:00 am Additional Instructions: The patient was advised to quit using alcohol and tabacco.. Oxygen at 3 l/min; to keep SaO2 above 88%... - Diet and Activity Activity: increase activity as tolerated Diet: advance to your usual diet
== END 2018-10-14 15:14 | disposition home or self-care (01) | DRG 140 ==
LOC: 3BNU 12:20 → EMEROOARM 12:20 → SUATTDRO 14:55 → 3BNU 16:50 → SUATTDRO 10-11 12:42
PROVIDERS: ADMIT Internal Medicine; ATTEND Internal Medicine

== ENCOUNTER 2018-12-05 09:58 | Inpatient (IN) ==
[2018-12-05] MEDS ORDERED: Ipratropium/Albuterol Neb 3 ML IH ONE (10:28)
--- NOTE | 2018-12-05 10:37 | Emergency Department Note ---
Disposition Clinical Impression: Acute exacerbation of chronic obstructive airways disease Chest pain Qualifiers: Chest pain type: unspecified Qualified Code(s): R07.9 - Chest pain, unspecified Disposition: Admitted As Inpatient Condition: Undetermined Time of Disposition: 12:35 SOB HPI - General Chief Complaint: ED Shortness of Breath/Dyspnea Stated Complaint: SOB Time Seen by Provider: 12/05/18 10:06 Source: patient, EMS Mode of arrival: EMS Limitations: no limitations Nursing Notes Reviewed: Yes Vital Signs Reviewed: Yes - History of Present Illness 58-year-old female with history of COPD, CAD on 3 L nasal cannula [id number] arrives to the emergency department complaining of shortness of breath. She states that there is associated chest pain that started yesterday that is retrosternal in the right side of her chest radiating to the left shoulder. Patient states that this sort of feels like her previous COPD exacerbations in the past. Patient denies any other complaints at this time. She denies any fevers or chills. She does note some mild coughing up some white sputum. The patient went to an urgent care where she was given 125 site and Medrol 325 aspirin. The patient is otherwise resting comfortably at her baseline 3 L in the room. No acute respiratory distress noted at this time. - Related Data Home Medications Medication Instructions Recorded Confirmed Nitroglycerin [Nitrostat] 0.4 mg SL Q5M PRN 05/29/16 12/05/18 ALPRAZolam [Xanax 0.5 MG Tablet] 0.5 mg PO BID 03/09/18 12/05/18 Mirtazapine 15 mg PO BID 03/12/18 12/05/18 Albuterol Sulfate [Ventolin Hfa] 2 puff IH Q4H PRN 08/17/18 12/05/18 Buspirone HCl [Buspar] 15 mg PO DAILY 08/17/18 12/05/18 Metoclopramide [Reglan] 10 mg PO Q6H PRN 08/17/18 12/05/18 Mometasone/Formoterol [Dulera 200 2 puff IH BID 08/17/18 12/05/18 Mcg/5 Mcg Inhaler] Tiotropium [place] [Spiriva 1 puff IH DAILY 08/17/18 12/05/18 Respimat] Metoprolol [Lopressor] 25 mg PO DAILY 09/17/18 11/18/18 Furosemide [Lasix] 20 mg PO DAILY PRN 09/18/18 11/18/18 Ipratropium/Albuterol Neb [Duoneb] 3 ml IH Q4H PRN 09/18/18 12/05/18 Aspirin [Adult Aspirin Regimen] 81 mg PO DAILY 10/08/18 11/18/18 Atorvastatin [Lipitor] 40 mg PO HS 10/08/18 11/18/18 Clopidogrel 75 mg PO DAILY 12/05/18 12/05/18 Omeprazole 20 mg PO DAILY 12/05/18 12/05/18 Previous Rx's Medication Instructions Recorded Acetaminophen [Tylenol] 500 mg PO Q4H PRN #0 10/14/18 Folic Acid 1 mg PO DAILY #30 tablet 10/14/18 Oxygen 3 l IH CONT #0 10/14/18 Allergies Allergy/AdvReac Type Severity Reaction Status Date / Time codeine Allergy NAUSEA, Verified 11/18/18 12:47 VOMITING, HIVES All systems ED: reviewed and negative except as stated. Constitutional: Denies: fever, chills, weakness ENT ED: Denies: dysphagia Cardiovascular: Reports: chest pain. Denies: dyspnea on exertion, edema, syncope Respiratory: Reports: cough, dyspnea, wheezes, sputum production. Denies: hemoptysis Gastrointestinal: Denies: abdominal pain, nausea, vomiting Genitourinary: Denies: urgency, dysuria Musculoskeletal: Denies: back pain Integumentary: Denies: rash Neurological: Denies: headache Past Medical History - Past Medical History Attestation: Yes The following information was validated with the patient. 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: Reports: bilateral tubal ligation - Social History Smoking Status: Current every day smoker Smokeless Tobacco Status: No Alcohol use: Reports: occasionally Drug use: Reports: none Physical Exam - General Limitations: no limitations General appearance: alert, in no apparent distress - Head Head exam: atraumatic, normocephalic, normal inspection - Eye Eye exam: Present: normal appearance, PERRL, EOMI - ENT ENT exam: normal exam, normal oropharynx, mucous membranes moist - Neck Neck exam: Present: normal inspection, full ROM, trachea midline - Chest Chest inspection: Present: normal inspection, symmetric chest wall rise - Respiratory Respiratory exam: Present: normal lung sounds bilaterally - Cardiovascular Cardiovascular exam: Present: regular rate, normal rhythm, normal heart sounds - Abdominal Exam Abdominal exam: Present: soft, Non-Tender. Absent: tenderness, distention, guarding, rebound, rigidity - Extremities Exam Extremities exam: Present: normal inspection, full ROM, normal capillary refill. Absent: tenderness, pedal edema - Neurological Exam Neurological exam: Present: alert, oriented X3 - Skin Skin exam: Present: warm, dry, intact, normal color Course Vital Signs Temperature 98.2 F 12/05/18 10:04 Pulse Rate 88 12/05/18 10:04 Respiratory Rate 20 12/05/18 10:04 Blood Pressure 113/72 12/05/18 10:04 O2 Sat by Pulse Oximetry 93 12/05/18 10:04 Temperature 98.2 F 12/05/18 10:04 Pulse Rate 99 12/05/18 12:32 Respiratory Rate 16 12/05/18 12:32 Blood Pressure 113/69 12/05/18 12:32 O2 Sat by Pulse Oximetry 90 12/05/18 12:32 Oxygen Delivery Oxygen Delivery Nasal Cannula Shortness of Breath/Dyspnea - MDM Narrative Medical decision making narrative: Patient's workup in the emergency department demonstrates findings concerning for COPD exacerbation combined with concern for ACS. The patient's EKG only demonstrates a mild IA depression in leads [address] elevation noted. Patient's troponin is within normal limits. Chest x-ray is unremarkable. Patient's wheezing on auscultation after some breathing treatments if she was repeated with some breathing treatments here in the ED. She received steroids urgent care. She received aspirin urgent care as well. The patient does not chest pain-free. She is otherwise resting comfortably in the room. Patient is in no acute distress and wears 3 L nasal cannula without any increase requirement. We will admit the patient to the hospital this time for ACS rule out and further observation regarding her respiratory status. No further questions or concerns noted this time. Accepted by Dr. Yoo. - Lab Data Lab results reviewed: Yes I reviewed the patient's lab results. Result diagrams: 12/05/18 10:30 12/05/18 10:30 Lab Results 12/05/18 12/05/18 12/05/18 Range/Units 10:30 10:30 10:30 WBC 9.2 (4.3-11.1) K/mcL RBC 3.85 (3.82-4.97) M/mcL Hgb 10.1 L (11.5-15.4) g/dL Hct 34.7 L (35.3-44.9) % MCV 90.1 (83.0-100.0) fL MCH 26.2 L (28.0-33.3) pg MCHC 29.1 L (31.6-35.5) g/dL RDW 19.9 H (11.5-14.5) % Plt Count 333 (140-400) K/mcL MPV 9.5 (9.4-12.4) fL Immature Gran % 0.2 (0-4) % Seg Neutrophils % 79.1 % Lymphocytes % 11.7 % Monocytes % 6.7 % Eosinophils % 1.8 % Basophils % 0.5 % Neutrophils # 7.3 (1.6-8.9) K/mcL Lymphocytes # 1.1 (0.6-4.6) K/mcL Monocytes # 0.6 (0.0-1.3) K/mcL Eosinophils # 0.2 (0.0-0.6) K/mcL Basophils # 0.1 (0.0-0.2) K/mcL D-Dimer < 215 (0-500) ng/mLFEU Sodium 135 L (136-145) mEq/L Potassium 3.8 (3.5-5.1) mEq/L Chloride 90 L (98-107) mEq/L Carbon Dioxide 39 H (23-29) mEq/L BUN 5 L (6-20) mg/dL Creatinine 0.36 L (0.60-1.20) mg/dL Est GFR ( Amer) > 60 (> 60) Est GFR (Non-Af Amer) > 60 (> 60) BUN/Creatinine Ratio 14 (6-26) Glucose 89 (70-105) mg/dL Calculated Osmolality 277 L (280-300) Calcium 9.0 (8.6-10.3) mg/dL Troponin I < 0.03 (< 0.04) ng/mL - Radiology Data Radiology results reviewed: Yes I reviewed the patient's radiology results. Chest X-Ray 12/05/18 10:08 IMPRESSION: No acute cardiopulmonary process. D/ / Kieran Mclean MD / Kieran Mclean MD Interpreting Provider: Kieran Mclean MD - EKG Data EKG attestation: Yes I reviewed and interpreted this EKG. EKG results narrative: Heart rate 94 beats for minute. Normal sinus rhythm. No ST elevation or ST depression noted. Appears to be mild IA depression noted in 3 and aVF. Attestation Statement - Attestation Attestation: I, Donaldo Muhammad, examined this patient and my medical decision-making was reviewed with the FRAME COVERER/PA/Advanced Practice Nurse/Resident Physician. I agree with the documented findings, disposition and treatment plan as described except to the extent set forth below. 58-year-old female presents emergency Department with concerns of shortness of breath and chest pain. Patient states symptoms started acutely last night, she does have a history of COPD. She was initially evaluated at an urgent care, given 125 mg of Solu-Medrol and aspirin and then sent to the emergency department for further evaluation. Patient states that she has had increased weakness and fatigue and disposition to the shortness of breath and that this feels similar to her previous IA. She does have wheezing present in the bilateral lung power posteriorly but does not appear to be in respiratory distress. She was given duo nebs in the emergency department with improvement of her breathing. EKG showed normal sinus rhythm with rate of 94 without evid ence of STEMI or other dysrhythmia. I reviewed the EKG with the resident and agree with the interpretation. Initial troponin negative. Patient will be admitted to the hospitalist for further care and evaluation.
[2018-12-05 10:42] LABS: Basophils # 0.1 K/mcL (0.0-0.2); Basophils % 0.5 %; Eosinophils # 0.2 K/mcL (0.0-0.6); Eosinophils % 1.8 %; Hematocrit 34.7 % (35.3-44.9); Hemoglobin 10.1 g/dL (11.5-15.4); Immature Granulocytes % 0.2 % (0-4); Lymphocytes # 1.1 K/mcL (0.6-4.6); Lymphocytes % 11.7 %; Mean Corpuscular HGB Conc 29.1 g/dL (31.6-35.5); Mean Corpuscular Hemoglobin 26.2 pg (28.0-33.3); Mean Corpuscular Volume 90.1 fL (83.0-100.0); Mean Platelet Volume 9.5 fL (9.4-12.4); Monocytes # 0.6 K/mcL (0.0-1.3); Monocytes % 6.7 %; Neutrophils # 7.3 K/mcL (1.6-8.9); Platelet Count 333 K/mcL (140-400); Red Blood Count 3.85 M/mcL (3.82-4.97); Red Cell Distribution Width 19.9 % (11.5-14.5); Segmented Neutrophils % 79.1 %; White Blood Count 9.2 K/mcL (4.3-11.1)
[2018-12-05] MEDS ORDERED: *HR* FentaNYL (PF) 100 MCG/2 ML VIAL IVP ONE (10:53)
[2018-12-05 11:06] LABS: BUN/Creatinine Ratio 14 (6-26); Blood Urea Nitrogen 5 mg/dL (6-20); Carbon Dioxide 39 mEq/L (23-29); Chloride 90 mEq/L (98-107); Glucose 89 mg/dL (70-105); Osmolality,Calculated 277 (280-300); Potassium 3.8 mEq/L (3.5-5.1); Sodium 135 mEq/L (136-145); eGFR For African Americans > 60 (> 60); eGFR For Non-African Americans > 60 (> 60)
[2018-12-05 11:07] LABS: Troponin I < 0.03 ng/mL (< 0.04)
[2018-12-05] MEDS ORDERED: Albuterol 2.5 MG/3 ML NEBULIZER IH ONE (11:56)
--- NOTE | 2018-12-05 14:24 | Internal Med History&Physical ---
Date of Encounter: 12/06/18 Time of Encounter: 14:22 Internal Medicine - H&P: HPI Chief complaint: shortness of breath History of present illness: Ms. Honeycutt is a 58 year old female with history of COPD on home oxygen, coronary artery disease, anxiety who was just discharged from by hospital couple of weeks ago after she was treated for CABG exacerbation, and also was admitted to the main campus in September 2018 where she was treated for COPD exacerbation and atypical chest pain. The patient presented today to an urgent care with progressive worsening of shortness of breath associated with retrosternal chest pain radiating to her left shoulder that started yesterday she was treated with aspirin 325 and 125 solumedrol. The patient stated that her chest pain is more like what she usually feels when she gets COPD exacerbation. The patient denies fever chills, palpitation, orthopnea, paroxysmal nocturnal dyspnea, progressive worsening lower extremity edema. The patient cardiac enzyme first set was was no significant abnormalities. EKG was obtained and has nonspecific ST-T wave changes. Chest x-ray revealed normal pulmonary vascularity. There is no focal consolidation. No evidence of pleural effusion or pneumothorax. Past Med Surg Social Fam HX - Past Medical History Medical history: asthma, atrial fibrillation, COPD, coronary artery disease, GERD, hyperlipidemia, hypertension, myocardial infarction Additional medical history: back pain, O2 @ 3L at all times Psychiatric history: anxiety, depression - Past Surgical History Surgical History: angioplasty/stent, cholecystectomy, other Additional surgical history: cardiac cath with angioplasty. tubal ligation - Social History Smoking Status: Current every day smoker Smokeless Tobacco Status: No Alcohol use: occasionally Drug use: none - Family History Father Living Status: Hx Family Respiratory Disorders: Yes Hx Family Cancer: Yes Hx Family Endocrine Disorder: Yes Diabetes diabetes Hx Family Cardiac Disorders: Yes (Hypertension) Hx Family Respiratory Disorders: Yes Hx Family Cancer: Yes (Lung cancer) Hx Family Endocrine Disorder: Yes (Diabetes) Sister Adopted: No Family Member Ethnicity: Non- Living Status: Hx Family Cardiac Disorders: No Hx Family Respiratory Disorders: Yes Hx Family Cancer: No Hx Family GI Disorders: No Hx Family Endocrine Disorder: No Hx Family Neuromuscular Disorders: No Hx Family Neurologic Disorders: No Hx Family HEENT Disorders: No Hx Family Autoimmune Disorders: Yes (lupus, arthritis) Mother Living Status: Hx Family Cardiac Disorders: Yes Hx Family Respiratory Disorders: No Hx Family Cancer: Yes Hx Family GI Disorders: Yes (Ulcers) Internal Medicine - H&P: Meds Nitroglycerin [Nitrostat] 0.4 mg SL Q5M PRN 05/29/16 [History] ALPRAZolam [Xanax 0.5 MG Tablet] 0.5 mg PO BID 03/09/18 [History] Mirtazapine 15 mg PO BID 03/12/18 [History] Albuterol Sulfate [Ventolin Hfa] 2 puff IH Q4H PRN 08/17/18 [History] Buspirone HCl [Buspar] 15 mg PO DAILY 08/17/18 [History] Metoclopramide [Reglan] 10 mg PO Q6H PRN 08/17/18 [History] Mometasone/Formoterol [Dulera 200 Mcg/5 Mcg Inhaler] 2 puff IH BID 08/17/18 [History] Tiotropium [place] [Spiriva Respimat] 1 puff IH DAILY 08/17/18 [History] Metoprolol [Lopressor] 25 mg PO DAILY 09/17/18 [History] Furosemide [Lasix] 20 mg PO DAILY PRN 09/18/18 [History] Ipratropium/Albuterol Neb [Duoneb] 3 ml IH Q4H PRN 09/18/18 [History] Aspirin [Adult Aspirin Regimen] 81 mg PO DAILY 10/08/18 [History] Atorvastatin [Lipitor] 40 mg PO HS 10/08/18 [History] Acetaminophen [Tylenol] 500 mg PO Q4H PRN #0 10/14/18 [Rx] Folic Acid 1 mg PO DAILY #30 tablet 10/14/18 [Rx] Oxygen 3 l IH CONT #0 10/14/18 [Rx] Clopidogrel 75 mg PO DAILY 12/05/18 [History] Omeprazole 20 mg PO DAILY 12/05/18 [History] Allergy/AdvReac Type Severity Reaction Status Date / Time codeine Allergy NAUSEA, Verified 11/18/18 12:47 VOMITING, HIVES All Systems PM: A 10-system review of systems was performed and is negative for pertinent f indings except as documented above in the HPI. - Constitutional Vitals: Temp Pulse Resp BP Pulse Ox 98.2 F 113 18 109/61 90 12/05/18 10:04 12/05/18 13:43 12/05/18 13:43 12/05/18 13:43 12/05/18 13:43 General appearance: Present: A&O X 3 Exam: ` - Head Head exam: Present: atraumatic, normocephalic - Neck Neck exam general surgery: Present: supple, trachea midline. Absent: lymphadenopathy - Respiratory Respiratory exam: Present: rhonchi, wheezes. Absent: accessory muscle use, rales - Cardiovascular Cardiovascular exam: Present: RRR, +S1, +S2. Absent: diastolic murmur, gallop, rubs, systolic murmur - GI/Abdominal GI/Abdominal exam: Present: normal bowel sounds, soft, no peritoneal signs. Absent: distended, tenderness - Extremities Exam Extremities exam: Present: warm, radial pulses palpable and symmetrical. Absent: calf tenderness, cyanotic, pedal edema Internal Med - H&P Results - Labs CBC & Chem 7: 12/06/18 02:23 12/06/18 02:23 Labs: Short CBC 12/05/18 Range/Units 10:30 WBC 9.2 (4.3-11.1) K/mcL Hgb 10.1 L (11.5-15.4) g/dL Hct 34.7 L (35.3-44.9) % Plt Count 333 (140-400) K/mcL Neutrophils # 7.3 (1.6-8.9) K/mcL BMP 12/05/18 10:30 Sodium 135 L Potassium 3.8 Chloride 90 L Carbon Dioxide 39 H BUN 5 L Creatinine 0.36 L Glucose 89 Calcium 9.0 Cardiac Enzymes 12/05/18 Range/Units 10:30 Troponin I < 0.03 (< 0.04) ng/mL - Impressions ITS Impressions Chest X-Ray 12/05/18 10:08 IMPRESSION: No acute cardiopulmonary process. D/ / Kieran Mclean MD / Kieran Mclean MD Interpreting Provider: Kieran Mclean MD - Assessment and Plan (1) COPD with exacerbation Current Visit: No Status: Acute Assessment and plan: SOB due to COPD exacerbation caused by URTI vs allergen exposure vs medication nonocompliance * ?? Bronchitis *Chest x-ray revealedNormal heart size. Normal pulmonary vascularity. There is no focal consolidation. No evidence of pleural effusion or pneumothorax. PLAN: - Aerosols q 4 hr and PRN SOB - Solu-medrol 40 mg IV q 6 hr - O2 to keep SpO2 higher than 92% (SpO higher than 95% if CAD) - CBCD, BMP in AM - Sputum Gram stain, C+S - We will hold on antibiotics for now given findings on chest x-ray (2) Hyponatremia Current Visit: Yes Status: Acute Assessment and plan: Mild hyponatremia, we'll repeat sodium level. (3) Chest pain Current Visit: Yes Status: Acute Assessment and plan: The patient had several admissions with similar presentation, she is chest pain-free now, we will trend cardiac enzymes and repeat EKG, Qualifiers: Chest pain type: unspecified Qualified Code(s): R07.9 - Chest pain, unspecified (4) GERD (gastroesophageal reflux disease) Current Visit: No Status: Acute Assessment and plan: We will continue proton pump inhibitors. Qualifiers: Esophagitis presence: without esophagitis Qualified Code(s): K21.9 - Gastro-esophageal reflux disease without esophagitis (5) Hypertension Current Visit: No Status: Chronic Assessment and plan: We will continue home medication and continue to monitor blood pressure while inpatient and adjust regimen accordingly Qualifiers: Hypertension type: essential hypertension Qualified Code(s): I10 - Essential (primary) hypertension (6) Anemia Current Visit: No Status: Chronic Assessment and plan: Most likely secondary to anemia of chronic disease, we will continue to monitor H&H and transfuse for hemoglobin less than 7. Qualifiers: Anemia type: unspecified type Qualified Code(s): D64.9 - Anemia, unspecified (7) Coronary artery disease Current Visit: No Status: Chronic Assessment and plan: We'll continue home medication. Qualifiers: Coronary Disease-Associated Artery/Lesion type: [place] artery [place] vs. transplanted heart: [place] heart Associated angina: with unstable angina Qualified Code(s): I25.110 - Atherosclerotic heart disease of [place] coronary artery with unstable angina pectoris (8) Anxiety Current Visit: No Status: Chronic - Time Spent With Patient Total time spent is greater than 50% in coordination of care (as documented) at patient's floor/unit and/or counseling patient:
[2018-12-05] MEDS ORDERED: Naloxone 0.4 MG/ML INJ IVP PRN (14:32)
[2018-12-05] MEDS ORDERED: Acetaminophen 325 MG TABLET PO PRN (14:32)
[2018-12-05] MEDS ORDERED: Nitroglycerin 0.4 MG TAB.SUBL SL PRN (16:48)
[2018-12-05] MEDS: MethylPREDNISolone 40 MG/ML VIAL IVP SCH ×2 (17:52→23:59)
[2018-12-05] MEDS: *HR* HYDROcodone/Acet 5/325 mg TABLET PO PRN (17:52)
[2018-12-05] MEDS: Ipratropium/Albuterol Neb 3 ML IH SCH ×3 (19:24→23:01)
[2018-12-05] MEDS: Ipratropium/Albuterol Neb 3 ML IH PRN (20:38)
[2018-12-05] MEDS: Mirtazapine 15 MG TABLET PO SCH (21:08)
[2018-12-05] MEDS: Ondansetron 4 MG/2 ML VIAL IVP PRN (21:08)
[2018-12-05] MEDS: ALPRAZolam 0.5 MG TABLET PO SCH (21:08)
[2018-12-05] MEDS: Budesonide/Formoterol 160/4.5 1 PUFF INH IH SCH (22:44)
[2018-12-06] MEDS: *HR* HYDROcodone/Acet 5/325 mg TABLET PO PRN ×3 (00:02→17:57)
[2018-12-06 02:39] LABS: Basophils % 0.1 %; Hematocrit 33.1 % (35.3-44.9); Hemoglobin 9.8 g/dL (11.5-15.4); Immature Granulocytes % 0.3 % (0-4); Lymphocytes # 0.4 K/mcL (0.6-4.6); Lymphocytes % 6.4 %; Mean Corpuscular HGB Conc 29.6 g/dL (31.6-35.5); Mean Corpuscular Hemoglobin 26.4 pg (28.0-33.3); Mean Corpuscular Volume 89.2 fL (83.0-100.0); Mean Platelet Volume 9.5 fL (9.4-12.4); Monocytes # 0.4 K/mcL (0.0-1.3); Monocytes % 5.1 %; Platelet Count 372 K/mcL (140-400); Red Blood Count 3.71 M/mcL (3.82-4.97); Red Cell Distribution Width 19.9 % (11.5-14.5); Segmented Neutrophils % 88.1 %; White Blood Count 6.8 K/mcL (4.3-11.1)
[2018-12-06 02:44] LABS: INR 0.9; Prothrombin Time 10.5 Seconds (9.4-12.1)
[2018-12-06 02:47] LABS: Activated Partial Thrombo Time 27.5 Seconds (26.0-36.0)
[2018-12-06 03:03] LABS: Alanine Aminotransferase 6 Units/L (7-52); Albumin 3.9 g/dL (3.5-5.7); Albumin/Globulin Ratio 1.3 (1.1-2.2); Alkaline Phosphatase 84 Units/L (34-104); Aspartate Amino Transferase 13 Units/L (13-39); BUN/Creatinine Ratio 17 (6-26); Bilirubin,Total 0.3 mg/dL (0.3-1.0); Blood Urea Nitrogen 7 mg/dL (6-20); Calcium 9.4 mg/dL (8.6-10.3); Carbon Dioxide 42 mEq/L (23-29); Chloride 92 mEq/L (98-107); Cholesterol 184 mg/dL (< 200); Globulin 2.9 g/dL (2.4-3.5); Glucose 155 mg/dL (70-105); HDL Cholesterol 92 mg/dL (40-59); LDL Cholesterol,Calculated 84 mg/dL (0-99); Magnesium 2.1 mg/dL (1.6-2.6); Osmolality,Calculated 287 (280-300); Phosphorous 3.6 mg/dL (2.7-4.5); Potassium 4.3 mEq/L (3.5-5.1); Sodium 138 mEq/L (136-145); Total Protein 6.8 g/dL (6.4-8.9); Triglycerides 39 mg/dL (< 150); eGFR For African Americans > 60 (> 60); eGFR For Non-African Americans > 60 (> 60)
[2018-12-06] MEDS: Ipratropium/Albuterol Neb 3 ML IH SCH ×4 (04:28→22:34)
[2018-12-06] MEDS: MethylPREDNISolone 40 MG/ML VIAL IVP SCH ×4 (05:49→23:35)
[2018-12-06] MEDS: Budesonide/Formoterol 160/4.5 1 PUFF INH IH SCH ×2 (07:38→22:34)
[2018-12-06] MEDS: Tiotropium 18 MCG inhalation IH SCH (07:38)
[2018-12-06] MEDS: Mirtazapine 15 MG TABLET PO SCH ×2 (08:54→20:51)
[2018-12-06] MEDS: ALPRAZolam 0.5 MG TABLET PO SCH ×2 (08:54→20:52)
[2018-12-06 11:01] LABS: ABG Base Excess 16 mEq/L (-2 to 3); ABG HCO3 45 mEq/L (21-27); ABG Oxygen Saturation 88 % (95-98); ABG PCO2 78 mmHg (35-45); ABG PH 7.37 pH Units (7.32-7.45); ABG PO2 61 mmHg (85-104); ABG TCO2 47 mEq/L (20-26)
[2018-12-06] MEDS: Aspirin 81 MG TAB.CHEW PO SCH (11:02)
--- NOTE | 2018-12-06 14:46 | Internal Med Progress Note ---
Hospitalist Progress Note - Encounter Date of Encounter: 12/06/18 Time of Encounter: 14:42 - Subjective Interval History: Evaluated patient earlier today. She is feeling much better overall but continues to have significant shortness of breath. No fevers or chills reported overnight. No nausea or vomiting. Denies any chest pain or palpitations. - Exam Vitals: Temp Pulse Resp BP Pulse Ox 98.7 F 103 18 117/67 92 12/06/18 11:21 12/06/18 11:21 12/06/18 11:21 12/06/18 11:21 12/06/18 11:21 Exam: General: Patient is alert, mild distress, oriented x 3 ENT: Mucous membranes moist Respiratory: Diminished breath sounds bilaterally. End expiratory wheezing. Prolonged expiratory phase. Cardiovascular: Regular rate and rhythm. s1 and s2 normal No clicks, rubs, gallops, or murmurs. No pedal edema Abdomen: Abdomen is soft, nontender. Bowel sounds are present Musculoskeletal: Spontaneously moving all extremities Skin: warm, dry, intact. Neuro: Alert oriented x 3 normal cranial nerves, no focal deficits - Assessment and Plan (1) COPD with exacerbation Current Visit: Yes Status: Acute (2) Coronary artery disease Current Visit: No Status: Chronic (3) GERD (gastroesophageal reflux disease) Current Visit: No Status: Acute (4) Anxiety Current Visit: No Status: Chronic (5) Chest pain Current Visit: Yes Status: Acute (6) Hypertension Current Visit: No Status: Chronic (7) Anemia Current Visit: No Status: Chronic (8) Hyponatremia Current Visit: Yes Status: Acute DVT Prophylaxis: Start subcutaneous heparin for DVT prophylaxis - Summary of Assessment and Plan Summary of Assessment and Plan: Acute COPD exacerbation: Continue steroids, bronchodilators. Continue O2 supplementation. We will also place patient on BiPAP as needed especially at bedtime. She does have chronic hypercapnic respiratory failure. Her PCO2 is 78. She may benefit from home BiPAP. Will qualify for that tonight. Chronic respiratory failure with hypoxia and hypercapnia: Continue O2 supplementation. Chest pain: Now resolved. Troponins have been negative. Obtain echocardiogram. Hypertension: Monitor blood pressures. Continue home medications. Coronary artery disease: Continue aspirin, statin and Plavix. Continue metoprolol. - Time Spent with Patient Total time spent is greater than 50% in coordination of care (as documented) at patient's floor/unit and/or counseling patient: Internal Medicine: Result - Labs CBC & Chem 7: 12/06/18 02:23 12/06/18 02:23 Labs: Short CBC 12/06/18 Range/Units 02:23 WBC 6.8 (4.3-11.1) K/mcL Hgb 9.8 L (11.5-15.4) g/dL Hct 33.1 L (35.3-44.9) % Plt Count 372 (140-400) K/mcL Neutrophils # 6.0 (1.6-8.9) K/mcL BMP 12/06/18 02:23 Sodium 138 Potassium 4.3 Chloride 92 L Carbon Dioxide 42 H* BUN 7 Creatinine 0.42 L Glucose 155 H Calcium 9.4 Cardiac Enzymes 12/05/18 12/05/18 12/06/18 Range/Units 16:45 22:18 02:23 Troponin I < 0.03 < 0.03 < 0.03 (< 0.04) ng/mL Liver Function 12/06/18 Range/Units 02:23 Total Bilirubin 0.3 (0.3-1.0) mg/dL AST 13 (13-39) Units/L ALT 6 L (7-52) Units/L Alkaline Phosphatase 84 (34-104) Units/L Albumin 3.9 (3.5-5.7) g/dL - ABG Interpretation ABG results: ABG ABG pH 7.37 pH Units (7.32-7.45) 12/06/18 10:50 ABG pCO2 78 mmHg (35-45) H* 12/06/18 10:50 ABG pO2 61 mmHg (85-104) L 12/06/18 10:50 ABG O2 Saturation 88 % (95-98) L 12/06/18 10:50 PT/INR, D-dimer PT 10.5 Seconds (9.4-12.1) 12/06/18 02:23 < 215 ng/mLFEU (0-500) 12/05/18 10:30 Consult Discharge Plan - Plan Referrals: Ariana Frost, [Primary Care Provider] - (Unable to schedule appointment due to office being closed. Please call Friday to schedule hospital follow up appointment for 7-10 days from date of discharge. ) _ (2) Coronary artery disease Qualifiers: Coronary Disease-Associated Artery/Lesion type: [place] artery [place] vs. transplanted heart: [place] heart Associated angina: with unstable angina Qualified Code(s): I25.110 - Atherosclerotic heart disease of [place] coronary artery with unstable angina pectoris (3) GERD (gastroesophageal reflux disease) Qualifiers: Esophagitis presence: without esophagitis (5) Chest pain Qualifiers: Chest pain type: unspecified Qualified Code(s): R07.9 - Chest pain, unspecified (6) Hypertension Qualifiers: Hypertension type: essential hypertension Qualified Code(s): I10 - Essential (primary) hypertension (7) Anemia Qualifiers: Anemia type: unspecified type Qualified Code(s): D64.9 - Anemia, unspecified
[2018-12-06] MEDS: Ipratropium/Albuterol Neb 3 ML IH PRN (16:48)
[2018-12-06] MEDS: *HR* Heparin 5,000 UNIT/ML VIAL SQ SCH (17:57)
[2018-12-07] MEDS: *HR* HYDROcodone/Acet 5/325 mg TABLET PO PRN ×2 (04:12→11:43)
[2018-12-07] MEDS: Ipratropium/Albuterol Neb 3 ML IH SCH ×4 (04:48→22:47)
[2018-12-07] MEDS: *HR* Heparin 5,000 UNIT/ML VIAL SQ SCH ×2 (06:16→18:56)
[2018-12-07] MEDS: MethylPREDNISolone 40 MG/ML VIAL IVP SCH ×3 (06:16→18:56)
[2018-12-07 07:50] LABS: Basophils % 0.1 %; Hematocrit 32.8 % (35.3-44.9); Hemoglobin 9.5 g/dL (11.5-15.4); Immature Granulocytes % 0.3 % (0-4); Lymphocytes # 0.9 K/mcL (0.6-4.6); Lymphocytes % 5.8 %; Mean Corpuscular Hemoglobin 26.2 pg (28.0-33.3); Mean Corpuscular Volume 90.4 fL (83.0-100.0); Mean Platelet Volume 9.7 fL (9.4-12.4); Monocytes % 6.4 %; Neutrophils # 12.9 K/mcL (1.6-8.9); Platelet Count 407 K/mcL (140-400); Red Blood Count 3.63 M/mcL (3.82-4.97); Segmented Neutrophils % 87.4 %; White Blood Count 14.8 K/mcL (4.3-11.1)
[2018-12-07 08:10] LABS: BUN/Creatinine Ratio 36 (6-26); Blood Urea Nitrogen 12 mg/dL (6-20); Calcium 9.1 mg/dL (8.6-10.3); Carbon Dioxide 39 mEq/L (23-29); Chloride 95 mEq/L (98-107); Glucose 125 mg/dL (70-105); Osmolality,Calculated 291 (280-300); Potassium 4.2 mEq/L (3.5-5.1); Sodium 140 mEq/L (136-145); eGFR For African Americans > 60 (> 60); eGFR For Non-African Americans > 60 (> 60)
[2018-12-07] MEDS: ALPRAZolam 0.5 MG TABLET PO SCH ×2 (08:47→22:06)
[2018-12-07] MEDS: Mirtazapine 15 MG TABLET PO SCH ×2 (08:47→22:06)
[2018-12-07] MEDS: Aspirin 81 MG TAB.CHEW PO SCH (08:48)
--- NOTE | 2018-12-07 08:53 | Electrocardiograph Report ---
[facility] Test Date: 2018-12-05 Pat Name: Anita Honeycutt Department: [id number] Room: 3B33 Gender: F Team Member: : [id number] Requested By: Erich Ernandez Order Number: [id number] Reading MD: Hakeem Bautista Measurements Intervals [place] Rate: 94 P: 93 TX: 152 QRS: 87 QRSD: 71 T: 87 QT: 343 QTc: 429 Interpretive Statements Sinus rhythm Probable anteroseptal infarct, old ST elevation, consider inferior injury Electronically Signed On 12-07-2018 8:51:26 EDT by Hakeem Bautista
[2018-12-07] MEDS: Budesonide/Formoterol 160/4.5 1 PUFF INH IH SCH ×2 (10:51→22:46)
[2018-12-07] MEDS: Tiotropium 18 MCG inhalation IH SCH (10:54)
--- NOTE | 2018-12-07 12:24 | Pulmonology Consult Note ---
Date of Encounter: 12/07/18 Time of Encounter: 12:00 Assessment and Plan (1) Acute and chronic respiratory failure Current Visit: Yes Status: Acute Continue O2 supplementation to keep saturation above 88% has acceptable oxygenation and ventilation will need BiPAP as needed. Patient did not qualify for BiPAP Qualifiers: Respiratory failure complication: hypoxia and hypercapnia Qualified Code(s): J96.21 - Acute and chronic respiratory failure with hypoxia; J96.22 - Acute and chronic respiratory failure with hypercapnia (2) Acute exacerbation of chronic obstructive airways disease Current Visit: Yes Status: Acute Patient continue with bronchodilators and steroids continue with the levofloxacin for now. Since patient has significant retained secretions in the airway and patient cannot care and will try to wake her bronchoscopy Exam to make sure there is not an endobronchial lesion and will do a airway clearance and lavage. To keep nothing by mouth after midnight. Patient is scheduled for bronchoscopy tomorrow morning 8:30 AM. History of Present Illness Consult date: 12/07/18 Requesting physician: Sara Aquino Reason for consult: dyspnea, COPD Chief complaint: Shortness of breath with cough and sputum production History of present illness: 58-year-old female with past medical history of severe oxygen dependent COPD with chronic bronchitis comes with the symptoms are recurrent COPD exacerbation patient had a hard time clearing secretion patient has persistent cough and sputum does not have any hemoptysis. Patient denies any chest pain chest tightness denies any palpitation or syncope. Pulmonary was consulted for possible bronchoscopy intervention for airway clearance. CT chest showed a lot of retained secretions . Past Med Surg Social Fam HX - Past Medical History Medical history: asthma, atrial fibrillation, COPD, coronary artery disease, GERD, hyperlipidemia, hypertension, myocardial infarction Additional medical history: back pain, O2 @ 3L at all times Psychiatric history: anxiety, depression - Past Surgical History Surgical History: angioplasty/stent, cholecystectomy, other Additional surgical history: cardiac cath with angioplasty. tubal ligation - Social History Smoking Status: Current every day smoker Smokeless Tobacco Status: No Alcohol use: occasionally Drug use: none - Family History Father Living Status: Hx Family Respiratory Disorders: Yes Hx Family Cancer: Yes Hx Family Endocrine Disorder: Yes Diabetes diabetes Hx Family Cardiac Disorders: Yes (Hypertension) Hx Family Respiratory Disorders: Yes Hx Family Cancer: Yes (Lung cancer) Hx Family Endocrine Disorder: Yes (Diabetes) Sister Adopted: No Family Member Ethnicity: Non- Living Status: Hx Family Cardiac Disorders: No Hx Family Respiratory Disorders: Yes Hx Family Cancer: No Hx Family GI Disorders: No Hx Family Endocrine Disorder: No Hx Family Neuromuscular Disorders: No Hx Family Neurologic Disorders: No Hx Family HEENT Disorders: No Hx Family Autoimmune Disorders: Yes (lupus, arthritis) Mother Living Status: Hx Family Cardiac Disorders: Yes Hx Family Respiratory Disorders: No Hx Family Cancer: Yes Hx Family GI Disorders: Yes (Ulcers) Medications and Allergies Nitroglycerin [Nitrostat] 0.4 mg SL Q5M PRN 05/29/16 [History] ALPRAZolam [Xanax 0.5 MG Tablet] 0.5 mg PO BID 03/09/18 [History] Mirtazapine 15 mg PO BID 03/12/18 [History] Albuterol Sulfate [Ventolin Hfa] 2 puff IH Q4H PRN 08/17/18 [History] Metoclopramide [Reglan] 10 mg PO Q6H PRN 08/17/18 [History] Mometasone/Formoterol [Dulera 200 Mcg/5 Mcg Inhaler] 2 puff IH BID PRN 08/17/18 [History] Tiotropium [place] [Spiriva Respimat] 1 puff IH DAILY 08/17/18 [History] Metoprolol [Lopressor] 12.5 mg PO DAILY 09/17/18 [History] Ipratropium/Albuterol Neb [Duoneb] 3 ml IH Q4H PRN 09/18/18 [History] Aspirin [Adult Aspirin Regimen] 81 mg PO DAILY 10/08/18 [History] Atorvastatin [Lipitor] 40 mg PO HS 10/08/18 [History] Oxygen 3 l IH CONT #0 10/14/18 [Rx] Clopidogrel [Plavix] 75 mg PO DAILY 12/05/18 [History] Omeprazole [PriLOSEC] 20 mg PO DAILY 12/05/18 [History] Buspirone HCl [Buspar] 15 mg PO BID 12/07/18 [History] Allergy/AdvReac Type Severity Reaction Status Date / Time codeine Allergy NAUSEA, Verified 12/07/18 13:28 VOMITING, HIVES All Systems: The remainder of the systems were reviewed and are negative Physical Examination Vital Signs: Vital Signs, Last 4 Hours Resp Pulse Ox 12/07/18 10:51 16 96 General appearance: no acute distress Auscultation: bilateral: wheezes (Minimal scattered wheezes) Cardiovascular: regular rate and rhythm Gastrointestinal: normoactive bowel sounds Extremities: no edema normal mental status, non-focal exam mood appropriate Results - Laboratory Findings CBC and BMP: 12/07/18 07:07 12/07/18 07:07 ABG ABG pH 7.37 pH Units (7.32-7.45) 12/06/18 10:50 ABG pCO2 78 mmHg (35-45) H* 12/06/18 10:50 ABG pO2 61 mmHg (85-104) L 12/06/18 10:50 ABG O2 Saturation 88 % (95-98) L 12/06/18 10:50 PT/INR, D-dimer PT 10.5 Seconds (9.4-12.1) 12/06/18 02:23 < 215 ng/mLFEU (0-500) 12/05/18 10:30 Abnormal lab findings: Abnormal lab results WBC 14.8 K/mcL (4.3-11.1) H D 12/07/18 07:07 RBC 3.63 M/mcL (3.82-4.97) L 12/07/18 07:07 Hgb 9.5 g/dL (11.5-15.4) L 12/07/18 07:07 Hct 32.8 % (35.3-44.9) L 12/07/18 07:07 MCH 26.2 pg (28.0-33.3) L 12/07/18 07:07 MCHC 29.0 g/dL (31.6-35.5) L 12/07/18 07:07 RDW 20.0 % (11.5-14.5) H 12/07/18 07:07 Plt Count 407 K/mcL (140-400) H 12/07/18 07:07 12.9 K/mcL (1.6-8.9) H 12/07/18 07:07 0.4 K/mcL (0.6-4.6) L 12/06/18 02:23 ABG pCO2 78 mmHg (35-45) H* 12/06/18 10:50 ABG pO2 61 mmHg (85-104) L 12/06/18 10:50 ABG HCO3 45 mEq/L (21-27) H 12/06/18 10:50 ABG Total CO2 47 mEq/L (20-26) H 12/06/18 10:50 ABG O2 Saturation 88 % (95-98) L 12/06/18 10:50 ABG Base Excess 16 mEq/L (-2 to 3) H 12/06/18 10:50 Sodium 135 mEq/L (136-145) L 12/05/18 10:30 Chloride 95 mEq/L (98-107) L 12/07/18 07:07 Carbon Dioxide 39 mEq/L (23-29) H 12/07/18 07:07 BUN 5 mg/dL (6-20) L 12/05/18 10:30 0.33 mg/dL (0.60-1.20) L 12/07/18 07:07 36 (6-26) H 12/07/18 07:07 Glucose 125 mg/dL (70-105) H 12/07/18 07:07 POC Glucose 142 mg/dL (70-99) H 12/07/18 00:16 277 (280-300) L 12/05/18 10:30 ALT 6 Units/L (7-52) L 12/06/18 02:23 92 mg/dL (40-59) H 12/06/18 02:23 - Clinical Findings Intake & Output: Intake & Output 12/06/18 12/07/18 12/07/18 23:59 07:59 15:59 Intake Total 360 / 360 Balance 360 / 360 Weight 50.6 kg Consult Discharge Plan - Plan Referrals: Ariana Frost DO [Primary Care Provider] - 12/14/18 3:20 pm ()
--- NOTE | 2018-12-07 12:30 | Internal Med Progress Note ---
Hospitalist Progress Note - Encounter Date of Encounter: 12/07/18 Time of Encounter: 10:00 - Subjective Interval History: Pt was seen and examined at bed side. She still c.o severe SOB and FUENTES She does have cough with brownish expectoration pt complaints, still have a lot of secretions inside unable to cough it out She still smokes 1 PPD - Exam Vitals: Temp Pulse Resp BP Pulse Ox 98.1 F 84 16 111/68 96 12/07/18 07:52 12/07/18 07:52 12/07/18 10:51 12/07/18 07:52 12/07/18 10:51 Exam: Gen: Alert, awake, Oriented to time,place and person Chest: Diminished breath sounds B/L, Moderate to severe wheezing, ronchi++, Coarse tubular BS ++ b/l, Heart: S1S2+ RRR No murmurs Abd: Soft, NT, BS +, No organomegaly Ext: No edema, pulses are palpable, No calf tenderness Neuro : No acute focal neuro deficits noticed Skin: No rash. - Assessment and Plan (1) Bronchiectasis Current Visit: Yes Status: Acute Assessment and Plan: Concerning for bronchiectasis cont IV steroids Pulm consulted for possible Bronchoscope CT of Chest ordered (2) Bronchitis Current Visit: Yes Status: Acute Assessment and Plan: Purulent bronchitis started on empirical abx Levaquin will f/u on Sputum cx, Legionella and Strep PNA (3) COPD with exacerbation Current Visit: Yes Status: Acute Assessment and Plan: Cont high dose IV steroids cont Duoneb cont Symbicort Started on empirical abx Levaquin (4) Chronic respiratory failure with hypoxia and hypercapnia Current Visit: No Status: Chronic Assessment and Plan: She does have acute on chronic hypercapena due to her advanced COPD Her condition reapidly deteriorating too pt would like to talk to palliative care team during this hospitalization she would get benefit with BiPAP / Non invasive positive pressure ventilation will talk to Pulm and CM/ SW (5) Chest pain Current Visit: Yes Status: Acute Assessment and Plan: atypical due to COPD exacerbation / Bronchieactasis Serial trop x 3 negative no acute EKG changes (6) Coronary artery disease Current Visit: No Status: Chronic Assessment and Plan: continue home medication. (7) GERD (gastroesophageal reflux disease) Current Visit: No Status: Acute Assessment and Plan: continue proton pump inhibitors. (8) Anxiety Current Visit: No Status: Chronic Assessment and Plan: resumed home meds Xanax (9) Hypertension Current Visit: No Status: Chronic Assessment and Plan: Cont home meds Stable BP (10) Anemia Current Visit: No Status: Chronic Assessment and Plan: Chronic anemia stable Hb no need of transfusion now (11) Hyponatremia Current Visit: Yes Status: Acute Assessment and Plan: resolved (12) Failure to thrive Current Visit: Yes Status: Acute (13) Protein-calorie malnutrition, severe Current Visit: Yes Status: Acute Assessment and Plan: will check prealbumin level nutrition consulted - Time Spent with Patient Total time spent is greater than 50% in coordination of care (as documented) at patient's floor/unit and/or counseling patient: Internal Medicine: Result - Labs CBC & Chem 7: 12/07/18 07:07 12/07/18 07:07 Labs: Short CBC 12/07/18 Range/Units 07:07 WBC 14.8 H D (4.3-11.1) K/mcL Hgb 9.5 L (11.5-15.4) g/dL Hct 32.8 L (35.3-44.9) % Plt Count 407 H (140-400) K/mcL Neutrophils # 12.9 H (1.6-8.9) K/mcL BMP 12/07/18 07:07 Sodium 140 Potassium 4.2 Chloride 95 L Carbon Dioxide 39 H BUN 12 Creatinine 0.33 L Glucose 125 H Calcium 9.1 - ABG Interpretation ABG results: ABG ABG pH 7.37 pH Units (7.32-7.45) 12/06/18 10:50 ABG pCO2 78 mmHg (35-45) H* 12/06/18 10:50 ABG pO2 61 mmHg (85-104) L 12/06/18 10:50 ABG O2 Saturation 88 % (95-98) L 12/06/18 10:50 PT/INR, D-dimer PT 10.5 Seconds (9.4-12.1) 12/06/18 02:23 < 215 ng/mLFEU (0-500) 12/05/18 10:30 Consult Discharge Plan - Plan Referrals: Ariana Frost DO [Primary Care Provider] - 12/14/18 3:20 pm () (5) Chest pain Qualifiers: Chest pain type: unspecified Qualified Code(s): R07.9 - Chest pain, unspecified (6) Coronary artery disease Qualifiers: Coronary Disease-Associated Artery/Lesion type: [place] artery [place] vs. transplanted heart: [place] heart Associated angina: with unstable angina Qualified Code(s): I25.110 - Atherosclerotic heart disease of [place] coronary artery with unstable angina pectoris (7) GERD (gastroesophageal reflux disease) Qualifiers: Esophagitis presence: without esophagitis (9) Hypertension Qualifiers: Hypertension type: essential hypertension Qualified Code(s): I10 - Essential (primary) hypertension (10) Anemia Qualifiers: Anemia type: unspecified type Qualified Code(s): D64.9 - Anemia, unspecified
[2018-12-07] MEDS: levoFLOXacin 750 MG/150 ML 750 MG/150 ML BAG IVPB SCH (13:54)
[2018-12-07] MEDS: Piperacillin/Tazobactam 3.375 GM in 0.9 % Sodium Chloride Mini Bag 100 ML IVPB SCH (16:37)
[2018-12-08] MEDS: Piperacillin/Tazobactam 3.375 GM in 0.9 % Sodium Chloride Mini Bag 100 ML IVPB SCH ×4 (00:11→23:36)
[2018-12-08] MEDS: MethylPREDNISolone 40 MG/ML VIAL IVP SCH ×5 (00:11→23:33)
[2018-12-08 02:51] LABS: Basophils % 0.1 %; Hematocrit 33.1 % (35.3-44.9); Hemoglobin 9.7 g/dL (11.5-15.4); Immature Granulocytes % 0.3 % (0-4); Lymphocytes # 0.4 K/mcL (0.6-4.6); Lymphocytes % 2.5 %; Mean Corpuscular HGB Conc 29.3 g/dL (31.6-35.5); Mean Corpuscular Volume 88.7 fL (83.0-100.0); Mean Platelet Volume 9.5 fL (9.4-12.4); Monocytes # 0.5 K/mcL (0.0-1.3); Monocytes % 3.3 %; Neutrophils # 13.1 K/mcL (1.6-8.9); Platelet Count 434 K/mcL (140-400); Red Blood Count 3.73 M/mcL (3.82-4.97); Segmented Neutrophils % 93.8 %; White Blood Count 13.9 K/mcL (4.3-11.1)
[2018-12-08 03:04] LABS: BUN/Creatinine Ratio 28 (6-26); Blood Urea Nitrogen 14 mg/dL (6-20); Carbon Dioxide 36 mEq/L (23-29); Chloride 98 mEq/L (98-107); Glucose 145 mg/dL (70-105); Osmolality,Calculated 291 (280-300); Potassium 3.9 mEq/L (3.5-5.1); Sodium 139 mEq/L (136-145); eGFR For African Americans > 60 (> 60); eGFR For Non-African Americans > 60 (> 60)
[2018-12-08] MEDS: Ipratropium/Albuterol Neb 3 ML IH SCH ×4 (04:28→22:53)
[2018-12-08] MEDS: *HR* Heparin 5,000 UNIT/ML VIAL SQ SCH ×2 (05:40→17:25)
[2018-12-08] MEDS ORDERED: *HR* Propofol 200 MG/20 ML VIAL IVP ONE (07:23)
[2018-12-08] MEDS ORDERED: *HR* Midazolam HCl 2 MG/2 ML VIAL ONE (07:23)
[2018-12-08] MEDS ORDERED: *HR* FentaNYL (PF) 100 MCG/2 ML VIAL ONE (07:23)
[2018-12-08] MEDS ORDERED: Lidocaine -MPF 2% 2 ML VIAL ONE (07:25)
[2018-12-08] MEDS ORDERED: *HR* Succinylcholine 200 MG/10 ML VIAL IVP ONE (07:25)
[2018-12-08] MEDS ORDERED: Ondansetron 4 MG/2 ML VIAL ONE (07:25)
[2018-12-08] MEDS ORDERED: Dexamethasone 4 MG/ML VIAL ONE (07:25)
[2018-12-08] MEDS ORDERED: Lidocaine -MPF 4% 5 ML AMPUL ONE (07:27)
[2018-12-08] MEDS: levoFLOXacin 750 MG/150 ML 750 MG/150 ML BAG IVPB SCH (07:30)
[2018-12-08] MEDS ORDERED: Naloxone 0.4 MG/ML INJ ONE (08:03)
--- NOTE | 2018-12-08 08:11 | Anesthesia Evaluation PreOp ---
Date of Encounter: 12/08/18 Time of Encounter: 08:07 - Past History Planned Operation: Bronch Cardiac History: NM (2011 - NO stents, only PCI & med management [ASA, Plavix]), Angina (Unstable), HTN, Hyperlipidemia, Arrhythmia (Paroxysmal AFib), Other (CAD. 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) Other Medical History: Denies Any Significant HX Anesthesia History: No Prior Anesthetic Complications, Past Anesthesia (Angioplasty/Stent, Tubal, Ila) Alcohol Use: occasionally Drug use: none Medications and Allergies Nitroglycerin [Nitrostat] 0.4 mg SL Q5M PRN 05/29/16 [History] ALPRAZolam [Xanax 0.5 MG Tablet] 0.5 mg PO BID 03/09/18 [History] Mirtazapine 15 mg PO BID 03/12/18 [History] Albuterol Sulfate [Ventolin Hfa] 2 puff IH Q4H PRN 08/17/18 [History] Metoclopramide [Reglan] 10 mg PO Q6H PRN 08/17/18 [History] Mometasone/Formoterol [Dulera 200 Mcg/5 Mcg Inhaler] 2 puff IH BID PRN 08/17/18 [History] Tiotropium [place] [Spiriva Respimat] 1 puff IH DAILY 08/17/18 [History] Metoprolol [Lopressor] 12.5 mg PO DAILY 09/17/18 [History] Ipratropium/Albuterol Neb [Duoneb] 3 ml IH Q4H PRN 09/18/18 [History] Aspirin [Adult Aspirin Regimen] 81 mg PO DAILY 10/08/18 [History] Atorvastatin [Lipitor] 40 mg PO HS 10/08/18 [History] Oxygen 3 l IH CONT #0 10/14/18 [Rx] Clopidogrel [Plavix] 75 mg PO DAILY 12/05/18 [History] Omeprazole [PriLOSEC] 20 mg PO DAILY 12/05/18 [History] Buspirone HCl [Buspar] 15 mg PO BID 12/07/18 [History] Allergy/AdvReac Type Severity Reaction Status Date / Time codeine Allergy NAUSEA, Verified 12/07/18 13:28 VOMITING, HIVES - Meds/Allergy Pre-op Review Medications Reviewed: Yes Allergies Reviewed: Yes Beta Blockers on Current Med List: No Anesthesia Results - Labs 12/08/18 02:26 12/08/18 02:26 Laboratory Tests 12/07/18 12/08/18 12:52 02:26 Est GFR (Non-Af Amer) > 60 B-Natriuretic Peptide 100 H Impressions Chest X-Ray 12/05/18 10:08 IMPRESSION: No acute cardiopulmonary process. D/ / Kieran Mclean MD / Kieran Mclean MD Interpreting Provider: Kieran Mclean MD Chest CT 12/07/18 13:30 IMPRESSION: No acute intrathoracic abnormality. Moderate emphysematous changes. D/ / Gustavo Lantigua MD / Gustavo Lantigua MD Interpreting Provider: Gustavo Lantigua MD Laboratory Results - Imaging EKG: report reviewed (94bpm - Sinus rhythm Probable anteroseptal infarct, old ST elevation, consider inferior injury Electronically Signed On 12-07-2018 8:51:26 EDT by Hakeem Bautista), image reviewed Additional studies: ECHO 07/2018 EV/EV echocardiogram Impressions: LVEF 60-65%. Normal LV chamber size, wall thickness and function. Mild left ventricular diastolic dysfunction. Normal right ventricular structure and function. Unable to estimate RVSP due to lack of TR jet. No significant valvular dysfunction. Left Ventricular Wall Motion: Rest Echo Findings All wall segments showed normal motion. Anesthesia Exam Vital Signs Temp Pulse Resp BP Pulse Ox 12/08/18 07:44 97.5 F L 76 16 114/71 96 12/08/18 03:34 97.7 F 100 17 138/80 94 12/07/18 23:26 97.4 F L 93 17 130/69 95 12/07/18 22:47 16 95 12/07/18 19:19 98.4 F 97 17 110/68 94 12/07/18 15:57 98.3 F 92 16 115/53 95 12/07/18 15:09 18 97 12/07/18 12:43 98.1 F 86 20 102/61 92 12/07/18 10:51 16 96 Intake and Output 12/07/18 12/08/18 12/08/18 23:59 07:59 15:59 Intake Total 220 / 730 100 / 100 Output Total 800 / 800 Balance -580 / -70 100 / 100 Intake: IV Fluids 100 / 250 100 / 100 Zosyn 3.375 GM In 0.9 % Sodium 100 / 100 100 / 100 Chloride (Mini-Bag +) 100 ML @ 25 mls/hr IVPB Q8HR ZARIA Rx#: [id number] Oral 120 / 480 Output: Urine 800 / 800 Other: Meal Dinner Percent of Meal Consumed 100% Weight 51 kg Blood Glucose* 134 130 Patient Weight 12/08/18 23:59 Weight 51 kg Height: 5'6" Weight: 112# bmi = 118 NPO (# of Hours): MNoc - HEENT Pupil (Motor): Pupils equal, EOMI Mallampati: II Teeth: Edentulous Denture Type: Upper: Complete, Lower: Complete Oral Opening: Greater than 3 - 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 LOC: Oriented 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 Lucy Jessica MD
[2018-12-08] MEDS ORDERED: *HR* Metoprolol 5 MG/5 ML VIAL IVP ONE (09:23)
[2018-12-08] MEDS ORDERED: Albuterol 2.5 MG/3 ML NEBULIZER ONE (09:23)
[2018-12-08] MEDS: Tiotropium 18 MCG inhalation IH SCH (09:34)
[2018-12-08] MEDS: Budesonide/Formoterol 160/4.5 1 PUFF INH IH SCH ×2 (09:34→22:53)
--- NOTE | 2018-12-08 09:40 | Anesthesia Evaluation Post Op ---
Date of Encounter: 12/08/18 Time of Encounter: 09:40 - Vital Signs Vital Signs: Vital Signs/O2 Sat/Glucose, Most Recent Temp Pulse Resp BP Pulse Ox 97.7 F 93 18 116/76 99 12/08/18 09:19 12/08/18 09:29 12/08/18 09:29 12/08/18 09:29 12/08/18 09:29 Blood Glucose* 130 - Lungs Lungs: Clear Ascult./Percussion - Airway Airway: Non-obstructed - Cardiovascular Regular Rate - Mental Status Mental Status: Alert & Oriented, Answers Appropriately - Pain Pain Scale: 0 - Nausea Vomiting Nausea Vomiting: Not Present - Hydration Hydration: Tolerates oral liquids - Discharge PostOp Status: Transfer Patient to floor
[2018-12-08] MEDS: ALPRAZolam 0.5 MG TABLET PO SCH ×2 (10:02→21:12)
[2018-12-08] MEDS: Aspirin 81 MG TAB.CHEW PO SCH (10:02)
[2018-12-08] MEDS: Mirtazapine 15 MG TABLET PO SCH ×2 (10:02→21:12)
--- NOTE | 2018-12-08 13:03 | Discharge Summary ---
- NOTES TO OUTPATIENT PROVIDER Notes to Outpatient Provider: f/u with PCP in one week. f/u with Pulmonary in 1-2 weeks. Please quit smoking. Please use BiPAP at night time and as needed during day time for SOB Orders not resulted at time of discharge: Pending orders 12/05/18 16:50 Culture,Sputum with Gram Stain [RM] Routine Legionella Antigen [RM] Routine S. Pneumoniae Antigen [RM] Routine 12/06/18 06:00 ECG 12 lead ECG [ECG] AM 0600 12/07/18 12:21 Legionella Antigen [RM] Stat 12/08/18 08:52 AFB Culture, Respiratory [TB] Routine AFB Culture, Respiratory [TB] Routine Cell Count w Diff, Body Fluid [BF] Routine Culture,Respiratory [RM] Routine Culture,Respiratory [RM] Routine Fungal Culture [MYC] Routine Fungal Culture [MYC] Routine Gram Stain [RM] Routine Gram Stain [RM] Routine 12/08/18 09:19 Cytology [PTH] Routine 12/09/18 04:00 CBC [Complete Blood Count] [HEME] AM 0400 Date of Encounter: 12/11/18 Time of Encounter: 10:24 - Discharge Diagnosis (1) Pneumonia due to Pseudomonas Priority: Secondary Status: Acute Qualifiers: Laterality: unspecified laterality Lung location: unspecified part of lung Qualified Code(s): J15.1 - Pneumonia due to Pseudomonas (2) Bronchiectasis Priority: Primary Status: Acute Qualifiers: Bronchiectasis type: with acute exacerbation Qualified Code(s): J47.1 - Bronchiectasis with (acute) exacerbation (3) Bronchitis Priority: Primary Status: Acute (4) COPD with exacerbation Priority: Primary Status: Acute (5) Chronic respiratory failure with hypoxia and hypercapnia Priority: Secondary Status: Chronic (6) Chest pain Priority: Secondary Status: Acute Qualifiers: Chest pain type: unspecified Qualified Code(s): R07.9 - Chest pain, unspecified (7) Coronary artery disease Priority: Secondary Status: Chronic Qualifiers: Coronary Disease-Associated Artery/Lesion type: [place] artery [place] vs. transplanted heart: [place] heart Associated angina: with unstable angina Qualified Code(s): I25.110 - Atherosclerotic heart disease of [place] coronary artery with unstable angina pectoris (8) GERD (gastroesophageal reflux disease) Priority: Secondary Status: Acute Qualifiers: Esophagitis presence: without esophagitis Qualified Code(s): K21.9 - Gastro-esophageal reflux disease without esophagitis (9) Anxiety Priority: Secondary Status: Chronic (10) Hypertension Priority: Secondary Status: Chronic Qualifiers: Hypertension type: essential hypertension Qualified Code(s): I10 - Essential (primary) hypertension (11) Anemia Priority: Secondary Status: Chronic Qualifiers: Anemia type: unspecified type Qualified Code(s): D64.9 - Anemia, unspecified (12) Hyponatremia Priority: Secondary Status: Acute (13) Failure to thrive Priority: Secondary Status: Acute Qualifiers: Failure to thrive age range: in adult Qualified Code(s): R62.7 - Adult failure to thrive (14) Protein-calorie malnutrition, severe Priority: Secondary Status: Acute Hospital course: Ms. Honeycutt is a 58 y/o F with known history of end stage COPD, chronic hypoxic spray failure, chronic tobacco dependence, CAD, anxiety and paroxysmal a fib patient presented to ER complaining about a progressively worsening shortness of breath, cough with expectoration and chest pain. She did have acute on chronic hypoxic as well as hypercapneic Respiratory failure. Pt was admitted in the hospital and started her on empirical abx Levaquinn and high dose IV steroids. Pt was evalutaed by Pulmonary who did bronchoscope to perform BAL. Her bronchial lavage grew Pseudomonas. So we continued IV Levaquin. She did qualify for BiPAP due to her acute on chronic hypercapnea resp failure. Due to her recurrent hospitalizations with COPD exacerbations and rapidly deteriorating lung codition due to advanced COPD pt's PCP was trying to set up for palliative care as an outpatient. So we consulted [facility], who evaluated the pt here and agreed with home hospice care. So will dc her home in stable condition today with PO steroids, and PO Levaquin for 5 more days. - Time Spent with Patient Total time spent providing and/or coordinating discharge services: - Discharge Medications Prescriptions: New levoFLOXacin [Levaquin] 750 mg PO DAILY #5 tablet predniSONE [PredniSONE] 40 mg PO DAILY #10 tablet Continued Nitroglycerin [Nitrostat] 0.4 mg SL Q5M PRN PRN Reason: Chest Pain ALPRAZolam [Xanax 0.5 MG Tablet] 0.5 mg PO BID Mirtazapine 15 mg PO BID Albuterol Sulfate [Ventolin Hfa] 2 puff IH Q4H PRN PRN Reason: Shortness Of Breath Mometasone/Formoterol [Dulera 200 Mcg/5 Mcg Inhaler] 2 puff IH BID PRN PRN Reason: Shortness Of Breath Tiotropium [place] [Spiriva Respimat] 1 puff IH DAILY Metoclopramide [Reglan] 10 mg PO Q6H PRN PRN Reason: Nausea Metoprolol [Lopressor] 12.5 mg PO DAILY Ipratropium/Albuterol Neb [Duoneb] 3 ml IH Q4H PRN PRN Reason: Wheezing/SOB Aspirin [Adult Aspirin Regimen] 81 mg PO DAILY Atorvastatin [Lipitor] 40 mg PO HS Oxygen 3 l IH CONT #0 Clopidogrel [Plavix] 75 mg PO DAILY Omeprazole [PriLOSEC] 20 mg PO DAILY Buspirone HCl [Buspar] 15 mg PO BID Home Medications: Nitroglycerin [Nitrostat] 0.4 mg SL Q5M PRN 05/29/16 [History] ALPRAZolam [Xanax 0.5 MG Tablet] 0.5 mg PO BID 03/09/18 [History] Mirtazapine 15 mg PO BID 03/12/18 [History] Albuterol Sulfate [Ventolin Hfa] 2 puff IH Q4H PRN 08/17/18 [History] Metoclopramide [Reglan] 10 mg PO Q6H PRN 08/17/18 [History] Mometasone/Formoterol [Dulera 200 Mcg/5 Mcg Inhaler] 2 puff IH BID PRN 08/17/18 [History] Tiotropium [place] [Spiriva Respimat] 1 puff IH DAILY 08/17/18 [History] Metoprolol [Lopressor] 12.5 mg PO DAILY 09/17/18 [History] Ipratropium/Albuterol Neb [Duoneb] 3 ml IH Q4H PRN 09/18/18 [History] Aspirin [Adult Aspirin Regimen] 81 mg PO DAILY 10/08/18 [History] Atorvastatin [Lipitor] 40 mg PO HS 10/08/18 [History] Oxygen 3 l IH CONT #0 10/14/18 [Rx] Clopidogrel [Plavix] 75 mg PO DAILY 12/05/18 [History] Omeprazole [PriLOSEC] 20 mg PO DAILY 12/05/18 [History] Buspirone HCl [Buspar] 15 mg PO BID 12/07/18 [History] levoFLOXacin [Levaquin] 750 mg PO DAILY #5 tablet 12/11/18 [Rx] predniSONE [PredniSONE] 40 mg PO DAILY #10 tablet 12/11/18 [Rx] Allergies/Adverse Reactions: Allergy/AdvReac Type Severity Reaction Status Date / Time codeine Allergy NAUSEA, Verified 12/07/18 13:28 VOMITING, HIVES Date of admission: 12/07/18 13:36 Primary care physician: Ariana Frost DO Consults: 12/05/18 16:50 Consult to Nurse Navigator [CONS] Routine Comment: COPD 12/07/18 12:13 Consult to Pulmonology [CONS] Routine Consulting Provider: [facility] [address] Reason for Consult: Acute COPD exacerbation Time Notified: 12:15 Call Completed: Yes - Constitutional Vitals: Temp Pulse Resp BP Pulse Ox 97.8 F 82 16 110/66 96 12/08/18 11:33 12/08/18 11:33 12/08/18 11:33 12/08/18 11:33 12/08/18 11:33 General appearance: Present: A&O X 3 Exam: Gen: Alert, awake, Oriented to time,place and person Chest: Diminished breath sounds B/L, Mild wheezing, ronchi+, Coarse tubular BS + b/l, Heart: S1S2+ RRR No murmurs Abd: Soft, NT, BS +, No organomegaly Ext: No edema, pulses are palpable, No calf tenderness Neuro : No acute focal neuro deficits noticed Skin: No rash. - Patient Status Disposition: Hospice - Home Condition: Good Overall status at discharge: patient is back to baseline - Discharge Instructions Follow Up With: Ariana Frost DO [Primary Care Provider] - 12/14/18 3:20 pm () Sejal Muir MD [Partnered Physician] - (Appointment has been requsted.) - Diet and Activity Activity: increase activity as tolerated, wear oxygen at all times Diet: low salt diet
--- NOTE | 2018-12-08 13:07 | Internal Med Progress Note ---
Hospitalist Progress Note - Encounter Date of Encounter: 12/08/18 Time of Encounter: 13:03 - Subjective Interval History: Ms. Honeycutt is a 58 y/o F with known history of end stage COPD, chronic hypoxic spray failure, chronic tobacco dependence, CAD, anxiety and paroxysmal a fib patient presented to ER complaining about a progressively worsening shortness of breath, cough with expectoration and chest pain. She did have acute on chronic hypoxic as well as hypercapneic Respiratory failure. Pt was admitted in the hospital and started her on empirical abx Levaquinn and high dose IV steroids. Pt was evalutaed by Pulmonary who did bronchoscope this morning to perform BAL. Pt is resting comfortably now. She still c.o moderate SOB and FUENTES, however overall feels better after bronch. - Exam Vitals: Temp Pulse Resp BP Pulse Ox 97.8 F 82 16 110/66 96 12/08/18 11:33 12/08/18 11:33 12/08/18 11:33 12/08/18 11:33 12/08/18 11:33 Exam: Gen: Alert, awake, Oriented to time,place and person Chest: Diminished breath sounds B/L, Moderate wheezing, ronchi++, Coarse tubular BS ++ b/l, Heart: S1S2+ RRR No murmurs Abd: Soft, NT, BS +, No organomegaly Ext: No edema, pulses are palpable, No calf tenderness Neuro : No acute focal neuro deficits noticed Skin: No rash. - Assessment and Plan (1) Bronchiectasis Current Visit: Yes Status: Acute Assessment and Plan: Concerning for bronchiectasis Improving Start tapering IV steroids Reviewed CT of Chest cont empirical abx Levaquin. Pulmonary added broad spec abx Zosyn (2) Bronchitis Current Visit: Yes Status: Acute Assessment and Plan: Purulent bronchitis started on empirical abx Levaquin and Zosyn added today for broad spec coverage will f/u on Sputum cx - so far G-ve rods noticed (3) COPD with exacerbation Current Visit: Yes Status: Acute Assessment and Plan: Slowly improving start tapering IV steroids. Solumedrol 40 Q8hr cont Duoneb cont Symbicort Cont empirical abx Levaquin + zosyn (4) Chronic respiratory failure with hypoxia and hypercapnia Current Visit: No Status: Chronic Assessment and Plan: She does have acute on chronic hypercapena due to her advanced COPD Her condition rapidly deteriorating too pt would like to talk to palliative care team during this hospitalization she would get benefit with BiPAP / Non invasive positive pressure ventilation [place] hospice consulted (5) Chest pain Current Visit: Yes Status: Acute Assessment and Plan: atypical due to COPD exacerbation / Bronchieactasis Serial trop x 3 negative no acute EKG changes (6) Coronary artery disease Current Visit: No Status: Chronic Assessment and Plan: continue home medication. (7) GERD (gastroesophageal reflux disease) Current Visit: No Status: Acute Assessment and Plan: continue proton pump inhibitors. (8) Anxiety Current Visit: No Status: Chronic Assessment and Plan: resumed home meds Xanax (9) Hypertension Current Visit: No Status: Chronic Assessment and Plan: Cont home meds Stable BP (10) Anemia Current Visit: No Status: Chronic Assessment and Plan: Chronic anemia stable Hb @ 9.7 no need of transfusion now (11) Failure to thrive Current Visit: Yes Status: Acute (12) Protein-calorie malnutrition, severe Current Visit: Yes Status: Acute Assessment and Plan: prealbumin level @ 21.7 nutrition consulted - Time Spent with Patient Total time spent is greater than 50% in coordination of care (as documented) at patient's floor/unit and/or counseling patient: Internal Medicine: Result - Labs CBC & Chem 7: 12/08/18 02:26 12/08/18 02:26 Labs: Short CBC 12/08/18 Range/Units 02:26 WBC 13.9 H (4.3-11.1) K/mcL Hgb 9.7 L (11.5-15.4) g/dL Hct 33.1 L (35.3-44.9) % Plt Count 434 H (140-400) K/mcL Neutrophils # 13.1 H (1.6-8.9) K/mcL BMP 12/08/18 02:26 Sodium 139 Potassium 3.9 Chloride 98 Carbon Dioxide 36 H BUN 14 Creatinine 0.50 L Glucose 145 H Calcium 9.0 - ABG Interpretation ABG results: ABG ABG pH 7.37 pH Units (7.32-7.45) 12/06/18 10:50 ABG pCO2 78 mmHg (35-45) H* 12/06/18 10:50 ABG pO2 61 mmHg (85-104) L 12/06/18 10:50 ABG O2 Saturation 88 % (95-98) L 12/06/18 10:50 PT/INR, D-dimer PT 10.5 Seconds (9.4-12.1) 12/06/18 02:23 < 215 ng/mLFEU (0-500) 12/05/18 10:30 - Impressions Impressions Chest CT 12/07/18 13:30 IMPRESSION: No acute intrathoracic abnormality. Moderate emphysematous changes. D/ / Gustavo Lantigua MD / Gustavo Lantigua MD Interpreting Provider: Gustavo Lantigua MD Consult Discharge Plan - Plan Referrals: Ariana Frost DO [Primary Care Provider] - 12/14/18 3:20 pm () Sejal Muir MD [Partnered Physician] - (Appointment has been requsted.) (5) Chest pain Qualifiers: Chest pain type: unspecified Qualified Code(s): R07.9 - Chest pain, unspecified (6) Coronary artery disease Qualifiers: Coronary Disease-Associated Artery/Lesion type: [place] artery [place] vs. transplanted heart: [place] heart Associated angina: with unstable angina Qualified Code(s): I25.110 - Atherosclerotic heart disease of [place] coronary artery with unstable angina pectoris (7) GERD (gastroesophageal reflux disease) Qualifiers: Esophagitis presence: without esophagitis (9) Hypertension Qualifiers: Hypertension type: essential hypertension Qualified Code(s): I10 - Essential (primary) hypertension (10) Anemia Qualifiers: Anemia type: unspecified type Qualified Code(s): D64.9 - Anemia, unspecified
--- NOTE | 2018-12-08 14:36 | Pulmonology Progress Note ---
Date of Encounter: 12/08/18 Time of Encounter: 09:00 Assessment and Plan (1) Acute and chronic respiratory failure Current Visit: Yes Status: Acute Most likely due to acute exacerbation of chronic bronchitis continue with bronchodilators and steroids and discharged home she make sure she goes with incentive spirometry , Accu PAP . With her home bronchodilator regimen Qualifiers: Respiratory failure complication: hypoxia and hypercapnia Qualified Code(s): J96.21 - Acute and chronic respiratory failure with hypoxia; J96.22 - Acute and chronic respiratory failure with hypercapnia (2) Acute exacerbation of chronic obstructive airways disease Current Visit: Yes Status: Acute To continue with bronchodilators and steroids patient will need to 2 week steroid taper. To send her home on her outpatient bronchodilator regimen. Subjective Principal diagnosis: Acute exacerbation of COPD Interval history: Patient presenting with acute exacerbation of COPD with lot of secretion which take and patient cannot cough it out. Patient underwent bronchoscopy today morning which showed thick Mucoid . secretion most on the left lower lobe and the left mainstem bronchus. Doubt this will be infectious looks like her routine chronic bronchitis exacerbation Objective PUL Vital signs: Last Vital Signs Temp 97.8 F 12/08/18 11:33 Pulse 82 12/08/18 11:33 Resp 16 12/08/18 11:33 BP 110/66 12/08/18 11:33 Pulse Ox 96 12/08/18 11:33 General appearance: no acute distress ENT: oropharynx moist Neck: supple Effort: normal Auscultation: bilateral: rales (Minimal scattered rales most on the left side) Cardiovascular: regular rate and rhythm Gastrointestinal: normoactive bowel sounds Extremities: no cyanosis normal mental status, non-focal exam mood appropriate Results - Laboratory Findings CBC and BMP: 12/08/18 02:26 12/08/18 02:26 ABG ABG pH 7.37 pH Units (7.32-7.45) 12/06/18 10:50 ABG pCO2 78 mmHg (35-45) H* 12/06/18 10:50 ABG pO2 61 mmHg (85-104) L 12/06/18 10:50 ABG O2 Saturation 88 % (95-98) L 12/06/18 10:50 PT/INR, D-dimer PT 10.5 Seconds (9.4-12.1) 12/06/18 02:23 < 215 ng/mLFEU (0-500) 12/05/18 10:30 Abnormal lab findings: Abnormal lab results WBC 13.9 K/mcL (4.3-11.1) H 12/08/18 02:26 RBC 3.73 M/mcL (3.82-4.97) L 12/08/18 02:26 Hgb 9.7 g/dL (11.5-15.4) L 12/08/18 02:26 Hct 33.1 % (35.3-44.9) L 12/08/18 02:26 MCH 26.0 pg (28.0-33.3) L 12/08/18 02:26 MCHC 29.3 g/dL (31.6-35.5) L 12/08/18 02:26 RDW 20.0 % (11.5-14.5) H 12/08/18 02:26 Plt Count 434 K/mcL (140-400) H 12/08/18 02:26 13.1 K/mcL (1.6-8.9) H 12/08/18 02:26 0.4 K/mcL (0.6-4.6) L 12/08/18 02:26 ABG pCO2 78 mmHg (35-45) H* 12/06/18 10:50 ABG pO2 61 mmHg (85-104) L 12/06/18 10:50 ABG HCO3 45 mEq/L (21-27) H 12/06/18 10:50 ABG Total CO2 47 mEq/L (20-26) H 12/06/18 10:50 ABG O2 Saturation 88 % (95-98) L 12/06/18 10:50 ABG Base Excess 16 mEq/L (-2 to 3) H 12/06/18 10:50 Sodium 135 mEq/L (136-145) L 12/05/18 10:30 Chloride 95 mEq/L (98-107) L 12/07/18 07:07 Carbon Dioxide 36 mEq/L (23-29) H 12/08/18 02:26 BUN 5 mg/dL (6-20) L 12/05/18 10:30 0.50 mg/dL (0.60-1.20) L 12/08/18 02:26 28 (6-26) H 12/08/18 02:26 Glucose 145 mg/dL (70-105) H 12/08/18 02:26 POC Glucose 134 mg/dL (70-99) H 12/07/18 23:30 277 (280-300) L 12/05/18 10:30 ALT 6 Units/L (7-52) L 12/06/18 02:23 B-Natriuretic Peptide 100 pg/mL (Less than 100) H 12/07/18 12:52 92 mg/dL (40-59) H 12/06/18 02:23 - Microbiology Findings Microbiology Findings: Microbiology, Last 48 Hours 12/07/18 11:45 Sputum Culture - Preliminary Sputum Gram Negative Luis - Clinical Findings Intake & Output: Intake & Output 12/07/18 12/08/18 12/08/18 23:59 07:59 15:59 Intake Total 220 / 730 100 / 100 Output Total 800 / 800 900 / 900 Balance -580 / -70 100 / -800 -900 / -800 Weight 51 kg Consult Discharge Plan - Plan Referrals: Ariana Frost DO [Primary Care Provider] - 12/14/18 3:20 pm () Sejal Muir MD [Partnered Physician] - (Appointment has been requsted.)
[2018-12-08] MEDS: *HR* HYDROcodone/Acet 5/325 mg TABLET PO PRN ×2 (16:42→23:32)
[2018-12-08 19:57] LABS: Appearance of Body Fluid Clear (Clear); Volume of Body Fluid 11 mL
[2018-12-09 02:48] LABS: Hematocrit 34.8 % (35.3-44.9); Hemoglobin 10.1 g/dL (11.5-15.4); Immature Granulocytes % 0.4 % (0-4); Lymphocytes # 0.5 K/mcL (0.6-4.6); Lymphocytes % 3.2 %; Mean Corpuscular Hemoglobin 26.1 pg (28.0-33.3); Mean Corpuscular Volume 89.9 fL (83.0-100.0); Mean Platelet Volume 9.6 fL (9.4-12.4); Neutrophils # 12.9 K/mcL (1.6-8.9); Platelet Count 447 K/mcL (140-400); Red Blood Count 3.87 M/mcL (3.82-4.97); Red Cell Distribution Width 19.8 % (11.5-14.5); Segmented Neutrophils % 89.4 %; White Blood Count 14.5 K/mcL (4.3-11.1)
[2018-12-09] MEDS: Ipratropium/Albuterol Neb 3 ML IH SCH ×4 (04:26→23:13)
[2018-12-09] MEDS: *HR* Heparin 5,000 UNIT/ML VIAL SQ SCH ×2 (05:42→18:20)
[2018-12-09] MEDS: levoFLOXacin 750 MG/150 ML 750 MG/150 ML BAG IVPB SCH (07:45)
[2018-12-09] MEDS: MethylPREDNISolone 40 MG/ML VIAL IVP SCH ×2 (07:45→18:20)
[2018-12-09] MEDS: *HR* HYDROcodone/Acet 5/325 mg TABLET PO PRN ×3 (07:50→22:46)
[2018-12-09] MEDS: Aspirin 81 MG TAB.CHEW PO SCH (07:51)
[2018-12-09] MEDS: Mirtazapine 15 MG TABLET PO SCH ×2 (07:51→21:23)
[2018-12-09] MEDS: ALPRAZolam 0.5 MG TABLET PO SCH ×2 (07:51→21:23)
[2018-12-09] MEDS: Budesonide/Formoterol 160/4.5 1 PUFF INH IH SCH ×2 (10:55→23:13)
[2018-12-09] MEDS: Tiotropium 18 MCG inhalation IH SCH (10:57)
[2018-12-09] MEDS ORDERED: Piperacillin/Tazobactam 3.375 GM in 0.9 % Sodium Chloride Mini Bag 100 ML IVPB SCH (11:00)
--- NOTE | 2018-12-09 13:34 | Internal Med Progress Note ---
Hospitalist Progress Note - Encounter Date of Encounter: 12/09/18 Time of Encounter: 11:30 - Subjective Interval History: Pt was seen and examined at bed side. Pt stated she is feeling little better today Still having cough with expectoration She still has moderate SOB and FUENTES - Exam Vitals: Temp Pulse Resp BP Pulse Ox 97.8 F 77 16 96/64 100 12/09/18 11:02 12/09/18 11:02 12/09/18 11:02 12/09/18 11:02 12/09/18 11:02 Exam: Gen: Alert, awake, Oriented to time,place and person Chest: Diminished breath sounds B/L, Moderate wheezing, ronchi++, Coarse tubular BS ++ b/l, Heart: S1S2+ RRR No murmurs Abd: Soft, NT, BS +, No organomegaly Ext: No edema, pulses are palpable, No calf tenderness Neuro : No acute focal neuro deficits noticed Skin: No rash. - Assessment and Plan (1) Pneumonia due to Pseudomonas Current Visit: Yes Status: Acute Assessment and Plan: Her BAL cx - growing pseudomonas Sensitive to Levaquin so cont Levaquin for now Since pt still has severe symptoms , cont IV Abx (2) Bronchiectasis Current Visit: Yes Status: Acute Assessment and Plan: Concerning for bronchiectasis Improving Start tapering IV steroids Reviewed CT of Chest cont empirical abx Levaquin. Pulmonary added broad spec abx Zosyn (3) Bronchitis Current Visit: Yes Status: Acute Assessment and Plan: Purulent bronchitis cont Levaquin Sputum cx - Pseudomonas (4) COPD with exacerbation Current Visit: Yes Status: Acute Assessment and Plan: Slowly improving start tapering IV steroids. Solumedrol 40 Q8hr cont Duoneb cont Symbicort Cont empirical abx Levaquin (5) Chronic respiratory failure with hypoxia and hypercapnia Current Visit: No Status: Chronic Assessment and Plan: She does have acute on chronic hypercapena due to her advanced COPD Her condition rapidly deteriorating too pt would like to talk to palliative care team during this hospitalization she would get benefit with BiPAP / Non invasive positive pressure ventilation [place] hosp[facility] consulted (6) Chest pain Current Visit: Yes Status: Acute Assessment and Plan: atypical due to COPD exacerbation / Bronchieactasis Serial trop x 3 negative no acute EKG changes (7) Coronary artery disease Current Visit: No Status: Chronic Assessment and Plan: continue home medication. (8) GERD (gastroesophageal reflux disease) Current Visit: No Status: Acute Assessment and Plan: continue proton pump inhibitors. (9) Anxiety Current Visit: No Status: Chronic Assessment and Plan: resumed home meds Xanax (10) Hypertension Current Visit: No Status: Chronic Assessment and Plan: Cont home meds Stable BP (11) Anemia Current Visit: No Status: Chronic Assessment and Plan: Chronic anemia stable Hb @ 9.7 no need of transfusion now (12) Failure to thrive Current Visit: Yes Status: Acute (13) Protein-calorie malnutrition, severe Current Visit: Yes Status: Acute Assessment and Plan: prealbumin level @ 21.7 nutrition consulted - Time Spent with Patient Total time spent is greater than 50% in coordination of care (as documented) at patient's floor/unit and/or counseling patient: Internal Medicine: Result - Labs CBC & Chem 7: 12/09/18 02:13 12/08/18 02:26 Labs: Short CBC 12/09/18 Range/Units 02:13 WBC 14.5 H (4.3-11.1) K/mcL Hgb 10.1 L (11.5-15.4) g/dL Hct 34.8 L (35.3-44.9) % Plt Count 447 H (140-400) K/mcL Neutrophils # 12.9 H (1.6-8.9) K/mcL - ABG Interpretation ABG results: ABG ABG pH 7.37 pH Units (7.32-7.45) 12/06/18 10:50 ABG pCO2 78 mmHg (35-45) H* 12/06/18 10:50 ABG pO2 61 mmHg (85-104) L 12/06/18 10:50 ABG O2 Saturation 88 % (95-98) L 12/06/18 10:50 PT/INR, D-dimer PT 10.5 Seconds (9.4-12.1) 12/06/18 02:23 < 215 ng/mLFEU (0-500) 12/05/18 10:30 Consult Discharge Plan - Plan Referrals: Ariana Frost DO [Primary Care Provider] - 12/14/18 3:20 pm () Sejal Muir MD [Partnered Physician] - (Appointment has been requsted.) (1) Pneumonia due to Pseudomonas Qualifiers: Laterality: unspecified laterality Lung location: unspecified part of lung Qualified Code(s): J15.1 - Pneumonia due to Pseudomonas (6) Chest pain Qualifiers: Chest pain type: unspecified Qualified Code(s): R07.9 - Chest pain, unspecified (7) Coronary artery disease Qualifiers: Coronary Disease-Associated Artery/Lesion type: [place] artery [place] vs. transplanted heart: [place] heart Associated angina: with unstable angina Qualified Code(s): I25.110 - Atherosclerotic heart disease of [place] coronary artery with unstable angina pectoris (8) GERD (gastroesophageal reflux disease) Qualifiers: Esophagitis presence: without esophagitis (10) Hypertension Qualifiers: Hypertension type: essential hypertension Qualified Code(s): I10 - Essential (primary) hypertension (11) Anemia Qualifiers: Anemia type: unspecified type Qualified Code(s): D64.9 - Anemia, unspecified
[2018-12-09] MEDS: Piperacillin/Tazobactam 3.375 GM in 0.9 % Sodium Chloride Mini Bag 100 ML IVPB SCH (23:06)
[2018-12-10 02:09] LABS: Hematocrit 33.6 % (35.3-44.9); Hemoglobin 9.9 g/dL (11.5-15.4); Mean Corpuscular HGB Conc 29.5 g/dL (31.6-35.5); Mean Corpuscular Hemoglobin 25.8 pg (28.0-33.3); Mean Corpuscular Volume 87.7 fL (83.0-100.0); Mean Platelet Volume 9.2 fL (9.4-12.4); Platelet Count 439 K/mcL (140-400); Red Blood Count 3.83 M/mcL (3.82-4.97); Red Cell Distribution Width 19.7 % (11.5-14.5); White Blood Count 11.9 K/mcL (4.3-11.1)
[2018-12-10] MEDS: Ipratropium/Albuterol Neb 3 ML IH SCH ×4 (04:02→21:51)
[2018-12-10] MEDS: MethylPREDNISolone 40 MG/ML VIAL IVP SCH (05:17)
[2018-12-10] MEDS: *HR* Heparin 5,000 UNIT/ML VIAL SQ SCH ×2 (05:17→16:15)
[2018-12-10] MEDS: *HR* HYDROcodone/Acet 5/325 mg TABLET PO PRN ×3 (05:53→22:42)
[2018-12-10] MEDS: Tiotropium 18 MCG inhalation IH SCH (07:28)
[2018-12-10] MEDS: Aspirin 81 MG TAB.CHEW PO SCH (07:31)
[2018-12-10] MEDS: levoFLOXacin 750 MG/150 ML 750 MG/150 ML BAG IVPB SCH (07:31)
[2018-12-10] MEDS: Mirtazapine 15 MG TABLET PO SCH ×2 (07:31→21:22)
[2018-12-10] MEDS: ALPRAZolam 0.5 MG TABLET PO SCH ×2 (07:31→21:22)
[2018-12-10] MEDS: Budesonide/Formoterol 160/4.5 1 PUFF INH IH SCH ×2 (10:40→21:51)
--- NOTE | 2018-12-10 13:11 | Internal Med Progress Note ---
Hospitalist Progress Note - Encounter Date of Encounter: 12/10/18 Time of Encounter: 11:00 - Subjective Interval History: Pt was seen and examined at bed side. Pt stated she is feeling little better today Still having cough with expectoration Her SOB and FUENTES are better today No events over night - Exam Vitals: Temp Pulse Resp BP Pulse Ox 98.3 F 86 15 109/67 97 12/10/18 11:01 12/10/18 11:01 12/10/18 11:01 12/10/18 11:01 12/10/18 11:01 Exam: Gen: Alert, awake, Oriented to time,place and person Chest: Diminished breath sounds B/L, Moderate wheezing, ronchi+, Coarse tubular BS + b/l, Heart: S1S2+ RRR No murmurs Abd: Soft, NT, BS +, No organomegaly Ext: No edema, pulses are palpable, No calf tenderness Neuro : No acute focal neuro deficits noticed Skin: No rash. - Assessment and Plan (1) Pneumonia due to Pseudomonas Current Visit: Yes Status: Acute Assessment and Plan: Her BAL cx - growing pseudomonas Sensitive to Levaquin so cont Levaquin for now Will switch to PO Levaquin in AM (2) Bronchiectasis Current Visit: Yes Status: Acute Assessment and Plan: Concerning for bronchiectasis Improving Cont tapering IV steroids Reviewed CT of Chest cont empirical abx Levaquin (3) Bronchitis Current Visit: Yes Status: Acute Assessment and Plan: Purulent bronchitis cont Levaquin Sputum cx - Pseudomonas (4) COPD with exacerbation Current Visit: Yes Status: Acute Assessment and Plan: Slowly improving start tapering IV steroids. Solumedrol 40 Q daily cont Duoneb cont Symbicort Cont empirical abx Levaquin (5) Chronic respiratory failure with hypoxia and hypercapnia Current Visit: No Status: Chronic Assessment and Plan: She does have acute on chronic hypercapena due to her advanced COPD Use BiPAP at night time Will d/c her home in AM with [facility] hospice (6) Chest pain Current Visit: Yes Status: Acute Assessment and Plan: atypical due to COPD exacerbation / Bronchieactasis Serial trop x 3 negative no acute EKG changes (7) Coronary artery disease Current Visit: No Status: Chronic Assessment and Plan: continue home medication. (8) GERD (gastroesophageal reflux disease) Current Visit: No Status: Acute Assessment and Plan: continue proton pump inhibitors. (9) Anxiety Current Visit: No Status: Chronic Assessment and Plan: cont home meds Xanax (10) Hypertension Current Visit: No Status: Chronic Assessment and Plan: Cont home meds Stable BP (11) Anemia Current Visit: No Status: Chronic Assessment and Plan: Chronic anemia stable Hb @ 9.9 no need of transfusion now (12) Failure to thrive Current Visit: Yes Status: Acute (13) Protein-calorie malnutrition, severe Current Visit: Yes Status: Acute Assessment and Plan: prealbumin level @ 21.7 nutrition consulted - Time Spent with Patient Total time spent is greater than 50% in coordination of care (as documented) at patient's floor/unit and/or counseling patient: Internal Medicine: Result - Labs CBC & Chem 7: 12/10/18 01:53 12/08/18 02:26 Labs: Short CBC 12/10/18 Range/Units 01:53 WBC 11.9 H (4.3-11.1) K/mcL Hgb 9.9 L (11.5-15.4) g/dL Hct 33.6 L (35.3-44.9) % Plt Count 439 H (140-400) K/mcL - ABG Interpretation ABG results: ABG ABG pH 7.37 pH Units (7.32-7.45) 12/06/18 10:50 ABG pCO2 78 mmHg (35-45) H* 12/06/18 10:50 ABG pO2 61 mmHg (85-104) L 12/06/18 10:50 ABG O2 Saturation 88 % (95-98) L 12/06/18 10:50 PT/INR, D-dimer PT 10.5 Seconds (9.4-12.1) 12/06/18 02:23 < 215 ng/mLFEU (0-500) 12/05/18 10:30 Consult Discharge Plan - Plan Referrals: Ariana Frost DO [Primary Care Provider] - 12/14/18 3:20 pm () Sejal Muir MD [Partnered Physician] - (Appointment has been requsted.) (1) Pneumonia due to Pseudomonas Qualifiers: Laterality: unspecified laterality Lung location: unspecified part of lung Qualified Code(s): J15.1 - Pneumonia due to Pseudomonas (6) Chest pain Qualifiers: Chest pain type: unspecified Qualified Code(s): R07.9 - Chest pain, unspecified (7) Coronary artery disease Qualifiers: Coronary Disease-Associated Artery/Lesion type: [place] artery [place] vs. transplanted heart: [place] heart Associated angina: with unstable angina Qualified Code(s): I25.110 - Atherosclerotic heart disease of [place] coronary artery with unstable angina pectoris (8) GERD (gastroesophageal reflux disease) Qualifiers: Esophagitis presence: without esophagitis (10) Hypertension Qualifiers: Hypertension type: essential hypertension Qualified Code(s): I10 - Essential (primary) hypertension (11) Anemia Qualifiers: Anemia type: unspecified type Qualified Code(s): D64.9 - Anemia, unspecified
[2018-12-11] MEDS: Ipratropium/Albuterol Neb 3 ML IH SCH ×2 (03:48→10:26)
[2018-12-11] MEDS: *HR* HYDROcodone/Acet 5/325 mg TABLET PO PRN (04:46)
[2018-12-11] MEDS: *HR* Heparin 5,000 UNIT/ML VIAL SQ SCH (04:47)
[2018-12-11 07:21] VITALS: BP 113/69
[2018-12-11] MEDS ORDERED: levoFLOXacin 750 MG TABLET PO SCH (09:00)
[2018-12-11] MEDS ORDERED: MethylPREDNISolone 40 MG/ML VIAL IVP SCH (09:00)
[2018-12-11] MEDS: Aspirin 81 MG TAB.CHEW PO SCH (09:13)
[2018-12-11] MEDS: Mirtazapine 15 MG TABLET PO SCH (09:13)
[2018-12-11] MEDS: ALPRAZolam 0.5 MG TABLET PO SCH (09:14)
[2018-12-11] MEDS: Ondansetron 4 MG/2 ML VIAL IVP PRN (09:37)
[2018-12-11] MEDS: Tiotropium 18 MCG inhalation IH SCH (10:26)
[2018-12-11] MEDS: Budesonide/Formoterol 160/4.5 1 PUFF INH IH SCH (10:26)
--- NOTE | 2018-12-11 12:20 | Physician Discharge Referral ---
Home Health/Hosp Referral Info Transfer to: Home Health, Hospice Provider in Charge Post Discharge: PCP - Diagnosis (1) Pneumonia due to Pseudomonas Status: Acute (2) Bronchiectasis Status: Acute (3) Bronchitis Status: Acute (4) COPD with exacerbation Status: Acute (5) Chronic respiratory failure with hypoxia and hypercapnia Status: Chronic (6) Chest pain Status: Acute (7) Coronary artery disease Status: Chronic (8) GERD (gastroesophageal reflux disease) Status: Acute (9) Anxiety Status: Chronic (10) Hypertension Status: Chronic (11) Anemia Status: Chronic (12) Hyponatremia Status: Acute (13) Failure to thrive Status: Acute (14) Protein-calorie malnutrition, severe Status: Acute - Respiratory Orders Smoking Cessation: Smoking cessation has been advised. For more information, call the [place] Quit Line at 9-259-OVGL-NOW. - Transfer Medications Prescriptions: levoFLOXacin [Levaquin] 750 mg PO DAILY #5 tablet predniSONE [PredniSONE] 40 mg PO DAILY #10 tablet Home Medications: Nitroglycerin [Nitrostat] 0.4 mg SL Q5M PRN 05/29/16 [History] ALPRAZolam [Xanax 0.5 MG Tablet] 0.5 mg PO BID 03/09/18 [History] Mirtazapine 15 mg PO BID 03/12/18 [History] Albuterol Sulfate [Ventolin Hfa] 2 puff IH Q4H PRN 08/17/18 [History] Metoclopramide [Reglan] 10 mg PO Q6H PRN 08/17/18 [History] Mometasone/Formoterol [Dulera 200 Mcg/5 Mcg Inhaler] 2 puff IH BID PRN 08/17/18 [History] Tiotropium [place] [Spiriva Respimat] 1 puff IH DAILY 08/17/18 [History] Metoprolol [Lopressor] 12.5 mg PO DAILY 09/17/18 [History] Ipratropium/Albuterol Neb [Duoneb] 3 ml IH Q4H PRN 09/18/18 [History] Aspirin [Adult Aspirin Regimen] 81 mg PO DAILY 10/08/18 [History] Atorvastatin [Lipitor] 40 mg PO HS 10/08/18 [History] Oxygen 3 l IH CONT #0 10/14/18 [Rx] Clopidogrel [Plavix] 75 mg PO DAILY 12/05/18 [History] Omeprazole [PriLOSEC] 20 mg PO DAILY 12/05/18 [History] Buspirone HCl [Buspar] 15 mg PO BID 12/07/18 [History] levoFLOXacin [Levaquin] 750 mg PO DAILY #5 tablet 12/11/18 [Rx] predniSONE [PredniSONE] 40 mg PO DAILY #10 tablet 12/11/18 [Rx] Allergies/Adverse Reactions: Allergy/AdvReac Type Severity Reaction Status Date / Time codeine Allergy NAUSEA, Verified 12/07/18 13:28 VOMITING, HIVES Certification: Further, I certify that my clinical findings support that this patient is homebound (i.e. absences from home require considerable and taxing effort and are for medical reasons or adventism services or infrequently or short duration when for other reasons) because: Homebound Reason: Patient requires assistance of a person or device to safely leave home Attestation: My signature below is to certify that this patient is under my care and that I, or nurse practitioner, or a physician's family readiness support assistant working with me, has a [id number] encounter with this patient.
== END 2018-12-11 12:46 | disposition hospice, home (50) | DRG 137 ==
LOC: 3BNU 09:58 → EMEROOARM 09:58 → SUATTDRO 13:17 → 3BNU 14:03
PROVIDERS: ADMIT Internal Medicine Nephrology; ATTEND Family Medicine

== ENCOUNTER 2019-01-21 12:13 | Inpatient (IN) ==
--- NOTE | 2019-01-21 12:21 | Emergency Department Note ---
Disposition Clinical Impression: Tachycardia, COPD exacerbation Chest pain Qualifiers: Chest pain type: unspecified Qualified Code(s): R07.9 - Chest pain, unspecified Dyspnea Qualifiers: Dyspnea type: unspecified Qualified Code(s): R06.00 - Dyspnea, unspecified Anemia Qualifiers: Anemia type: unspecified type Qualified Code(s): D64.9 - Anemia, unspecified Disposition: Admitted As Inpatient Condition: Undetermined Referrals: NONE,PCP [Primary Care Provider] - Forms: ED Satisfaction Letter Time of Disposition: 14:02 Chest Pain HPI - General Chief Complaint: ED Chest Pain Stated Complaint: cp, sob Time Seen by Provider: 01/21/19 12:18 Source: patient Mode of arrival: private vehicle Limitations: no limitations Vital Signs Reviewed: Yes Nursing Notes Reviewed: Yes - History of Present Illness HPI Narrative: Patient is a 58-year-old female with a past medical history including 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 The patient states she was admitted with similar symptoms in November. She was admitted on December 07 and had acute respiratory failure requiring BiPAP. She was found to have pseudomonal pneumonia and was treated with Levaquin and steroids. She was evaluated by [facility]. The patient states she has not decided whether or not she wants to be in [facility] currently she is not hospice. She states she is DNR DNI. She states for the past 3 days, her shortness of breath is progressively worsening. It worsens with exertion. She complains of a productive cough that is worse than her baseline. She states she has substernal chest pain that is pressure like and radiates into her right chest that is intermittent since yesterday. She denies fevers or chills, abdominal pain, nausea or vomiting, lower extremity swelling. She denies history of blood clots. - Related Data Home Medications Medication Instructions Recorded Confirmed Nitroglycerin [Nitrostat] 0.4 mg SL Q5M PRN 05/29/16 12/07/18 ALPRAZolam [Xanax 0.5 MG Tablet] 0.5 mg PO BID 03/09/18 12/07/18 Mirtazapine 15 mg PO BID 03/12/18 12/07/18 Albuterol Sulfate [Ventolin Hfa] 2 puff IH Q4H PRN 08/17/18 12/07/18 Metoclopramide [Reglan] 10 mg PO Q6H PRN 08/17/18 12/07/18 Mometasone/Formoterol [Dulera 200 2 puff IH BID PRN 08/17/18 12/05/18 Mcg/5 Mcg Inhaler] Tiotropium [place] [Spiriva 1 puff IH DAILY 08/17/18 12/05/18 Respimat] Metoprolol [Lopressor] 12.5 mg PO DAILY 09/17/18 12/07/18 Ipratropium/Albuterol Neb [Duoneb] 3 ml IH Q4H PRN 09/18/18 12/07/18 Aspirin [Adult Aspirin Regimen] 81 mg PO DAILY 10/08/18 12/07/18 Atorvastatin [Lipitor] 40 mg PO HS 10/08/18 12/07/18 Clopidogrel [Plavix] 75 mg PO DAILY 12/05/18 12/05/18 Omeprazole [PriLOSEC] 20 mg PO DAILY 12/05/18 12/05/18 Buspirone HCl [Buspar] 15 mg PO BID 12/07/18 12/07/18 Previous Rx's Medication Instructions Recorded Oxygen 3 l IH CONT #0 10/14/18 levoFLOXacin [Levaquin] 750 mg PO DAILY #5 tablet 12/11/18 predniSONE [PredniSONE] 40 mg PO DAILY #10 tablet 12/11/18 Allergies Allergy/AdvReac Type Severity Reaction Status Date / Time codeine Allergy NAUSEA, Verified 12/07/18 13:28 VOMITING, HIVES All systems ED: reviewed and negative except as stated. Review of Systems: As Per HPI Constitutional: Denies: fever, chills Cardiovascular: Reports: chest pain. 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 - Social History Smoking Status: Current every day smoker Alcohol use: Reports: occasionally Drug use: Reports: none Physical Exam - General Limitations: no limitations General appearance: alert, in no apparent distress, other (cachectic) - Head Head exam: atraumatic, normocephalic - Eye Eye exam: Present: normal appearance, EOMI - ENT ENT exam: normal exam, normal oropharynx - Neck Neck exam: Present: normal inspection, trachea midline - Chest Chest inspection: Present: normal inspection, symmetric chest wall rise - Respiratory Respiratory exam: Present: other (Diminished breath sounds bilaterally with scattered expiratory wheezing, with rhonchi, mild tachypnea, oxygen per nasal cannula,) - Cardiovascular Cardiovascular exam: Present: normal rhythm, tachycardia, other (Bilateral radial pulses are equal and palpable) - Abdominal Exam Abdominal exam: Present: soft, Non-Tender. Absent: distention - Extremities Exam Extremities exam: Present: full ROM, normal capillary refill. Absent: pedal edema, calf tenderness - Neurological Exam Neurological exam: Present: alert, oriented X3 - Psychiatric Psychiatric exam: Present: normal affect, normal mood - Skin Skin exam: Present: warm, dry. Absent: diaphoresis, pallor Course Vital Signs Temperature 98.4 F 01/21/19 12:18 Pulse Rate 102 01/21/19 12:18 Respiratory Rate 18 01/21/19 12:18 Blood Pressure 100/71 01/21/19 12:18 O2 Sat by Pulse Oximetry 91 01/21/19 12:18 Temperature 98.4 F 01/21/19 12:18 Pulse Rate 99 01/21/19 13:29 Respiratory Rate 19 01/21/19 13:29 Blood Pressure 114/70 01/21/19 13:29 O2 Sat by Pulse Oximetry 100 01/21/19 13:29 Oxygen Delivery Oxygen Delivery Nasal Cannula Chest Pain - [facility] Narrative Medical decision making narrative: Patient is presenting with chest pain, shortness of breath, cough for the past several days. She is tachycardic. Blood pressures are borderline. She is to As well. She is remaining on 3 L of oxygen which is her baseline. We will o btain cardiac workup and evaluate her EKG, troponin. We will give her triple DuoNeb treatment and Solu-Medrol for COPD exacerbation as she has diminished breath sounds bilaterally with scattered wheezing. We will obtain chest x-ray. Lactate and blood cultures will be ordered. We will give the patient 1 L of IV fluid bolus. Patient denies history of congestive heart failure. Suspect an infectious etiology. 13:30 Labs and imaging reviewed. Patient has anemia that appears worse. Stool Hem occult was obtained and is negative. Troponin less than 0.03. Hospitalist paged for admission for COPD exacerbation, chest pain and ACS workup. 13:45 Patient was reassessed and states she still has some chest pain. Shortness of breath is slightly improved. She still sounds diminished bilaterally with scattered wheezing. Tachycardia and hypotension improved. 14:00 Discussed with hospitalist, Dr. Dotson, who accepts admission. Procalcitonin added - Medical Records Medical records reviewed: Yes I reviewed the patient's medical records. - Lab Data Lab results reviewed: Yes I reviewed the patient's lab results. Result diagrams: 01/21/19 12:23 01/21/19 12:23 Lab Results 01/21/19 01/21/19 01/21/19 Range/Units 12:23 12:23 12:23 WBC 9.5 (4.3-11.1) K/mcL RBC 3.32 L (3.82-4.97) M/mcL Hgb 7.9 L (11.5-15.4) g/dL Hct 28.7 L (35.3-44.9) % MCV 86.4 (83.0-100.0) fL MCH 23.8 L (28.0-33.3) pg MCHC 27.5 L (31.6-35.5) g/dL RDW 20.9 H (11.5-14.5) % Plt Count 298 (140-400) K/mcL MPV 9.2 L (9.4-12.4) fL Seg Neutrophils % 60.0 % Lymphocytes % 18.0 % Monocytes % 20.0 % Eosinophils % 2.0 % Neutrophils # 5.7 (1.6-8.9) K/mcL Lymphocytes # 1.7 (0.6-4.6) K/mcL Monocytes # 1.9 H (0.0-1.3) K/mcL Eosinophils # 0.2 (0.0-0.6) K/mcL Platelet Estimate Normal (Normal) Hypochromasia Present A (Not Present) Anisocytosis 1+ A (Not Present) PT 10.6 (9.4-12.1) Seconds INR 0.9 APTT 28.6 (26.0-36.0) Seconds Sodium 131 L (136-145) mEq/L Potassium 3.9 (3.5-5.1) mEq/L Chloride 84 L (98-107) mEq/L Carbon Dioxide 41 H* (23-29) mEq/L BUN 3 L (6-20) mg/dL Creatinine 0.30 L (0.60-1.20) mg/dL Est GFR ( Amer) > 60 (> 60) Est GFR (Non-Af Amer) > 60 (> 60) BUN/Creatinine Ratio 10 (6-26) Glucose 88 (70-105) mg/dL Calculated Osmolality 268 L (280-300) Lactic Acid (0.5-2.2) mmol/L Calcium 8.9 (8.6-10.3) mg/dL Troponin I < 0.03 (< 0.04) ng/mL Stool Occult Bld Scrn (Negative) 01/21/19 01/21/19 Range/Units 12:35 12:57 WBC (4.3-11.1) K/mcL RBC (3.82-4.97) M/mcL Hgb (11.5-15.4) g/dL Hct (35.3-44.9) % MCV (83.0-100.0) fL MCH (28.0-33.3) pg MCHC (31.6-35.5) g/dL RDW (11.5-14.5) % Plt Count (140-400) K/mcL MPV (9.4-12.4) fL Seg Neutrophils % % Lymphocytes % % Monocytes % % Eosinophils % % Neutrophils # (1.6-8.9) K/mcL Lymphocytes # (0.6-4.6) K/mcL Monocytes # (0.0-1.3) K/mcL Eosinophils # (0.0-0.6) K/mcL Platelet Estimate (Normal) Hypochromasia (Not Present) Anisocytosis (Not Present) PT (9.4-12.1) Seconds INR APTT (26.0-36.0) Seconds Sodium (136-145) mEq/L Potassium (3.5-5.1) mEq/L Chloride (98-107) mEq/L Carbon Dioxide (23-29) mEq/L BUN (6-20) mg/dL Creatinine (0.60-1.20) mg/dL Est GFR ( Amer) (> 60) Est GFR (Non-Af Amer) (> 60) BUN/Creatinine Ratio (6-26) Glucose (70-105) mg/dL Calculated Osmolality (280-300) Lactic Acid 2.1 (0.5-2.2) mmol/L Calcium (8.6-10.3) mg/dL Troponin I (< 0.04) ng/mL Stool Occult Bld Scrn Negative (Negative) - Radiology Data Radiology results reviewed: Yes I reviewed the patient's radiology results. Chest X-Ray 01/21/19 12:20 IMPRESSION: No acute process. D/ / Loar Rich MD / Lora Rich MD Interpreting Provider: Lora Rich MD - EKG Data EKG attestation: Yes I reviewed and interpreted this EKG. EKG results narrative: EKG obtained at 1224 shows sinus tachycardia with heart rate 103, [place] interval 142, QRS duration 70, QTC 4:30, no ST elevation or depression compared to old EKG on 12/05/2018 which shows no new changes.
[2019-01-21] MEDS ORDERED: 0.9 % Sodium Chloride 1,000 ML ONE (12:28)
[2019-01-21] MEDS ORDERED: 0.9 % Sodium Chloride 1,000 ML IVC ONE (12:29)
[2019-01-21] MEDS ORDERED: methylPREDNISolone 125 MG/2 ML VIAL IVP ONE (12:33)
[2019-01-21] MEDS ORDERED: Ipratropium/Albuterol Neb 3 ML IH ONE (12:33)
[2019-01-21 12:36] LABS: Hemoglobin 7.9 g/dL (11.5-15.4)
[2019-01-21 12:37] LABS: Hematocrit 28.7 % (35.3-44.9); Mean Corpuscular HGB Conc 27.5 g/dL (31.6-35.5); Mean Corpuscular Hemoglobin 23.8 pg (28.0-33.3); Mean Corpuscular Volume 86.4 fL (83.0-100.0); Mean Platelet Volume 9.2 fL (9.4-12.4); Platelet Count 298 K/mcL (140-400); Red Blood Count 3.32 M/mcL (3.82-4.97); Red Cell Distribution Width 20.9 % (11.5-14.5); White Blood Count 9.5 K/mcL (4.3-11.1)
[2019-01-21 12:45] LABS: INR 0.9; Prothrombin Time 10.6 Seconds (9.4-12.1)
[2019-01-21 12:48] LABS: Activated Partial Thrombo Time 28.6 Seconds (26.0-36.0)
[2019-01-21 12:59] LABS: BUN/Creatinine Ratio 10 (6-26); Blood Urea Nitrogen 3 mg/dL (6-20); Calcium 8.9 mg/dL (8.6-10.3); Carbon Dioxide 41 mEq/L (23-29); Chloride 84 mEq/L (98-107); Glucose 88 mg/dL (70-105); Osmolality,Calculated 268 (280-300); Potassium 3.9 mEq/L (3.5-5.1); Sodium 131 mEq/L (136-145); Troponin I < 0.03 ng/mL (< 0.04); eGFR For African Americans > 60 (> 60); eGFR For Non-African Americans > 60 (> 60)
--- NOTE | 2019-01-21 13:01 | Emergency Department Note ---
Disposition Clinical Impression: Tachycardia, COPD exacerbation Chest pain Qualifiers: Chest pain type: unspecified Qualified Code(s): R07.9 - Chest pain, unspecified Dyspnea Qualifiers: Dyspnea type: unspecified Qualified Code(s): R06.00 - Dyspnea, unspecified Anemia Qualifiers: Anemia type: unspecified type Qualified Code(s): D64.9 - Anemia, unspecified Disposition: Admitted As Inpatient Condition: Undetermined Referrals: NONE,PCP [Primary Care Provider] - Forms: ED Satisfaction Letter Time of Disposition: 14:05 General Adult HPI - General Chief complaint: ED Chest Pain Stated complaint: cp, sob Time Seen by Provider: 01/21/19 12:18 Source: patient Mode of arrival: private vehicle Limitations: no limitations - History of Present Illness Pain Scale: 7 - Related Data Home Medications Medication Instructions Recorded Confirmed Nitroglycerin [Nitrostat] 0.4 mg SL Q5M PRN 05/29/16 12/07/18 ALPRAZolam [Xanax 0.5 MG Tablet] 0.5 mg PO BID 03/09/18 12/07/18 Mirtazapine 15 mg PO BID 03/12/18 12/07/18 Albuterol Sulfate [Ventolin Hfa] 2 puff IH Q4H PRN 08/17/18 12/07/18 Metoclopramide [Reglan] 10 mg PO Q6H PRN 08/17/18 12/07/18 Mometasone/Formoterol [Dulera 200 2 puff IH BID PRN 08/17/18 12/05/18 Mcg/5 Mcg Inhaler] Tiotropium [place] [Spiriva 1 puff IH DAILY 08/17/18 12/05/18 Respimat] Metoprolol [Lopressor] 12.5 mg PO DAILY 09/17/18 12/07/18 Ipratropium/Albuterol Neb [Duoneb] 3 ml IH Q4H PRN 09/18/18 12/07/18 Aspirin [Adult Aspirin Regimen] 81 mg PO DAILY 10/08/18 12/07/18 Atorvastatin [Lipitor] 40 mg PO HS 10/08/18 12/07/18 Clopidogrel [Plavix] 75 mg PO DAILY 12/05/18 12/05/18 Omeprazole [PriLOSEC] 20 mg PO DAILY 12/05/18 12/05/18 Buspirone HCl [Buspar] 15 mg PO BID 12/07/18 12/07/18 Previous Rx's Medication Instructions Recorded Oxygen 3 l IH CONT #0 10/14/18 levoFLOXacin [Levaquin] 750 mg PO DAILY #5 tablet 12/11/18 predniSONE [PredniSONE] 40 mg PO DAILY #10 tablet 12/11/18 Allergies Allergy/AdvReac Type Severity Reaction Status Date / Time codeine Allergy NAUSEA, Verified 12/07/18 13:28 VOMITING, HIVES Constitutional: Denies: fever, chills Cardiovascular: Reports: chest pain. 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 - Social History Smoking Status: Current every day smoker Smokeless Tobacco Status: No Alcohol use: Reports: occasionally Drug use: Reports: none Physical Exam - General Limitations: no limitations General appearance: alert, in no apparent distress, other (cachectic) Course Vital Signs Temperature 98.4 F 01/21/19 12:18 Pulse Rate 102 01/21/19 12:18 Respiratory Rate 18 01/21/19 12:18 Blood Pressure 100/71 01/21/19 12:18 O2 Sat by Pulse Oximetry 91 01/21/19 12:18 Temperature 98.4 F 01/21/19 12:18 Pulse Rate 99 01/21/19 13:29 Respiratory Rate 19 01/21/19 13:29 Blood Pressure 114/70 01/21/19 13:29 O2 Sat by Pulse Oximetry 100 01/21/19 13:29 Oxygen Delivery Oxygen Delivery Nasal Cannula Medical Decision Making - Lab Data Result diagrams: 01/21/19 12:23 01/21/19 12:23 Lab Results 01/21/19 01/21/19 01/21/19 Range/Units 12:23 12:23 12:23 WBC 9.5 (4.3-11.1) K/mcL RBC 3.32 L (3.82-4.97) M/mcL Hgb 7.9 L (11.5-15.4) g/dL Hct 28.7 L (35.3-44.9) % MCV 86.4 (83.0-100.0) fL MCH 23.8 L (28.0-33.3) pg MCHC 27.5 L (31.6-35.5) g/dL RDW 20.9 H (11.5-14.5) % Plt Count 298 (140-400) K/mcL MPV 9.2 L (9.4-12.4) fL Seg Neutrophils % 60.0 % Lymphocytes % 18.0 % Monocytes % 20.0 % Eosinophils % 2.0 % Neutrophils # 5.7 (1.6-8.9) K/mcL Lymphocytes # 1.7 (0.6-4.6) K/mcL Monocytes # 1.9 H (0.0-1.3) K/mcL Eosinophils # 0.2 (0.0-0.6) K/mcL Platelet Estimate Normal (Normal) Hypochromasia Present A (Not Present) Anisocytosis 1+ A (Not Present) PT 10.6 (9.4-12.1) Seconds INR 0.9 APTT 28.6 (26.0-36.0) Seconds Sodium 131 L (136-145) mEq/L Potassium 3.9 (3.5-5.1) mEq/L Chloride 84 L (98-107) mEq/L Carbon Dioxide 41 H* (23-29) mEq/L BUN 3 L (6-20) mg/dL Creatinine 0.30 L (0.60-1.20) mg/dL Est GFR ( Amer) > 60 (> 60) Est GFR (Non-Af Amer) > 60 (> 60) BUN/Creatinine Ratio 10 (6-26) Glucose 88 (70-105) mg/dL Calculated Osmolality 268 L (280-300) Lactic Acid (0.5-2.2) mmol/L Calcium 8.9 (8.6-10.3) mg/dL Troponin I < 0.03 (< 0.04) ng/mL Stool Occult Bld Scrn (Negative) 01/21/19 01/21/19 Range/Units 12:35 12:57 WBC (4.3-11.1) K/mcL RBC (3.82-4.97) M/mcL Hgb (11.5-15.4) g/dL Hct (35.3-44.9) % MCV (83.0-100.0) fL MCH (28.0-33.3) pg MCHC (31.6-35.5) g/dL RDW (11.5-14.5) % Plt Count (140-400) K/mcL MPV (9.4-12.4) fL Seg Neutrophils % % Lymphocytes % % Monocytes % % Eosinophils % % Neutrophils # (1.6-8.9) K/mcL Lymphocytes # (0.6-4.6) K/mcL Monocytes # (0.0-1.3) K/mcL Eosinophils # (0.0-0.6) K/mcL Platelet Estimate (Normal) Hypochromasia (Not Present) Anisocytosis (Not Present) PT (9.4-12.1) Seconds INR APTT (26.0-36.0) Seconds Sodium (136-145) mEq/L Potassium (3.5-5.1) mEq/L Chloride (98-107) mEq/L Carbon Dioxide (23-29) mEq/L BUN (6-20) mg/dL Creatinine (0.60-1.20) mg/dL Est GFR ( Amer) (> 60) Est GFR (Non-Af Amer) (> 60) BUN/Creatinine Ratio (6-26) Glucose (70-105) mg/dL Calculated Osmolality (280-300) Lactic Acid 2.1 (0.5-2.2) mmol/L Calcium (8.6-10.3) mg/dL Troponin I (< 0.04) ng/mL Stool Occult Bld Scrn Negative (Negative) Attestation Statement - Attestation Attestation: I examined this patient and my medical decision-making was reviewed with the Resident Physician. I agree with the documented findings, disposition and treatment plan as described except to the extent set forth below. Patient to the ED with chest pain and shortness of breath. Pain is a burning in the center of her chest to the right shoulder. Short of breath with cough. Patient had a recent admission for pseudomonas pneumonia and COPD exacerbation. On examination she is in no acute respiratory distress. Abdomen is soft. Lungs have diffuse rails and wheezes. Plan. Septic workup. Cardiac workup. EKG was reviewed with the resident. Workup is unremarkable. No acute process on her x-ray. Troponin is negative. No acute ischemic changes on her EKG. She is treated for a COPD exacerbation. Admitted to medicine.
[2019-01-21 13:08] LABS: Eosinophils # 0.2 K/mcL (0.0-0.6); Hypochromasia Present (Not Present); Lymphocytes # 1.7 K/mcL (0.6-4.6); Monocytes # 1.9 K/mcL (0.0-1.3); Neutrophils # 5.7 K/mcL (1.6-8.9)
[2019-01-21 13:09] LABS: Platelet Estimate Normal (Normal)
[2019-01-21 13:10] LABS: Anisocytosis 1+ (Not Present)
--- NOTE | 2019-01-21 13:24 | Electrocardiograph Report ---
[address] [place], [place] [address] Test Date: 2019-01-21 Pat Name: Anita Honeycutt Department: [id number] Room: Gender: F Chart Writer: : 1960 Requested By: Yumi Larson Order Number: [id number] Reading MD: Fish Roa Measurements Intervals [place] Rate: 103 P: 86 HI: 142 QRS: 70 QRSD: 70 T: 77 QT: 328 QTc: 430 Interpretive Statements Sinus tachycardia Probable left atrial enlargement Anterior infarct, old Minimal ST depression ST elevation, consider inferior injury Electronically Signed On 01-21-2019 13:23:09 EDT by Fish Roa
[2019-01-21] MEDS ORDERED: Aspirin 81 MG TAB.CHEW PO ONE (13:30)
[2019-01-21] MEDS ORDERED: Acetaminophen 325 MG TABLET PO ONE (13:30)
[2019-01-21] MEDS ORDERED: Naloxone 0.4 MG/ML INJ IVP PRN (17:28)
[2019-01-21] MEDS ORDERED: Nitroglycerin 0.4 MG TAB.SUBL SL PRN (17:52)
[2019-01-21] MEDS: cefTRIAXone 1,000 MG in Water for inj. (sterile) 10 ML IVP SCH (18:48)
--- NOTE | 2019-01-21 19:09 | Internal Med History&Physical ---
Date of Encounter: 01/21/19 Time of Encounter: 18:00 Internal Medicine - H&P: HPI Chief complaint: Chest pain, shortness of breath and wheezing History of present illness: Ms. Honeycutt is a 58 year old female with pmh of COPD on home oxygen, CAD presenting with complaints of chest pain, shortness of breath and wheezing of about 3-4 d days duration. Patient notes she has been getting progressively more short of breath in the last couple of days and has had a productive cough with white phlegm. She began to have chest pain which she described as burning in the middle of her chest radiating to her shoulder blades. She denies any relieving factors. She admits to nausea, denies any other acute symptoms such as fevers or chills. In the ER, troponins was 0.03, EKG was not suggestive of any new ischemic changes. SHe was started on steroids and breathing treatments and she is being admitted for further management Past Med Surg Social Fam HX - Past Medical History Medical history: asthma, atrial fibrillation, COPD, coronary artery disease, GERD, hyperlipidemia, hypertension, myocardial infarction Additional medical history: back pain, O2 @ 3L at all times Psychiatric history: anxiety, depression - Past Surgical History Surgical History: angioplasty/stent, cholecystectomy, other Additional surgical history: cardiac cath with angioplasty. tubal ligation - Social History Smoking Status: Current every day smoker Smokeless Tobacco Status: No Alcohol use: occasionally Drug use: none - Family History Father Living Status: Hx Family Respiratory Disorders: Yes Hx Family Cancer: Yes Hx Family Endocrine Disorder: Yes Diabetes diabetes Hx Family Cardiac Disorders: Yes (Hypertension) Hx Family Respiratory Disorders: Yes Hx Family Cancer: Yes (Lung cancer) Hx Family Endocrine Disorder: Yes (Diabetes) Sister Adopted: No Family Member Ethnicity: Non- Living Status: Hx Family Cardiac Disorders: No Hx Family Respiratory Disorders: Yes Hx Family Cancer: No Hx Family GI Disorders: No Hx Family Endocrine Disorder: No Hx Family Neuromuscular Disorders: No Hx Family Neurologic Disorders: No Hx Family HEENT Disorders: No Hx Family Autoimmune Disorders: Yes (lupus, arthritis) Mother Living Status: Hx Family Cardiac Disorders: Yes Hx Family Respiratory Disorders: No Hx Family Cancer: Yes Hx Family GI Disorders: Yes (Ulcers) Internal Medicine - H&P: Meds Nitroglycerin [Nitrostat] 0.4 mg SL Q5M PRN 05/29/16 [History] ALPRAZolam [Xanax 0.5 MG Tablet] 0.5 mg PO BID 03/09/18 [History] Mirtazapine 15 mg PO HS 03/12/18 [History] Albuterol Sulfate [Ventolin Hfa] 2 puff IH Q4H PRN 08/17/18 [History] Metoclopramide [Reglan] 10 mg PO Q6H PRN 08/17/18 [History] Mometasone/Formoterol [Dulera 200 Mcg/5 Mcg Inhaler] 2 puff IH BID PRN 08/17/18 [History] Tiotropium [place] [Spiriva Respimat] 1 puff IH DAILY 08/17/18 [History] Metoprolol [Lopressor] 12.5 mg PO DAILY 09/17/18 [History] Ipratropium/Albuterol Neb [Duoneb] 3 ml IH Q4H PRN 09/18/18 [History] Aspirin [Adult Aspirin Regimen] 81 mg PO DAILY 10/08/18 [History] Atorvastatin [Lipitor] 40 mg PO HS 10/08/18 [History] Oxygen 3 l IH CONT #0 10/14/18 [Rx] Clopidogrel [Plavix] 75 mg PO DAILY 12/05/18 [History] Omeprazole [PriLOSEC] 20 mg PO DAILY 12/05/18 [History] Buspirone HCl [Buspar] 15 mg PO BID 12/07/18 [History] Dulera 200 Mcg/5 Mcg Inhaler 2 puff IH BID 01/21/19 [History] Allergy/AdvReac Type Severity Reaction Status Date / Time codeine Allergy NAUSEA, Verified 12/07/18 13:28 VOMITING, HIVES All Systems PM: A 10-system review of systems was performed and is negative for pertinent fin dings except as documented above in the HPI. - Constitutional Constitutional: no chills, no fever(s), no night sweats - EENT Eyes: no change in vision, no discharge, no pain, no photophobia Ears: no ear discharge, no ear pain, no tinnitus Nose, mouth and throat: no dysphagia, no nasal discharge, no neck pain, no sore throat - Cardiovascular Cardiovascular ROS IM: chest pain, dyspnea, no diaphoresis, no lightheadedness, no palpitations, no syncope - Respiratory Respiratory: dyspnea, wheezing, no cough, no excessive phlegm production - Gastrointestinal Gastrointestinal: no abdominal pain, no diarrhea, no hematemesis, no hematochezia, no melena, no nausea, no vomiting - Genitourinary Genitourinary: no change in urinary stream, no dysuria, no flank pain, no hematuria - Musculoskeletal Musculoskeletal ROS IM: no numbness, no tingling - Integumentary Integumentary IM: no rash, no unusual bruising - Neurological Neurological ROS: no confusion, no convulsions, no focal weakness, no numbness, no tingling, no tremor(s) - Hematologic/Lymphatic Hematologic/Lymphatic: no easy bruising - Constitutional Vitals: Temp Pulse Resp BP Pulse Ox 98.1 F 108 15 99/57 92 01/21/19 19:02 01/21/19 19:02 01/21/19 19:02 01/21/19 19:02 01/21/19 19:02 Exam: NAD - Head Head exam: Present: atraumatic, normocephalic - Eye Eye exam: Present: PERRL, conjuntiva pink, sclera anicteric Pupils: Present: PERRL - Neck Neck exam general surgery: Present: supple, trachea midline. Absent: lymphadenopathy - Respiratory Respiratory exam: Present: CTAB. Absent: accessory muscle use, rales, rhonchi, wheezes - Cardiovascular Cardiovascular exam: Present: RRR, +S1, +S2. Absent: diastolic murmur, gallop, rubs, systolic murmur - GI/Abdominal GI/Abdominal exam: Present: normal bowel sounds, soft, no peritoneal signs. Absent: distended, tenderness - Extremities Exam Extremities exam: Present: warm, radial pulses palpable and symmetrical. Absent: calf tenderness, cyanotic, pedal edema - Neurological Exam Neurological exam: Present: CN II-XII intact, oriented X3, no focal deficits. Absent: pronater drift, facial droop, speech deficit - Skin Skin exam: Present: dry, intact Internal Med - H&P Results - Labs CBC & Chem 7: 01/21/19 12:23 01/21/19 12:23 Labs: Short CBC 01/21/19 Range/Units 12:23 WBC 9.5 (4.3-11.1) K/mcL Hgb 7.9 L (11.5-15.4) g/dL Hct 28.7 L (35.3-44.9) % Plt Count 298 (140-400) K/mcL Neutrophils # 5.7 (1.6-8.9) K/mcL BMP 01/21/19 12:23 Sodium 131 L Potassium 3.9 Chloride 84 L Carbon Dioxide 41 H* BUN 3 L Creatinine 0.30 L Glucose 88 Calcium 8.9 Cardiac Enzymes 01/21/19 Range/Units 12:23 Troponin I < 0.03 (< 0.04) ng/mL - Impressions ITS Impressions Chest X-Ray 01/21/19 12:20 IMPRESSION: No acute process. D/ / Lora Rich MD / Lora Rich MD Interpreting Provider: Lora Rich MD - Assessment and Plan (1) COPD exacerbation Current Visit: Yes Status: Acute Assessment and plan: Pt comes in with coughing wheezing and productive cough. Will start on nebs, steroids and antibiotics Obtain resp panel. Obtain ABG and initiate BIPAP if significant CO2 retention (2) Acute and chronic respiratory failure Current Visit: Yes Status: Acute Assessment and plan: Pt has acute worsening of chronic respiratory failure requring more oxygen compared to baseline Continue nebs, steroids and abx Qualifiers: Respiratory failure complication: hypoxia and hypercapnia Qualified Code(s): J96.21 - Acute and chronic respiratory failure with hypoxia; J96.22 - Acute and chronic respiratory failure with hypercapnia (3) Chest pain Current Visit: Yes Status: Acute Assessment and plan: HAs chest pain which is typical of chest pain experienced during previous COPD exacerbation. Trend troponins, obtain limited echo. continue aspirin. No acute EKG changes Qualifiers: Chest pain type: unspecified Qualified Code(s): R07.9 - Chest pain, unspecified (4) Coronary artery disease Current Visit: Yes Status: Acute Assessment and plan: Continue home meds Qualifiers: Qualified Code(s): I25.10 - Atherosclerotic heart disease of [place] coronary artery without angina pectoris (5) DVT prophylaxis Current Visit: Yes Status: Acute Assessment and plan: Heparin sc - Time Spent With Patient Total time spent is greater than 50% in coordination of care (as documented) at patient's floor/unit and/or counseling patient:
[2019-01-21] MEDS: Azithromycin 500 MG in D5% in Water 250 ML IVPB SCH (19:48)
[2019-01-21] MEDS: *HR* Heparin 5,000 UNIT/ML VIAL SQ SCH (19:48)
[2019-01-21] MEDS: *HR* Promethazine 25 MG/ML VIAL IVP PRN (20:21)
[2019-01-21] MEDS: Mirtazapine 15 MG TABLET PO SCH (20:23)
[2019-01-21] MEDS: Acetaminophen 325 MG TABLET PO PRN (20:23)
[2019-01-21] MEDS: Ipratropium/Albuterol Neb 3 ML IH SCH (21:03)
[2019-01-21] MEDS: Budesonide/Formoterol 160/4.5 1 PUFF INH IH SCH (21:03)
[2019-01-21] MEDS: ALPRAZolam 0.5 MG TABLET PO SCH (21:12)
[2019-01-21 21:17] LABS: ABG Base Excess 13 mEq/L (-2 to 3); ABG HCO3 41 mEq/L (21-27); ABG Oxygen Saturation 91 % (95-98); ABG PCO2 74 mmHg (35-45); ABG PH 7.35 pH Units (7.32-7.45); ABG PO2 69 mmHg (85-104); ABG TCO2 43 mEq/L (20-26)
[2019-01-22] MEDS: Ipratropium/Albuterol Neb 3 ML IH SCH ×7 (00:12→23:19)
[2019-01-22] MEDS: methylPREDNISolone 125 MG/2 ML VIAL IVP SCH ×4 (00:24→23:39)
[2019-01-22] MEDS: *HR* Heparin 5,000 UNIT/ML VIAL SQ SCH ×2 (05:18→18:11)
[2019-01-22 05:45] LABS: Basophils % 0.2 %; Hemoglobin 7.8 g/dL (11.5-15.4); Platelet Count 269 K/mcL (140-400)
[2019-01-22 05:46] LABS: Hematocrit 28.7 % (35.3-44.9); Immature Granulocytes % 0.5 % (0-4); Lymphocytes # 0.3 K/mcL (0.6-4.6); Lymphocytes % 6.2 %; Mean Corpuscular HGB Conc 27.2 g/dL (31.6-35.5); Mean Corpuscular Hemoglobin 23.9 pg (28.0-33.3); Mean Corpuscular Volume 87.8 fL (83.0-100.0); Mean Platelet Volume 9.6 fL (9.4-12.4); Monocytes # 0.1 K/mcL (0.0-1.3); Red Blood Count 3.27 M/mcL (3.82-4.97); Red Cell Distribution Width 20.9 % (11.5-14.5); Segmented Neutrophils % 91.1 %; White Blood Count 5.5 K/mcL (4.3-11.1)
[2019-01-22 06:04] LABS: Magnesium 2.2 mg/dL (1.6-2.6); Phosphorous 2.7 mg/dL (2.7-4.5)
[2019-01-22 06:06] LABS: Anisocytosis 2+ (Not Present); Hypochromasia Present (Not Present); Platelet Estimate Normal (Normal)
[2019-01-22 06:08] LABS: BUN/Creatinine Ratio 19 (6-26); Blood Urea Nitrogen 6 mg/dL (6-20); Calcium 9.1 mg/dL (8.6-10.3); Carbon Dioxide 42 mEq/L (23-29); Chloride 95 mEq/L (98-107); Glucose 156 mg/dL (70-105); Osmolality,Calculated 283 (280-300); Potassium 3.9 mEq/L (3.5-5.1); Sodium 136 mEq/L (136-145); eGFR For African Americans > 60 (> 60); eGFR For Non-African Americans > 60 (> 60)
[2019-01-22] MEDS: Budesonide/Formoterol 160/4.5 1 PUFF INH IH SCH ×2 (07:16→20:22)
[2019-01-22] MEDS: ALPRAZolam 0.5 MG TABLET PO SCH ×2 (08:38→23:38)
[2019-01-22] MEDS: Aspirin Enteric Coated 81 MG Tablet PO SCH (08:40)
[2019-01-22] MEDS: cefTRIAXone 1,000 MG in Water for inj. (sterile) 10 ML IVP SCH (08:46)
--- NOTE | 2019-01-22 09:06 | Internal Med Progress Note ---
Hospitalist Progress Note - Encounter Date of Encounter: 01/22/19 Time of Encounter: 09:00 - Subjective Interval History: No acute events overnight - Exam Vitals: Temp Pulse Resp BP Pulse Ox 97.9 F 97 17 130/83 91 01/22/19 06:55 01/22/19 06:55 01/22/19 07:19 01/22/19 06:55 01/22/19 07:19 Exam: General appearance: Present: A&O X 3, no acute distress Head exam: Present: normocephalic Respiratory exam: Diffuse wheezing Cardiovascular exam: Present: RRR, +S1, +S2. Absent: diastolic murmur, gallop, rubs, systolic murmur GI/Abdominal exam: Soft, NT, ND, +BS Extremities exam: Absent: pedal edema Neurological exam: Present: alert, oriented X3, no focal deficits. Absent: altered - Assessment and Plan (1) Acute and chronic respiratory failure Current Visit: Yes Status: Acute Assessment and Plan: Pt has acute worsening of chronic respiratory failure requring more oxygen compared to baseline Continue nebs, steroids and abx (2) COPD exacerbation Current Visit: Yes Status: Acute Assessment and Plan: Pt comes in with coughing wheezing and productive cough. Will start on nebs, steroids and antibiotics ABG showed CO2 retention. Continue BIPAP (3) Chest pain Current Visit: Yes Status: Acute Assessment and Plan: HAs chest pain which is typical of chest pain experienced during previous COPD exacerbation. Trend troponins, obtain limited echo. continue aspirin. No acute EKG changes Troponins negative, Echo showed no wall motion abnormalities (4) Coronary artery disease Current Visit: Yes Status: Acute Assessment and Plan: Continue home meds (5) DVT prophylaxis Current Visit: Yes Status: Acute Assessment and Plan: Heparin sc - Time Spent with Patient Total time spent is greater than 50% in coordination of care (as documented) at patient's floor/unit and/or counseling patient: Internal Medicine: Result - Labs CBC & Chem 7: 01/22/19 05:04 01/22/19 05:04 Labs: Short CBC 01/21/19 01/22/19 Range/Units 12:23 05:04 WBC 9.5 5.5 (4.3-11.1) K/mcL Hgb 7.9 L 7.8 L (11.5-15.4) g/dL Hct 28.7 L 28.7 L (35.3-44.9) % Plt Count 298 269 (140-400) K/mcL Neutrophils # 5.7 5.0 (1.6-8.9) K/mcL BMP 01/21/19 01/22/19 12:23 05:04 Sodium 131 L 136 Potassium 3.9 3.9 Chloride 84 L 95 L Carbon Dioxide 41 H* 42 H* BUN 3 L 6 Creatinine 0.30 L 0.32 L Glucose 88 156 H Calcium 8.9 9.1 Cardiac Enzymes 01/21/19 01/22/19 Range/Units 12:23 05:04 Troponin I < 0.03 < 0.03 (< 0.04) ng/mL - ABG Interpretation ABG results: ABG ABG pH 7.35 pH Units (7.32-7.45) 01/21/19 21:05 ABG pCO2 74 mmHg (35-45) H* 01/21/19 21:05 ABG pO2 69 mmHg (85-104) L 01/21/19 21:05 ABG O2 Saturation 91 % (95-98) L 01/21/19 21:05 PT/INR, D-dimer PT 10.6 Seconds (9.4-12.1) 01/21/19 12:23 - Impressions Impressions Chest X-Ray 01/21/19 12:20 IMPRESSION: No acute process. D/ / Lora Rich MD / Lora Rich MD Interpreting Provider: Lora Rich MD Consult Discharge Plan - Plan Referrals: NONE,PCP [Primary Care Provider] - (1) Acute and chronic respiratory failure Qualifiers: Respiratory failure complication: hypoxia and hypercapnia Qualified Code(s): J96.21 - Acute and chronic respiratory failure with hypoxia; J96.22 - Acute and chronic respiratory failure with hypercapnia (3) Chest pain Qualifiers: Chest pain type: unspecified Qualified Code(s): R07.9 - Chest pain, unspecified (4) Coronary artery disease Qualifiers: Qualified Code(s): I25.10 - Atherosclerotic heart disease of [place] coronary artery without angina pectoris
[2019-01-22] MEDS: *HR* Promethazine 25 MG/ML VIAL IVP PRN ×3 (09:23→23:39)
[2019-01-22 13:26] LABS: Adenovirus Not Detected (Not Detect); Bordetella Pertussis Not Detected (Not Detect); Chlamydophila pneumoniae Not Detected (Not Detect); Coronavirus 229E Not Detected (Not Detect); Coronavirus HKU1 Not Detected (Not Detect); Coronavirus NL63 Not Detected (Not Detect); Coronavirus OC43 Not Detected (Not Detect); Human Metapneumovirus Not Detected (Not Detect); Human Rhinovirus/Enterovirus Not Detected (Not Detect); Influenza A Subtype 2009 H1 Not Detected (Not Detect); Influenza A Untypeable Not Detected (Not Detect); Influenza B Not Detected (Not Detect); Mycoplasma pneumoniae Not Detected (Not Detect); Parainfluenza Virus 1 Not Detected (Not Detect); Parainfluenza Virus 2 Not Detected (Not Detect); Parainfluenza Virus 3 Not Detected (Not Detect); Parainfluenza Virus 4 Not Detected (Not Detect); Respiratory Syncytial Virus Not Detected (Not Detect)
[2019-01-22] MEDS: Azithromycin 500 MG in D5% in Water 250 ML IVPB SCH (18:12)
[2019-01-22] MEDS: Mirtazapine 15 MG TABLET PO SCH (23:38)
[2019-01-23] MEDS: Ipratropium/Albuterol Neb 3 ML IH SCH ×3 (04:16→11:34)
[2019-01-23] MEDS: *HR* Heparin 5,000 UNIT/ML VIAL SQ SCH ×2 (05:39→15:56)
[2019-01-23] MEDS: Budesonide/Formoterol 160/4.5 1 PUFF INH IH SCH ×2 (07:50→19:55)
[2019-01-23] MEDS: methylPREDNISolone 125 MG/2 ML VIAL IVP SCH ×3 (08:03→23:25)
[2019-01-23 08:04] LABS: Magnesium 2.2 mg/dL (1.6-2.6); Phosphorous 3.3 mg/dL (2.7-4.5)
[2019-01-23] MEDS: ALPRAZolam 0.5 MG TABLET PO SCH ×2 (08:04→20:30)
[2019-01-23] MEDS: Aspirin Enteric Coated 81 MG Tablet PO SCH (08:04)
[2019-01-23] MEDS: cefTRIAXone 1,000 MG in Water for inj. (sterile) 10 ML IVP SCH (08:04)
[2019-01-23] MEDS: *HR* Promethazine 25 MG/ML VIAL IVP PRN ×2 (08:05→15:55)
[2019-01-23 11:58] LABS: Basophils % 0.1 %
[2019-01-23 12:00] LABS: Hemoglobin 7.3 g/dL (11.5-15.4); Immature Granulocytes % 0.7 % (0-4); Lymphocytes # 0.3 K/mcL (0.6-4.6); Mean Corpuscular Hemoglobin 24.3 pg (28.0-33.3); Mean Corpuscular Volume 89.7 fL (83.0-100.0); Mean Platelet Volume 9.6 fL (9.4-12.4); Monocytes % 6.1 %; Neutrophils # 15.1 K/mcL (1.6-8.9); Platelet Count 253 K/mcL (140-400); Red Blood Count 3.01 M/mcL (3.82-4.97); Segmented Neutrophils % 91.1 %; White Blood Count 16.6 K/mcL (4.3-11.1)
[2019-01-23 12:08] LABS: BUN/Creatinine Ratio 34 (6-26); Blood Urea Nitrogen 11 mg/dL (6-20); Carbon Dioxide 38 mEq/L (23-29); Chloride 96 mEq/L (98-107); Glucose 168 mg/dL (70-105); Osmolality,Calculated 291 (280-300); Sodium 139 mEq/L (136-145); eGFR For African Americans > 60 (> 60); eGFR For Non-African Americans > 60 (> 60)
[2019-01-23 12:12] LABS: Hypochromasia Present (Not Present); Stomatocytes 1+ (Not Present)
[2019-01-23 12:13] LABS: Polychromasia 1+ (Not Present)
--- NOTE | 2019-01-23 15:09 | Internal Med Progress Note ---
Hospitalist Progress Note - Encounter Date of Encounter: 01/23/19 Time of Encounter: 11:00 - Subjective Interval History: No acute events overnight - Exam Vitals: Temp Pulse Resp BP Pulse Ox 98.1 F 99 17 106/69 97 01/23/19 15:03 01/23/19 15:03 01/23/19 15:03 01/23/19 15:03 01/23/19 15:03 Exam: General appearance: Present: A&O X 3, no acute distress Head exam: Present: normocephalic Respiratory exam: Diffuse wheezing Cardiovascular exam: Present: RRR, +S1, +S2. Absent: diastolic murmur, gallop, rubs, systolic murmur GI/Abdominal exam: Soft, NT, ND, +BS Extremities exam: Absent: pedal edema Neurological exam: Present: alert, oriented X3, no focal deficits. Absent: altered - Assessment and Plan (1) Acute and chronic respiratory failure Current Visit: Yes Status: Acute Assessment and Plan: Pt has acute worsening of chronic respiratory failure requring more oxygen compared to baseline Continue nebs, steroids and abx Improved. Taper steroids to po in am (2) COPD exacerbation Current Visit: Yes Status: Acute Assessment and Plan: Pt comes in with coughing wheezing and productive cough. Will start on nebs, steroids and antibiotics ABG showed CO2 retention. Continue BIPAP (3) Chest pain Current Visit: Yes Status: Acute Assessment and Plan: HAs chest pain which is typical of chest pain experienced during previous COPD exacerbation. Trend troponins, obtain limited echo. continue aspirin. No acute EKG changes Troponins negative, Echo showed no wall motion abnormalities (4) Coronary artery disease Current Visit: Yes Status: Acute Assessment and Plan: Continue home meds (5) DVT prophylaxis Current Visit: Yes Status: Acute Assessment and Plan: Heparin sc - Time Spent with Patient Total time spent is greater than 50% in coordination of care (as documented) at patient's floor/unit and/or counseling patient: Internal Medicine: Result - Labs CBC & Chem 7: 01/23/19 11:40 01/23/19 11:40 Labs: Short CBC 01/23/19 Range/Units 11:40 WBC 16.6 H D (4.3-11.1) K/mcL Hgb 7.3 L (11.5-15.4) g/dL Hct 27.0 L (35.3-44.9) % Plt Count 253 (140-400) K/mcL Neutrophils # 15.1 H (1.6-8.9) K/mcL BMP 01/23/19 11:40 Sodium 139 Potassium 4.0 Chloride 96 L Carbon Dioxide 38 H BUN 11 Creatinine 0.32 L Glucose 168 H Calcium 9.0 - ABG Interpretation ABG results: ABG ABG pH 7.35 pH Units (7.32-7.45) 01/21/19 21:05 ABG pCO2 74 mmHg (35-45) H* 01/21/19 21:05 ABG pO2 69 mmHg (85-104) L 01/21/19 21:05 ABG O2 Saturation 91 % (95-98) L 01/21/19 21:05 PT/INR, D-dimer PT 10.6 Seconds (9.4-12.1) 01/21/19 12:23 Consult Discharge Plan - Plan Referrals: NONE,PCP [Primary Care Provider] - (1) Acute and chronic respiratory failure Qualifiers: Respiratory failure complication: hypoxia and hypercapnia Qualified Code(s): J96.21 - Acute and chronic respiratory failure with hypoxia; J96.22 - Acute and chronic respiratory failure with hypercapnia (3) Chest pain Qualifiers: Chest pain type: unspecified Qualified Code(s): R07.9 - Chest pain, unspecified (4) Coronary artery disease Qualifiers: Qualified Code(s): I25.10 - Atherosclerotic heart disease of [place] coronary artery without angina pectoris
[2019-01-23] MEDS: Azithromycin 500 MG in D5% in Water 250 ML IVPB SCH (15:55)
[2019-01-23] MEDS: Acetylcysteine 10% 2 ML INHSOL IH SCH ×2 (16:15→19:53)
[2019-01-23] MEDS: Albuterol 2.5 MG/3 ML NEBULIZER IH SCH ×3 (16:15→23:45)
[2019-01-23] MEDS: Mirtazapine 15 MG TABLET PO SCH (22:36)
[2019-01-24] MEDS: Albuterol 2.5 MG/3 ML NEBULIZER IH SCH ×3 (03:27→11:11)
[2019-01-24] MEDS: Acetylcysteine 10% 2 ML INHSOL IH SCH (03:28)
[2019-01-24 05:34] LABS: Magnesium 2.2 mg/dL (1.6-2.6); Phosphorous 3.5 mg/dL (2.7-4.5)
[2019-01-24] MEDS: *HR* Heparin 5,000 UNIT/ML VIAL SQ SCH ×2 (05:51→17:25)
[2019-01-24] MEDS: methylPREDNISolone 125 MG/2 ML VIAL IVP SCH (07:51)
[2019-01-24] MEDS: Aspirin Enteric Coated 81 MG Tablet PO SCH (07:52)
[2019-01-24] MEDS: cefTRIAXone 1,000 MG in Water for inj. (sterile) 10 ML IVP SCH (07:52)
[2019-01-24] MEDS: ALPRAZolam 0.5 MG TABLET PO SCH ×2 (07:52→21:53)
[2019-01-24] MEDS: *HR* Promethazine 25 MG/ML VIAL IVP PRN ×2 (07:52→20:11)
[2019-01-24] MEDS: Budesonide/Formoterol 160/4.5 1 PUFF INH IH SCH ×2 (08:21→20:03)
--- NOTE | 2019-01-24 11:37 | Internal Med Progress Note ---
Hospitalist Progress Note - Encounter Date of Encounter: 01/24/19 Time of Encounter: 10:00 - Subjective Interval History: No acute events overnight - Exam Vitals: Temp Pulse Resp BP Pulse Ox 98.0 F 92 16 112/70 96 01/24/19 10:31 01/24/19 10:31 01/24/19 11:12 01/24/19 10:31 01/24/19 11:12 Exam: General appearance: Present: A&O X 3, no acute distress Head exam: Present: normocephalic Respiratory exam: Diffuse wheezing Cardiovascular exam: Present: RRR, +S1, +S2. Absent: diastolic murmur, gallop, rubs, systolic murmur GI/Abdominal exam: Soft, NT, ND, +BS Extremities exam: Absent: pedal edema Neurological exam: Present: alert, oriented X3, no focal deficits. Absent: altered - Assessment and Plan (1) Acute and chronic respiratory failure Current Visit: Yes Status: Acute Assessment and Plan: Pt has acute worsening of chronic respiratory failure requiring more oxygen compared to baseline Continue nebs, steroids and abx Improved. Steroids tapered to po BID. Possible discharge in am (2) COPD exacerbation Current Visit: Yes Status: Acute Assessment and Plan: Pt comes in with coughing wheezing and productive cough. Will start on nebs, jose roids and antibiotics ABG showed CO2 retention. Continue BIPAP (3) Chest pain Current Visit: Yes Status: Acute Assessment and Plan: HAs chest pain which is typical of chest pain experienced during previous COPD exacerbation. Trend troponins, obtain limited echo. continue aspirin. No acute EKG changes Troponins negative, Echo showed no wall motion abnormalities (4) Coronary artery disease Current Visit: Yes Status: Acute Assessment and Plan: Continue home meds (5) DVT prophylaxis Current Visit: Yes Status: Acute Assessment and Plan: Heparin sc - Time Spent with Patient Total time spent is greater than 50% in coordination of care (as documented) at patient's floor/unit and/or counseling patient: Internal Medicine: Result - Labs CBC & Chem 7: 01/23/19 11:40 01/23/19 11:40 Labs: Short CBC 01/23/19 Range/Units 11:40 WBC 16.6 H D (4.3-11.1) K/mcL Hgb 7.3 L (11.5-15.4) g/dL Hct 27.0 L (35.3-44.9) % Plt Count 253 (140-400) K/mcL Neutrophils # 15.1 H (1.6-8.9) K/mcL BMP 01/23/19 11:40 Sodium 139 Potassium 4.0 Chloride 96 L Carbon Dioxide 38 H BUN 11 Creatinine 0.32 L Glucose 168 H Calcium 9.0 - ABG Interpretation ABG results: ABG ABG pH 7.35 pH Units (7.32-7.45) 01/21/19 21:05 ABG pCO2 74 mmHg (35-45) H* 01/21/19 21:05 ABG pO2 69 mmHg (85-104) L 01/21/19 21:05 ABG O2 Saturation 91 % (95-98) L 01/21/19 21:05 PT/INR, D-dimer PT 10.6 Seconds (9.4-12.1) 01/21/19 12:23 Consult Discharge Plan - Plan Referrals: NONE,PCP [Primary Care Provider] - (1) Acute and chronic respiratory failure Qualifiers: Respiratory failure complication: hypoxia and hypercapnia Qualified Code(s): J96.21 - Acute and chronic respiratory failure with hypoxia; J96.22 - Acute and chronic respiratory failure with hypercapnia (3) Chest pain Qualifiers: Chest pain type: unspecified Qualified Code(s): R07.9 - Chest pain, unspecified (4) Coronary artery disease Qualifiers: Qualified Code(s): I25.10 - Atherosclerotic heart disease of [place] coronary artery without angina pectoris
[2019-01-24] MEDS: Ipratropium/Albuterol Neb 3 ML IH SCH ×4 (15:17→23:14)
[2019-01-24] MEDS: predniSONE 20 MG TABLET PO SCH (17:25)
[2019-01-24] MEDS: Azithromycin 500 MG in D5% in Water 250 ML IVPB SCH (17:25)
[2019-01-24] MEDS: Acetaminophen 325 MG TABLET PO PRN (21:58)
[2019-01-24] MEDS: Mirtazapine 15 MG TABLET PO SCH (21:59)
[2019-01-25] MEDS: Ipratropium/Albuterol Neb 3 ML IH SCH ×3 (03:50→11:18)
[2019-01-25 04:06] LABS: Hemoglobin 7.7 g/dL (11.5-15.4); Immature Granulocytes % 0.5 % (0-4)
[2019-01-25 04:07] LABS: Basophils % 0.1 %; Hematocrit 27.6 % (35.3-44.9); Lymphocytes # 0.5 K/mcL (0.6-4.6); Lymphocytes % 3.8 %; Mean Corpuscular HGB Conc 27.9 g/dL (31.6-35.5); Mean Corpuscular Hemoglobin 24.4 pg (28.0-33.3); Mean Corpuscular Volume 87.6 fL (83.0-100.0); Mean Platelet Volume 10.1 fL (9.4-12.4); Monocytes # 0.9 K/mcL (0.0-1.3); Monocytes % 7.3 %; Neutrophils # 11.3 K/mcL (1.6-8.9); Platelet Count 249 K/mcL (140-400); Red Blood Count 3.15 M/mcL (3.82-4.97); Red Cell Distribution Width 21.9 % (11.5-14.5); Segmented Neutrophils % 88.3 %; White Blood Count 12.8 K/mcL (4.3-11.1)
[2019-01-25 04:26] LABS: BUN/Creatinine Ratio 36 (6-26); Blood Urea Nitrogen 16 mg/dL (6-20); Calcium 8.8 mg/dL (8.6-10.3); Carbon Dioxide 37 mEq/L (23-29); Chloride 99 mEq/L (98-107); Glucose 137 mg/dL (70-105); Osmolality,Calculated 291 (280-300); Sodium 139 mEq/L (136-145); eGFR For African Americans > 60 (> 60); eGFR For Non-African Americans > 60 (> 60)
[2019-01-25 04:30] LABS: Platelet Estimate Normal (Normal)
[2019-01-25 04:31] LABS: Anisocytosis 2+ (Not Present); Hypochromasia Present (Not Present); Stomatocytes 1+ (Not Present); Target Cells 2+ (Not Present)
[2019-01-25] MEDS: *HR* Heparin 5,000 UNIT/ML VIAL SQ SCH (06:18)
[2019-01-25] MEDS: predniSONE 20 MG TABLET PO SCH (06:18)
[2019-01-25 06:49] VITALS: BP 134/76
[2019-01-25] MEDS: Budesonide/Formoterol 160/4.5 1 PUFF INH IH SCH (07:33)
[2019-01-25] MEDS: cefTRIAXone 1,000 MG in Water for inj. (sterile) 10 ML IVP SCH (07:50)
[2019-01-25] MEDS: *HR* Promethazine 25 MG/ML VIAL IVP PRN (07:51)
[2019-01-25] MEDS: ALPRAZolam 0.5 MG TABLET PO SCH (07:51)
[2019-01-25] MEDS: Aspirin Enteric Coated 81 MG Tablet PO SCH (07:51)
--- NOTE | 2019-01-25 10:51 | Discharge Summary ---
Date of Encounter: 01/25/19 Time of Encounter: 10:00 - Discharge Diagnosis (1) Acute and chronic respiratory failure Priority: Primary Status: Acute Assessment and Plan: 58 year old female with pmh of COPD on home oxygen, CAD presenting with complaints of chest pain, shortness of breath and wheezing of about 3-4 d days duration. Patient notes she has been getting progressively more short of breath in the last couple of days and has had a productive cough with white phlegm. She began to have chest pain which she described as burning in the middle of her chest radiating to her shoulder blades. She denies any relieving factors. She admits to nausea, denies any other acute symptoms such as fevers or chills. She was assessed with acute worsening of chronic hypercaneic respiratory failure requiring more oxygen compared to baseline due to COPD exacerbation. She was started on BIPAP, nebs, steroids and antibiotics and improved. She was discharged to complete a course of steroids and antibiotics. 35minutes was spent discharging this patient Qualifiers: Respiratory failure complication: hypoxia and hypercapnia Qualified Code(s): J96.21 - Acute and chronic respiratory failure with hypoxia; J96.22 - Acute and chronic respiratory failure with hypercapnia (2) COPD exacerbation Priority: Primary Status: Acute (3) Chest pain Priority: Primary Status: Acute Qualifiers: Chest pain type: unspecified Qualified Code(s): R07.9 - Chest pain, unspecified (4) Coronary artery disease Priority: Primary Status: Acute Qualifiers: Qualified Code(s): I25.10 - Atherosclerotic heart disease of [place] coronary artery without angina pectoris (5) DVT prophylaxis Priority: Primary Status: Acute Hospital course: Ms. Honeycutt is a 58 year old female - Time Spent with Patient Total time spent providing and/or coordinating discharge services: - Discharge Medications Prescriptions: New predniSONE [PredniSONE] 40 mg PO DAILY 7 Days #14 tablet Azithromycin [Azithromycin 6-Tab Pack] 250 mg PO PER PKG DI #6 tab Continued Nitroglycerin [Nitrostat] 0.4 mg SL Q5M PRN PRN Reason: Chest Pain ALPRAZolam [Xanax 0.5 MG Tablet] 0.5 mg PO TID Mirtazapine 15 mg PO HS Albuterol Sulfate [Ventolin Hfa] 2 puff IH Q4H PRN PRN Reason: Shortness Of Breath Mometasone/Formoterol [Dulera 200 Mcg/5 Mcg Inhaler] 2 puff IH BID PRN PRN Reason: Shortness Of Breath Tiotropium [place] [Spiriva Respimat] 2 puff IH DAILY Metoclopramide [Reglan] 10 mg PO Q6H PRN PRN Reason: Nausea Metoprolol [Lopressor] 25 mg PO DAILY Atorvastatin [Lipitor] 40 mg PO HS Clopidogrel [Plavix] 75 mg PO DAILY Omeprazole [PriLOSEC] 20 mg PO DAILY Buspirone HCl [Buspar] 15 mg PO BID Aspirin 81 mg PO DAILY Ipratropium/Albuterol Neb [Duoneb] 3 ml IH Q8H Home Medications: Nitroglycerin [Nitrostat] 0.4 mg SL Q5M PRN 05/29/16 [History] ALPRAZolam [Xanax 0.5 MG Tablet] 0.5 mg PO TID 03/09/18 [History] Mirtazapine 15 mg PO HS 03/12/18 [History] Albuterol Sulfate [Ventolin Hfa] 2 puff IH Q4H PRN 08/17/18 [History] Metoclopramide [Reglan] 10 mg PO Q6H PRN 08/17/18 [History] Mometasone/Formoterol [Dulera 200 Mcg/5 Mcg Inhaler] 2 puff IH BID PRN 08/17/18 [History] Tiotropium [place] [Spiriva Respimat] 2 puff IH DAILY 08/17/18 [History] Metoprolol [Lopressor] 25 mg PO DAILY 09/17/18 [History] Atorvastatin [Lipitor] 40 mg PO HS 10/08/18 [History] Clopidogrel [Plavix] 75 mg PO DAILY 12/05/18 [History] Omeprazole [PriLOSEC] 20 mg PO DAILY 12/05/18 [History] Buspirone HCl [Buspar] 15 mg PO BID 12/07/18 [History] Aspirin 81 mg PO DAILY 01/22/19 [History] Ipratropium/Albuterol Neb [Duoneb] 3 ml IH Q8H 01/22/19 [History] Azithromycin [Azithromycin 6-Tab Pack] 250 mg PO PER PKG DI #6 tab 01/25/19 [Rx] predniSONE [PredniSONE] 40 mg PO DAILY 7 Days #14 tablet 01/25/19 [Rx] Allergies/Adverse Reactions: Allergy/AdvReac Type Severity Reaction Status Date / Time codeine Allergy NAUSEA, Verified 01/22/19 12:39 VOMITING, HIVES Date of admission: 01/22/19 11:43 Primary care physician: PCP NONE Consults: 01/22/19 08:44 Consult to Nurse Navigator [CONS] Routine Comment: COPD - Constitutional Vitals: Temp Pulse Resp BP Pulse Ox 97.8 F 102 16 134/76 96 01/25/19 06:45 01/25/19 06:45 01/25/19 07:35 01/25/19 06:45 01/25/19 07:35 Exam: General appearance: Present: A&O X 3, no acute distress Head exam: Present: normocephalic Respiratory exam: Wheezing resolved Cardiovascular exam: Present: RRR, +S1, +S2. Absent: diastolic murmur, gallop, rubs, systolic murmur GI/Abdominal exam: Soft, NT, ND, +BS Extremities exam: Absent: pedal edema Neurological exam: Present: alert, oriented X3, no focal deficits. Absent: altered - Patient Status Disposition: Home, Self-Care Condition: Undetermined - Discharge Instructions Follow Up With: Rajat Stubbs DO [Resident] - (01/29/2019 @ 3:00pm )
== END 2019-01-25 11:41 | disposition home or self-care (01) | DRG 140 ==
LOC: EMEROOARM 12:13 → 3BNU 12:13
PROVIDERS: ADMIT Student in an Organized Health Care Education/Training Program; ATTEND Student in an Organized Health Care Education/Training Program

== ENCOUNTER 2019-02-15 13:34 | Observation (INO) ==
[2019-02-15] MEDS ORDERED: methylPREDNISolone 125 MG/2 ML VIAL IVP ONE (13:41)
[2019-02-15] MEDS ORDERED: Ondansetron 4 MG/2 ML VIAL ONE (13:41)
[2019-02-15] MEDS ORDERED: Ipratropium/Albuterol Neb 3 ML IH ONE (13:41)
--- NOTE | 2019-02-15 13:43 | Emergency Department Note ---
Disposition Clinical Impression: COPD exacerbation, Hypoxia Disposition: Admitted As Inpatient Referrals: NONE,PCP [Primary Care Provider] - Forms: ED Satisfaction Letter Time of Disposition: 16:47 General Adult HPI - General Chief complaint: ED Shortness of Breath/Dyspnea Stated complaint: SOB/CP Time Seen by Provider: 02/15/19 13:41 - Related Data Home Medications Medication Instructions Recorded Confirmed Nitroglycerin [Nitrostat] 0.4 mg SL Q5M PRN 05/29/16 02/15/19 ALPRAZolam [Xanax 0.5 MG Tablet] 0.5 mg PO TID 03/09/18 02/15/19 Mirtazapine 15 mg PO HS 03/12/18 02/15/19 Albuterol Sulfate [Ventolin Hfa] 2 puff IH Q4H PRN 08/17/18 02/15/19 Metoclopramide [Reglan] 10 mg PO Q6H PRN 08/17/18 02/15/19 Mometasone/Formoterol [Dulera 200 2 puff IH BID PRN 08/17/18 02/15/19 Mcg/5 Mcg Inhaler] Tiotropium [place] [Spiriva 2 puff IH DAILY 08/17/18 02/15/19 Respimat] Metoprolol [Lopressor] 25 mg PO DAILY 09/17/18 02/15/19 Atorvastatin [Lipitor] 40 mg PO HS 10/08/18 02/15/19 Clopidogrel [Plavix] 75 mg PO DAILY 12/05/18 02/15/19 Omeprazole [PriLOSEC] 20 mg PO DAILY 12/05/18 02/15/19 Buspirone HCl [Buspar] 15 mg PO BID 12/07/18 02/15/19 Aspirin 81 mg PO DAILY 01/22/19 02/15/19 Ipratropium/Albuterol Neb [Duoneb] 3 ml IH Q8H 01/22/19 02/15/19 Allergies Allergy/AdvReac Type Severity Reaction Status Date / Time codeine Allergy NAUSEA, Verified 01/22/19 12:39 VOMITING, HIVES Past Medical History - Past Medical History Medical history: Reports: asthma, atrial fibrillation, COPD, coronary artery disease, GERD, hyperlipidemia, hypertension, myocardial infarction Surgical history: Reports: angioplasty/stent, cholecystectomy, other Psychiatric history: Reports: anxiety, depression 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 - Social History Smoking Status: Current every day smoker Smokeless Tobacco Status: No Alcohol use: Reports: occasionally Drug use: Reports: none Course Vital Signs Temperature 98.6 F 02/15/19 13:40 Pulse Rate 123 02/15/19 13:40 Respiratory Rate 20 02/15/19 13:40 Blood Pressure 111/86 02/15/19 13:40 O2 Sat by Pulse Oximetry 88 02/15/19 13:40 Temperature 98.6 F 02/15/19 13:40 Pulse Rate 115 02/15/19 16:39 Respiratory Rate 16 02/15/19 16:39 Blood Pressure 121/66 02/15/19 16:39 O2 Sat by Pulse Oximetry 92 02/15/19 16:39 Oxygen Delivery Oxygen Delivery Nasal Cannula Medical Decision Making - Lab Data Result diagrams: 02/15/19 13:46 02/15/19 13:46 Lab Results 02/15/19 02/15/19 02/15/19 Range/Units 13:46 13:46 13:46 WBC 7.8 (4.3-11.1) K/mcL RBC 3.76 L (3.82-4.97) M/mcL Hgb 8.9 L (11.5-15.4) g/dL Hct 32.1 L (35.3-44.9) % MCV 85.4 (83.0-100.0) fL MCH 23.7 L (28.0-33.3) pg MCHC 27.7 L (31.6-35.5) g/dL RDW 18.7 H (11.5-14.5) % Plt Count 486 H (140-400) K/mcL MPV 8.9 L (9.4-12.4) fL Immature Gran % 0.3 (0-4) % Seg Neutrophils % 63.1 % Lymphocytes % 15.7 % Monocytes % 17.0 % Eosinophils % 3.6 % Basophils % 0.3 % Neutrophils # 4.9 (1.6-8.9) K/mcL Lymphocytes # 1.2 (0.6-4.6) K/mcL Monocytes # 1.3 (0.0-1.3) K/mcL Eosinophils # 0.3 (0.0-0.6) K/mcL Basophils # 0.0 (0.0-0.2) K/mcL Platelet Estimate Slight increase H (Normal) Hypochromasia Present A (Not Present) Poikilocytosis 2+ A (Not Present) Stomatocytes 2+ A (Not Present) PT 11.7 (9.4-12.1) Seconds INR 1.0 ABG pH (7.32-7.45) pH Units ABG pCO2 (35-45) mmHg ABG pO2 (85-104) mmHg ABG HCO3 (21-27) mEq/L ABG Total CO2 (20-26) mEq/L ABG O2 Saturation (95-98) % ABG Base Excess (-2 to 3) mEq/L O2 Delivery Device Inspired O2 (1-15=lpm [id number]=%) Sodium 134 L (136-145) mEq/L Potassium 3.2 L (3.5-5.1) mEq/L Chloride 79 L (98-107) mEq/L Carbon Dioxide > 45 H* (23-29) mEq/L BUN 3 L (6-20) mg/dL Creatinine 0.35 L (0.60-1.20) mg/dL Est GFR ( Amer) > 60 (> 60) Est GFR (Non-Af Amer) > 60 (> 60) BUN/Creatinine Ratio 9 (6-26) Glucose 120 H (70-105) mg/dL Calculated Osmolality 276 L (280-300) Lactic Acid (0.5-2.2) mmol/L Calcium 9.7 (8.6-10.3) mg/dL Magnesium 1.9 (1.6-2.6) mg/dL Total Bilirubin 0.4 (0.3-1.0) mg/dL Direct Bilirubin 0.1 (0.0-0.2) mg/dL Indirect Bilirubin 0.3 (0.0-1.2) mg/dL AST 19 (13-39) Units/L ALT 11 (7-52) Units/L Alkaline Phosphatase 122 H (34-104) Units/L Troponin I < 0.03 (< 0.04) ng/mL B-Natriuretic Peptide (Less than 100) pg/mL Serum Total Protein 7.8 (6.4-8.9) g/dL Albumin 4.3 (3.5-5.7) g/dL Globulin 3.5 (2.4-3.5) g/dL Albumin/Globulin Ratio 1.2 (1.1-2.2) Person Notif of Crit 02/15/19 02/15/19 02/15/19 Range/Units 13:46 13:46 14:46 WBC (4.3-11.1) K/mcL RBC (3.82-4.97) M/mcL Hgb (11.5-15.4) g/dL Hct (35.3-44.9) % MCV (83.0-100.0) fL MCH (28.0-33.3) pg MCHC (31.6-35.5) g/dL RDW (11.5-14.5) % Plt Count (140-400) K/mcL MPV (9.4-12.4) fL Immature Gran % (0-4) % Seg Neutrophils % % Lymphocytes % % Monocytes % % Eosinophils % % Basophils % % Neutrophils # (1.6-8.9) K/mcL Lymphocytes # (0.6-4.6) K/mcL Monocytes # (0.0-1.3) K/mcL Eosinophils # (0.0-0.6) K/mcL Basophils # (0.0-0.2) K/mcL Platelet Estimate (Normal) Hypochromasia (Not Present) Poikilocytosis (Not Present) Stomatocytes (Not Present) PT (9.4-12.1) Seconds INR ABG pH 7.36 (7.32-7.45) pH Units ABG pCO2 91 H* (35-45) mmHg ABG pO2 83 L (85-104) mmHg ABG HCO3 52 H (21-27) mEq/L ABG Total CO2 > 50 H (20-26) mEq/L ABG O2 Saturation 95 (95-98) % ABG Base Excess 22 H (-2 to 3) mEq/L O2 Delivery Device Cannula Inspired O2 36.0 (1-15=lpm iz71-086=%) Sodium (136-145) mEq/L Potassium (3.5-5.1) mEq/L Chloride (98-107) mEq/L Carbon Dioxide (23-29) mEq/L BUN (6-20) mg/dL Creatinine (0.60-1.20) mg/dL Est GFR ( Amer) (> 60) Est GFR (Non-Af Amer) (> 60) BUN/Creatinine Ratio (6-26) Glucose (70-105) mg/dL Calculated Osmolality (280-300) Lactic Acid 2.1 (0.5-2.2) mmol/L Calcium (8.6-10.3) mg/dL Magnesium (1.6-2.6) mg/dL Total Bilirubin (0.3-1.0) mg/dL Direct Bilirubin (0.0-0.2) mg/dL Indirect Bilirubin (0.0-1.2) mg/dL AST (13-39) Units/L ALT (7-52) Units/L Alkaline Phosphatase (34-104) Units/L Troponin I (< 0.04) ng/mL B-Natriuretic Peptide 63 (Less than 100) pg/mL Serum Total Protein (6.4-8.9) g/dL Albumin (3.5-5.7) g/dL Globulin (2.4-3.5) g/dL Albumin/Globulin Ratio (1.1-2.2) Person Notif Sandy ocasio 02/15/19 Range/Units 15:39 WBC (4.3-11.1) K/mcL RBC (3.82-4.97) M/mcL Hgb (11.5-15.4) g/dL Hct (35.3-44.9) % MCV (83.0-100.0) fL MCH (28.0-33.3) pg MCHC (31.6-35.5) g/dL RDW (11.5-14.5) % Plt Count (140-400) K/mcL MPV (9.4-12.4) fL Immature Gran % (0-4) % Seg Neutrophils % % Lymphocytes % % Monocytes % % Eosinophils % % Basophils % % Neutrophils # (1.6-8.9) K/mcL Lymphocytes # (0.6-4.6) K/mcL Monocytes # (0.0-1.3) K/mcL Eosinophils # (0.0-0.6) K/mcL Basophils # (0.0-0.2) K/mcL Platelet Estimate (Normal) Hypochromasia (Not Present) Poikilocytosis (Not Present) Stomatocytes (Not Present) PT (9.4-12.1) Seconds INR ABG pH (7.32-7.45) pH Units ABG pCO2 (35-45) mmHg ABG pO2 (85-104) mmHg ABG HCO3 (21-27) mEq/L ABG Total CO2 (20-26) mEq/L ABG O2 Saturation (95-98) % ABG Base Excess (-2 to 3) mEq/L O2 Delivery Device Inspired O2 (1-15=lpm [id number]=%) Sodium (136-145) mEq/L Potassium (3.5-5.1) mEq/L Chloride (98-107) mEq/L Carbon Dioxide (23-29) mEq/L BUN (6-20) mg/dL Creatinine (0.60-1.20) mg/dL Est GFR ( Amer) (> 60) Est GFR (Non-Af Amer) (> 60) BUN/Creatinine Ratio (6-26) Glucose (70-105) mg/dL Calculated Osmolality (280-300) Lactic Acid 0.8 (0.5-2.2) mmol/L Calcium (8.6-10.3) mg/dL Magnesium (1.6-2.6) mg/dL Total Bilirubin (0.3-1.0) mg/dL Direct Bilirubin (0.0-0.2) mg/dL Indirect Bilirubin (0.0-1.2) mg/dL AST (13-39) Units/L ALT (7-52) Units/L Alkaline Phosphatase (34-104) Units/L Troponin I (< 0.04) ng/mL B-Natriuretic Peptide (Less than 100) pg/mL Serum Total Protein (6.4-8.9) g/dL Albumin (3.5-5.7) g/dL Globulin (2.4-3.5) g/dL Albumin/Globulin Ratio (1.1-2.2) Person Notif of Crit Attestation Statement - Attestation Attestation: I reviewed the residents documentation and agree with the residents assessment and plan of care. I have personally had face to face time with the patient. (Brief History, Brief Exam, and MDM) I personally supervised and was present for the ponce/critical portions of the following procedures completed by the resident: (add procedures performed here). [id number] time provided I attest to supervising the resident physician's interpretation of the ECG Patient presents with dyspnea. She appears visibly dyspneic and tachypneic upon arrival. She was hypoxic at triage.
--- NOTE | 2019-02-15 13:56 | Emergency Department Note ---
Disposition Clinical Impression: COPD exacerbation, Hypoxia Disposition: Admitted As Inpatient Forms: ED Satisfaction Letter Time of Disposition: 15:50 General Adult HPI - General Chief complaint: ED Shortness of Breath/Dyspnea Stated complaint: SOB/CP Time Seen by Provider: 02/15/19 13:41 Source: patient Mode of arrival: ambulatory Limitations: no limitations Nursing Notes Reviewed: Yes Vital Signs Reviewed: Yes - History of Present Illness HPI Narrative: 58F with PMHx of COPD on 3-4L of oxygen at home, [place], afib on Plavix presents emergency department with chest pain and shortness of breath. Patient is unable to speak in full sentences secondary to her shortness of breath. She describes the chest pain is pressure in the center of her chest. She denies nausea and vomiting, diaphoresis, fever, recent illness. She has been coughing up more sputum recently. Pain Scale: 5 - Related Data Home Medications Medication Instructions Recorded Confirmed Nitroglycerin [Nitrostat] 0.4 mg SL Q5M PRN 05/29/16 01/22/19 ALPRAZolam [Xanax 0.5 MG Tablet] 0.5 mg PO TID 03/09/18 01/22/19 Mirtazapine 15 mg PO HS 03/12/18 01/22/19 Albuterol Sulfate [Ventolin Hfa] 2 puff IH Q4H PRN 08/17/18 01/22/19 Metoclopramide [Reglan] 10 mg PO Q6H PRN 08/17/18 01/22/19 Mometasone/Formoterol [Dulera 200 2 puff IH BID PRN 08/17/18 01/22/19 Mcg/5 Mcg Inhaler] Tiotropium [place] [Spiriva 2 puff IH DAILY 08/17/18 01/22/19 Respimat] Metoprolol [Lopressor] 25 mg PO DAILY 09/17/18 01/22/19 Atorvastatin [Lipitor] 40 mg PO HS 10/08/18 01/22/19 Clopidogrel [Plavix] 75 mg PO DAILY 12/05/18 01/22/19 Omeprazole [PriLOSEC] 20 mg PO DAILY 12/05/18 01/22/19 Buspirone HCl [Buspar] 15 mg PO BID 12/07/18 01/22/19 Aspirin 81 mg PO DAILY 01/22/19 01/22/19 Ipratropium/Albuterol Neb [Duoneb] 3 ml IH Q8H 01/22/19 01/22/19 Allergies Allergy/AdvReac Type Severity Reaction Status Date / Time codeine Allergy NAUSEA, Verified 01/22/19 12:39 VOMITING, HIVES All systems ED: reviewed and negative except as stated. Review of Systems: As Per HPI Constitutional: Reports: weakness. Denies: fever, chills Cardiovascular: Reports: chest pain, dyspnea on exertion. Denies: palpitations Respiratory: Reports: cough, dyspnea, sputum production Gastrointestinal: Denies: abdominal pain, nausea, vomiting Genitourinary: Denies: dysuria Musculoskeletal: Denies: back pain, neck pain Integumentary: Denies: rash Neurological: Denies: headache Endocrine: Reports: fatigue Past Medical History - Past Medical History Attestation: Yes The following information was validated with the patient. 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 Absent: tenderness, rash - Respiratory Respiratory exam: Present: wheezes (heard in right upper.middle lobe. decreased breath sounds throughout other lobes) - Cardiovascular Cardiovascular exam: Present: normal rhythm, tachycardia - Abdominal Exam Abdominal exam: Present: soft, Non-Tender. Absent: distention, guarding, rebound, rigidity - Extremities Exam Extremities exam: Present: normal inspection. Absent: tenderness, pedal edema - Neurological Exam Neurological exam: Present: alert, oriented X3 - Psychiatric Psychiatric exam: Present: anxious - Skin Skin exam: Present: warm, dry, intact Course Vital Signs Temperature 98.6 F 02/15/19 13:40 Pulse Rate 123 02/15/19 13:40 Respiratory Rate 20 02/15/19 13:40 Blood Pressure 111/86 02/15/19 13:40 O2 Sat by Pulse Oximetry 88 02/15/19 13:40 Temperature 98.6 F 02/15/19 13:40 Pulse Rate 126 02/15/19 15:43 Respiratory Rate 18 02/15/19 15:43 Blood Pressure 110/70 02/15/19 15:43 O2 Sat by Pulse Oximetry 98 02/15/19 15:43 Oxygen Delivery Oxygen Delivery Nasal Cannula Medical Decision Making - [facility] Narrative Medical decision making narrative: Patient presents with chest pain and shortness of breath with diffuse wheezing and decreased breath sounds on exam, likely secondary to a COPD exacerbation. We will give the patient steroids and breathing treatments and obtain a cardiac workup to determine cause of her shortness of breath and chest pain. 1507 - on examination the patient is able to speak full sentences and appears more comfortable. Her aeration of her lungs has improved but there is still significant wheezing. She is also still tachycardic and complaining of chest pressure in the center of her chest. She describes this chest pressure similar to her previous heart attacks. EKG and labs did not demonstrate acute ischemia. Chest x-ray shows no acute cardiopulmonary process. We will administer nitroglycerin see if this helps relieve the patient's chest pressure and if not we will consider administering Cardizem to rate control her atrial fibrillation. 1548 - patient's blood pressure has improved with the administration of the fluids. We will try a push dose of Lopressor to see if this helps decrease her heart rate. We will also start the patient on azithromycin for COPD exacerbation. Patient is still complaining of chest pain at this time. Her electrolytes demonstrate hypokalemia and potassium will be replaced through the IV. Patient has been accepted to the hospital by Dr. Yoo for treatment of her COPD exacerbation. - Medical Records Medical records reviewed: Yes I reviewed the patient's medical records. - Lab Data Lab results reviewed: Yes I reviewed the patient's lab results. Result diagrams: 02/15/19 13:46 02/15/19 13:46 Lab Results 02/15/19 02/15/19 02/15/19 Range/Units 13:46 13:46 13:46 WBC 7.8 (4.3-11.1) K/mcL RBC 3.76 L (3.82-4.97) M/mcL Hgb 8.9 L (11.5-15.4) g/dL Hct 32.1 L (35.3-44.9) % MCV 85.4 (83.0-100.0) fL MCH 23.7 L (28.0-33.3) pg MCHC 27.7 L (31.6-35.5) g/dL RDW 18.7 H (11.5-14.5) % Plt Count 486 H (140-400) K/mcL MPV 8.9 L (9.4-12.4) fL Immature Gran % 0.3 (0-4) % Seg Neutrophils % 63.1 % Lymphocytes % 15.7 % Monocytes % 17.0 % Eosinophils % 3.6 % Basophils % 0.3 % Neutrophils # 4.9 (1.6-8.9) K/mcL Lymphocytes # 1.2 (0.6-4.6) K/mcL Monocytes # 1.3 (0.0-1.3) K/mcL Eosinophils # 0.3 (0.0-0.6) K/mcL Basophils # 0.0 (0.0-0.2) K/mcL Platelet Estimate Slight increase H (Normal) Hypochromasia Present A (Not Present) Poikilocytosis 2+ A (Not Present) Stomatocytes 2+ A (Not Present) PT 11.7 (9.4-12.1) Seconds INR 1.0 ABG pH (7.32-7.45) pH Units ABG pCO2 (35-45) mmHg ABG pO2 (85-104) mmHg ABG HCO3 (21-27) mEq/L ABG Total CO2 (20-26) mEq/L ABG O2 Saturation (95-98) % ABG Base Excess (-2 to 3) mEq/L O2 Delivery Device Inspired O2 (1-15=lpm [id number]=%) Sodium 134 L (136-145) mEq/L Potassium 3.2 L (3.5-5.1) mEq/L Chloride 79 L (98-107) mEq/L Carbon Dioxide > 45 H* (23-29) mEq/L BUN 3 L (6-20) mg/dL Creatinine 0.35 L (0.60-1.20) mg/dL Est GFR ( Amer) > 60 (> 60) Est GFR (Non-Af Amer) > 60 (> 60) BUN/Creatinine Ratio 9 (6-26) Glucose 120 H (70-105) mg/dL Calculated Osmolality 276 L (280-300) Lactic Acid (0.5-2.2) mmol/L Calcium 9.7 (8.6-10.3) mg/dL Total Bilirubin 0.4 (0.3-1.0) mg/dL Direct Bilirubin 0.1 (0.0-0.2) mg/dL Indirect Bilirubin 0.3 (0.0-1.2) mg/dL AST 19 (13-39) Units/L ALT 11 (7-52) Units/L Alkaline Phosphatase 122 H (34-104) Units/L Troponin I < 0.03 (< 0.04) ng/mL B-Natriuretic Peptide (Less than 100) pg/mL Serum Total Protein 7.8 (6.4-8.9) g/dL Albumin 4.3 (3.5-5.7) g/dL Globulin 3.5 (2.4-3.5) g/dL Albumin/Globulin Ratio 1.2 (1.1-2.2) Person Notif of Crit 02/15/19 02/15/19 02/15/19 Range/Units 13:46 13:46 14:46 WBC (4.3-11.1) K/mcL RBC (3.82-4.97) M/mcL Hgb (11.5-15.4) g/dL Hct (35.3-44.9) % MCV (83.0-100.0) fL MCH (28.0-33.3) pg MCHC (31.6-35.5) g/dL RDW (11.5-14.5) % Plt Count (140-400) K/mcL MPV (9.4-12.4) fL Immature Gran % (0-4) % Seg Neutrophils % % Lymphocytes % % Monocytes % % Eosinophils % % Basophils % % Neutrophils # (1.6-8.9) K/mcL Lymphocytes # (0.6-4.6) K/mcL Monocytes # (0.0-1.3) K/mcL Eosinophils # (0.0-0.6) K/mcL Basophils # (0.0-0.2) K/mcL Platelet Estimate (Normal) Hypochromasia (Not Present) Poikilocytosis (Not Present) Stomatocytes (Not Present) PT (9.4-12.1) Seconds INR ABG pH 7.36 (7.32-7.45) pH Units ABG pCO2 91 H* (35-45) mmHg ABG pO2 83 L (85-104) mmHg ABG HCO3 52 H (21-27) mEq/L ABG Total CO2 > 50 H (20-26) mEq/L ABG O2 Saturation 95 (95-98) % ABG Base Excess 22 H (-2 to 3) mEq/L O2 Delivery Device Cannula Inspired O2 36.0 (1-15=lpm [id number]=%) Sodium (136-145) mEq/L Potassium (3.5-5.1) mEq/L Chloride (98-107) mEq/L Carbon Dioxide (23-29) mEq/L BUN (6-20) mg/dL Creatinine (0.60-1.20) mg/dL Est GFR ( Amer) (> 60) Est GFR (Non-Af Amer) (> 60) BUN/Creatinine Ratio (6-26) Glucose (70-105) mg/dL Calculated Osmolality (280-300) Lactic Acid 2.1 (0.5-2.2) mmol/L Calcium (8.6-10.3) mg/dL Total Bilirubin (0.3-1.0) mg/dL Direct Bilirubin (0.0-0.2) mg/dL Indirect Bilirubin (0.0-1.2) mg/dL AST (13-39) Units/L ALT (7-52) Units/L Alkaline Phosphatase (34-104) Units/L Troponin I (< 0.04) ng/mL B-Natriuretic Peptide 63 (Less than 100) pg/mL Serum Total Protein (6.4-8.9) g/dL Albumin (3.5-5.7) g/dL Globulin (2.4-3.5) g/dL Albumin/Globulin Ratio (1.1-2.2) Person Notif of Sandy ocasio - Radiology Data Radiology results reviewed: Yes I reviewed the patient's radiology results. - EKG Data EKG #1 EKG attestation: Yes I reviewed and interpreted this EKG. EKG results narrative: EKG obtained at 1344 on 02/15/2019 Heart rate 1 26 bpm, KS interval 141, QRS duration 76, QT 301, QTC 436 Sinus tachycardia without any evidence of ST segment elevations or depressions. There is no wandering baseline with artifact. Otherwise no changes when compared to previous EKG dated 01/21/2019.
[2019-02-15 13:58] LABS: Hemoglobin 8.9 g/dL (11.5-15.4); Immature Granulocytes % 0.3 % (0-4); Red Cell Distribution Width 18.7 % (11.5-14.5)
[2019-02-15 13:59] LABS: Basophils % 0.3 %; Eosinophils # 0.3 K/mcL (0.0-0.6); Eosinophils % 3.6 %; Hematocrit 32.1 % (35.3-44.9); Lymphocytes # 1.2 K/mcL (0.6-4.6); Lymphocytes % 15.7 %; Mean Corpuscular HGB Conc 27.7 g/dL (31.6-35.5); Mean Corpuscular Hemoglobin 23.7 pg (28.0-33.3); Mean Corpuscular Volume 85.4 fL (83.0-100.0); Mean Platelet Volume 8.9 fL (9.4-12.4); Monocytes # 1.3 K/mcL (0.0-1.3); Neutrophils # 4.9 K/mcL (1.6-8.9); Platelet Count 486 K/mcL (140-400); Red Blood Count 3.76 M/mcL (3.82-4.97); Segmented Neutrophils % 63.1 %; White Blood Count 7.8 K/mcL (4.3-11.1)
[2019-02-15 14:12] LABS: Prothrombin Time 11.7 Seconds (9.4-12.1)
[2019-02-15 14:27] LABS: Hypochromasia Present (Not Present); Poikilocytosis 2+ (Not Present); Stomatocytes 2+ (Not Present)
[2019-02-15 14:32] LABS: Alanine Aminotransferase 11 Units/L (7-52); Albumin 4.3 g/dL (3.5-5.7); Albumin/Globulin Ratio 1.2 (1.1-2.2); Alkaline Phosphatase 122 Units/L (34-104); Aspartate Amino Transferase 19 Units/L (13-39); BUN/Creatinine Ratio 9 (6-26); Bilirubin,Direct 0.1 mg/dL (0.0-0.2); Bilirubin,Indirect 0.3 mg/dL (0.0-1.2); Bilirubin,Total 0.4 mg/dL (0.3-1.0); Blood Urea Nitrogen 3 mg/dL (6-20); Calcium 9.7 mg/dL (8.6-10.3); Carbon Dioxide > 45 mEq/L (23-29); Chloride 79 mEq/L (98-107); Globulin 3.5 g/dL (2.4-3.5); Glucose 120 mg/dL (70-105); Osmolality,Calculated 276 (280-300); Potassium 3.2 mEq/L (3.5-5.1); Sodium 134 mEq/L (136-145); Total Protein 7.8 g/dL (6.4-8.9); Troponin I < 0.03 ng/mL (< 0.04); eGFR For African Americans > 60 (> 60); eGFR For Non-African Americans > 60 (> 60)
[2019-02-15 14:54] LABS: ABG Base Excess 22 mEq/L (-2 to 3); ABG HCO3 52 mEq/L (21-27); ABG Oxygen Saturation 95 % (95-98); ABG PCO2 91 mmHg (35-45); ABG PH 7.36 pH Units (7.32-7.45); ABG PO2 83 mmHg (85-104); ABG TCO2 > 50 mEq/L (20-26)
[2019-02-15] MEDS ORDERED: Nitroglycerin 0.4 MG TAB.SUBL SL PRN (15:05)
[2019-02-15] MEDS ORDERED: Potassium Chloride 40 MEQ, Lidocaine 1% 2 ML in 0.9 % Sodium Chloride 500 ML IVPB ONE (15:05)
[2019-02-15] MEDS ORDERED: 0.9 % Sodium Chloride 1,000 ML IVC ONE (15:08)
[2019-02-15] MEDS: *HR* Metoprolol 5 MG/5 ML VIAL IVP ONE ×2 (15:45→17:53)
[2019-02-15] MEDS ORDERED: Azithromycin 500 MG in 0.9 % Sodium Chloride 250 ML IVPB ONE (15:47)
[2019-02-15 16:01] LABS: Magnesium 1.9 mg/dL (1.6-2.6)
[2019-02-15] MEDS ORDERED: Naloxone 0.4 MG/ML INJ IVP PRN (22:17)
[2019-02-15] MEDS ORDERED: Albuterol 2.5 MG/3 ML NEBULIZER IH PRN (22:31)
--- NOTE | 2019-02-15 22:38 | Internal Med History&Physical ---
Date of Encounter: 02/15/19 Time of Encounter: 21:45 Internal Medicine - H&P: HPI Chief complaint: COPD exacerbation Admitted From: Emergency Dept Plans for Post Hospital Care: Home History of present illness: Ms. Honeycutt is a 58 year old female Patient presented to the emergency department with shortness of breath and chest pain that started the morning of her presentation to the ER. She has history of COPD, is a chronic smoker. She is on oxygen at home, 3-4 L chronically. She states that her chest pain is in the center of her chest and does not radiate. The pain did not wake her from sleep but started after she had been laying in bed for a few hours. She attempted some home breathing treatments but these did not help. She came to emergency department for further evaluation. Emergency department vital signs: Temperature 98.6, pulse 123, respiratory rate 20, blood pressure 111/86, oxygen saturation 96% on 4 L. CBC: White count 7.8, hemoglobin 8.9, platelets 486 BMP: Sodium 134, potassium 3.2, chloride 79, bicarbonate greater than 45, BUN 3, creatinine 0.35, glucose 120 Lactic acid 2.1 Initial troponin undetectable Chest x-ray showed no acute process EKG: Showed sinus tachycardia, rate 126, QTC 436 ms. Multiple artifacts but no obvious ischemic changes. In the emergency department patient received a 1 L bolus of IV fluids, breathing treatments, IV azithromycin and 40 mEq of IV potassium. She was admitted to the hospital for further management. Upon my evaluation, patient is resting comfortably in the hospital bed in no acute distress. Her chest pain has resolved, she denies abdominal pain has chronic nausea but no vomiting today. She denies diarrhea and constipation. She is DNR/DNI. Past Med Surg Social Fam HX - Past Medical History Medical history: asthma, atrial fibrillation, COPD, coronary artery disease, GERD, hyperlipidemia, hypertension, myocardial infarction Additional medical history: back pain, O2 @ 3L at all times Psychiatric history: anxiety, depression - Past Surgical History Surgical History: angioplasty/stent, cholecystectomy, other Additional surgical history: cardiac cath with angioplasty. tubal ligation - Social History Smoking Status: Current every day smoker Smokeless Tobacco Status: No Alcohol use: occasionally Drug use: none - Family History Father Living Status: Hx Family Respiratory Disorders: Yes Hx Family Cancer: Yes Hx Family Endocrine Disorder: Yes Diabetes diabetes Hx Family Cardiac Disorders: Yes (Hypertension) Hx Family Respiratory Disorders: Yes Hx Family Cancer: Yes (Lung cancer) Hx Family Endocrine Disorder: Yes (Diabetes) Sister Adopted: No Family Member Ethnicity: Non- Living Status: Hx Family Cardiac Disorders: No Hx Family Respiratory Disorders: Yes Hx Family Cancer: No Hx Family GI Disorders: No Hx Family Endocrine Disorder: No Hx Family Neuromuscular Disorders: No Hx Family Neurologic Disorders: No Hx Family HEENT Disorders: No Hx Family Autoimmune Disorders: Yes (lupus, arthritis) Mother Living Status: Hx Family Cardiac Disorders: Yes Hx Family Respiratory Disorders: No Hx Family Cancer: Yes Hx Family GI Disorders: Yes (Ulcers) Internal Medicine - H&P: Meds Nitroglycerin [Nitrostat] 0.4 mg SL Q5M PRN 05/29/16 [History] ALPRAZolam [Xanax 0.5 MG Tablet] 0.5 mg PO TID 03/09/18 [History] Mirtazapine 15 mg PO HS 03/12/18 [History] Albuterol Sulfate [Ventolin Hfa] 2 puff IH Q4H PRN 08/17/18 [History] Metoclopramide [Reglan] 10 mg PO Q6H PRN 08/17/18 [History] Mometasone/Formoterol [Dulera 200 Mcg/5 Mcg Inhaler] 2 puff IH BID PRN 08/17/18 [History] Tiotropium Kempner [Spiriva Respimat] 2 puff IH DAILY 08/17/18 [History] Metoprolol [Lopressor] 25 mg PO DAILY 09/17/18 [History] Atorvastatin [Lipitor] 40 mg PO HS 10/08/18 [History] Clopidogrel [Plavix] 75 mg PO DAILY 12/05/18 [History] Omeprazole [PriLOSEC] 20 mg PO DAILY 12/05/18 [History] Buspirone HCl [Buspar] 15 mg PO BID 12/07/18 [History] Aspirin 81 mg PO DAILY 01/22/19 [History] Ipratropium/Albuterol Neb [Duoneb] 3 ml IH Q8H 01/22/19 [History] Allergy/AdvReac Type Severity Reaction Status Date / Time codeine Allergy NAUSEA, Verified 01/22/19 12:39 VOMITING, HIVES All Systems PM: A 10-system review of systems was performed and is negative for pertinent findings except as documented above in the HPI. - Constitutional Vitals: Temp Pulse Resp BP Pulse Ox 98.2 F 96 16 96/61 97 02/15/19 17:58 02/15/19 21:45 02/15/19 21:45 02/15/19 21:45 02/15/19 21:45 General appearance: Present: cooperative, A&O X 3, pleasant, no acute distress, answers questions appropriately Exam: - - Head Head exam: Present: normal inspection - Eye Eye exam: Present: EOMI, normal appearance - Respiratory Respiratory exam: Present: decreased breath sounds, wheezes. Absent: CTAB, rales, respiratory distress, rhonchi - Cardiovascular Cardiovascular exam: Present: RRR. Absent: diastolic murmur, systolic murmur - GI/Abdominal GI/Abdominal exam: Present: normal bowel sounds, soft. Absent: tenderness - Extremities Exam Extremities exam: Present: warm, radial pulses palpable and symmetrical. Abse nt: calf tenderness, pedal edema, tenderness - Neurological Exam Neurological exam: Present: no focal deficits, strengths equal and symetr throughout. Absent: motor sensory deficit, facial droop, speech deficit - Skin Skin exam: Present: dry, normal color, warm Internal Med - H&P Results - Labs CBC & Chem 7: 02/15/19 13:46 02/15/19 13:46 Labs: Short CBC 02/15/19 Range/Units 13:46 WBC 7.8 (4.3-11.1) K/mcL Hgb 8.9 L (11.5-15.4) g/dL Hct 32.1 L (35.3-44.9) % Plt Count 486 H (140-400) K/mcL Neutrophils # 4.9 (1.6-8.9) K/mcL BMP 02/15/19 13:46 Sodium 134 L Potassium 3.2 L Chloride 79 L Carbon Dioxide > 45 H* BUN 3 L Creatinine 0.35 L Glucose 120 H Calcium 9.7 Cardiac Enzymes 02/15/19 Range/Units 13:46 Troponin I < 0.03 (< 0.04) ng/mL Liver Function 02/15/19 Range/Units 13:46 Total Bilirubin 0.4 (0.3-1.0) mg/dL Direct Bilirubin 0.1 (0.0-0.2) mg/dL AST 19 (13-39) Units/L ALT 11 (7-52) Units/L Alkaline Phosphatase 122 H (34-104) Units/L Albumin 4.3 (3.5-5.7) g/dL - ABG Interpretation ABG results: 02/15/19 14:46 ABG pH 7.36 ABG pCO2 91 H* ABG pO2 83 L ABG HCO3 52 H ABG Total CO2 > 50 H ABG O2 Saturation 95 ABG Base Excess 22 H - Impressions ITS Impressions Chest X-Ray 02/15/19 13:41 IMPRESSION: No acute process. D/ / Moreno Cooley MD / Moreno Cooley MD Interpreting Provider: Moreno Cooley MD - Assessment and Plan (1) Acute respiratory failure with hypoxia Current Visit: Yes Status: Acute Assessment and plan: Secondary to COPD exacerbation. Patient did have improvement after the breathing treatments in the emergency department. She is on chronic oxygen at home. She has CPAP at home but does not wear it regularly. Patient has compensated metabolic acidosis. Elevated PCO2 of 91 with a pH of 7.36. PO2 of 83. Continue breathing treatments Oxygen supplementation as needed Respiratory therapy consult for CPAP Azithromycin IV IV steroids Bedside pulse oximetry (2) COPD exacerbation Current Visit: Yes Status: Acute Assessment and plan: As above, patient has history of COPD. She has a chronic smoker, 1-2 packs daily. Treatment as above (3) Chest pain Current Visit: No Status: Acute Assessment and plan: Now resolved, EKG nonischemic. Troponin remains undetectable. Patient feels that her chest pain was secondary to her breathing. Continue to trend troponin Cardiac telemetry Continue to monitor Qualifiers: Chest pain type: unspecified Qualified Code(s): R07.9 - Chest pain, unspecified (4) Hypokalemia Current Visit: No Status: Acute Assessment and plan: Patient was given 40 mEq of potassium in the ER. Repeat a.m. labs Magnesium levels are normal. Replete if indicated (5) Tobacco abuse Current Visit: No Status: Chronic Assessment and plan: Patient declines nicotine patch (6) DVT prophylaxis Current Visit: No Status: Acute Assessment and plan: Subcutaneous heparin - Time Spent With Patient Total time spent is greater than 50% in coordination of care (as documented) at patient's floor/unit and/or counseling patient: Greater than 35 minutes
[2019-02-16] MEDS: MethylPREDNISolone 40 MG/ML VIAL IVP SCH ×5 (00:04→23:28)
[2019-02-16] MEDS: Ipratropium/Albuterol Neb 3 ML IH SCH ×5 (00:23→22:03)
--- NOTE | 2019-02-16 00:33 | Electrocardiograph Report ---
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
[2019-02-16 05:21] LABS: Hematocrit 27.3 % (35.3-44.9)
[2019-02-16 05:22] LABS: Hemoglobin 7.4 g/dL (11.5-15.4); Mean Corpuscular HGB Conc 27.1 g/dL (31.6-35.5); Mean Corpuscular Hemoglobin 23.3 pg (28.0-33.3); Mean Corpuscular Volume 85.8 fL (83.0-100.0); Mean Platelet Volume 9.2 fL (9.4-12.4); Platelet Count 392 K/mcL (140-400); Red Blood Count 3.18 M/mcL (3.82-4.97); Red Cell Distribution Width 18.8 % (11.5-14.5)
[2019-02-16 05:45] LABS: BUN/Creatinine Ratio 18 (6-26); Blood Urea Nitrogen 5 mg/dL (6-20); Calcium 8.8 mg/dL (8.6-10.3); Carbon Dioxide 43 mEq/L (23-29); Chloride 89 mEq/L (98-107); Glucose 188 mg/dL (70-105); Osmolality,Calculated 282 (280-300); Potassium 4.2 mEq/L (3.5-5.1); Sodium 135 mEq/L (136-145); eGFR For African Americans > 60 (> 60); eGFR For Non-African Americans > 60 (> 60)
[2019-02-16] MEDS: *HR* Heparin 5,000 UNIT/ML VIAL SQ SCH ×2 (06:26→17:35)
[2019-02-16] MEDS: Aspirin 81 MG TAB.CHEW PO SCH (07:50)
[2019-02-16] MEDS ORDERED: Budesonide/Formoterol 160/4.5 1 PUFF INH IH PRN (10:33)
[2019-02-16] MEDS ORDERED: ALPRAZolam 0.5 MG TABLET PO ONE (11:09)
--- NOTE | 2019-02-16 12:58 | Internal Med Progress Note ---
Hospitalist Progress Note - Encounter Date of Encounter: 02/16/19 Time of Encounter: 10:30 - Subjective Interval History: Patient was seen this morning. She is still short of breath however she denies any chest pain. She had no nausea/vomiting or abdominal pain. - Exam Vitals: Temp Pulse Resp BP Pulse Ox 98.5 F 86 15 109/63 96 02/16/19 04:44 02/16/19 11:27 02/16/19 11:27 02/16/19 11:27 02/16/19 11:27 Exam: -General: Patient is alert, oriented 3. Distress Head: Atraumatic, normal inspection, normocephalic. Eye: EOMI, PERRLA, no scleral icterus noted. ENT: Mucous membranes moist. No odontogenic infection noted. Neck: Normal inspection, no meningismus. Respiratory: Diminished lung sounds bilaterally, scattered wheezing Cardiovascular: Regular rate and regular rhythm, S GI: Soft, nondistended, normal bowel sounds. Extremities:No joint swelling, pedal edema, or tenderness noted. Neurological: Alert, oriented 3, no focal deficits. Psychiatric: normal affect, normal mood. Skin: Dry, intact, warm. Normal color. No rashes. - Assessment and Plan (1) COPD exacerbation Current Visit: Yes Status: Acute Assessment and Plan: Due to noncompliance with inhalers and continue smoking 1 pack per day. Blood gases with hypercarbic and metabolic compensation Continue steroids, DuoNeb's and azithromycin Continue home inhalers (2) Respiratory failure with hypoxia and hypercapnia Current Visit: Yes Status: Acute Assessment and Plan: - Second due to above. Management as per above (3) Tobacco abuse Current Visit: No Status: Chronic Assessment and Plan: Patient declines nicotine patch initially but wanted to try it. Consulted to quit smoking however she is unwilling to. (4) Chest pain Current Visit: Yes Status: Resolved Assessment and Plan: Now resolved, EKG nonischemic. Troponin remains undetectable 2. Patient feels that her chest pain was secondary to her breathing. Cardiac telemetry (5) Hypokalemia Current Visit: Yes Status: Resolved Assessment and Plan: Resolved (6) DVT prophylaxis Current Visit: Yes Status: Acute Assessment and Plan: Subcutaneous heparin (7) Acute respiratory failure with hypoxia Current Visit: Yes Status: Acute - Time Spent with Patient Total time spent is greater than 50% in coordination of care (as documented) at patient's floor/unit and/or counseling patient: Internal Medicine: Result - Labs CBC & Chem 7: 02/16/19 04:00 02/16/19 04:00 Labs: Short CBC 02/15/19 02/16/19 Range/Units 13:46 04:00 WBC 7.8 3.0 L D (4.3-11.1) K/mcL Hgb 8.9 L 7.4 L D (11.5-15.4) g/dL Hct 32.1 L 27.3 L (35.3-44.9) % Plt Count 486 H 392 (140-400) K/mcL Neutrophils # 4.9 (1.6-8.9) K/mcL BMP 02/15/19 02/16/19 13:46 04:00 Sodium 134 L 135 L Potassium 3.2 L 4.2 D Chloride 79 L 89 L Carbon Dioxide > 45 H* 43 H* BUN 3 L 5 L Creatinine 0.35 L 0.28 L Glucose 120 H 188 H Calcium 9.7 8.8 Cardiac Enzymes 02/15/19 02/15/19 02/16/19 Range/Units 13:46 23:02 04:30 Troponin I < 0.03 < 0.03 < 0.03 (< 0.04) ng/mL Liver Function 02/15/19 Range/Units 13:46 Total Bilirubin 0.4 (0.3-1.0) mg/dL Direct Bilirubin 0.1 (0.0-0.2) mg/dL AST 19 (13-39) Units/L ALT 11 (7-52) Units/L Alkaline Phosphatase 122 H (34-104) Units/L Albumin 4.3 (3.5-5.7) g/dL - ABG Interpretation ABG results: ABG ABG pH 7.36 pH Units (7.32-7.45) 02/15/19 14:46 ABG pCO2 91 mmHg (35-45) H* 02/15/19 14:46 ABG pO2 83 mmHg (85-104) L 02/15/19 14:46 ABG O2 Saturation 95 % (95-98) 02/15/19 14:46 PT/INR, D-dimer PT 11.7 Seconds (9.4-12.1) 02/15/19 13:46 - Impressions Impressions Chest X-Ray 02/15/19 13:41 IMPRESSION: No acute process. D/ / Moreno Cooley MD / Moreno Cooley MD Interpreting Provider: Moreno Cooley MD Consult Discharge Plan - Plan Referrals: Lon Park MD [Partnered Physician] - 02/26/19 10:00 am (2) Respiratory failure with hypoxia and hypercapnia Qualifiers: Chronicity: acute on chronic Qualified Code(s): J96.21 - Acute and chronic respiratory failure with hypoxia; J96.22 - Acute and chronic respiratory failure with hypercapnia (4) Chest pain Qualifiers: Chest pain type: unspecified Qualified Code(s): R07.9 - Chest pain, unspecified
[2019-02-16] MEDS ORDERED: Ondansetron 4 MG/2 ML VIAL IVP PRN ×2 (14:02)
[2019-02-16] MEDS: ALPRAZolam 0.5 MG TABLET PO SCH ×2 (15:58→22:51)
--- NOTE | 2019-02-16 16:00 | Electrocardiograph Report ---
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
[2019-02-16] MEDS ORDERED: Azithromycin 500 MG in 0.9 % Sodium Chloride 250 ML IVPB SCH (18:00)
[2019-02-16] MEDS: Mirtazapine 15 MG TABLET PO SCH (22:51)
[2019-02-17 04:09] LABS: VBG HCO3 42 mEq/L (21-27); VBG PCO2 58 mmHg (41-51); VBG PH 7.47 pH Units (7.32-7.42); VBG PO2 109 mmHg (25-50)
[2019-02-17 04:11] LABS: Hemoglobin 7.5 g/dL (11.5-15.4); Mean Platelet Volume 9.2 fL (9.4-12.4)
[2019-02-17 04:12] LABS: Hematocrit 27.5 % (35.3-44.9); Mean Corpuscular HGB Conc 27.3 g/dL (31.6-35.5); Mean Corpuscular Hemoglobin 23.1 pg (28.0-33.3); Mean Corpuscular Volume 84.9 fL (83.0-100.0); Platelet Count 452 K/mcL (140-400); Red Blood Count 3.24 M/mcL (3.82-4.97); White Blood Count 15.4 K/mcL (4.3-11.1)
[2019-02-17] MEDS: Ipratropium/Albuterol Neb 3 ML IH SCH ×4 (04:15→22:00)
[2019-02-17 04:32] LABS: BUN/Creatinine Ratio 27 (6-26); Blood Urea Nitrogen 10 mg/dL (6-20); Carbon Dioxide 40 mEq/L (23-29); Chloride 92 mEq/L (98-107); Glucose 145 mg/dL (70-105); Osmolality,Calculated 286 (280-300); Potassium 3.8 mEq/L (3.5-5.1); Sodium 137 mEq/L (136-145); eGFR For African Americans > 60 (> 60); eGFR For Non-African Americans > 60 (> 60)
[2019-02-17] MEDS: MethylPREDNISolone 40 MG/ML VIAL IVP SCH ×3 (05:20→22:17)
[2019-02-17] MEDS: *HR* Heparin 5,000 UNIT/ML VIAL SQ SCH ×2 (05:20→17:10)
[2019-02-17] MEDS: ALPRAZolam 0.5 MG TABLET PO SCH ×3 (08:23→22:17)
[2019-02-17] MEDS: Aspirin 81 MG TAB.CHEW PO SCH (08:23)
[2019-02-17] MEDS ORDERED: Tiotropium 18 MCG inhalation IH SCH (09:00)
--- NOTE | 2019-02-17 11:24 | Internal Med Progress Note ---
Hospitalist Progress Note - Encounter Date of Encounter: 02/17/19 Time of Encounter: 08:15 - Subjective Interval History: No acute events overnight. Patient feels slightly better but not close to her baseline yet. Denies any chest pain or palpitation. No fever overnight. - Exam Vitals: Temp Pulse Resp BP Pulse Ox 98 F 105 16 126/70 98 02/17/19 08:00 02/17/19 08:00 02/17/19 09:57 02/17/19 08:00 02/17/19 09:57 Exam: General: Patient is alert, oriented 3. mild distress. Cachetic Respiratory: Diminished lung sounds bilaterally with minimal scattered wh eezing Cardiovascular: Regular rate and regular rhythm, S1S2 GI: Soft, nondistended, normal bowel sounds. Extremities:No joint swelling, pedal edema, or tenderness noted. - Assessment and Plan (1) Acute and chronic respiratory failure with hypercapnia Current Visit: Yes Status: Acute Assessment and Plan: Also with hypoxia, she uses 2-3L at baseline but presented at 88% on 4L secondary to COPD exacerbation, no evidence of PNA currently on macrolide, steroid, bronchodilators. Continue Her clinical status is complicated by poor compliance to inhalers, tobacco cessation, and BiPAP. Offered possibility of palliative care which she declined. She remains at high risk for readmission due to her poor insight to her disease as well as compliance to medical management (2) COPD exacerbation Current Visit: Yes Status: Acute Assessment and Plan: as above (3) Tobacco abuse Current Visit: No Status: Chronic Assessment and Plan: Ongoing counseling Nicotine replacement therapy (4) Hypokalemia Current Visit: Yes Status: Resolved Assessment and Plan: Normalized (5) Coronary artery disease Current Visit: Yes Status: Chronic Assessment and Plan: Serial troponins negative, continue home meds (6) DVT prophylaxis Current Visit: Yes Status: Acute Assessment and Plan: Subcutaneous heparin - Time Spent with Patient Total time spent is greater than 50% in coordination of care (as documented) at patient's floor/unit and/or counseling patient: 25 - 35 minutes Plan of Care Discussed with: case management Internal Medicine: Result - Labs CBC & Chem 7: 02/17/19 03:43 02/17/19 03:43 Labs: Short CBC 02/17/19 Range/Units 03:43 WBC 15.4 H D (4.3-11.1) K/mcL Hgb 7.5 L (11.5-15.4) g/dL Hct 27.5 L (35.3-44.9) % Plt Count 452 H (140-400) K/mcL BMP 02/17/19 03:43 Sodium 137 Potassium 3.8 Chloride 92 L Carbon Dioxide 40 H* BUN 10 Creatinine 0.37 L Glucose 145 H Calcium 9.0 - ABG Interpretation ABG results: ABG ABG pH 7.36 pH Units (7.32-7.45) 02/15/19 14:46 ABG pCO2 91 mmHg (35-45) H* 02/15/19 14:46 ABG pO2 83 mmHg (85-104) L 02/15/19 14:46 ABG O2 Saturation 95 % (95-98) 02/15/19 14:46 PT/INR, D-dimer PT 11.7 Seconds (9.4-12.1) 02/15/19 13:46 Consult Discharge Plan - Plan Referrals: Lon Park MD [Partnered Physician] - 02/26/19 10:00 am (5) Coronary artery disease Qualifiers: Qualified Code(s): I25.10 - Atherosclerotic heart disease of [place] coronary artery without angina pectoris
[2019-02-17] MEDS ORDERED: Budesonide/Formoterol 160/4.5 1 PUFF INH IH PRN (14:00)
[2019-02-17] MEDS: Azithromycin 250 MG TABLET PO SCH (14:53)
[2019-02-17] MEDS ORDERED: Bisacodyl 10 MG RECTAL SUPPOSITORY RC PRN (17:53)
[2019-02-17] MEDS: Mirtazapine 15 MG TABLET PO SCH (22:17)
[2019-02-18] MEDS: Ipratropium/Albuterol Neb 3 ML IH SCH ×2 (04:02→10:42)
[2019-02-18] MEDS: *HR* Heparin 5,000 UNIT/ML VIAL SQ SCH (05:29)
[2019-02-18 06:26] LABS: Basophils % 0.1 %
[2019-02-18 06:28] LABS: Hematocrit 26.9 % (35.3-44.9); Hemoglobin 7.4 g/dL (11.5-15.4); Immature Granulocytes % 0.7 % (0-4); Lymphocytes # 0.6 K/mcL (0.6-4.6); Lymphocytes % 3.3 %; Mean Corpuscular HGB Conc 27.5 g/dL (31.6-35.5); Mean Corpuscular Hemoglobin 23.1 pg (28.0-33.3); Mean Corpuscular Volume 84.1 fL (83.0-100.0); Mean Platelet Volume 9.2 fL (9.4-12.4); Monocytes % 5.9 %; Neutrophils # 15.2 K/mcL (1.6-8.9); Platelet Count 475 K/mcL (140-400); Red Cell Distribution Width 19.5 % (11.5-14.5); White Blood Count 16.9 K/mcL (4.3-11.1)
[2019-02-18 06:48] LABS: BUN/Creatinine Ratio 42 (6-26); Blood Urea Nitrogen 13 mg/dL (6-20); Calcium 8.8 mg/dL (8.6-10.3); Carbon Dioxide 42 mEq/L (23-29); Chloride 93 mEq/L (98-107); Glucose 131 mg/dL (70-105); Osmolality,Calculated 290 (280-300); Potassium 4.2 mEq/L (3.5-5.1); Sodium 139 mEq/L (136-145); eGFR For African Americans > 60 (> 60); eGFR For Non-African Americans > 60 (> 60)
[2019-02-18 07:00] LABS: Hypochromasia Present (Not Present)
[2019-02-18 07:01] VITALS: BP 123/76
[2019-02-18 07:01] LABS: Anisocytosis 1+ (Not Present); Poikilocytosis 1+ (Not Present)
[2019-02-18 07:02] LABS: Platelet Estimate Increased (Normal)
[2019-02-18] MEDS: Azithromycin 250 MG TABLET PO SCH (08:04)
[2019-02-18] MEDS: ALPRAZolam 0.5 MG TABLET PO SCH (08:05)
[2019-02-18] MEDS: MethylPREDNISolone 40 MG/ML VIAL IVP SCH (08:05)
[2019-02-18] MEDS: Aspirin 81 MG TAB.CHEW PO SCH (08:05)
--- NOTE | 2019-02-18 09:57 | Discharge Summary ---
- NOTES TO OUTPATIENT PROVIDER Notes to Outpatient Provider: Follow up with pulmonology as outpatient. Will need to have ongoinging discussion regarding palliative care which pt was not ready yet at the time of admission. Orders not resulted at time of discharge: Pending orders 02/15/19 13:46 Culture,Blood [BC] Stat 02/16/19 05:59 Occult Blood,Stool [BF] Routine Date of Encounter: 02/18/19 Time of Encounter: 07:45 - Discharge Diagnosis (1) Acute and chronic respiratory failure with hypercapnia Priority: Primary Status: Acute (2) COPD exacerbation Priority: Secondary Status: Acute (3) Tobacco abuse Priority: Secondary Status: Chronic (4) Hypokalemia Priority: Secondary Status: Resolved (5) Coronary artery disease Priority: Secondary Status: Chronic Qualifiers: Qualified Code(s): I25.10 - Atherosclerotic heart disease of [place] coronary artery without angina pectoris (6) DVT prophylaxis Priority: Secondary Status: Acute Hospital course: Ms. Honeycutt is a 58 year old female with PMHx of oxygen dependent COPD with frequent admissions due to non-compliance to medications/inhalers as well as poor insight to her disease process, who was admitted for acute on chronic hypoxic respiratory failure secondary to COPD exacerbation. No evidence of PNA, briefly required 4L of O2 which was quickly weaned to her baseline of 2-3L on steroid, duoneb, and macrolide. She was offered palliative care consultation in view of frequent admissions but declined. She will complete a 2 week steroid taper, 5 days of macrolide in total, and was strongly advised to use her inhalers/nebulizer/BiPAP as directed. Discharge discussed with: patient, nurse, case management - Time Spent with Patient Total time spent providing and/or coordinating discharge services: 33 mins - Discharge Medications Prescriptions: New PredniSONE [Deltasone] 40 mg PO DAILY #13 tablet Polyethylene Glycol 3350 [MiraLAX] 17 gm PO DAILY PRN #30 powd.pack PRN Reason: Constipation Sennosides/Docusate Sodium [Senna Plus] 1 each PO DAILY PRN #30 tablet PRN Reason: Constipation Azithromycin [Zithromax] 500 mg PO DAILY 3 Days #6 tablet Continued Nitroglycerin [Nitrostat] 0.4 mg SL Q5M PRN PRN Reason: Chest Pain ALPRAZolam [Xanax 0.5 MG Tablet] 0.5 mg PO TID Mirtazapine 15 mg PO HS Albuterol Sulfate [Ventolin Hfa] 2 puff IH Q4H PRN PRN Reason: Shortness Of Breath Mometasone/Formoterol [Dulera 200 Mcg/5 Mcg Inhaler] 2 puff IH BID PRN PRN Reason: Shortness Of Breath Tiotropium Mccarley [Spiriva Respimat] 2 puff IH DAILY Metoprolol [Lopressor] 25 mg PO DAILY Atorvastatin [Lipitor] 40 mg PO HS Clopidogrel [Plavix] 75 mg PO DAILY Omeprazole [PriLOSEC] 20 mg PO DAILY Buspirone HCl [Buspar] 15 mg PO BID Aspirin 81 mg PO DAILY Ipratropium/Albuterol Neb [Duoneb] 3 ml IH Q8H Home Medications: Nitroglycerin [Nitrostat] 0.4 mg SL Q5M PRN 05/29/16 [History] ALPRAZolam [Xanax 0.5 MG Tablet] 0.5 mg PO TID 03/09/18 [History] Mirtazapine 15 mg PO HS 03/12/18 [History] Albuterol Sulfate [Ventolin Hfa] 2 puff IH Q4H PRN 08/17/18 [History] Mometasone/Formoterol [Dulera 200 Mcg/5 Mcg Inhaler] 2 puff IH BID PRN 08/17/18 [History] Tiotropium Mccarley [Spiriva Respimat] 2 puff IH DAILY 08/17/18 [History] Metoprolol [Lopressor] 25 mg PO DAILY 09/17/18 [History] Atorvastatin [Lipitor] 40 mg PO HS 10/08/18 [History] Clopidogrel [Plavix] 75 mg PO DAILY 12/05/18 [History] Omeprazole [PriLOSEC] 20 mg PO DAILY 12/05/18 [History] Buspirone HCl [Buspar] 15 mg PO BID 12/07/18 [History] Aspirin 81 mg PO DAILY 01/22/19 [History] Ipratropium/Albuterol Neb [Duoneb] 3 ml IH Q8H 01/22/19 [History] Azithromycin [Zithromax] 500 mg PO DAILY 3 Days #6 tablet 02/18/19 [Rx] Polyethylene Glycol 3350 [MiraLAX] 17 gm PO DAILY PRN #30 powd.pack 02/18/19 [Rx] PredniSONE [Deltasone] 40 mg PO DAILY #13 tablet 02/18/19 [Rx] Sennosides/Docusate Sodium [Senna Plus] 1 each PO DAILY PRN #30 tablet 02/18/19 [Rx] Allergies/Adverse Reactions: Allergy/AdvReac Type Severity Reaction Status Date / Time codeine Allergy NAUSEA, Verified 01/22/19 12:39 VOMITING, HIVES Date of admission: 02/15/19 17:21 Primary care physician: PCP NONE Consults: 02/15/19 18:48 Consult to Pastoral Services [CONS] Routine Comment: 02/15/19 22:31 Consult to Nurse Navigator [CONS] Routine Comment: - Constitutional Vitals: Temp Pulse Resp BP Pulse Ox 98.3 F 95 16 123/76 96 02/18/19 06:58 02/18/19 06:58 02/18/19 06:58 02/18/19 06:58 02/18/19 06:58 General appearance: Present: cooperative, A&O X 3, pleasant, no acute distress, answers questions appropriately Exam: General: Patient is alert, oriented 3. not in distress. Cachetic Respiratory: Diminished lung sounds bilaterally with minimal scattered wheezing Cardiovascular: Regular rate and regular rhythm, S1S2 GI: Soft, nondistended, normal bowel sounds. Extremities:No joint swelling, pedal edema, or tenderness noted. - Patient Status Disposition: Home, Self-Care Overall status at discharge: patient is progressing back to baseline - Discharge Instructions Instructions: Acute Respiratory Distress Syndrome (DC), Chronic Obstructive Pulmonary Disease (DC), Chronic Hypertension (DC) Follow Up With: oLn Park MD [Partnered Physician] - 02/26/19 10:00 am Delfino Vergara MD [Partnered Physician] - - Diet and Activity Activity: resume usual activities as tolerated Diet: regular diet
[2019-02-18] MEDS ORDERED: Tiotropium 18 MCG inhalation IH SCH (10:00)
== END 2019-02-18 13:26 | disposition home or self-care (01) ==
LOC: 2NENU 13:34 → EMEROOARM 13:34 → SUATTDRO 17:21 → 2NENU 18:26
PROVIDERS: ADMIT Internal Medicine Nephrology; ATTEND Internal Medicine

== ENCOUNTER 2019-07-01 15:21 | Inpatient (IN) ==
[2019-07-01] MEDS ORDERED: 0.9 % Sodium Chloride 1,000 ML IVC ONE (15:41)
[2019-07-01 16:04] LABS: Red Cell Distribution Width 16.4 % (11.5-14.5)
[2019-07-01 16:06] LABS: Basophils % 0.2 %; Eosinophils % 0.2 %; Hematocrit 31.6 % (35.3-44.9); Immature Granulocytes % 0.3 % (0-4); Lymphocytes # 0.5 K/mcL (0.6-4.6); Lymphocytes % 5.2 %; Mean Corpuscular HGB Conc 25.3 g/dL (31.6-35.5); Mean Corpuscular Hemoglobin 21.3 pg (28.0-33.3); Mean Corpuscular Volume 84.3 fL (83.0-100.0); Mean Platelet Volume 9.1 fL (9.4-12.4); Monocytes # 0.6 K/mcL (0.0-1.3); Monocytes % 6.7 %; Platelet Count 211 K/mcL (140-400); Red Blood Count 3.75 M/mcL (3.82-4.97); Segmented Neutrophils % 87.4 %; White Blood Count 9.1 K/mcL (4.3-11.1)
[2019-07-01] MEDS ORDERED: Ipratropium/Albuterol Neb 3 ML IH ONE (16:08)
[2019-07-01] MEDS ORDERED: Isovue-370 500 ML BOTTLE IVP ONE (16:09)
[2019-07-01 16:18] LABS: VBG HCO3 46 mEq/L (21-27); VBG PCO2 76 mmHg (41-51); VBG PH 7.39 pH Units (7.32-7.42); VBG PO2 130 mmHg (25-50)
[2019-07-01 16:29] LABS: Large Platelets Present (Not Present); Platelet Estimate Normal (Normal)
[2019-07-01 16:30] LABS: Hypochromasia Present (Not Present)
[2019-07-01 16:35] LABS: BUN/Creatinine Ratio 26 (6-26); Blood Urea Nitrogen 9 mg/dL (6-20); Calcium 8.9 mg/dL (8.6-10.3); Carbon Dioxide 45 mEq/L (23-29); Chloride 85 mEq/L (98-107); Glucose 106 mg/dL (70-105); Osmolality,Calculated 277 (280-300); Potassium 3.8 mEq/L (3.5-5.1); Sodium 134 mEq/L (136-145); Troponin I < 0.03 ng/mL (< 0.04); eGFR For African Americans > 60 (> 60); eGFR For Non-African Americans > 60 (> 60)
[2019-07-01] MEDS ORDERED: predniSONE 20 MG TABLET PO ONE (17:33)
[2019-07-01] MEDS ORDERED: Naloxone 0.4 MG/ML INJ IVP PRN (22:27)
[2019-07-01] MEDS ORDERED: Albuterol 2.5 MG/3 ML NEBULIZER IH PRN (22:27)
[2019-07-01] MEDS ORDERED: Nitroglycerin 0.4 MG TAB.SUBL SL PRN (23:07)
[2019-07-01] MEDS: Ipratropium/Albuterol Neb 3 ML IH SCH (23:34)
[2019-07-01] MEDS: Mirtazapine 15 MG TABLET PO SCH (23:36)
[2019-07-02] MEDS: Ipratropium/Albuterol Neb 3 ML IH SCH ×4 (03:19→21:44)
[2019-07-02] MEDS: *HR* Heparin 5,000 UNIT/ML VIAL SQ SCH ×3 (05:16→21:53)
[2019-07-02 06:36] LABS: Prothrombin Time 11.3 Seconds (9.4-12.1)
[2019-07-02 06:43] LABS: Basophils % 0.1 %; Mean Platelet Volume 9.5 fL (9.4-12.4); Red Cell Distribution Width 16.6 % (11.5-14.5)
[2019-07-02 06:45] LABS: Hematocrit 25.7 % (35.3-44.9); Hemoglobin 6.7 g/dL (11.5-15.4); Immature Granulocytes % 0.3 % (0-4); Lymphocytes # 1.2 K/mcL (0.6-4.6); Lymphocytes % 16.9 %; Mean Corpuscular HGB Conc 26.1 g/dL (31.6-35.5); Mean Corpuscular Hemoglobin 21.3 pg (28.0-33.3); Mean Corpuscular Volume 81.6 fL (83.0-100.0); Monocytes # 0.6 K/mcL (0.0-1.3); Platelet Count 182 K/mcL (140-400); Red Blood Count 3.15 M/mcL (3.82-4.97); Retculocyte # 0.07 M/mcL (0.05-0.10); Reticulocyte % 2.3 % (1.6-2.8); Segmented Neutrophils % 73.7 %; White Blood Count 6.8 K/mcL (4.3-11.1)
[2019-07-02 07:00] LABS: % Iron Saturation 2 % (15-50); Alanine Aminotransferase 3 Units/L (7-52); Albumin 3.4 g/dL (3.5-5.7); Albumin/Globulin Ratio 1.2 (1.1-2.2); Alkaline Phosphatase 64 Units/L (34-104); Aspartate Amino Transferase 8 Units/L (13-39); BUN/Creatinine Ratio 29 (6-26); Bilirubin,Total 0.1 mg/dL (0.3-1.0); Blood Urea Nitrogen 9 mg/dL (6-20); Calcium 8.7 mg/dL (8.6-10.3); Carbon Dioxide 45 mEq/L (23-29); Chloride 89 mEq/L (98-107); Chol/HDL Ratio 2.3 (0-4.9); Cholesterol 142 mg/dL (< 200); Globulin 2.8 g/dL (2.4-3.5); Glucose 108 mg/dL (70-105); HDL Cholesterol 62 mg/dL (40-59); Iron 10 mcg/dL (50-170); LDL Cholesterol,Calculated 70 mg/dL (0-99); Magnesium 1.9 mg/dL (1.6-2.6); Osmolality,Calculated 283 (280-300); Phosphorous 2.6 mg/dL (2.7-4.5); Potassium 4.2 mEq/L (3.5-5.1); Sodium 137 mEq/L (136-145); Total Protein 6.2 g/dL (6.4-8.9); Transferrin 377 mg/dL (203-362); Triglycerides 49 mg/dL (< 150); eGFR For African Americans > 60 (> 60); eGFR For Non-African Americans > 60 (> 60)
[2019-07-02 07:21] LABS: Ferritin < 8 ng/mL (10-120)
[2019-07-02] MEDS: Tiotropium 18 MCG inhalation IH SCH (08:09)
[2019-07-02] MEDS ORDERED: Cyanocobalamin (B-12) 1,000 MCG/ML VIAL IM ONE (08:11)
[2019-07-02 08:25] LABS: Platelet Estimate Slight Decrease (Normal)
[2019-07-02 08:26] LABS: Hypochromasia Present (Not Present); Stomatocytes 1+ (Not Present)
[2019-07-02] MEDS ORDERED: Ondansetron 4 MG/2 ML VIAL IVP PRN (09:26)
[2019-07-02] MEDS ORDERED: 0.9 % Sodium Chloride 500 ML ONE (10:20)
[2019-07-02] MEDS: Aspirin 81 MG TAB.CHEW PO SCH (10:33)
[2019-07-02] MEDS: Doxycycline 100 MG CAPSULE PO SCH ×2 (10:33→21:53)
[2019-07-02] MEDS: predniSONE 20 MG TABLET PO SCH (10:33)
[2019-07-02] MEDS ORDERED: Sennosides/Docusate Sodium TABLET PO PRN (10:40)
[2019-07-02] MEDS: ALPRAZolam 0.5 MG TABLET PO SCH ×3 (11:25→21:53)
[2019-07-02] MEDS: Budesonide/Formoterol 160/4.5 1 PUFF INH IH SCH ×2 (11:56→21:44)
[2019-07-02] MEDS: Iron Sucrose Complex 200 MG in 0.9 % Sodium Chloride 100 ML IVPB SCH (11:57)
[2019-07-02] MEDS: Pantoprazole 40 MG VIAL IVP SCH (14:35)
[2019-07-02] MEDS ORDERED: ALPRAZolam 0.5 MG TABLET PO SCH (15:00)
[2019-07-02 15:45] LABS: Basophils % 0.1 %; Eosinophils % 0.1 %; Red Cell Distribution Width 17.2 % (11.5-14.5)
[2019-07-02 15:46] LABS: Hematocrit 33.1 % (35.3-44.9); Immature Granulocytes % 0.5 % (0-4); Lymphocytes # 0.4 K/mcL (0.6-4.6); Lymphocytes % 5.1 %; Mean Corpuscular HGB Conc 27.2 g/dL (31.6-35.5); Mean Corpuscular Hemoglobin 21.9 pg (28.0-33.3); Mean Corpuscular Volume 80.5 fL (83.0-100.0); Mean Platelet Volume 9.2 fL (9.4-12.4); Monocytes # 0.4 K/mcL (0.0-1.3); Monocytes % 5.1 %; Neutrophils # 6.6 K/mcL (1.6-8.9); Platelet Count 184 K/mcL (140-400); Red Blood Count 4.11 M/mcL (3.82-4.97); Segmented Neutrophils % 89.1 %; White Blood Count 7.4 K/mcL (4.3-11.1)
[2019-07-02 16:26] LABS: Hypochromasia Present (Not Present); Large Platelets Present (Not Present); Microcytosis Present (Not Present)
[2019-07-02 16:27] LABS: Platelet Estimate Normal (Normal); Poikilocytosis 1+ (Not Present); Stomatocytes 1+ (Not Present)
[2019-07-02 16:28] LABS: Anisocytosis 1+ (Not Present)
[2019-07-02] MEDS: Mirtazapine 15 MG TABLET PO SCH (21:53)
[2019-07-03] MEDS: *HR* Heparin 5,000 UNIT/ML VIAL SQ SCH ×3 (05:13→22:02)
[2019-07-03] MEDS: Ipratropium/Albuterol Neb 3 ML IH SCH ×3 (08:24→22:51)
[2019-07-03] MEDS: Budesonide/Formoterol 160/4.5 1 PUFF INH IH SCH ×2 (08:25→22:51)
[2019-07-03] MEDS: Tiotropium 18 MCG inhalation IH SCH (08:25)
[2019-07-03] MEDS: Doxycycline 100 MG CAPSULE PO SCH ×2 (08:47→22:02)
[2019-07-03] MEDS: Aspirin 81 MG TAB.CHEW PO SCH (08:47)
[2019-07-03] MEDS: Cyanocobalamin (B-12) 1,000 MCG/ML VIAL IM SCH (08:47)
[2019-07-03] MEDS: predniSONE 20 MG TABLET PO SCH (08:47)
[2019-07-03] MEDS: Pantoprazole 40 MG VIAL IVP SCH (08:47)
[2019-07-03] MEDS: levoFLOXacin 500 MG TABLET PO SCH (08:48)
[2019-07-03] MEDS: ALPRAZolam 0.5 MG TABLET PO SCH ×3 (08:48→22:02)
[2019-07-03] MEDS: Iron Sucrose Complex 200 MG in 0.9 % Sodium Chloride 100 ML IVPB SCH (08:56)
[2019-07-03 10:39] LABS: Bilirubin,Urine Negative (Negative); Blood,Urine Negative (Negative); Clarity,Urine Clear (Clear); Color,Urine Yellow (Yellow); Glucose,Urine (UA) Normal (Normal); Ketones,Urine Negative (Negative); Leukocyte Esterase,Urine Negative (Negative); Nitrite,Urine Negative (Negative); PH,Urine 6.5 pH Units (5.0-8.0); Protein,Urine Negative (Neg-Trace); Specific Gravity,Urine 1.021 (1.010-1.025); Urobilinogen,Urine Normal (Normal)
[2019-07-03] MEDS: Mirtazapine 15 MG TABLET PO SCH (22:02)
[2019-07-04 01:32] LABS: Red Cell Distribution Width 17.2 % (11.5-14.5)
[2019-07-04 01:33] LABS: Hematocrit 30.2 % (35.3-44.9); Hemoglobin 8.4 g/dL (11.5-15.4); Mean Corpuscular HGB Conc 27.8 g/dL (31.6-35.5); Mean Corpuscular Hemoglobin 22.4 pg (28.0-33.3); Mean Corpuscular Volume 80.5 fL (83.0-100.0); Platelet Count 189 K/mcL (140-400); Red Blood Count 3.75 M/mcL (3.82-4.97); White Blood Count 11.2 K/mcL (4.3-11.1)
[2019-07-04 02:02] LABS: BUN/Creatinine Ratio 27 (6-26); Blood Urea Nitrogen 13 mg/dL (6-20); Calcium 8.4 mg/dL (8.6-10.3); Carbon Dioxide > 45 mEq/L (23-29); Chloride 88 mEq/L (98-107); Glucose 137 mg/dL (70-105); Osmolality,Calculated 286 (280-300); Phosphorous 1.5 mg/dL (2.7-4.5); Potassium 3.9 mEq/L (3.5-5.1); Sodium 137 mEq/L (136-145); eGFR For African Americans > 60 (> 60); eGFR For Non-African Americans > 60 (> 60)
[2019-07-04] MEDS: *HR* Heparin 5,000 UNIT/ML VIAL SQ SCH ×3 (05:03→21:51)
[2019-07-04] MEDS: Doxycycline 100 MG CAPSULE PO SCH (08:33)
[2019-07-04] MEDS: Aspirin 81 MG TAB.CHEW PO SCH (08:33)
[2019-07-04] MEDS: Pantoprazole 40 MG VIAL IVP SCH (08:34)
[2019-07-04] MEDS: predniSONE 20 MG TABLET PO SCH (08:34)
[2019-07-04] MEDS: ALPRAZolam 0.5 MG TABLET PO SCH ×3 (08:34→21:51)
[2019-07-04] MEDS: levoFLOXacin 500 MG TABLET PO SCH (08:34)
[2019-07-04] MEDS: Cyanocobalamin (B-12) 1,000 MCG/ML VIAL IM SCH (08:35)
[2019-07-04] MEDS: Iron Sucrose Complex 200 MG in 0.9 % Sodium Chloride 100 ML IVPB SCH (09:00)
[2019-07-04] MEDS: Ipratropium/Albuterol Neb 3 ML IH SCH ×5 (10:27→23:49)
[2019-07-04] MEDS: Budesonide/Formoterol 160/4.5 1 PUFF INH IH SCH ×2 (10:27→19:57)
[2019-07-04] MEDS: Tiotropium 18 MCG inhalation IH SCH (10:29)
[2019-07-04 11:17] LABS: ABG Base Excess 23 mEq/L (-2 to 3); ABG HCO3 55 mEq/L (21-27); ABG Oxygen Saturation 91 % (95-98); ABG PCO2 124 mmHg (35-45); ABG PH 7.26 pH Units (7.32-7.45); ABG PO2 78 mmHg (85-104); ABG TCO2 > 50 mEq/L (20-26)
[2019-07-04] MEDS ORDERED: Ipratropium/Albuterol Neb 3 ML IH PRN (11:17)
[2019-07-04] MEDS: Mirtazapine 15 MG TABLET PO SCH (21:50)
[2019-07-05] MEDS: Ipratropium/Albuterol Neb 3 ML IH SCH ×6 (03:31→23:52)
[2019-07-05] MEDS: *HR* Heparin 5,000 UNIT/ML VIAL SQ SCH ×3 (04:55→21:14)
[2019-07-05 07:20] LABS: Red Cell Distribution Width 18.7 % (11.5-14.5)
[2019-07-05 07:21] LABS: Hematocrit 30.9 % (35.3-44.9); Mean Corpuscular HGB Conc 25.9 g/dL (31.6-35.5); Mean Corpuscular Hemoglobin 22.2 pg (28.0-33.3); Mean Corpuscular Volume 85.6 fL (83.0-100.0); Mean Platelet Volume 9.8 fL (9.4-12.4); Platelet Count 195 K/mcL (140-400); Red Blood Count 3.61 M/mcL (3.82-4.97); White Blood Count 10.1 K/mcL (4.3-11.1)
[2019-07-05] MEDS: Budesonide/Formoterol 160/4.5 1 PUFF INH IH SCH ×2 (07:30→19:53)
[2019-07-05] MEDS: Tiotropium 18 MCG inhalation IH SCH (07:32)
[2019-07-05 08:06] LABS: BUN/Creatinine Ratio 39 (6-26); Blood Urea Nitrogen 13 mg/dL (6-20); Calcium 8.8 mg/dL (8.6-10.3); Carbon Dioxide > 45 mEq/L (23-29); Chloride 89 mEq/L (98-107); Glucose 117 mg/dL (70-105); Osmolality,Calculated 295 (280-300); Potassium 3.7 mEq/L (3.5-5.1); Sodium 142 mEq/L (136-145); eGFR For African Americans > 60 (> 60); eGFR For Non-African Americans > 60 (> 60)
[2019-07-05 08:17] LABS: ABG Base Excess 24 mEq/L (-2 to 3); ABG HCO3 55 mEq/L (21-27); ABG Oxygen Saturation 83 % (95-98); ABG PCO2 99 mmHg (35-45); ABG PH 7.35 pH Units (7.32-7.45); ABG PO2 55 mmHg (85-104); ABG TCO2 > 50 mEq/L (20-26)
[2019-07-05] MEDS: Aspirin 81 MG TAB.CHEW PO SCH (08:25)
[2019-07-05] MEDS: Pantoprazole 40 MG VIAL IVP SCH (08:25)
[2019-07-05] MEDS: Cyanocobalamin (B-12) 1,000 MCG/ML VIAL IM SCH (08:25)
[2019-07-05] MEDS: ALPRAZolam 0.5 MG TABLET PO SCH ×3 (08:25→21:14)
[2019-07-05] MEDS: levoFLOXacin 500 MG TABLET PO SCH (08:25)
[2019-07-05] MEDS: Iron Sucrose Complex 200 MG in 0.9 % Sodium Chloride 100 ML IVPB SCH (10:38)
[2019-07-05] MEDS: MethylPREDNISolone 40 MG/ML VIAL IVP SCH ×2 (14:49→23:56)
[2019-07-05] MEDS: Mirtazapine 15 MG TABLET PO SCH (21:14)
[2019-07-06 03:21] LABS: Hematocrit 30.7 % (35.3-44.9); Hemoglobin 8.2 g/dL (11.5-15.4); Mean Corpuscular HGB Conc 26.7 g/dL (31.6-35.5); Mean Corpuscular Hemoglobin 22.7 pg (28.0-33.3); Mean Platelet Volume 9.8 fL (9.4-12.4); Platelet Count 243 K/mcL (140-400); Red Blood Count 3.61 M/mcL (3.82-4.97); Red Cell Distribution Width 19.7 % (11.5-14.5); White Blood Count 11.4 K/mcL (4.3-11.1)
[2019-07-06 03:55] LABS: BUN/Creatinine Ratio 33 (6-26); Blood Urea Nitrogen 13 mg/dL (6-20); Calcium 9.1 mg/dL (8.6-10.3); Carbon Dioxide > 45 mEq/L (23-29); Chloride 90 mEq/L (98-107); Glucose 127 mg/dL (70-105); Osmolality,Calculated 288 (280-300); Sodium 138 mEq/L (136-145); eGFR For African Americans > 60 (> 60); eGFR For Non-African Americans > 60 (> 60)
[2019-07-06] MEDS: Ipratropium/Albuterol Neb 3 ML IH SCH ×3 (04:21→11:18)
[2019-07-06] MEDS: *HR* Heparin 5,000 UNIT/ML VIAL SQ SCH (05:43)
[2019-07-06 07:43] VITALS: BP 138/74
[2019-07-06] MEDS: Budesonide/Formoterol 160/4.5 1 PUFF INH IH SCH (07:46)
[2019-07-06] MEDS: ALPRAZolam 0.5 MG TABLET PO SCH (09:15)
[2019-07-06] MEDS: Aspirin 81 MG TAB.CHEW PO SCH (09:15)
[2019-07-06] MEDS: levoFLOXacin 500 MG TABLET PO SCH (09:15)
[2019-07-06] MEDS: MethylPREDNISolone 40 MG/ML VIAL IVP SCH (09:17)
[2019-07-06] MEDS: Cyanocobalamin (B-12) 1,000 MCG/ML VIAL IM SCH (09:17)
[2019-07-06] MEDS: Pantoprazole 40 MG VIAL IVP SCH (09:17)
[2019-07-06] MEDS: Tiotropium 18 MCG inhalation IH SCH (10:08)
== END 2019-07-06 13:19 | disposition home or self-care (01) | DRG 308 ==
LOC: EMEROOARM 15:21 → 3BNU 15:21
PROVIDERS: ADMIT Internal Medicine; ATTEND Internal Medicine

== ENCOUNTER 2020-06-17 21:19 | Inpatient (IN) ==
[2020-06-18] MEDS: Ipratropium/Albuterol Neb 3 ML IH SCH ×5 (01:13→21:52)
[2020-06-18] MEDS: MethylPREDNISolone 40 MG/ML VIAL IVP SCH ×4 (01:23→23:26)
[2020-06-18] MEDS: Azithromycin 500 MG in 0.9 % Sodium Chloride 250 ML IVPB SCH (01:24)
[2020-06-18] MEDS ORDERED: Nitroglycerin 0.4 MG TAB.SUBL SL PRN (01:40)
[2020-06-18] MEDS: Mirtazapine 15 MG TABLET PO SCH ×3 (01:57→23:26)
[2020-06-18] MEDS: ALPRAZolam 0.5 MG TABLET PO SCH ×3 (01:57→23:26)
[2020-06-18 03:19] LABS: Basophils % 0.1 %; Mean Corpuscular Volume 102.4 fL (83.0-100.0); Mean Platelet Volume 9.1 fL (9.4-12.4)
[2020-06-18 03:21] LABS: Immature Granulocytes % 0.7 % (0-4); Lymphocytes # 0.4 K/mcL (0.6-4.6); Lymphocytes % 2.1 %; Mean Corpuscular HGB Conc 28.2 g/dL (31.6-35.5); Mean Corpuscular Hemoglobin 28.9 pg (28.0-33.3); Monocytes # 0.3 K/mcL (0.0-1.3); Monocytes % 1.4 %; Neutrophils # 17.4 K/mcL (1.6-8.9); Platelet Count 298 K/mcL (140-400); Red Blood Count 3.81 M/mcL (3.82-4.97); Red Cell Distribution Width 12.6 % (11.5-14.5); Segmented Neutrophils % 95.7 %; White Blood Count 18.2 K/mcL (4.3-11.1)
[2020-06-18 03:38] LABS: Alanine Aminotransferase 4 Units/L (7-52); Albumin 3.3 g/dL (3.5-5.7); Albumin/Globulin Ratio 1.1 (1.1-2.2); Alkaline Phosphatase 59 Units/L (34-104); Aspartate Amino Transferase 11 Units/L (13-39); BUN/Creatinine Ratio 23 (6-26); Bilirubin,Total 0.3 mg/dL (0.3-1.0); Blood Urea Nitrogen 9 mg/dL (6-20); Calcium 8.7 mg/dL (8.6-10.3); Carbon Dioxide 45 mEq/L (23-29); Chloride 87 mEq/L (98-107); Glucose 214 mg/dL (70-105); Osmolality,Calculated 287 (280-300); Potassium 3.8 mEq/L (3.5-5.1); Sodium 136 mEq/L (136-145); Total Protein 6.3 g/dL (6.4-8.9); eGFR For African Americans > 60 (> 60); eGFR For Non-African Americans > 60 (> 60)
[2020-06-18 03:59] LABS: Platelet Estimate Normal (Normal)
[2020-06-18] MEDS: Cholecalciferol (D-3) 1,000 UNIT (25MCG) TABLET PO SCH (09:48)
[2020-06-18] MEDS: Aspirin 81 MG TAB.CHEW PO SCH (09:48)
[2020-06-18] MEDS: Metoprolol XL (24 HR) Succ 25 MG TAB.ER.24H PO SCH (09:48)
[2020-06-18] MEDS: Cyanocobalamin (B-12) 1,000 MCG TABLET PO SCH (09:48)
[2020-06-18 11:35] LABS: Adenovirus Not Detected (Not Detect); Bordetella Pertussis Not Detected (Not Detect); Chlamydophila pneumoniae Not Detected (Not Detect); Coronavirus 229E Not Detected (Not Detect); Coronavirus HKU1 Not Detected (Not Detect); Coronavirus NL63 Not Detected (Not Detect); Coronavirus OC43 Not Detected (Not Detect); Human Metapneumovirus Not Detected (Not Detect); Human Rhinovirus/Enterovirus Not Detected (Not Detect); Influenza A Subtype 2009 H1 Not Detected (Not Detect); Influenza B Not Detected (Not Detect); Mycoplasma pneumoniae Not Detected (Not Detect); Parainfluenza Virus 1 Not Detected (Not Detect); Parainfluenza Virus 2 Not Detected (Not Detect); Parainfluenza Virus 3 Not Detected (Not Detect); Parainfluenza Virus 4 Not Detected (Not Detect); Respiratory Syncytial Virus Not Detected (Not Detect); SARS-CoV-2 Not Detected (Not Detect)
[2020-06-18] MEDS ORDERED: Ipratropium/Albuterol Neb 3 ML IH PRN (15:23)
[2020-06-18] MEDS: *HR* Heparin 5,000 UNIT/ML VIAL SQ SCH (17:39)
[2020-06-18] MEDS: Budesonide/Formoterol 160/4.5 1 PUFF INH IH SCH (21:53)
[2020-06-19] MEDS: Azithromycin 500 MG in 0.9 % Sodium Chloride 250 ML IVPB SCH (01:22)
[2020-06-19 03:16] LABS: Basophils % 0.1 %; Immature Granulocytes % 0.6 % (0-4); Lymphocytes # 0.4 K/mcL (0.6-4.6); Lymphocytes % 3.9 %; Mean Corpuscular HGB Conc 29.1 g/dL (31.6-35.5); Mean Corpuscular Hemoglobin 29.6 pg (28.0-33.3); Mean Corpuscular Volume 101.9 fL (83.0-100.0); Mean Platelet Volume 9.4 fL (9.4-12.4); Monocytes # 0.6 K/mcL (0.0-1.3); Monocytes % 5.4 %; Neutrophils # 9.3 K/mcL (1.6-8.9); Platelet Count 276 K/mcL (140-400); Red Blood Count 3.14 M/mcL (3.82-4.97); Red Cell Distribution Width 12.6 % (11.5-14.5); White Blood Count 10.4 K/mcL (4.3-11.1)
[2020-06-19 03:19] LABS: Hemoglobin 9.3 g/dL (11.5-15.4)
[2020-06-19 03:48] LABS: BUN/Creatinine Ratio 40 (6-26); Blood Urea Nitrogen 14 mg/dL (6-20); Calcium 8.6 mg/dL (8.6-10.3); Carbon Dioxide 43 mEq/L (23-29); Chloride 91 mEq/L (98-107); Glucose 129 mg/dL (70-105); Osmolality,Calculated 282 (280-300); Phosphorous 2.4 mg/dL (2.7-4.5); Potassium 4.4 mEq/L (3.5-5.1); Sodium 135 mEq/L (136-145); eGFR For African Americans > 60 (> 60); eGFR For Non-African Americans > 60 (> 60)
[2020-06-19] MEDS: Ipratropium/Albuterol Neb 3 ML IH SCH ×4 (04:01→22:58)
[2020-06-19] MEDS: *HR* Heparin 5,000 UNIT/ML VIAL SQ SCH ×2 (05:39→16:57)
[2020-06-19] MEDS: Cholecalciferol (D-3) 1,000 UNIT (25MCG) TABLET PO SCH (08:14)
[2020-06-19] MEDS: Mirtazapine 15 MG TABLET PO SCH ×2 (08:14→20:08)
[2020-06-19] MEDS: Aspirin 81 MG TAB.CHEW PO SCH (08:15)
[2020-06-19] MEDS: Cyanocobalamin (B-12) 1,000 MCG TABLET PO SCH (08:15)
[2020-06-19] MEDS: ALPRAZolam 0.5 MG TABLET PO SCH ×2 (08:15→19:57)
[2020-06-19] MEDS: Metoprolol XL (24 HR) Succ 25 MG TAB.ER.24H PO SCH (08:16)
[2020-06-19] MEDS: MethylPREDNISolone 40 MG/ML VIAL IVP SCH ×3 (08:16→23:58)
[2020-06-19 09:04] LABS: VBG HCO3 48 mEq/L (21-27); VBG PCO2 93 mmHg (41-51); VBG PH 7.32 pH Units (7.32-7.42); VBG PO2 223 mmHg (25-50)
[2020-06-19] MEDS: Budesonide/Formoterol 160/4.5 1 PUFF INH IH SCH ×2 (11:30→22:58)
[2020-06-20] MEDS: Azithromycin 500 MG in 0.9 % Sodium Chloride 250 ML IVPB SCH (00:09)
[2020-06-20] MEDS: Ipratropium/Albuterol Neb 3 ML IH SCH ×4 (03:26→21:27)
[2020-06-20 04:16] LABS: Basophils % 0.1 %; Hemoglobin 9.3 g/dL (11.5-15.4); Immature Granulocytes % 0.4 % (0-4); Lymphocytes # 0.4 K/mcL (0.6-4.6); Lymphocytes % 4.8 %; Mean Corpuscular HGB Conc 29.1 g/dL (31.6-35.5); Mean Corpuscular Hemoglobin 29.8 pg (28.0-33.3); Mean Corpuscular Volume 102.6 fL (83.0-100.0); Mean Platelet Volume 9.1 fL (9.4-12.4); Monocytes # 0.5 K/mcL (0.0-1.3); Monocytes % 7.1 %; Neutrophils # 6.5 K/mcL (1.6-8.9); Platelet Count 285 K/mcL (140-400); Red Blood Count 3.12 M/mcL (3.82-4.97); Red Cell Distribution Width 12.8 % (11.5-14.5); Segmented Neutrophils % 87.6 %; White Blood Count 7.5 K/mcL (4.3-11.1)
[2020-06-20 04:37] LABS: BUN/Creatinine Ratio 33 (6-26); Blood Urea Nitrogen 10 mg/dL (6-20); Calcium 8.9 mg/dL (8.6-10.3); Carbon Dioxide > 45 mEq/L (23-29); Chloride 92 mEq/L (98-107); Glucose 122 mg/dL (70-105); Osmolality,Calculated 286 (280-300); Potassium 3.6 mEq/L (3.5-5.1); Sodium 138 mEq/L (136-145); eGFR For African Americans > 60 (> 60); eGFR For Non-African Americans > 60 (> 60)
[2020-06-20] MEDS: *HR* Heparin 5,000 UNIT/ML VIAL SQ SCH ×2 (05:10→16:34)
[2020-06-20] MEDS: MethylPREDNISolone 40 MG/ML VIAL IVP SCH (07:31)
[2020-06-20] MEDS: Cholecalciferol (D-3) 1,000 UNIT (25MCG) TABLET PO SCH (07:32)
[2020-06-20] MEDS: Aspirin 81 MG TAB.CHEW PO SCH (07:32)
[2020-06-20] MEDS: ALPRAZolam 0.5 MG TABLET PO SCH ×2 (07:32→21:07)
[2020-06-20] MEDS: Mirtazapine 15 MG TABLET PO SCH ×2 (07:32→21:07)
[2020-06-20] MEDS: Metoprolol XL (24 HR) Succ 25 MG TAB.ER.24H PO SCH (07:32)
[2020-06-20] MEDS: Cyanocobalamin (B-12) 1,000 MCG TABLET PO SCH (07:33)
[2020-06-20] MEDS: Budesonide/Formoterol 160/4.5 1 PUFF INH IH SCH ×2 (07:38→21:27)
[2020-06-20] MEDS ORDERED: predniSONE 20 MG TABLET PO ONE (10:08)
[2020-06-20 10:26] LABS: Troponin I < 0.03 ng/mL (< 0.04)
[2020-06-21] MEDS: Ipratropium/Albuterol Neb 3 ML IH SCH ×4 (03:40→22:52)
[2020-06-21] MEDS: *HR* Heparin 5,000 UNIT/ML VIAL SQ SCH ×2 (05:06→18:59)
[2020-06-21 07:26] LABS: Hemoglobin 10.4 g/dL (11.5-15.4); Immature Granulocytes % 0.8 % (0-4)
[2020-06-21 07:27] LABS: Basophils % 0.3 %; Hematocrit 37.9 % (35.3-44.9); Lymphocytes # 1.6 K/mcL (0.6-4.6); Lymphocytes % 15.7 %; Mean Corpuscular HGB Conc 27.4 g/dL (31.6-35.5); Mean Corpuscular Hemoglobin 28.7 pg (28.0-33.3); Mean Corpuscular Volume 104.7 fL (83.0-100.0); Monocytes # 1.2 K/mcL (0.0-1.3); Monocytes % 11.6 %; Neutrophils # 7.1 K/mcL (1.6-8.9); Platelet Count 363 K/mcL (140-400); Red Blood Count 3.62 M/mcL (3.82-4.97); Segmented Neutrophils % 71.6 %; White Blood Count 9.9 K/mcL (4.3-11.1)
[2020-06-21 08:03] LABS: BUN/Creatinine Ratio 33 (6-26); Blood Urea Nitrogen 12 mg/dL (6-20); Carbon Dioxide > 45 mEq/L (23-29); Chloride 92 mEq/L (98-107); Glucose 90 mg/dL (70-105); Osmolality,Calculated 291 (280-300); Potassium 3.3 mEq/L (3.5-5.1); Sodium 141 mEq/L (136-145); eGFR For African Americans > 60 (> 60); eGFR For Non-African Americans > 60 (> 60)
[2020-06-21] MEDS: Aspirin 81 MG TAB.CHEW PO SCH (08:23)
[2020-06-21] MEDS: Cyanocobalamin (B-12) 1,000 MCG TABLET PO SCH (08:23)
[2020-06-21] MEDS: Mirtazapine 15 MG TABLET PO SCH ×2 (08:23→20:36)
[2020-06-21] MEDS: Cholecalciferol (D-3) 1,000 UNIT (25MCG) TABLET PO SCH (08:23)
[2020-06-21] MEDS: Metoprolol XL (24 HR) Succ 25 MG TAB.ER.24H PO SCH (08:23)
[2020-06-21] MEDS: ALPRAZolam 0.5 MG TABLET PO SCH ×2 (08:23→20:36)
[2020-06-21] MEDS: Azithromycin 250 MG TABLET PO SCH (08:24)
[2020-06-21 09:13] LABS: Platelet Estimate Normal (Normal); Stomatocytes 2+ (Not Present)
[2020-06-21] MEDS: Budesonide/Formoterol 160/4.5 1 PUFF INH IH SCH ×2 (11:35→22:52)
[2020-06-22] MEDS: Ipratropium/Albuterol Neb 3 ML IH SCH ×4 (03:56→22:29)
[2020-06-22] MEDS: *HR* Heparin 5,000 UNIT/ML VIAL SQ SCH ×2 (05:20→18:21)
[2020-06-22] MEDS: Aspirin 81 MG TAB.CHEW PO SCH (07:22)
[2020-06-22] MEDS: Cyanocobalamin (B-12) 1,000 MCG TABLET PO SCH (07:22)
[2020-06-22] MEDS: ALPRAZolam 0.5 MG TABLET PO SCH ×2 (07:22→20:11)
[2020-06-22] MEDS: Cholecalciferol (D-3) 1,000 UNIT (25MCG) TABLET PO SCH (07:22)
[2020-06-22] MEDS: Mirtazapine 15 MG TABLET PO SCH ×2 (07:23→20:11)
[2020-06-22] MEDS: Azithromycin 250 MG TABLET PO SCH (07:23)
[2020-06-22] MEDS: Metoprolol XL (24 HR) Succ 25 MG TAB.ER.24H PO SCH (07:23)
[2020-06-22] MEDS ORDERED: Pantoprazole 40 MG VIAL IVP ONE (08:03)
[2020-06-22 09:25] LABS: Basophils % 0.2 %; Eosinophils # 0.2 K/mcL (0.0-0.6); Eosinophils % 1.8 %; Hematocrit 35.3 % (35.3-44.9); Hemoglobin 9.7 g/dL (11.5-15.4); Immature Granulocytes % 0.9 % (0-4); Lymphocytes # 1.6 K/mcL (0.6-4.6); Lymphocytes % 12.8 %; Mean Corpuscular HGB Conc 27.5 g/dL (31.6-35.5); Mean Corpuscular Hemoglobin 29.8 pg (28.0-33.3); Mean Corpuscular Volume 108.3 fL (83.0-100.0); Mean Platelet Volume 8.8 fL (9.4-12.4); Monocytes # 1.3 K/mcL (0.0-1.3); Monocytes % 10.8 %; Neutrophils # 8.9 K/mcL (1.6-8.9); Platelet Count 342 K/mcL (140-400); Red Blood Count 3.26 M/mcL (3.82-4.97); Red Cell Distribution Width 13.3 % (11.5-14.5); Segmented Neutrophils % 73.5 %; White Blood Count 12.1 K/mcL (4.3-11.1)
[2020-06-22 09:57] LABS: Thyroid Stimulating Hormone 4.026 mcIU/mL (0.340-5.600)
[2020-06-22 10:17] LABS: BUN/Creatinine Ratio 36 (6-26); Blood Urea Nitrogen 13 mg/dL (6-20); Calcium 8.8 mg/dL (8.6-10.3); Carbon Dioxide > 45 mEq/L (23-29); Chloride 89 mEq/L (98-107); Glucose 99 mg/dL (70-105); Osmolality,Calculated 294 (280-300); Potassium 3.4 mEq/L (3.5-5.1); Sodium 142 mEq/L (136-145); eGFR For African Americans > 60 (> 60); eGFR For Non-African Americans > 60 (> 60)
[2020-06-22] MEDS: Budesonide/Formoterol 160/4.5 1 PUFF INH IH SCH ×2 (10:35→22:29)
[2020-06-22 10:42] LABS: Anisocytosis 1+ (Not Present); Macrocytosis Present (Not Present); Platelet Estimate Normal (Normal)
[2020-06-22] MEDS ORDERED: Mag Hydrox/Al Hydrox/Simeth 30 ML UDC PO PRN (11:26)
[2020-06-22 12:02] LABS: Troponin I < 0.03 ng/mL (< 0.04)
[2020-06-22] MEDS ORDERED: Pantoprazole 40 MG VIAL IVP SCH (18:00)
[2020-06-23 03:27] LABS: Mean Platelet Volume 9.1 fL (9.4-12.4); Red Cell Distribution Width 13.5 % (11.5-14.5); Segmented Neutrophils % 73.2 %
[2020-06-23 03:29] LABS: Basophils % 0.1 %; Eosinophils # 0.3 K/mcL (0.0-0.6); Eosinophils % 2.3 %; Hematocrit 32.1 % (35.3-44.9); Immature Granulocytes % 0.8 % (0-4); Lymphocytes # 1.5 K/mcL (0.6-4.6); Lymphocytes % 10.9 %; Mean Corpuscular Hemoglobin 30.5 pg (28.0-33.3); Mean Corpuscular Volume 108.8 fL (83.0-100.0); Monocytes # 1.7 K/mcL (0.0-1.3); Monocytes % 12.7 %; Nucleated Red Blood Cells 0.1 /100 WBC (0); Platelet Count 340 K/mcL (140-400); Red Blood Count 2.95 M/mcL (3.82-4.97); White Blood Count 13.6 K/mcL (4.3-11.1)
[2020-06-23] MEDS: Ipratropium/Albuterol Neb 3 ML IH SCH ×4 (03:49→22:29)
[2020-06-23 03:52] LABS: BUN/Creatinine Ratio 43 (6-26); Blood Urea Nitrogen 13 mg/dL (6-20); Calcium 8.7 mg/dL (8.6-10.3); Carbon Dioxide > 45 mEq/L (23-29); Chloride 86 mEq/L (98-107); Glucose 106 mg/dL (70-105); Osmolality,Calculated 295 (280-300); Potassium 3.4 mEq/L (3.5-5.1); Sodium 142 mEq/L (136-145); eGFR For African Americans > 60 (> 60); eGFR For Non-African Americans > 60 (> 60)
[2020-06-23 04:11] LABS: Hypochromasia Present (Not Present); Stomatocytes 1+ (Not Present)
[2020-06-23 04:12] LABS: Platelet Estimate Normal (Normal)
[2020-06-23] MEDS: *HR* Heparin 5,000 UNIT/ML VIAL SQ SCH ×2 (05:36→17:10)
[2020-06-23] MEDS: Metoprolol XL (24 HR) Succ 25 MG TAB.ER.24H PO SCH (08:59)
[2020-06-23] MEDS: ALPRAZolam 0.5 MG TABLET PO SCH ×2 (08:59→21:26)
[2020-06-23] MEDS: Cholecalciferol (D-3) 1,000 UNIT (25MCG) TABLET PO SCH (09:01)
[2020-06-23] MEDS: Mirtazapine 15 MG TABLET PO SCH ×2 (09:01→21:26)
[2020-06-23] MEDS: Aspirin 81 MG TAB.CHEW PO SCH (09:01)
[2020-06-23] MEDS: Cyanocobalamin (B-12) 1,000 MCG TABLET PO SCH (09:01)
[2020-06-23 10:18] LABS: Magnesium 1.9 mg/dL (1.6-2.6); Phosphorous 2.5 mg/dL (2.7-4.5)
[2020-06-23] MEDS: Budesonide/Formoterol 160/4.5 1 PUFF INH IH SCH ×2 (10:30→22:28)
[2020-06-23] MEDS ORDERED: Potassium Phosphate 44 MEQ in 0.9 % Sodium Chloride 250 ML IVPB ONE (11:02)
[2020-06-24] MEDS ORDERED: Ketorolac 30 MG/ML VIAL IVP ONE (03:32)
[2020-06-24] MEDS: *HR* Heparin 5,000 UNIT/ML VIAL SQ SCH ×2 (03:48→17:49)
[2020-06-24] MEDS: Ipratropium/Albuterol Neb 3 ML IH SCH ×4 (03:52→21:39)
[2020-06-24 04:46] LABS: Hemoglobin 8.9 g/dL (11.5-15.4); Immature Granulocytes % 1.4 % (0-4); Mean Corpuscular Hemoglobin 29.8 pg (28.0-33.3); Mean Platelet Volume 9.1 fL (9.4-12.4); Monocytes % 12.6 %; Nucleated Red Blood Cells 0.2 /100 WBC (0); Platelet Count 347 K/mcL (140-400); Red Blood Count 2.99 M/mcL (3.82-4.97)
[2020-06-24 04:47] LABS: Basophils # 0.1 K/mcL (0.0-0.2); Basophils % 0.4 %; Eosinophils # 0.5 K/mcL (0.0-0.6); Eosinophils % 2.9 %; Hematocrit 32.5 % (35.3-44.9); Lymphocytes % 10.9 %; Mean Corpuscular HGB Conc 27.4 g/dL (31.6-35.5); Mean Corpuscular Volume 108.7 fL (83.0-100.0); Monocytes # 2.3 K/mcL (0.0-1.3); Red Cell Distribution Width 14.1 % (11.5-14.5); Segmented Neutrophils % 71.8 %; White Blood Count 18.1 K/mcL (4.3-11.1)
[2020-06-24 05:05] LABS: BUN/Creatinine Ratio 31 (6-26); Blood Urea Nitrogen 12 mg/dL (6-20); Calcium 8.9 mg/dL (8.6-10.3); Carbon Dioxide > 45 mEq/L (23-29); Chloride 86 mEq/L (98-107); Glucose 111 mg/dL (70-105); Magnesium 1.9 mg/dL (1.6-2.6); Osmolality,Calculated 292 (280-300); Phosphorous 3.6 mg/dL (2.7-4.5); Potassium 4.1 mEq/L (3.5-5.1); Sodium 141 mEq/L (136-145); eGFR For African Americans > 60 (> 60); eGFR For Non-African Americans > 60 (> 60)
[2020-06-24 05:39] LABS: Platelet Estimate Normal (Normal); Poikilocytosis 1+ (Not Present); Stomatocytes 1+ (Not Present)
[2020-06-24] MEDS: Metoprolol XL (24 HR) Succ 25 MG TAB.ER.24H PO SCH (09:10)
[2020-06-24] MEDS: Mirtazapine 15 MG TABLET PO SCH ×2 (09:10→21:09)
[2020-06-24] MEDS: Cyanocobalamin (B-12) 1,000 MCG TABLET PO SCH (09:10)
[2020-06-24] MEDS: Cholecalciferol (D-3) 1,000 UNIT (25MCG) TABLET PO SCH (09:10)
[2020-06-24] MEDS: Aspirin 81 MG TAB.CHEW PO SCH (09:11)
[2020-06-24] MEDS: ALPRAZolam 0.5 MG TABLET PO SCH ×2 (09:11→21:09)
[2020-06-24 11:04] LABS: VBG HCO3 69 mEq/L (21-27); VBG PCO2 113 mmHg (41-51); VBG PH 7.39 pH Units (7.32-7.42); VBG PO2 234 mmHg (25-50)
[2020-06-24] MEDS: Budesonide/Formoterol 160/4.5 1 PUFF INH IH SCH ×2 (11:22→21:39)
[2020-06-25] MEDS: Ipratropium/Albuterol Neb 3 ML IH SCH ×4 (03:40→23:00)
[2020-06-25] MEDS: *HR* Heparin 5,000 UNIT/ML VIAL SQ SCH ×2 (05:22→17:02)
[2020-06-25 05:46] LABS: Red Cell Distribution Width 14.6 % (11.5-14.5)
[2020-06-25 05:47] LABS: Hematocrit 31.9 % (35.3-44.9); Hemoglobin 8.8 g/dL (11.5-15.4); Mean Corpuscular HGB Conc 27.6 g/dL (31.6-35.5); Mean Corpuscular Hemoglobin 28.9 pg (28.0-33.3); Mean Corpuscular Volume 104.9 fL (83.0-100.0); Mean Platelet Volume 9.1 fL (9.4-12.4); Platelet Count 335 K/mcL (140-400); Red Blood Count 3.04 M/mcL (3.82-4.97); White Blood Count 13.5 K/mcL (4.3-11.1)
[2020-06-25 06:28] LABS: BUN/Creatinine Ratio 43 (6-26); Blood Urea Nitrogen 12 mg/dL (6-20); Calcium 8.9 mg/dL (8.6-10.3); Carbon Dioxide > 45 mEq/L (23-29); Chloride 85 mEq/L (98-107); Glucose 132 mg/dL (70-105); Osmolality,Calculated 286 (280-300); Potassium 4.2 mEq/L (3.5-5.1); Sodium 137 mEq/L (136-145); eGFR For African Americans > 60 (> 60); eGFR For Non-African Americans > 60 (> 60)
[2020-06-25] MEDS: Cyanocobalamin (B-12) 1,000 MCG TABLET PO SCH (09:32)
[2020-06-25] MEDS: Cholecalciferol (D-3) 1,000 UNIT (25MCG) TABLET PO SCH (09:32)
[2020-06-25] MEDS: Metoprolol XL (24 HR) Succ 25 MG TAB.ER.24H PO SCH (09:32)
[2020-06-25] MEDS: Mirtazapine 15 MG TABLET PO SCH ×2 (09:33→21:13)
[2020-06-25] MEDS: ALPRAZolam 0.5 MG TABLET PO SCH ×2 (09:33→21:13)
[2020-06-25] MEDS: Aspirin 81 MG TAB.CHEW PO SCH (09:33)
[2020-06-25] MEDS: Budesonide/Formoterol 160/4.5 1 PUFF INH IH SCH ×2 (11:17→23:21)
[2020-06-26] MEDS: Ipratropium/Albuterol Neb 3 ML IH SCH ×4 (04:30→21:46)
[2020-06-26] MEDS: *HR* Heparin 5,000 UNIT/ML VIAL SQ SCH ×2 (04:59→16:52)
[2020-06-26] MEDS: Metoprolol XL (24 HR) Succ 25 MG TAB.ER.24H PO SCH (08:10)
[2020-06-26] MEDS: Aspirin 81 MG TAB.CHEW PO SCH (08:10)
[2020-06-26] MEDS: ALPRAZolam 0.5 MG TABLET PO SCH ×2 (08:10→19:47)
[2020-06-26] MEDS: Cyanocobalamin (B-12) 1,000 MCG TABLET PO SCH (08:10)
[2020-06-26] MEDS: Mirtazapine 15 MG TABLET PO SCH ×2 (08:10→19:47)
[2020-06-26] MEDS: Cholecalciferol (D-3) 1,000 UNIT (25MCG) TABLET PO SCH (08:10)
[2020-06-26 10:14] LABS: VBG HCO3 54 mEq/L (21-27); VBG PCO2 108 mmHg (41-51); VBG PH 7.31 pH Units (7.32-7.42); VBG PO2 247 mmHg (25-50)
[2020-06-26] MEDS: polyethylene glycoL 3350 17 GM POWD.PACK PO PRN (11:05)
[2020-06-26] MEDS: Budesonide/Formoterol 160/4.5 1 PUFF INH IH SCH ×2 (11:13→21:46)
[2020-06-26 11:36] LABS: Hemoglobin 8.6 g/dL (11.5-15.4); Immature Granulocytes % 1.8 % (0-4); Mean Platelet Volume 9.4 fL (9.4-12.4); Nucleated Red Blood Cells 0.3 /100 WBC (0)
[2020-06-26] MEDS ORDERED: methylPREDNISolone 125 MG/2 ML VIAL IVP ONE (11:37)
[2020-06-26 11:40] LABS: Basophils % 0.3 %; Eosinophils # 0.3 K/mcL (0.0-0.6); Eosinophils % 2.4 %; Hematocrit 30.5 % (35.3-44.9); Lymphocytes % 8.8 %; Mean Corpuscular HGB Conc 28.2 g/dL (31.6-35.5); Mean Corpuscular Hemoglobin 30.1 pg (28.0-33.3); Mean Corpuscular Volume 106.6 fL (83.0-100.0); Monocytes # 2.1 K/mcL (0.0-1.3); Monocytes % 17.9 %; Platelet Count 318 K/mcL (140-400); Red Blood Count 2.86 M/mcL (3.82-4.97); Red Cell Distribution Width 14.8 % (11.5-14.5); Segmented Neutrophils % 68.8 %; White Blood Count 11.7 K/mcL (4.3-11.1)
[2020-06-26 11:45] LABS: Neutrophils # 8.1 K/mcL (1.6-8.9)
[2020-06-26 12:05] LABS: Platelet Estimate Normal (Normal)
[2020-06-26 12:06] LABS: Stomatocytes 1+ (Not Present)
[2020-06-26 12:07] LABS: Anisocytosis 1+ (Not Present)
[2020-06-26 12:17] LABS: BUN/Creatinine Ratio 40 (6-26); Blood Urea Nitrogen 10 mg/dL (6-20); Calcium 9.2 mg/dL (8.6-10.3); Carbon Dioxide > 45 mEq/L (23-29); Chloride 87 mEq/L (98-107); Glucose 105 mg/dL (70-105); Osmolality,Calculated 289 (280-300); Potassium 4.4 mEq/L (3.5-5.1); Sodium 140 mEq/L (136-145); eGFR For African Americans > 60 (> 60); eGFR For Non-African Americans > 60 (> 60)
[2020-06-27] MEDS: Ipratropium/Albuterol Neb 3 ML IH SCH ×2 (03:49→11:30)
[2020-06-27 04:31] LABS: Hemoglobin 8.2 g/dL (11.5-15.4)
[2020-06-27 04:33] LABS: Hematocrit 29.4 % (35.3-44.9); Mean Corpuscular HGB Conc 27.9 g/dL (31.6-35.5); Mean Corpuscular Hemoglobin 29.8 pg (28.0-33.3); Mean Corpuscular Volume 106.9 fL (83.0-100.0); Mean Platelet Volume 9.7 fL (9.4-12.4); Platelet Count 327 K/mcL (140-400); Red Blood Count 2.75 M/mcL (3.82-4.97); Red Cell Distribution Width 14.9 % (11.5-14.5)
[2020-06-27 04:50] LABS: BUN/Creatinine Ratio 34 (6-26); Blood Urea Nitrogen 13 mg/dL (6-20); Calcium 9.2 mg/dL (8.6-10.3); Carbon Dioxide > 45 mEq/L (23-29); Chloride 86 mEq/L (98-107); Glucose 111 mg/dL (70-105); Osmolality,Calculated 289 (280-300); Potassium 4.3 mEq/L (3.5-5.1); Sodium 139 mEq/L (136-145); eGFR For African Americans > 60 (> 60); eGFR For Non-African Americans > 60 (> 60)
[2020-06-27] MEDS: *HR* Heparin 5,000 UNIT/ML VIAL SQ SCH (06:23)
[2020-06-27] MEDS: Cyanocobalamin (B-12) 1,000 MCG TABLET PO SCH (07:42)
[2020-06-27] MEDS: Cholecalciferol (D-3) 1,000 UNIT (25MCG) TABLET PO SCH (07:42)
[2020-06-27] MEDS: Mirtazapine 15 MG TABLET PO SCH (07:42)
[2020-06-27] MEDS: Aspirin 81 MG TAB.CHEW PO SCH (07:42)
[2020-06-27] MEDS: ALPRAZolam 0.5 MG TABLET PO SCH (07:42)
[2020-06-27] MEDS ORDERED: predniSONE 20 MG TABLET PO SCH (09:00)
[2020-06-27 10:27] LABS: Eosinophils # 0.4 K/mcL (0.0-0.6); Lymphocytes # 1.7 K/mcL (0.6-4.6); Monocytes # 1.7 K/mcL (0.0-1.3); Neutrophils # 7.2 K/mcL (1.6-8.9)
[2020-06-27 10:28] LABS: Anisocytosis 1+ (Not Present); Hypochromasia Present (Not Present); Platelet Estimate Normal (Normal); Polychromasia 1+ (Not Present)
[2020-06-27 10:50] VITALS: BP 127/73
[2020-06-27] MEDS: polyethylene glycoL 3350 17 GM POWD.PACK PO PRN (11:23)
[2020-06-27] MEDS: Budesonide/Formoterol 160/4.5 1 PUFF INH IH SCH (11:30)
== END 2020-06-27 15:00 | disposition hospice, home (50) | DRG 190 ==
LOC: ICNU → SUATTDRO 23:33 → 2NNU 06-18 14:15 → SUATTDRO 06-18 17:48 → 2ANU 06-19 12:19
PROVIDERS: ADMIT Internal Medicine; ATTEND Internal Medicine